=== PATIENT | male | born 1965 | race Caucasian/White ===

== ENCOUNTER 2017-03-26 23:15 | Emergency (ER) | payer BC ==
[~2017-03-26] VITALS: Ht 179.1 cm; Wt 76.5 kg
[~2017-03-26 23:15] MED LIST: ACET-2158 PO; ACET500C5 PO; CIPR500T4 PO; INSU100V27 SC; LEVE-5 PO; MECL25TA2 PO; METF1000 PO; MUPI22OI2 TOP; PRAV20TA63 PO; ZOF8 PO
[2017-03-26 23:31] VITALS: Ht 179.1 cm; Wt 76.5 kg
--- NOTE | 2017-03-27 02:44 | ERD ---
ER Documentation Chief Complaint Date/Time DATE: 03/27/17 TIME: 02:42 Chief Complaint LT FOOT PAIN /WOUND ON HEEL X2 DAYS +SWELLING. HX DM HPI 30-year-old male presents to emergency department for complaint of left foot pain for 2 days, patient had a wound on the left foot, on the heel and on the plantar aspect of the foot, he noticed it today, discussed pain as throbbing pain, especially scale, comminuted with swelling and some redness. Patient is diabetic. Patient denies any numbness or tingling. Patient denies any fever or chills. ROS All systems reviewed and are negative except as per history of present illness. Medications Home Meds Active Scripts Acetaminophen* (Tylophen*) 500 Mg Capsule, 1 CAP PO Q6H Y for PAIN AND OR ELEVATED TEMP, #20 CAP Prov:MASSIEL PATTERSON NP 05/20/16 Mupirocin* (Bactroban*) 2% -22 Gram Oint...g., 1 APPLIC TOP BID for 7 Days, EA Prov:MAVIS LAYNE MD 04/29/15 Ciprofloxacin Hcl* (Ciprofloxacin Hcl*) 500 Mg Tablet, 500 MG PO BID for 7 Days , TAB Prov:MAVIS LAYNE MD 04/29/15 Levetiracetam* (Keppra*) 500 Mg Tablet, 500 MG PO BID for 30 Days, TAB Prov:CIELO ACEVEDO 08/30/14 Ondansetron Hcl* (Zofran* ODT) 8 mg -ODT Tab.disper, 8 MG PO q8h Y for NAUSEA AND OR VOMITING, #30 TAB Prov:CIELO ACEVEDO 08/30/14 Meclizine Hcl* (Antivert*) 25 Mg Tab, 25 MG PO TID Y for DIZZINESS, #90 Prov:CIELO ACEVEDO 08/30/14 Acetaminophen (TYLENOL 325 MG TAB) 325 Mg Tab, 650 MG PO Q4H Y for PAIN AND OR ELEVATED TEMP for 30 Days, TAB Prov:CIELO ACEVEDO 08/30/14 Reported Medications Pravastatin Sodium* (Pravastatin Sodium*) 20 Mg Tablet, 20 MG PO DAILY, TAB 08/27/14 Metformin Hcl* (Metformin Hcl*) 1,000 Mg Tablet, 1000 MG PO BID, TAB 08/27/14 Insulin Lisp Protam/Lisp Human* (Humalog Mix (75/25)*) 100 Units/Ml Susp, 30 SC BID, EA 08/27/14 Allergies Allergies: Coded Allergies: No Known Allergies (Unverified Allergy, Unknown, 03/26/17) PMhx/Soc History of Surgery: Yes (craniotomy) Anesthesia Reaction: No Hx Neurological Disorder: No Hx Respiratory Disorders: No Hx Cardiac Disorders: No Hx Psychiatric Problems: No Hx Miscellaneous Medical Probl: Yes (DM) Hx Alcohol Use: No Hx Substance Use: No Hx Tobacco Use: No Smoking Status: Never smoker FmHx Family History: No coronary disease, No diabetes, No other Physical Exam Vitals Vital Signs Date Time Temp Pulse Resp B/P Pulse Ox O2 Delivery O2 Flow Rate FiO2 03/26/17 23:31 98.1 89 18 115/68 99 Physical Exam GENERAL: The patient is well developed and appropriate for usual state of health, in no apparent distress. CHEST: Clear to auscultation bilaterally. There are no rales, wheezes or rhonchi. HEART: Regular rate and rhythm. No murmurs, clicks, rubs or gallops. No S3 or S4. ABDOMEN: Soft, nontender and nondistended. Good bowel sounds. No rebound or guarding. No gross peritonitis. No gross organomegaly or masses. No Manuel sign or McBurney point tenderness. BACK: No midline or flank tenderness. EXTREMITIES: Equal pulses bilaterally. There is no peripheral clubbing, cyanosis or edema. No focal swelling or erythema. Full range of motion. Grossly neurovascularly intact. NEURO: Alert and oriented. Cranial nerves 2-12 intact. Motor strength in all 4 extremities with 5/5 strength. Sensation grossly intact. Normal speech and gait. SKIN: Noted 0.5 cm ulcer on the plantar aspect of the left foot with some redness around the area, no purulent discharge. Noted some 0.5 cm also noted and heell area, no discharge noted, mild swelling noted and mild redness noted. There is no apparent rash or petechia. The skin is warm and dry. HEMATOLOGIC AND LYMPHATIC: There is no evidence of excessive bruising or lymphedema. No gross cervical, axillary, or inguinal lymphadenopathy. Results 24 hrs Current Medications Medications (Trade) Dose Ordered Sig/Hoang Route PRN Reason Start Time Stop Time Status Last Admin Dose Admin Cefazolin Sodium (Ancef) 1 gm ONCE ONCE IM 03/27/17 04:00 03/27/17 04:01 DC 03/27/17 04:16 Diphtheria/ Tetanus/Acell Pertussis (Adacel) 0.5 ml ONCE ONCE IM* 03/27/17 04:00 03/27/17 04:01 DC 03/27/17 04:18 PROCEDURE: XR Foot. CLINICAL INDICATION: Trauma. TECHNIQUE: AP, lateral and oblique views of the left foot was obtained. COMPARISON: There are no similar studies submitted for comparison. FINDINGS: There is normal bone mineralization. There is no acute fracture or dislocation. No osseous erosions are identified. The joint spaces are within normal limits. There is soft tissue swelling over the lateral aspect of the foot. A 3 mm radiopaque foreign body is seen along the lateral aspect of the foot overlying the head of the fifth metatarsal bone. IMPRESSION: No acute fracture or dislocation. Soft tissue swelling and small radiopaque foreign body. RPTAT: HIKT .Song Bullock MD, MD Date Time Electronically viewed and signed by .Song Bullock MD, on 03/27/2017 02:43 .T/ CC: MASSIEL PATTERSON NP PROCEDURE: XR Foot. CLINICAL INDICATION: Foreign body. TECHNIQUE: AP, lateral and oblique views of the left foot was obtained. COMPARISON: Examination performed earlier the same day. FINDINGS: There is normal bone mineralization. There is no acute fracture or dislocation. No osseous erosions are identified. The joint spaces are within normal limits. Some soft tissue swelling along the lateral aspect of the foot is unchanged. There has been interval removal of the previously seen foreign body. No other radiopaque foreign bodies are seen. IMPRESSION: Interval removal of a radiopaque foreign body. RPTAT: HIKT .Song Bullock MD, MD Date Time Electronically viewed and signed by .Song Bullock MD, on 03/27/2017 04:34 .T/ CC: MASSIEL PATTERSON NP Procedures/MDM Procedure Note: After patient's verbal consent, the wound was cleaned with diluted betadine, able to do small piece of glass on the open wound of the left foot without any difficulty. Medical Decision Making: Patient's pain is most likely consistent with a wound on affected area and the foreign body does was removed without any difficulty. There is no suspicion for neurovascular compromise. Patient has intact sensation and circulation of the affected extremity. There is low suspicion for septic arthritis. Patient does not have any fever. Radiology exams of the affected area does not show any fracture or dislocation. Noted foreign body was seen anymore the repeat x-ray. Disposition: Home. Patient is given prescription for ibuprofen for pain now for severe pain, Keflex and Bactrim. Patient was advised to elevate the affected area and apply ice on affected area. Patient was advised that if symptoms are worse, numbness, tingling, high fever, unable to move joint, worsening symptoms , to return to emergency department immediately. Otherwise, patient is advised to follow up with the primary care doctor in 2 days for reevaluation of the wound. Departure Diagnosis: Primary Impression: Foreign body (FB) in soft tissue Additional Impression: Wound infection Condition: Stable Patient Instructions: Foreign Body, Soft Tissue (Removed), Wound Care Additional Instructions: Patient is given prescription for ibuprofen for pain now for severe pain, Keflex and Bactrim. Patient was advised to elevate the affected area and apply ice on affected area. Patient was advised that if symptoms are worse, numbness , tingling, high fever, unable to move joint, worsening symptoms, to return to emergency department immediately. Otherwise, patient is advised to follow up with the primary care doctor in 2 days for reevaluation of the wound. MASSIEL PATTERSON NP March 27, 2017 02:44
[2017-03-27] MEDS ORDERED: DIPHTH/TET/ACEL PERTUSS (ADULT) 0.5 ML VIAL IM* ONE (04:00)
[2017-03-27] MEDS ORDERED: CEFAZOLIN 1 GM INJ IM ONE (04:00)
--- NOTE | 2017-03-27 04:34 | RADRPT ---
PROCEDURE: XR Foot. CLINICAL INDICATION: Foreign body. TECHNIQUE: AP, lateral and oblique views of the left foot was obtained. COMPARISON: Examination performed earlier the same day. FINDINGS: There is normal bone mineralization. There is no acute fracture or dislocation. No osseous erosions are identified. The joint spaces are within normal limits. Some soft tissue swelling along the lateral aspect of the foot is unchanged. There has been interva l removal of the previously seen foreign body. No other radiopaque foreign bodies are seen. IMPRESSION: Interval removal of a radiopaque foreign body. RPTAT: HIKT .Song Bullock MD, Date Time Electronically viewed and signed by .Song Bullock MD, on 03/27/2017 04:34 .T/
[2017-03-27] MEDS ORDERED: SULF1TAB31 PO (04:42)
[2017-03-27] MEDS ORDERED: IBUP-1542 PO (04:42)
[2017-03-27] MEDS ORDERED: CEPH-443 PO (04:42)
[2017-03-27 05:13] VITALS: BP 141/89; PULSE 74; RESP 16
== END 2017-03-27 05:14 | disposition home or self-care (01) ==
LOC: FTE 23:15
DX: S90.852A Superficial foreign body, left foot, initial encounter (principal); E11.9 Type 2 diabetes mellitus without complications; W25.XXXA Contact with sharp glass, initial encounter; Y92.9 Unspecified place or not applicable; Z79.4 Long term (current) use of insulin; Z79.84 Long term (current) use of oral hypoglycemic drugs
CPT/HCPCS: 73630; 90471; 90715; 96372; 99284; J0690

== ENCOUNTER 2017-04-03 01:54 | Emergency (ER) | payer BC ==
[~2017-04-03] VITALS: Ht 177.8 cm; Wt 77.0 kg
[~2017-04-03 01:54] MED LIST changes: +CEPH-443 PO; +IBUP-1542 PO; +SULF1TAB31 PO
[2017-04-03 02:00] VITALS: Ht 177.8 cm; Wt 77.0 kg
[2017-04-03 02:59] LABS: ADD SCAN DIFF NO
[2017-04-03 03:00] LABS: BASOPHIL # 0.1 10^3/ul (0.0-0.1); BASOPHILS % 0.8 % (0.0-2.0); EOSINOPHILS # 0.3 10^3/ul (0.0-0.5); EOSINOPHILS % 5.2 % (0.0-7.0); HEMATOCRIT 38.4 % (42.0-52.0); HEMOGLOBIN 12.9 g/dl (14.0-18.0); LYMPHOCYTES # 1.5 10^3/ul (0.8-2.9); LYMPHOCYTES % 22.9 % (15.0-51.0); MEAN CORPUSCULAR HEMOGLOBIN 27.7 pg (29.0-33.0); MEAN CORPUSCULAR HGB CONC 33.6 g/dl (32.0-37.0); MEAN CORPUSCULAR VOLUME 82.4 fl (82.0-101.0); MEAN PLATELET VOLUME 10.2 fl (7.4-10.4); MONOCYTE # 0.5 10^3/ul (0.3-0.9); MONOCYTES % 8.2 % (0.0-11.0); NEUTROPHILS % 62.7 % (39.0-77.0); PLATELET COUNT 316 10^3/UL (140-415); RED BLOOD COUNT 4.66 10^6/ul (4.70-6.10); RED CELL DISTRIBUTION WIDTH 11.9 % (11.5-14.5); WHITE BLOOD COUNT 6.3 10^3/ul (4.8-10.8)
[2017-04-03 03:26] LABS: ALBUMIN 4.8 g/dl (3.3-4.9); ALBUMIN/GLOBULIN RATIO 2.4; BILIRUBIN,INDIRECT 0.3 mg/dl (0-1.1); BILIRUBIN,TOTAL 0.3 mg/dl (0.2-1.3); CALCIUM 9.4 mg/dl (8.4-10.2); CREATININE 0.8 mg/dl (0.61-1.24); POTASSIUM 4.8 mmol/L (3.5-5.1); TOTAL PROTEIN 6.8 g/dl (6.1-8.1)
--- NOTE | 2017-04-03 03:29 | ERD ---
ER Documentation Chief Complaint Date/Time DATE: 04/03/17 TIME: 03:28 Chief Complaint Wound on the left foot, Swollen and red after 1 week HPI 52-year-old male presents to emergency department for evaluation of the wound on the left side, patient had a foreign body in the left foot that was removed one week ago, finished doses of antibiotics, patient states that he got better, and now it become more red and swollen again, complains of pain on affected area throbbing pain 4/10 scale, is worse with touching the area. Patient is diabetic. Patient denies any fever or chills. Patient noticed some serous fluid coming from the area. ROS All systems reviewed and are negative except as per history of present illness. Medications Home Meds Active Scripts Clindamycin Hcl* (Clindamycin Hcl*) 300 Mg Capsule, 300 MG PO TID for 10 Days, CAP Prov:MASSIEL PATTERSON NP 04/03/17 Cephalexin* (Keflex*) 500 Mg Capsule, 500 MG PO QID for 10 Days, CAP Prov:MASSIEL PATTERSON NP 03/27/17 Sulfamethoxazole/Trimethoprim* (Bactrim Ds* Tablet) 1 Each Tablet, 1 TAB PO BID , #20 TAB Prov:MASSIEL PATTERSON NP 03/27/17 Ibuprofen* (Motrin*) 600 Mg Tab, 600 MG PO Q6H Y for PAIN AND OR ELEVATED TEMP, #30 TAB Prov:MASSIEL PATTERSON NP 03/27/17 Acetaminophen* (Tylophen*) 500 Mg Capsule, 1 CAP PO Q6H Y for PAIN AND OR ELEVATED TEMP, #20 CAP Prov:MASSIEL PATTERSON NP 05/20/16 Mupirocin* (Bactroban*) 2% -22 Gram Oint...g., 1 APPLIC TOP BID for 7 Days, EA Prov:MAVIS LAYNE MD 04/29/15 Ciprofloxacin Hcl* (Ciprofloxacin Hcl*) 500 Mg Tablet, 500 MG PO BID for 7 Days , TAB Prov:MAVIS LAYNE MD 04/29/15 Levetiracetam* (Keppra*) 500 Mg Tablet, 500 MG PO BID for 30 Days, TAB Prov:CIELO ACEVEDO 08/30/14 Ondansetron Hcl* (Zofran* ODT) 8 mg -ODT Tab.disper, 8 MG PO q8h Y for NAUSEA AND OR VOMITING, #30 TAB Prov:CIELO ACEVEDO 08/30/14 Meclizine Hcl* (Antivert*) 25 Mg Tab, 25 MG PO TID Y for DIZZINESS, #90 Prov:CIELO ACEVEDO 08/30/14 Acetaminophen (TYLENOL 325 MG TAB) 325 Mg Tab, 650 MG PO Q4H Y for PAIN AND OR ELEVATED TEMP for 30 Days, TAB Prov:CIELO ACEVEDO 08/30/14 Reported Medications Pravastatin Sodium* (Pravastatin Sodium*) 20 Mg Tablet, 20 MG PO DAILY, TAB 08/27/14 Metformin Hcl* (Metformin Hcl*) 1,000 Mg Tablet, 1000 MG PO BID, TAB 08/27/14 Insulin Lisp Protam/Lisp Human* (Humalog Mix (75/25)*) 100 Units/Ml Susp, 30 SC BID, EA 08/27/14 Allergies Allergies: Coded Allergies: No Known Allergies (Unverified Allergy, Unknown, 03/26/17) PMhx/Soc Medical and Surgical Hx: pt denies Medical Hx, pt denies Surgical Hx History of Surgery: Yes (craniotomy) Anesthesia Reaction: No Hx Neurological Disorder: No Hx Respiratory Disorders: No Hx Cardiac Disorders: No Hx Psychiatric Problems: No Hx Miscellaneous Medical Probl: Yes (DM) Hx Alcohol Use: No Hx Substance Use: No Hx Tobacco Use: No Smoking Status: Never smoker FmHx Family History: No coronary disease, No diabetes, No other Physical Exam Vitals Vital Signs Date Time Temp Pulse Resp B/P Pulse Ox O2 Delivery O2 Flow Rate FiO2 04/03/17 02:00 97.4 88 18 130/77 99 Physical Exam GENERAL: The patient is well developed and appropriate for usual state of health, in no apparent distress. CHEST: Clear to auscultation bilaterally. There are no rales, wheezes or rhonchi. HEART: Regular rate and rhythm. No murmurs, clicks, rubs or gallops. No S3 or S4. ABDOMEN: Soft, nontender and nondistended. Good bowel sounds. No rebound or guarding. No gross peritonitis. No gross organomegaly or masses. No Manuel sign or McBurney point tenderness. BACK: No midline or flank tenderness. EXTREMITIES: Equal pulses bilaterally. There is no peripheral clubbing, cyanosis or edema. No focal swelling or erythema. Full range of motion. Grossly neurovascularly intact. NEURO: Alert and oriented. Cranial nerves 2-12 intact. Motor strength in all 4 extremities with 5/5 strength. Sensation grossly intact. Normal speech and gait. SKIN: Noted open wound on the plantar aspect of the left foot, mild redness surrounding the area, mild tenderness on palpation. No fluctuance noted. There is no apparent ecchymosis or petechia. The skin is warm and dry. HEMATOLOGIC AND LYMPHATIC: There is no evidence of excessive bruising or lymphedema. No gross cervical, axillary, or inguinal lymphadenopathy. Result Diagram: 04/03/17 0245 04/03/17 0245 Results 24 hrs Laboratory Tests Test 04/03/17 02:45 04/03/17 05:20 White Blood Count 6.310^3/ul Red Blood Count 4.6610^6/ul Hemoglobin 12.9g/dl Hematocrit 38.4% Mean Corpuscular Volume 82.4fl Mean Corpuscular Hemoglobin 27.7pg Mean Corpuscular Hemoglobin Concent 33.6g/dl Red Cell Distribution Width 11.9% Platelet Count 50988^3/UL Mean Platelet Volume 10.2fl Neutrophils % 62.7% Lymphocytes % 22.9% Monocytes % 8.2% Eosinophils % 5.2% Basophils % 0.8% Nucleated Red Blood Cells % 0.0/100WBC Neutrophils # 4.010^3/ul Lymphocytes # 1.510^3/ul Monocytes # 0.510^3/ul Eosinophils # 0.310^3/ul Basophils # 0.110^3/ul Nucleated Red Blood Cells # 0.010^3/ul Sodium Level 135mmol/L Potassium Level 4.8mmol/L Chloride Level 97mmol/L Carbon Dioxide Level 28mmol/L Anion Gap 15 Blood Urea Nitrogen 26mg/dl Creatinine 0.80mg/dl Glucose Level 408mg/dl Lactic Acid Level 1.4mmol/L Calcium Level 9.4mg/dl Total Bilirubin 0.3mg/dl Direct Bilirubin 0.00mg/dl Indirect Bilirubin 0.3mg/dl Aspartate Amino Transf (AST/SGOT) 31IU/L Alanine Aminotransferase (ALT/SGPT) 51IU/L Alkaline Phosphatase 124IU/L Total Protein 6.8g/dl Albumin 4.8g/dl Globulin 2.00g/dl Albumin/Globulin Ratio 2.40 Bedside Glucose 362mg/dL Current Medications Medications (Trade) Dose Ordered Sig/Hoang Route PRN Reason Start Time Stop Time Status Last Admin Dose Admin Clindamycin HCl/ Dextrose (Cleocin 600 Mg/ D5W (Pmx)) 50 ml @ 50 mls/hr ONCE IVPB 04/03/17 04:30 04/03/17 05:29 DC 04/03/17 05:07 Insulin Aspart (Novolog Insulin Pen) 10 unit ONCE ONCE SC 04/03/17 04:30 04/03/17 04:31 DC 04/03/17 05:01 PROCEDURE: XR Foot. CLINICAL INDICATION: Left foot pain and swelling TECHNIQUE: 3 views of the left foot were obtained. COMPARISON: None. FINDINGS: No fracture or dislocation is seen. No foreign body is seen. No marked soft tissue swelling. No significant degenerative change. Minimal calcaneal enthesopathy is seen. IMPRESSION: No definite acute fracture or dislocation. RPTAT: [facility] Physician Andre Date Time Electronically viewed and signed by Caitlyn Hope Physician on 04/03/2017 04 :07 LE/ CC: MASSIEL PATTERSON [employer]IMAL REHABILITATOR Procedures/MDM Medical Decision Making: Patient's pain is most likely consistent with a infection, no symptoms of any abscesses, no changes indicating osteomyelitis, no suspicion for osteomyelitis. No elevation of white count, that indicates it is normal, no bandemia noted.. There is no suspicion for neurovascular compromise. Patient has intact sensation and circulation of the affected extremity. There is low suspicion for septic arthritis. Patient does not have any fever. Radiology exams of the affected area does not show any fracture or dislocation. Patient's diabetic symptoms have stabilized here in the emergency department and appear appropriate for outpatient management. No evidence at this time of diabetic ketoacidosis, hyperosmolar syndrome, or severe systemic infection. Disposition: Home. Patient is given prescription for clindamycin. Patient was advised to elevate the affected area and apply ice on affected area. Patient was advised that if symptoms are worse, numbness, tingling, high fever, unable to move joint, worsening symptoms, to return to emergency department immediately. Otherwise, patient is advised to follow up with the primary care doctor in 2 days for reevaluation of symptoms. Departure Diagnosis: Primary Impression: Wound infection Additional Impression: Hyperglycemia Condition: Stable Patient Instructions: Hyperglycemia (High Blood Sugar), Wound Care Additional Instructions: Patient is given prescription for clindamycin. Patient was advised to elevate the affected area and apply ice on affected area. Patient was advised that if symptoms are worse, numbness, tingling, high fever, unable to move joint, worsening symptoms, to return to emergency department immediately. Otherwise, patient is advised to follow up with the primary care doctor in 2 days for reevaluation of symptoms. MASSIEL PATTERSON NP Apr 03, 2017 03:29
--- NOTE | 2017-04-03 04:07 | RADRPT ---
PROCEDURE: XR Foot. CLINICAL INDICATION: Left foot pain and swelling TECHNIQUE: 3 views of the left foot were obtained. COMPARISON: None. FINDINGS: No fracture or dislocation is seen. No foreign body is seen. No marked soft tissue swelling. No s ignificant degenerative change. Minimal calcaneal enthesopathy is seen. IMPRESSION: No definite acute fracture or dislocation. RPTAT: [facility] Caitlyn Hope Physician Date Time Electronically viewed and signed by Caitlyn Hope, Physician on 04/03/2017 04:07 LE/
[2017-04-03] MEDS ORDERED: CLIN-73 PO (04:24)
[2017-04-03] MEDS ORDERED: INSULIN ASPART [NOVOLOG] 3 ML PEN SC ONE (04:30)
[2017-04-03] MEDS ORDERED: CLINDAMYCIN 600 MG/D5W (PMX) 50 ML IVPB SCH (04:30)
== END 2017-04-03 05:54 | disposition home or self-care (01) ==
LOC: FTE 01:54
DX: T81.4XXA Infection following a procedure, initial encounter (principal); E11.65 Type 2 diabetes mellitus with hyperglycemia; Y69 Unspecified misadventure during surgical and medical care; Z18.89 Other specified retained foreign body fragments; Z79.4 Long term (current) use of insulin; Z79.84 Long term (current) use of oral hypoglycemic drugs
CPT/HCPCS: 73630; 80053; 82962; 83605; 85025; 87070; 96372; 96374; 99284; J1815

== ENCOUNTER 2017-07-23 18:59 | Inpatient (IN) | payer BC ==
[~2017-07-23] VITALS: Ht 167.6 cm; Wt 81.4 kg
[~2017-07-23 18:59] MED LIST changes: +CLIN-73 PO
[2017-07-23] MEDS ORDERED: CITA-104 PO (21:33)
[2017-07-23] MEDS ORDERED: SODIUM CHLORIDE 0.9% 1L BAG IV* STA (21:46)
[2017-07-23] MEDS ORDERED: PIPER-TAZO 3.375 GM IV (PMX) 100 ML IVPB STA (21:46)
[2017-07-23] MEDS ORDERED: VANCOMYCIN 1 GM (PMX) 250 ML IVPB STA (21:46)
--- NOTE | 2017-07-23 22:03 | ERA ---
ER Documentation Chief Complaint Date/Time DATE: 07/23/17 TIME: 22:01 Chief Complaint Having chills today, noted with left diabetic foot wound. On antibiotics HPI Patient is a 52-year-old male with type 1 diabetes sent to the ER from urgent care, where he presented with gradual onset, constant, progressive left lateral distal foot redness and discharge for 5 days. The foot has become more red over the last 2 days, and the patient has had lethargy, tachypnea shortness of breath, and dry mouth. His also has noted that he has a sweet odor to his breath. He was found to have a glucose of 469 at urgent care with 4+ ketones in his urine. He reports having a foreign body of glass in his left foot several months ago that was removed. He was treated for cellulitis at that time. There is no sign of infection until 5 days ago. Patient denies prior history of DKA. He denies abdominal pain or vomiting.He denies chest pain or shortness of breath. He did not measure his temperature, but states that he had sweats last night. ROS All systems reviewed and are negative except as per history of present illness. Medications Home Meds Reported Medications Citalopram Hydrobromide* (Citalopram Hydrobromide*) 40 Mg Tablet, 40 MG PO DAILY , #30 TAB 07/23/17 Pravastatin Sodium* (Pravastatin Sodium*) 20 Mg Tablet, 20 MG PO DAILY, TAB 08/27/14 Metformin Hcl* (Metformin Hcl*) 1,000 Mg Tablet, 1000 MG PO BID, TAB 08/27/14 Insulin Lisp Protam/Lisp Human* (Humalog Mix (75/25)*) 100 Units/Ml Susp, 35 SC BID, EA 08/27/14 Discontinued Scripts Clindamycin Hcl* (Clindamycin Hcl*) 300 Mg Capsule, 300 MG PO TID for 10 Days, CAP Prov:MASSIEL PATTERSON NP 04/03/17 Cephalexin* (Keflex*) 500 Mg Capsule, 500 MG PO QID for 10 Days, CAP Prov:MASSIEL PATTERSON NP 03/27/17 Sulfamethoxazole/Trimethoprim* (Bactrim Ds* Tablet) 1 Each Tablet, 1 TAB PO BID , #20 TAB Prov:MASSIEL PATTERSON NP 03/27/17 Ibuprofen* (Motrin*) 600 Mg Tab, 600 MG PO Q6H Y for PAIN AND OR ELEVATED TEMP, #30 TAB Prov:MASSIEL PATTERSON NP 03/27/17 Acetaminophen* (Tylophen*) 500 Mg Capsule, 1 CAP PO Q6H Y for PAIN AND OR ELEVATED TEMP, #20 CAP Prov:MASSIEL PATTERSON NP 05/20/16 Mupirocin* (Bactroban*) 2% -22 Gram Oint...g., 1 APPLIC TOP BID for 7 Days, EA Prov:MAVIS LAYNE MD 04/29/15 Ciprofloxacin Hcl* (Ciprofloxacin Hcl*) 500 Mg Tablet, 500 MG PO BID for 7 Days , TAB Prov:MAVIS LAYNE MD 04/29/15 Levetiracetam* (Keppra*) 500 Mg Tablet, 500 MG PO BID for 30 Days, TAB Prov:CIELO ACEVEDO 08/30/14 Ondansetron Hcl* (Zofran* ODT) 8 mg -ODT Tab.disper, 8 MG PO q8h Y for NAUSEA AND OR VOMITING, #30 TAB Prov:CIELO ACEVEDO 08/30/14 Meclizine Hcl* (Antivert*) 25 Mg Tab, 25 MG PO TID Y for DIZZINESS, #90 Prov:CIELO ACEVEDO 08/30/14 Acetaminophen (TYLENOL 325 MG TAB) 325 Mg Tab, 650 MG PO Q4H Y for PAIN AND OR ELEVATED TEMP for 30 Days, TAB Prov:CIELO ACEVEDO 08/30/14 Allergies Allergies: Coded Allergies: No Known Allergies (Unverified Allergy, Unknown, 07/23/17) PMhx/Soc Past medical history: Diabetes mellitus, traumatic subdural hematoma Past surgical history: Craniotomy Social history: Denies tobacco, alcohol or illicit drugs. History of Surgery: Yes (craniotomy) Anesthesia Reaction: No Hx Neurological Disorder: No Hx Respiratory Disorders: No Hx Cardiac Disorders: No Hx Psychiatric Problems: No Hx Miscellaneous Medical Probl: Yes (DM) Hx Alcohol Use: No Hx Substance Use: No Hx Tobacco Use: No Smoking Status: Never smoker FmHx Noncontributory Physical Exam Vitals Vital Signs Date Time Temp Pulse Resp B/P Pulse Ox O2 Delivery O2 Flow Rate FiO2 07/23/17 23:11 99.4 108 22 137/84 100 Room Air 07/23/17 19:27 99.4 115 22 125/68 98 Physical Exam Const: Alert, slightly lethargic, no acute distress Head: Atraumatic Eyes: Normal Conjunctiva, No pallor, no icterus ENT: Normal External Ears, Nose and Mouth. Tacky mucous membranes Neck: Full range of motion. No meningismus. Resp: Tachypnea. Clear to auscultation bilaterally. No wheezes, no rales Cardio: Moderate tachycardia, regular rhythm, no murmurs Abd: Soft, non tender, non distended. Skin: No petechiae or rashes Back: No midline or flank tenderness Ext: No cyanosis. Erythema and edema over left lateral fifth MTP. No drainage. No hemorrhagic bulla. 2+ DP pulses, 2 second cap refill. Neur: Awake and alert, Cranial nerves II through XII intact bilaterally, strength and sensation full in 4 extremes. Psych: Normal Mood and Affect Result Diagram: 07/23/17214607/23/172146 Results 24 hrs Laboratory Tests Test 07/23/17 21:37 07/23/17 21:47 Bedside Glucose 452mg/dL White Blood Count 19.110^3/ul Red Blood Count 4.9610^6/ul Hemoglobin 13.9g/dl Hematocrit 41.6% Mean Corpuscular Volume 83.9fl Mean Corpuscular Hemoglobin 28.0pg Mean Corpuscular Hemoglobin Concent 33.4g/dl Red Cell Distribution Width 12.4% Platelet Count 41520^3/UL Mean Platelet Volume 10.6fl Neutrophils % 88.7% Lymphocytes % 2.2% Monocytes % 7.3% Eosinophils % 0.0% Basophils % 0.2% Nucleated Red Blood Cells % 0.0/100WBC Neutrophils # 17.010^3/ul Lymphocytes # 0.410^3/ul Monocytes # 1.410^3/ul Eosinophils # 0.010^3/ul Basophils # 0.010^3/ul Nucleated Red Blood Cells # 0.010^3/ul Prothrombin Time 14.3Sec Prothrombin Time Ratio 1.1 INR International Normalized Ratio 1.11 Activated Partial Thromboplast Time 26.8Sec Sodium Level 132mmol/L Potassium Level 5.0mmol/L Chloride Level 95mmol/L Carbon Dioxide Level 10mmol/L Anion Gap 32 Blood Urea Nitrogen 20mg/dl Creatinine 1.10mg/dl Glucose Level 515mg/dl Lactic Acid Level 2.6mmol/L Calcium Level 9.7mg/dl Total Bilirubin 0.7mg/dl Direct Bilirubin 0.00mg/dl Indirect Bilirubin 0.7mg/dl Aspartate Amino Transf (AST/SGOT) 15IU/L Alanine Aminotransferase (ALT/SGPT) 24IU/L Alkaline Phosphatase 91IU/L Troponin I < 0.012ng/ml Total Protein 8.2g/dl Albumin 4.8g/dl Globulin 3.40g/dl Albumin/Globulin Ratio 1.41 Current Medications Medications (Trade) Dose Ordered Sig/Hoang Route PRN Reason Start Time Stop Time Status Last Admin Dose Admin Sodium Chloride 2290 ml 2,290 ml BOLUS OVER 2 HOURS STAT IV* 07/23/17 21:46 07/23/17 21:49 DC 07/23/17 22:12 Vancomycin HCl 250 ml @ 125 mls/hr ONCE STAT IVPB 07/23/17 21:46 07/23/17 23:45 DC 07/23/17 23:00 Piperacillin Sod/ Tazobactam Sod 100 ml @ 100 mls/hr ONCE STAT IVPB 07/23/17 21:46 07/23/17 22:45 DC 07/23/17 22:13 Insulin Human Regular 100 unit/ Sodium Chloride 100 ml @ 0 mls/hr TITRATE STAT IV 07/23/17 23:11 07/23/17 23:14 DC 07/23/17 23:50 Potassium Chloride 40 meq/ Sodium Chloride 270 ml @ 63 mls/hr Q4H18M STAT IV 07/23/17 23:11 07/24/17 03:28 Magnesium Sulfate (Magnesium Sulfate 2 Gm/50 ml) 50 ml @ 25 mls/hr ONCE ONCE IVPB 07/23/17 23:30 07/24/17 01:29 Procedures/MDM EKG read by me: Time 2241, rate 113 Rhythm: Sinus tachycardia [place]: Normal Intervals: Normal ST-T waves: no ischemic changes Ectopy: No Q-waves: No Q waves. Poor R-wave progression V1 to V2 suggestive of septal infarct Impression: Sinus tachycardia with possible prior septal infarct MDM: Patient is a 52-year-old male with type 1 diabetes insulin-dependent diabetes mellitus who presents to the ER with 5 days of worsening infection to the left foot. There is no sign of necrotizing soft tissue infection, but appearance is concerning for osteomyelitis. The patient is tachypneic and has odor of ketones on his breath. Labs confirm that he is in ketoacidosis. He has a normal potassium. There is no evidence of coronary ischemia. He was started on insulin drip. Blood and urine cultures were sent. ESR is pending. Serum ketones are pending. The patient was given IV fluids with potassium. He is given weight-based fluids for sepsis. Broad-spectrum antibiotics were administered. X-ray of the foot was not clearly consistent with osteomyelitis, but MRI may be necessary to establish the diagnosis. Urinalysis is pending. Chest x-ray showed no infiltrate. The patient will be admitted to the ICU for treatment of DKA and further infectious workup. His ABG shows a pH of 7.23. This was discussed with Dr. Acevedo. Critical Care Time: 31 minutes Treatments/Evaluations: Close monitoring and treatment of unstable vital signs, cardiorespiratory, and neurologic status, while maintaining tight balance of fluid, respiratory, and cardiac interventions. This time includes discussing the case with the patient and the patient's family. This time does not include all procedures stated elsewhere in this record. This time also includes reviewing old records, labs and radiological studies. This time includes examining and re-examining the patient. Additionally, this time also includes arranging care with admitting and consulting physicians. Departure Diagnosis: Primary Impression: Diabetic ketoacidosis Qualified Code: E10.10 - Diabetic ketoacidosis without coma associated with type 1 diabetes mellitus Additional Impressions: Diabetic foot infection Sepsis Qualified Code: A41.9 - Sepsis, due to unspecified organism Condition: PRASHANT Hardy MD Jul 23, 2017 22:03
[2017-07-23 22:38] LABS: ABNORMAL IP MESSAGE 1; BASOPHILS % 0.2 % (0.0-2.0); HEMATOCRIT 41.6 % (42.0-52.0); HEMOGLOBIN 13.9 g/dl (14.0-18.0); LYMPHOCYTES # 0.4 10^3/ul (0.8-2.9); LYMPHOCYTES % 2.2 % (15.0-51.0); MEAN CORPUSCULAR HGB CONC 33.4 g/dl (32.0-37.0); MEAN CORPUSCULAR VOLUME 83.9 fl (82.0-101.0); MEAN PLATELET VOLUME 10.6 fl (7.4-10.4); MONOCYTE # 1.4 10^3/ul (0.3-0.9); MONOCYTES % 7.3 % (0.0-11.0); NEUTROPHILS % 88.7 % (39.0-77.0); PLATELET COUNT 287 10^3/UL (140-415); POSITIVE DIFF @See below; RED BLOOD COUNT 4.96 10^6/ul (4.70-6.10); RED CELL DISTRIBUTION WIDTH 12.4 % (11.5-14.5); WHITE BLOOD COUNT 19.1 10^3/ul (4.8-10.8)
--- NOTE | 2017-07-23 22:47 | RADRPT ---
PROCEDURE: XR left foot. CLINICAL INDICATION: Pain. Clinical concern for osteomyelitis TECHNIQUE: AP and lateral views of the left foot were obtained. COMPARISON: None. FINDINGS: Mineralization is within normal limits. No fracture or osseous lesion is identified. There is no e vidence for dislocation. No focal bone destruction or periosteal reaction is demonstrated. Diffuse soft tissue swelling is present most pronounced overlying the fifth metatarsal phalangeal joint. Th ere is no evidence for a radiopaque foreign body. IMPRESSION: Soft tissue swelling most pronounced over the fifth metatarsal phalangeal joint without plain film e vidence for osteomyelitis of the left foot. RPTAT:HJJR Physician Dalton Date Time Electronically viewed and signed by Physician Dalton on 07/23/2017 22:47 /
--- NOTE | 2017-07-23 22:48 | RADRPT ---
PROCEDURE: XR Chest. CLINICAL INDICATION: Sepsis. TECHNIQUE: Portable AP cross-table views of the chest were obtained, 2 images submitted to the PAC S for review. COMPARISON: None. FINDINGS: The cardiomediastinal silhouette is within normal limits. The lungs are clear. There is no evidenc e for pleural effusion, pneumothorax or pulmonary vascular congestion. The osseous structures are i ntact with no evidence for acute abnormality. RPTAT:HJJR IMPRESSION: No evidence for acute intrathoracic pathology. Physician Dalton Date Time Electronically viewed and signed by Physician Dalton on 07/23/2017 22:48 /
[2017-07-23 22:52] LABS: INR 1.11; PROTIME 14.3 Sec (12.2-14.2); PT RATIO 1.1
[2017-07-23 22:53] LABS: PARTIAL THROMBOPLASTIN TIME 26.8 Sec (25.0-35.0)
[2017-07-23 23:07] LABS: ALANINE AMINOTRANSFERASE 24 IU/L (13-69); ALBUMIN 4.8 g/dl (3.3-4.9); ALBUMIN/GLOBULIN RATIO 1.41; ALKALINE PHOSPHATASE 91 IU/L (42-121); ANION GAP 32 (8-16); ASPARTATE AMINO TRANSFERASE 15 IU/L (15-46); BILIRUBIN,INDIRECT 0.7 mg/dl (0-1.1); BILIRUBIN,TOTAL 0.7 mg/dl (0.2-1.3); BLOOD UREA NITROGEN 20 mg/dl (7-20); CALCIUM 9.7 mg/dl (8.4-10.2); CHLORIDE 95 mmol/L (97-110); SODIUM 132 mmol/L (135-144); TOTAL PROTEIN 8.2 g/dl (6.1-8.1)
[2017-07-23 23:10] LABS: CARBON DIOXIDE 10 mmol/L (21-31); GLUCOSE 515 mg/dl (70-220)
[2017-07-23 23:11] VITALS: TEMP 99.4
[2017-07-23] MEDS ORDERED: INSULIN HUMAN REGULAR 100 UNIT in SOD CHLORIDE 0.9% 99 ML IV STA (23:11)
[2017-07-23] MEDS ORDERED: POTASSIUM CHLORIDE 40 MEQ in SOD CHLORIDE 0.9% 250 ML IV STA (23:11)
[2017-07-23 23:20] LABS: TROPONIN-I < 0.012 ng/ml (0.00-0.12)
[2017-07-23] MEDS ORDERED: MAGNESIUM SULFATE 2 GM/50 ML 50 ML IVPB ONE (23:30)
[2017-07-24] VITALS (20 sets, daily range): BP systolic 98–133; BP diastolic 60–86; PULSE 86–114; RESP 15–26
[2017-07-24] MEDS ORDERED: SODIUM CHLORIDE 0.9% 1L BAG IV* STA (00:19)
[2017-07-24] MEDS ORDERED: POTASSIUM CHLORIDE 50 ML IVPB PRN (00:30)
[2017-07-24] MEDS ORDERED: DEXTROSE 50% 50 ML SYRINGE IV PRN ×4 (00:30→10:00)
[2017-07-24] MEDS ORDERED: SOD CHLORIDE 0.9% 1,000 ML IV SCH (00:30)
[2017-07-24] MEDS ORDERED: INSULIN HUMAN REGULAR 100 UNIT in SOD CHLORIDE 0.9% 99 ML IV SCH (00:40)
[2017-07-24 00:46] LABS: ADD UMIC YES; UR ASCORBIC ACID NEGATIVE (NEGATIVE); UR BILIRUBIN (Dip) NEGATIVE (NEGATIVE); UR BLOOD (Dip) 1+ mg/dL (NEGATIVE); UR CLARITY CLEAR (CLEAR); UR COLOR STRAW (YELLOW); UR GLUCOSE (Dip) 3+ mg/dL (NEGATIVE); UR KETONES (Dip) 2+ mg/dL (NEGATIVE); UR LEUKOCYTE ESTERASE (Dip) NEGATIVE Leu/ul (NEGATIVE); UR NITRITE (Dip) NEGATIVE (NEGATIVE); UR RBC 1 /HPF (0-5); UR TOTAL PROTEIN (Dip) NEGATIVE (NEGATIVE); UR UROBILINOGEN (Dip) NEGATIVE (NEGATIVE)
[2017-07-24] MEDS ORDERED: BISACODYL 10 MG SUPP PR PRN (01:00)
[2017-07-24] MEDS ORDERED: ZOLPIDEM 5 MG TAB PO PRN (01:00)
[2017-07-24] MEDS ORDERED: morphine 2 MG INJ IV PRN (01:00)
[2017-07-24] MEDS ORDERED: HYDROCODONE/APAP (5/325) TAB PO PRN (01:00)
[2017-07-24] MEDS ORDERED: VANCOMYCIN IV PER PHARMACY XX SCH (01:00)
[2017-07-24] MEDS ORDERED: MAGNESIUM HYDROXIDE 30ML CUP PO PRN (01:00)
[2017-07-24] MEDS ORDERED: DOCUSATE SODIUM 100 MG CAP PO PRN (01:00)
[2017-07-24] MEDS: ACCU-CHEK XX SCH ×10 (01:09→09:30)
[2017-07-24] MEDS: HYDROCODONE/APAP (5/325) TAB PO PRN ×2 (01:39→22:47)
[2017-07-24 01:49] LABS: CALCIUM 8.7 mg/dl (8.4-10.2); CREATININE 0.9 mg/dl (0.61-1.24); MAGNESIUM 1.7 mg/dl (1.7-2.5)
[2017-07-24] MEDS ORDERED: DEXTROSE 5%-0.9% NACL 1,000 ML IV SCH (03:13)
[2017-07-24] MEDS ORDERED: PANTOPRAZOLE 40 MG INJ IV SCH (06:00)
[2017-07-24] MEDS: PIPER-TAZO 3.375 GM IV (PMX) 100 ML IVPB SCH ×3 (06:01→22:09)
[2017-07-24 06:57] LABS: AADO2 Arterial 20.2 mmHg (7.0-24.0); Allen Test ACCEPTAB; Arterial Base Excess -17.9 mmol/L (-3.0-3); Arterial COHb 0.1 % (0.0-3.0); Arterial Fraction of Oxyhgb 97.2 % (93.0-99.0); Arterial HCO3 7.1 mmol/L (22.0-26.0); Arterial MetHb 0.2 % (0.0-1.5); Arterial Total Hemglobin 13.5 g/dl (12.0-18.0); MODE ROOM AIR
[2017-07-24] MEDS ORDERED: PENDING SANTYL ORDER FOR WOUND CARE XX PRN (07:00)
[2017-07-24 08:19] LABS: ABNORMAL IP MESSAGE 1; BASOPHILS % 0.2 % (0.0-2.0); HEMATOCRIT 34.5 % (42.0-52.0); HEMOGLOBIN 11.5 g/dl (14.0-18.0); LYMPHOCYTES # 0.5 10^3/ul (0.8-2.9); LYMPHOCYTES % 3.4 % (15.0-51.0); MEAN CORPUSCULAR HEMOGLOBIN 26.9 pg (29.0-33.0); MEAN CORPUSCULAR HGB CONC 33.3 g/dl (32.0-37.0); MEAN CORPUSCULAR VOLUME 80.6 fl (82.0-101.0); MEAN PLATELET VOLUME 10.5 fl (7.4-10.4); MONOCYTES % 7.5 % (0.0-11.0); NEUTROPHIL # 11.9 10^3/ul (1.6-7.5); NEUTROPHILS % 87.3 % (39.0-77.0); PLATELET COUNT 221 10^3/UL (140-415); POSITIVE DIFF @See below; RED BLOOD COUNT 4.28 10^6/ul (4.70-6.10); RED CELL DISTRIBUTION WIDTH 12.7 % (11.5-14.5); WHITE BLOOD COUNT 13.6 10^3/ul (4.8-10.8)
[2017-07-24 08:44] LABS: CREATININE 0.61 mg/dl (0.61-1.24); PHOSPHORUS 1.5 mg/dl (2.5-4.9); POTASSIUM 3.9 mmol/L (3.5-5.1)
[2017-07-24] MEDS: CITALOPRAM 20 MG TAB PO SCH (08:52)
[2017-07-24] MEDS: VANCOMYCIN 1 GM in NS 250 ML IVPB SCH ×2 (08:52→20:06)
[2017-07-24] MEDS ORDERED: POTASSIUM PHOSPHATE 30 MM in SOD CHLORIDE 0.9% 250 ML IVPB ONE (09:30)
[2017-07-24] MEDS: SOD CHLORIDE 0.9% 1,000 ML IV SCH ×2 (09:30→16:31)
--- NOTE | 2017-07-24 09:50 | HP ---
Date/Time of Note Date/Time of Note DATE: 07/24/17 TIME: 09:48 Assessment/Plan VTE Prophylaxis VTE Prophylaxis Intervention: SCD's Lines/Catheters IV Catheter Type (from [facility]): Peripheral IV Urinary Cath still in place: No Assessment/Plan Assessment/Plan 52-year-old male with: 1. Diabetic ketoacidosis, likely triggered by acute infection and also poorly controlled diabetes mellitus, patient out of DKA this morning, his gap is closed , he will be transitioned to subcutaneous Lantus along with pre-meal insulin and sliding scale insulin. DC insulin drip. Start carbohydrate controlled diet and change IV fluids to normal saline. We will recheck his BMP around 12 today and later on this afternoon. If his gap stays closed and his blood sugars are fairly controlled he will be transferred to a medical surgical bed. Hemoglobin A1c is out of range Diabetic education is ordered. 2. Sepsis likely secondary to acute infection of the left foot, no signs of osteomyelitis on x-ray, ESR up to 60, patient may have contraindication to MRI, in that case alternative may be CAT scan will discuss with radiology, continue IV antibiotics for now. There is no draining wound, if needed wound consult will be placed. Follow-up blood cultures, urine cultures are no growth to date. 3. Electrolyte imbalance, insetting of DKA, all resolving currently, patient will receive supplemental phosphorus. 4. Hyperlipidemia: Continue statin therapy, check fasting lipid panel. Prophylaxis: SCDs for DVT prophylaxis, Protonix for GI prophylaxis Disposition: Transition off of insulin drip, monitored throughout the day with possible transfer to [facility] later today, continue current antibiotic therapy. HPI/ROS Admit Date/Time Admit Date/Time Jul 24, 2017 at 00:47 Hx of Present Illness Chief complaint: Lethargy, chills, nausea History of presenting illness: This is a 52-year-old male with diabetes mellitus insulin requiring, left foot previous wound status post removal of foreign body 4 months ago and subsequent antibiotic treatment who presented to the emergency department with complaint of lethargy, chills, nausea, dizziness, severe pain in his left foot especially while walking, polyuria and polydipsia for 24-36 hours. Patient was found to be in DKA and also septic with possible source being his left foot. X-ray of the left foot is not showing osteomyelitis. Likely patient unable to have an MRI because he has a previous head injury status post evacuation of epidural hematoma and that he reports that he has plates in his head. He has been started on an insulin drip, this morning his gap is close he will be transitioned to subcutaneous insulin. Lactic acid are down to normal, he is on IV fluids along with IV antibiotics. He feels better and leukocytosis is much improved. He is currently in the intensive care unit likely to transfer to a medical surgical bed later today once he is off insulin drip and his chemistry remained stable. Denies any chest pains, no dysuria or hematuria, no diarrhea, no neurological deficits. No previous history of renal failure or renal injury. No previous history of peripheral vascular disease or coronary artery disease. ROS Constitutional: chills, fatigue, nausea, poor po Eyes: no complaints ENT: no complaints Respiratory: no complaints Cardiovascular: lightheadedness Gastrointestinal: nausea Genitourinary: other (Polyuria) Skin: no complaints Neurologic: no complaints Endocrine: no complaints Lymphatic: no complaints Psychological: no complaints PMH/Family/Social Past Medical History Diabetes mellitus, insulin requiring, poorly controlled Hyperlipidemia Left foot injury with foreign body 4 months ago status post removal of foreign body and multiple courses of antibiotics a few weeks ago. Past Surgical History Status post epidural hematoma evacuation in 2013 after patient had head injury post fall Family History Significant Family History: no pertinent family hx Social History Alcohol Use: none Smoking Status: Never smoker Drug Use: none Exam/Review of Systems Vital Signs Vitals Vital Signs Date Time Temp Pulse Resp B/P Pulse Ox O2 Delivery O2 Flow Rate FiO2 07/24/17 07:00 107 19 132/73 96 Room Air 07/24/17 03:00 98.8 Intake and Output 07/23/17 07/23/17 07/24/17 15:00 23:00 07:00 Intake Total 609 ml Balance 609 ml Exam Constitutional: alert, oriented, well developed Respiratory: clear to auscultation, normal air movement Cardiovascular: nl pulses, regular rate and rhythm Gastrointestinal: non-tender, soft Musculoskeletal: other (Left foot with dressing, no erythema or edema seen on the rest of the foot. 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, nl mental status, nl speech, nl strength Labs Result Diagram: 07/24/17 0749 07/24/17 0749 Medications Medications Current Medications Citalopram Hydrobromide (Celexa) 40 mg DAILY PO Last administered on 07/24/17 08:52; Admin Dose 40 MG; Start 07/24/17 at 09:00 Atorvastatin Calcium (Lipitor) 10 mg DAILY@21 PO ; Start 07/24/17 at 21:00 Ondansetron HCl (Zofran Inj) 4 mg Q6H PRN IV NAUSEA AND/OR VOMITING; Start at 01:00 Acetaminophen (Tylenol Tab) 650 mg Q6H PRN PO PAIN LEVEL 1-3 OR FEVER; Start at 01:00 Acetaminophen/ Hydrocodone Bitart (Mouthcard (5/325)) 1 tab Q6H PRN PO PAIN LEVEL 4 -6; Start 07/24/17 at 01:00 Acetaminophen/ Hydrocodone Bitart (Mouthcard (5/325)) 2 tab Q6H PRN PO PAIN LEVEL 7 -10 Last administered on 07/24/17 01:39; Admin Dose 2 TAB; Start 07/24/17 at 01 :00 Morphine Sulfate (morphine) 2 mg Q4H PRN IV PAIN LEVEL 7-10; Start 07/24/17 at 01:00 Zolpidem Tartrate (Ambien) 5 mg QHS PRN PO INSOMNIA; Start 07/24/17 at 01:00 Docusate Sodium (Colace) 100 mg Q12H PRN PO CONSTIPATION; Start 07/24/17 at 01: 00 Magnesium Hydroxide (Milk Of Mag) 30 ml DAILY PRN PO CONSTIPATION; Start at 01:00 Bisacodyl (Dulcolax Supp) 10 mg DAILY PRN [place] CONSTIPATION; Start 07/24/17 at 01 :00 Pantoprazole 40 mg 40 mg DAILY@06 IV Last administered on 07/24/17 06:01; Admin Dose 40 MG; Start 07/24/17 at 06:00 Piperacillin Sod/ Tazobactam Sod 100 ml @ 200 mls/hr Q8 IVPB Last administered on 07/24/17 06:01; Admin Dose 200 MLS/HR; Start 07/24/17 at 06:00 Vancomycin HCl (Vancocin) 250 ml @ 125 mls/hr Q12H IVPB Last administered on 08:52; Admin Dose 125 MLS/HR; Start 07/24/17 at 08:00 Miscellaneous Information This patient stevens... PRN PRN XX WOUND CARE; Start 07/24 at 07:00 Potassium Phosphate/Sodium Chloride (K Phos (Mm)/NS) 260 ml @ 65 mls/hr ONCE ONCE IVPB ; Start 07/24/17 at 09:30; Stop 07/24/17 at 13:29 Diagnostic Test (Pha) (Accu-Chek) 1 ea 02 XX ; Start 07/25/17 at 02:00 Insulin Glargine 19 unit 19 unit DAILY@08 SC ; Start 07/24/17 at 09:30 Sodium Chloride (NS) 1,000 ml @ 125 mls/hr Q8H IV ; Start 07/24/17 at 09:30 Miscellaneous Information 1 ea NOTE XX ; Start 07/24/17 at 10:00 Glucose (Glutose) 15 gm Q15M PRN PO DECREASED GLUCOSE; Start 07/24/17 at 10:00 Glucose (Glutose) 22.5 gm Q15M PRN PO DECREASED GLUCOSE; Start 07/24/17 at 10: 00 Dextrose (D50w Syringe) 25 ml Q15M PRN IV DECREASED GLUCOSE; Start 07/24/17 at 10:00 Dextrose (D50w Syringe) 50 ml Q15M PRN IV DECREASED GLUCOSE; Start 07/24/17 at 10:00 Glucagon (Glucagen) 1 mg Q15M PRN IM DECREASED GLUCOSE; Start 07/24/17 at 10:00 Glucose (Glutose) 15 gm Q15M PRN BUCCAL DECREASED GLUCOSE; Start 07/24/17 at 10 :00 Procedures Procedures PROCEDURE: XR left foot. CLINICAL INDICATION: Pain. Clinical concern for osteomyelitis TECHNIQUE: AP and lateral views of the left foot were obtained. COMPARISON: None. FINDINGS: Mineralization is within normal limits. No fracture or osseous lesion is identified. There is no evidence for dislocation. No focal bone destruction or periosteal reaction is demonstrated. Diffuse soft tissue swelling is present most pronounced overlying the fifth metatarsal phalangeal joint. There is no evidence for a radiopaque foreign body. IMPRESSION: Soft tissue swelling most pronounced over the fifth metatarsal phalangeal joint without plain film evidence for osteomyelitis of the left foot. RPTAT:HJJR Physician Dalton Date Time Electronically viewed and signed by Physician Dalton on 07/23/2017 22:47 PROCEDURE: XR Chest. CLINICAL INDICATION: Sepsis. TECHNIQUE: Portable AP cross-table views of the chest were obtained, 2 images submitted to the PACS for review. COMPARISON: None. FINDINGS: The cardiomediastinal silhouette is within normal limits. The lungs are clear. There is no evidence for pleural effusion, pneumothorax or pulmonary vascular congestion. The osseous structures are intact with no evidence for acute abnormality. RPTAT:HJJR IMPRESSION: No evidence for acute intrathoracic pathology. Physician Dalton Date Time Electronically viewed and signed by Physician Dalton on 07/23/2017 22:48 CIELO ACEVEDO Jul 24, 2017 09:50
[2017-07-24] MEDS ORDERED: GLUCAGON 1 MG INJ IM PRN (10:00)
[2017-07-24] MEDS ORDERED: GLUCOSE GEL 15 GRAM TUBE BUCCAL PRN (10:00)
[2017-07-24] MEDS ORDERED: GLUCOSE GEL 15 GRAM TUBE PO PRN ×2 (10:00)
[2017-07-24] MEDS: INSULIN GLARGINE [LANtus] 3 ML PEN SC SCH (10:22)
[2017-07-24] MEDS: INSULIN ASPART [NOVOLOG] 3 ML PEN SC SCH ×5 (11:30→20:07)
[2017-07-24 13:36] LABS: CALCIUM 7.9 mg/dl (8.4-10.2); CREATININE 0.64 mg/dl (0.61-1.24); MAGNESIUM 1.9 mg/dl (1.7-2.5); PHOSPHORUS 2.5 mg/dl (2.5-4.9)
[2017-07-24 17:46] LABS: CALCIUM 7.9 mg/dl (8.4-10.2); CREATININE 0.63 mg/dl (0.61-1.24); POTASSIUM 4.4 mmol/L (3.5-5.1)
[2017-07-24] MEDS: ATORVASTATIN 10 MG TAB PO SCH (20:06)
[2017-07-25] MEDS: SOD CHLORIDE 0.9% 1,000 ML IV SCH ×3 (01:30→19:57)
[2017-07-25 02:00] VITALS: BP 109/70; RESP 20
[2017-07-25] MEDS: ACCU-CHEK XX SCH (02:00)
[2017-07-25 05:20] LABS: ABNORMAL IP MESSAGE 1; BASOPHILS % 0.2 % (0.0-2.0); EOSINOPHILS # 0.1 10^3/ul (0.0-0.5); EOSINOPHILS % 0.4 % (0.0-7.0); HEMATOCRIT 34.4 % (42.0-52.0); HEMOGLOBIN 11.4 g/dl (14.0-18.0); LYMPHOCYTES # 0.5 10^3/ul (0.8-2.9); LYMPHOCYTES % 3.7 % (15.0-51.0); MEAN CORPUSCULAR HEMOGLOBIN 27.1 pg (29.0-33.0); MEAN CORPUSCULAR HGB CONC 33.1 g/dl (32.0-37.0); MEAN CORPUSCULAR VOLUME 81.9 fl (82.0-101.0); MEAN PLATELET VOLUME 10.7 fl (7.4-10.4); MONOCYTE # 1.1 10^3/ul (0.3-0.9); MONOCYTES % 8.5 % (0.0-11.0); NEUTROPHIL # 10.4 10^3/ul (1.6-7.5); NEUTROPHILS % 83.9 % (39.0-77.0); PLATELET COUNT 213 10^3/UL (140-415); POSITIVE DIFF @See below; RED CELL DISTRIBUTION WIDTH 12.6 % (11.5-14.5); WHITE BLOOD COUNT 12.4 10^3/ul (4.8-10.8)
[2017-07-25 05:41] LABS: PHOSPHORUS 2.3 mg/dl (2.5-4.9)
[2017-07-25 05:50] LABS: ALBUMIN/GLOBULIN RATIO 1.11; BILIRUBIN,INDIRECT 0.3 mg/dl (0-1.1); BILIRUBIN,TOTAL 0.3 mg/dl (0.2-1.3); CALCIUM 7.7 mg/dl (8.4-10.2); CREATININE 0.62 mg/dl (0.61-1.24); POTASSIUM 4.1 mmol/L (3.5-5.1); TOTAL PROTEIN 5.7 g/dl (6.1-8.1)
[2017-07-25] MEDS: PANTOPRAZOLE (EC) 40 MG TAB PO SCH (06:32)
[2017-07-25] MEDS: PIPER-TAZO 3.375 GM IV (PMX) 100 ML IVPB SCH (06:32)
[2017-07-25 07:30] VITALS: BP 119/71; RESP 18
[2017-07-25] MEDS: VANCOMYCIN 1 GM in NS 250 ML IVPB SCH (08:33)
[2017-07-25] MEDS: CITALOPRAM 20 MG TAB PO SCH (08:33)
[2017-07-25] MEDS: INSULIN ASPART [NOVOLOG] 3 ML PEN SC SCH ×7 (08:44→21:00)
[2017-07-25] MEDS: ONDANSETRON 4 MG INJ IV PRN ×2 (08:58→18:22)
[2017-07-25] MEDS: INSULIN GLARGINE [LANtus] 3 ML PEN SC SCH ×2 (09:57→20:16)
[2017-07-25] MEDS ORDERED: LEVOFLOXACIN 750MG/D5W (PMX) 150 ML IVPB SCH (13:30)
--- NOTE | 2017-07-25 13:36 | PN ---
Date/Time of Note Date/Time of Note DATE: 07/25/17 TIME: 13:19 Assessment/Plan VTE Prophylaxis VTE Prophylaxis Intervention: LMWH Lines/Catheters IV Catheter Type (from [facility]): Saline Lock Urinary Cath still in place: No Assessment/Plan Assessment/Plan 52-year-old male with: 1. Diabetic ketoacidosis, likely triggered by acute infection and also poorly controlled diabetes mellitus, Appreciate recommendations from cryogenics engineer, patient willing to stay on Lantus or equivalent long-acting insulin, I will increase his dose of Lantus and split it therefore he will be on 15 units twice daily to start with. Continue pre-meal insulin and sliding scale insulin for now. Hemoglobin A1c still pending since out of range. 2. Sepsis likely secondary to acute infection of the left foot, no signs of osteomyelitis on x-ray, ESR up to 60, I have ordered his MRI today but if contraindicated then alternative may be CAT scan will discuss with radiology. Continue IV antibiotics for now. There is no draining wound, if needed wound consult will be placed. ID consult will be placed. Blood cultures and urine cultures are no growth to date. 3. Hyperlipidemia: Continue statin therapy, check fasting lipid panel. Prophylaxis: SCDs for DVT prophylaxis, Protonix for GI prophylaxis Disposition: Titrate Lantus, MRI foot versus CAT scan, infectious disease consult, discharge planning hopefully in the next 48 hours, patient may need PICC line if signs of osteomyelitis on MRI. Subjective 24 Hr Interval Summary Free Text/Dictation Patient doing much better, labs remaining stable, white blood cell count trending down slowly, will titrate his Lantus dosing today, MRI left foot versus CAT scan left foot pending, infectious disease will be consulted. Exam/Review of Systems Vital Signs Vitals Vital Signs Date Time Temp Pulse Resp B/P Pulse Ox O2 Delivery O2 Flow Rate FiO2 07/25/17 07:30 98.7 87 18 119/71 97 07/24/17 22:00 Room Air Intake and Output 07/24/17 07/24/17 07/25/17 15:00 23:00 07:00 Intake Total 1083 ml 725 ml 800 ml Output Total 600 ml 400 ml Balance 1083 ml 125 ml 400 ml Exam Constitutional: alert, oriented, well developed Respiratory: clear to auscultation, normal air movement Cardiovascular: nl pulses, regular rate and rhythm Gastrointestinal: non-tender, soft Musculoskeletal: other (left foot with dried small wound around base of 5th metatarsal ) Extremities: normal pulses Neurological: INDEX CLERK II-XII intact, nl mental status, nl speech, nl strength Results Result Diagram: 07/25/1744907/25/170 Results 24 hrs Laboratory Tests Test 07/24/17 17:08 07/24/17 17:12 07/24/17 19:57 07/25/17 04:50 Bedside Glucose 175 185 Sodium Level 134 L 135 Potassium Level 4.4 4.1 Chloride Level 107 107 Carbon Dioxide Level 20 L 21 Anion Gap 11 11 Blood Urea Nitrogen 14 16 Creatinine 0.63 0.62 Glucose Level 186 256 H Calcium Level 7.9 L 7.7 L Magnesium Level 2.0 2.0 White Blood Count 12.4 H Red Blood Count 4.20 L Hemoglobin 11.4 L Hematocrit 34.4 L Mean Corpuscular Volume 81.9 L Mean Corpuscular Hemoglobin 27.1 L Mean Corpuscular Hemoglobin Concent 33.1 Red Cell Distribution Width 12.6 Platelet Count 213 Mean Platelet Volume 10.7 H Neutrophils % 83.9 H Lymphocytes % 3.7 L Monocytes % 8.5 Eosinophils % 0.4 Basophils % 0.2 Nucleated Red Blood Cells % 0.0 Neutrophils # 10.4 H Lymphocytes # 0.5 L Monocytes # 1.1 H Eosinophils # 0.1 Basophils # 0.0 Nucleated Red Blood Cells # 0.0 Hemoglobin A1c Phosphorus Level 2.3 L Total Bilirubin 0.3 Direct Bilirubin 0.00 Indirect Bilirubin 0.3 Aspartate Amino Transf (AST/SGOT) 34 # Alanine Aminotransferase (ALT/SGPT) 38 Alkaline Phosphatase 63 Total Protein 5.7 #L Albumin 3.0 #L Globulin 2.70 Albumin/Globulin Ratio 1.11 Triglycerides Level 63 Cholesterol Level 130 LDL Cholesterol, Calculated 75 HDL Cholesterol 42 Cholesterol/HDL Ratio 3.0 Test 07/25/17 07:05 07/25/17 08:19 07/25/17 09:07 07/25/17 12:06 Vancomycin Level Trough 6.6 L Bedside Glucose 238 H 227 H 285 H Medications Medications Current Medications Citalopram Hydrobromide (Celexa) 40 mg DAILY PO Last administered on 07/25/17t 08:33; Admin Dose 40 MG; Start 07/24/17 at 09:00 Atorvastatin Calcium (Lipitor) 10 mg DAILY@21 PO Last administered on 20:06; Admin Dose 10 MG; Start 07/24/17 at 21:00 Ondansetron HCl (Zofran Inj) 4 mg Q6H PRN IV NAUSEA AND/OR VOMITING Last administered on 07/25/17 08:58; Admin Dose 4 MG; Start 07/24/17 at 01:00 Acetaminophen (Tylenol Tab) 650 mg Q6H PRN PO PAIN LEVEL 1-3 OR FEVER; Start at 01:00 Acetaminophen/ Hydrocodone Bitart ([place] (5/325)) 1 tab Q6H PRN PO PAIN LEVEL 4 -6; Start 07/24/17 at 01:00 Acetaminophen/ Hydrocodone Bitart ([place] (5/325)) 2 tab Q6H PRN PO PAIN LEVEL 7 -10 Last administered on 07/24/17 22:47; Admin Dose 2 TAB; Start 07/24/17 at 01 :00 Morphine Sulfate (morphine) 2 mg Q4H PRN IV PAIN LEVEL 7-10; Start 07/24/17 at 01:00 Zolpidem Tartrate (Ambien) 5 mg QHS PRN PO INSOMNIA; Start 07/24/17 at 01:00 Docusate Sodium (Colace) 100 mg Q12H PRN PO CONSTIPATION; Start 07/24/17 at 01: 00 Magnesium Hydroxide (Milk Of Mag) 30 ml DAILY PRN PO CONSTIPATION; Start at 01:00 Bisacodyl 10 mg 10 mg DAILY PRN PA CONSTIPATION; Start 07/24/17 at 01:00 Piperacillin Sod/ Tazobactam Sod (Zosyn 3.375gm/ 100 ml (Pmx)) 100 ml @ 200 mls /hr Q8 IVPB Last administered on 07/25/17 06:32; Admin Dose 200 MLS/HR; Start 07/24/17 at 06:00 Miscellaneous Information (Pending [facility] Order For Wound Care) This patient stevens... PRN PRN XX WOUND CARE; Start 07/24/17 at 07:00 Diagnostic Test (Pha) (Accu-Chek) 1 ea 02 XX ; Start 07/25/17 at 02:00 Insulin Glargine 19 unit 19 unit DAILY@08 SC Last administered on 07/25/17 09: 57; Admin Dose 19 UNIT; Start 07/24/17 at 09:30 Sodium Chloride (NS) 1,000 ml @ 125 mls/hr Q8H IV Last administered on 06:36; Admin Dose 125 MLS/HR; Start 07/24/17 at 09:30 Miscellaneous Information 1 ea NOTE XX ; Start 07/24/17 at 10:00 Glucose (Glutose) 15 gm Q15M PRN PO DECREASED GLUCOSE; Start 07/24/17 at 10:00 Glucose (Glutose) 22.5 gm Q15M PRN PO DECREASED GLUCOSE; Start 07/24/17 at 10: 00 Dextrose (D50w Syringe) 25 ml Q15M PRN IV DECREASED GLUCOSE; Start 07/24/17 at 10:00 Dextrose (D50w Syringe) 50 ml Q15M PRN IV DECREASED GLUCOSE; Start 07/24/17 at 10:00 Glucagon (Glucagen) 1 mg Q15M PRN IM DECREASED GLUCOSE; Start 07/24/17 at 10:00 Glucose (Glutose) 15 gm Q15M PRN BUCCAL DECREASED GLUCOSE; Start 07/24/17 at 10 :00 Pantoprazole (Protonix Tab) 40 mg DAILY@06 PO Last administered on 07/25/17 06 :32; Admin Dose 40 MG; Start 07/25/17 at 06:00 CIELO ACEVEDO Jul 25, 2017 13:29
[2017-07-25 14:12] VITALS: BP 110/60; RESP 18
[2017-07-25] MEDS: ERTAPENEM SODIUM 1 GM in SOD CHLORIDE 0.9% 100 ML IVPB SCH (14:46)
--- NOTE | 2017-07-25 17:52 | RADRPT ---
PROCEDURE: MRI OF THE LEFT FOOT. CLINICAL INDICATION: Forefoot pain and swelling. Stepped on a glass 1 week ago with removal of glass now with infection and swelling. History of diabetes. TECHNIQUE: Multiple MRI images of the left foot were obtained in multiple planes utilizing multipl e pulse sequences. Images were interpreted on the high-resolution PACS system. COMPARISON: Several prior radiographs, most recent on 07/23/2017. FINDINGS: As seen on the prior radiographs, there is soft tissue swelling surrounding the fifth metatarsophala ngeal joint and a small skin defect lateral and plantar to the fifth metatarsal head which may corre spond with the wound area. This measures about 4 mm deep. A small amount of ill-defined fluid is pre sent in the soft tissues without a discrete fluid collection to suggest an abscess although evaluati on is limited without intravenous contrast. There is no sinus tract from the skin to the bone. There is no discrete foreign body. There is no acute fracture or bone marrow edema within the fifth metat arsophalangeal joint. There is no abnormal marrow signal to suggest osteomyelitis. No bony destructi ve changes are present. There is loculated fluid between the fourth and fifth metatarsal heads within the fourth intermetata rsal space on axial image 14 and coronal images 22 - 24 in keeping with bursitis. There is also a sm aller fluid collection between the third and fourth metatarsal heads within the third intermetatarsa l space. There is no acute fracture or bone marrow edema within the remainder of the digits. There is a small ovoid 6 mm structure within the dorsal aspect of the distal fourth metatarsal on coronal image 22 a nd axial image 13 suggestive of a cyst. There is mild partial-thickness chondral loss and osseous spurring within the first metatarsophalang eal joint. The collateral ligaments are intact. There is no significant joint effusion. The lesser m etatarsophalangeal joints are unremarkable. The tarsometatarsal joints are intact. The Lisfranc's ligament is intact. The flexor and extensor tendons around the foot are unremarkable. There is edema throughout the musc les and soft tissues around the foot with more prominent edema within the dorsal foot. RPTAT: ZZ IMPRESSION: 1. Small defect within the skin and superficial subcutaneous soft tissues corresponding with the pat ient's wound lateral and plantar to the fifth metatarsal head with soft tissue swelling in keeping w ith cellulitis surrounding the fifth metatarsophalangeal joint. No discrete drainable abscess, a sin us tract extending from the skin to the bone, or evidence of osteomyelitis. 2. Intermetatarsal bursitis within the third and fourth intermetatarsal spaces, more prominent withi n the fourth intermetatarsal space. 3. Diffuse edema throughout the subcutaneous soft tissues of the foot. .Tami Bryan MD, MD Date Time Electronically viewed and signed by .Tami Bryan MD, on 07/25/2017 17:51 .T/
[2017-07-25] MEDS: LACTOBACILLUS RHAMNOSUS CAP PO SCH ×2 (18:23→20:19)
--- NOTE | 2017-07-25 19:31 | CONS ---
DATE OF ADMISSION: 07/24/2017 DATE OF CONSULTATION: 07/25/2017 REASON FOR CONSULTATION: Antibiotic management. CHIEF COMPLAINT: Quentin Cast is a 52-year-old male who comes in with a left diabetic foot wound and is being seen for antibiotic management. Quentin Cast is a 52-year-old male with a numbers of problems includin. Type 1 diabetes mellitus. 2. History of traumatic subdural hematoma. 3. Status post craniotomy. Acutely, the patient comes in with progressive left lateral distal foot redness and discharge for five days. Foot has become more red over the past two days. The patient has been lethargic, tachypneic, short of breath. noted that he had a sweet odor to his breath. His glucose was 469 at urgent care, 4+ ketones in the urine. He reports having foreign body in the form of glass in his left foot several months ago that was removed, and he was treated for cellulitis at that time. There was no sign of infection until five days ago. On admission, his white count was 19.1, H and H of 13.9, 41.6, platelet count 287,000. BUN and creatinine 20/1.10. His glucose on admission was 515. His urine and blood cultures have been negative. A x-ray of the foot shows soft tissue swelling most pronounced over the 5th metatarsophalangeal joint without plain film evidence for osteomyelitis of the left foot. His chest x-ray shows no evidence for acute intrathoracic pathology. He was started on vancomycin and ertapenem, which to me is a good choice. Currently, he is being treated for his diabetic ketoacidosis. An MRI was ordered but he may end up getting a CT scan. PAST MEDICAL HISTORY: Operations as outlined. FAMILY HISTORY: Noncontributory. SOCIAL HISTORY: He does not smoke, drink, or abuse drugs. ALLERGIES: NONE TO PENICILLIN, SULFA, OR FOODS. MEDICATIONS: Per chart. REVIEW OF SYSTEMS: Noncontributory. PHYSICAL EXAMINATION: GENERAL: Patient is a well-developed, well-nourished male, alert, responsive, no acute distress. VITAL SIGNS: Stable. He is afebrile. SKIN: Without generalized rash. HEENT: Within normal limits. NECK: Supple. Lymph nodes nonpalpable. CHEST: Decreased breath sounds at the bases. HEART: Without murmur or gallop. ABDOMEN: Soft, nontender without organosplenomegaly or masses. EXTREMITIES: He has left foot with a wound around the base of the 5th metatarsal which is drying up at this point. RECTAL: Deferred. GENITAL: Deferred. NEUROLOGICAL: No focal neurological abnormalities. IMPRESSION AND PLAN: Patient is a 52-year-old male who currently is responding to vancomycin and ertapenem. Will continue him on this regimen for the time being until his cellulitis is gone. I will dictate my findings to Dr. Chaidez. Dictated By: Stevo Lopez MD JD/joni/mira /Document#: [id number]
[2017-07-25] MEDS: VANCOMYCIN 1.5 GM in SOD CHLORIDE 0.9% 250 ML IVPB SCH (20:07)
[2017-07-25] MEDS: ATORVASTATIN 10 MG TAB PO SCH (20:19)
[2017-07-25 20:25] VITALS: BP 124/65; RESP 18
[2017-07-26] MEDS: ACCU-CHEK XX SCH (02:00)
[2017-07-26] MEDS: ACETAMINOPHEN 325 MG TAB PO PRN (02:20)
[2017-07-26 02:32] VITALS: BP 137/74; RESP 18
[2017-07-26] MEDS: PANTOPRAZOLE (EC) 40 MG TAB PO SCH (05:33)
[2017-07-26 07:44] VITALS: BP 139/80; RESP 18
[2017-07-26 08:00] VITALS: Ht 167.6 cm; Wt 81.4 kg
[2017-07-26] MEDS: LACTOBACILLUS RHAMNOSUS CAP PO SCH ×2 (08:09→20:37)
[2017-07-26] MEDS: CITALOPRAM 20 MG TAB PO SCH (08:09)
[2017-07-26] MEDS: ENOXAPARIN 40 MG/0.4 ML SYG SC SCH (08:23)
[2017-07-26 08:24] LABS: ABNORMAL IP MESSAGE 1; BASOPHILS % 0.2 % (0.0-2.0); EOSINOPHILS # 0.1 10^3/ul (0.0-0.5); EOSINOPHILS % 0.9 % (0.0-7.0); HEMATOCRIT 35.6 % (42.0-52.0); HEMOGLOBIN 11.8 g/dl (14.0-18.0); LYMPHOCYTES # 0.6 10^3/ul (0.8-2.9); LYMPHOCYTES % 4.5 % (15.0-51.0); MEAN CORPUSCULAR HEMOGLOBIN 26.9 pg (29.0-33.0); MEAN CORPUSCULAR HGB CONC 33.1 g/dl (32.0-37.0); MEAN CORPUSCULAR VOLUME 81.1 fl (82.0-101.0); MEAN PLATELET VOLUME 10.4 fl (7.4-10.4); NEUTROPHIL # 11.1 10^3/ul (1.6-7.5); NEUTROPHILS % 85.9 % (39.0-77.0); PLATELET COUNT 260 10^3/UL (140-415); POSITIVE DIFF @See below; RED BLOOD COUNT 4.39 10^6/ul (4.70-6.10); RED CELL DISTRIBUTION WIDTH 12.8 % (11.5-14.5); WHITE BLOOD COUNT 12.9 10^3/ul (4.8-10.8)
[2017-07-26] MEDS: INSULIN GLARGINE [LANtus] 3 ML PEN SC SCH ×2 (08:24→20:43)
[2017-07-26] MEDS: INSULIN ASPART [NOVOLOG] 3 ML PEN SC SCH ×7 (08:27→20:49)
[2017-07-26] MEDS: ONDANSETRON 4 MG INJ IV PRN ×2 (08:29→20:46)
[2017-07-26 08:37] LABS: PHOSPHORUS 1.9 mg/dl (2.5-4.9)
[2017-07-26 08:38] LABS: CALCIUM 7.9 mg/dl (8.4-10.2); CREATININE 0.65 mg/dl (0.61-1.24); POTASSIUM 3.5 mmol/L (3.5-5.1)
[2017-07-26] MEDS: SOD CHLORIDE 0.9% 1,000 ML IV SCH ×2 (09:25→14:30)
[2017-07-26] MEDS: VANCOMYCIN 1.5 GM in SOD CHLORIDE 0.9% 250 ML IVPB SCH ×2 (10:43→22:30)
--- NOTE | 2017-07-26 11:08 | PN ---
Date/Time of Note Date/Time of Note DATE: 07/26/17 TIME: 10:53 Assessment/Plan VTE Prophylaxis VTE Prophylaxis Intervention: SCD's Lines/Catheters [facility] Saline Lock Urinary Cath still in place: No Assessment/Plan Assessment/Plan 52-year-old male with: 1. Diabetic ketoacidosis, likely triggered by acute infection and also poorly controlled diabetes mellitus, Appreciate recommendations from healthcare educator, patient willing to stay on Lantus or equivalent long-acting insulin, continue Lantus 15 units bid. Continue pre-meal insulin and sliding scale insulin for now. Hemoglobin A1c still pending since out of range. 2. Sepsis likely secondary to acute infection of the left foot, no signs of osteomyelitis on x-ray, ESR up to 60, MRI left foot with no signs of osteomyelitis. MRI showing some areas of small fluid consistent with bursitis around the toes. Continue IV antibiotics for now. Dry wound so far, if needed podiatry consult will be placed. Appreciate ID commendations. Blood cultures and urine cultures are no growth to date. 3. Hyperlipidemia: Continue statin therapy. Prophylaxis: SCDs for DVT prophylaxis, Protonix for GI prophylaxis Disposition: Follow-up infectious disease recommendations today, discharge planning hopefully in the next 48 hours, patient may need PICC line, podiatry referral will definitely be needed, will consult inpatient if needed. Subjective 24 Hr Interval Summary Free Text/Dictation Patient is doing better today, blood sugars are better controlled, MRI of the left foot not showing osteomyelitis but significant cellulitis. Also areas of bursitis. Will discuss with infectious disease length of treatment, likely patient will need a PICC line and outpatient IV antibiotics arranged. Exam/Review of Systems Vital Signs Vitals Vital Signs Date Time Temp Pulse Resp B/P Pulse Ox O2 Delivery O2 Flow Rate FiO2 07/26/17 07:44 99.1 88 18 139/80 97 07/24/17 22:00 Room Air Intake and Output 07/25/17 07/25/17 07/26/17 15:00 23:00 07:00 Intake Total 1670 ml 1020 ml Balance 1670 ml 1020 ml Exam Constitutional: alert, oriented, well developed Respiratory: clear to auscultation, normal air movement Cardiovascular: nl pulses, regular rate and rhythm Gastrointestinal: non-tender, soft Musculoskeletal: nl extremities to inspection, other (Left foot, there is a dry wound with scab,) Extremities: normal pulses Neurological: SENIOR GAME DEVELOPER II-XII intact, nl mental status, nl speech, nl strength Results Result Diagram: 07/26/17 0720 07/26/17 0720 Results 24 hrs Laboratory Tests Test 07/25/17 12:06 07/25/17 18:02 07/25/17 20:12 07/25/17 21:28 Bedside Glucose 285 H 208 110 87 Test 07/26/17 02:04 07/26/17 07:20 07/26/17 08:12 07/26/17 10:01 Bedside Glucose 180 164 White Blood Count 12.9 H Red Blood Count 4.39 L Hemoglobin 11.8 L Hematocrit 35.6 L Mean Corpuscular Volume 81.1 L Mean Corpuscular Hemoglobin 26.9 L Mean Corpuscular Hemoglobin Concent 33.1 Red Cell Distribution Width 12.8 Platelet Count 260 # Mean Platelet Volume 10.4 Neutrophils % 85.9 H Lymphocytes % 4.5 L Monocytes % 8.0 Eosinophils % 0.9 Basophils % 0.2 Nucleated Red Blood Cells % 0.0 Neutrophils # 11.1 H Lymphocytes # 0.6 L Monocytes # 1.0 H Eosinophils # 0.1 Basophils # 0.0 Nucleated Red Blood Cells # 0.0 Sodium Level 135 Potassium Level 3.5 Chloride Level 103 Carbon Dioxide Level 28 Anion Gap 8 Blood Urea Nitrogen 10 Creatinine 0.65 Glucose Level 157 Calcium Level 7.9 L Phosphorus Level 1.9 L Magnesium Level 2.0 Vancomycin Level Trough 7.4 L Lab Scanned Report REFERENCE LAB Medications Medications Current Medications Citalopram Hydrobromide (Celexa) 40 mg DAILY PO Last administered on 07/26/17 08:09; Admin Dose 40 MG; Start 07/24/17 at 09:00 Atorvastatin Calcium (Lipitor) 10 mg DAILY@21 PO Last administered on 20:19; Admin Dose 10 MG; Start 07/24/17 at 21:00 Ondansetron HCl (Zofran Inj) 4 mg Q6H PRN IV NAUSEA AND/OR VOMITING Last administered on 07/26/17 08:29; Admin Dose 4 MG; Start 07/24/17 at 01:00 Acetaminophen (Tylenol Tab) 650 mg Q6H PRN PO PAIN LEVEL 1-3 OR FEVER Last administered on 07/26/17 02:20; Admin Dose 650 MG; Start 07/24/17 at 01:00 Acetaminophen/ Hydrocodone Bitart ([place] (5/325)) 1 tab Q6H PRN PO PAIN LEVEL 4 -6; Start 07/24/17 at 01:00 Acetaminophen/ Hydrocodone Bitart ([place] (5/325)) 2 tab Q6H PRN PO PAIN LEVEL 7 -10 Last administered on 07/24/17 22:47; Admin Dose 2 TAB; Start 07/24/17 at 01 :00 Morphine Sulfate (morphine) 2 mg Q4H PRN IV PAIN LEVEL 7-10; Start 07/24/17 at 01:00 Zolpidem Tartrate (Ambien) 5 mg QHS PRN PO INSOMNIA; Start 07/24/17 at 01:00 Docusate Sodium (Colace) 100 mg Q12H PRN PO CONSTIPATION; Start 07/24/17 at 01: 00 Magnesium Hydroxide (Milk Of Mag) 30 ml DAILY PRN PO CONSTIPATION; Start at 01:00 Bisacodyl (Dulcolax Supp) 10 mg DAILY PRN ME CONSTIPATION; Start 07/24/17 at 01 :00 Miscellaneous Information (Pending [facility] Order For Wound Care) This patient stevens... PRN PRN XX WOUND CARE; Start 07/24/17 at 07:00 Diagnostic Test (Pha) 1 ea 1 ea 02 XX ; Start 07/25/17 at 02:00 Sodium Chloride (NS) 1,000 ml @ 75 mls/hr [id number] IV Last administered on 07/25 19:57; Admin Dose 75 MLS/HR; Start 07/24/17 at 09:30 Miscellaneous Information 1 ea NOTE XX ; Start 07/24/17 at 10:00 Glucose (Glutose) 15 gm Q15M PRN PO DECREASED GLUCOSE; Start 07/24/17 at 10:00 Glucose (Glutose) 22.5 gm Q15M PRN PO DECREASED GLUCOSE; Start 07/24/17 at 10: 00 Dextrose (D50w Syringe) 25 ml Q15M PRN IV DECREASED GLUCOSE; Start 07/24/17 at 10:00 Dextrose (D50w Syringe) 50 ml Q15M PRN IV DECREASED GLUCOSE; Start 07/24/17 at 10:00 Glucagon (Glucagen) 1 mg Q15M PRN IM DECREASED GLUCOSE; Start 07/24/17 at 10:00 Glucose (Glutose) 15 gm Q15M PRN BUCCAL DECREASED GLUCOSE; Start 07/24/17 at 10 :00 Pantoprazole 40 mg 40 mg DAILY@06 PO Last administered on 07/26/17 05:33; Admin Dose 40 MG; Start 07/25/17 at 06:00 Vancomycin HCl/ Sodium Chloride (Vancocin/NS) 250 ml @ 83.333 mls/ hr Q12H IVPB Last administered on 07/26/17 10:43; Admin Dose 83.333 MLS/HR; Start at 20:00 Lactobacillus Acidophilus/ Rhamnosus (Culturelle) 1 cap BID PO Last administered on 07/26/17 08:09; Admin Dose 1 CAP; Start 07/25/17 at 13:30 Insulin Glargine 15 unit 15 unit BID@08,20 SC Last administered on 07/26/17 08 :24; Admin Dose 15 UNIT; Start 07/25/17 at 20:00 Ertapenem/Sodium Chloride (Invanz/NS) 100 ml @ 200 mls/hr Q24H IVPB Last administered on 07/25/17 14:46; Admin Dose 200 MLS/HR; Start 07/25/17 at 14:15 Enoxaparin Sodium 40 mg 40 mg DAILY SC Last administered on 07/26/17 08:23; Admin Dose 40 MG; Start 07/26/17 at 09:00 Potassium Phosphate/Sodium Chloride (K Phos (Mm)/NS) 260 ml @ 43.333 mls/ hr ONCE ONCE IVPB ; Start 07/26/17 at 12:00; Stop 07/26/17 at 17:59 Procedures Procedures PROCEDURE: MRI OF THE LEFT FOOT. CLINICAL INDICATION: Forefoot pain and swelling. Stepped on a glass 1 week ago with removal of glass now with infection and swelling. History of diabetes. TECHNIQUE: Multiple MRI images of the left foot were obtained in multiple planes utilizing multiple pulse sequences. Images were interpreted on the high- resolution PACS system. COMPARISON: Several prior radiographs, most recent on 07/23/2017. FINDINGS: As seen on the prior radiographs, there is soft tissue swelling surrounding the fifth metatarsophalangeal joint and a small skin defect lateral and plantar to the fifth metatarsal head which may correspond with the wound area. This measures about 4 mm deep. A small amount of ill-defined fluid is present in the soft tissues without a discrete fluid collection to suggest an abscess although evaluation is limited without intravenous contrast. There is no sinus tract from the skin to the bone. There is no discrete foreign body. There is no acute fracture or bone marrow edema within the fifth metatarsophalangeal joint. There is no abnormal marrow signal to suggest osteomyelitis. No bony destructive changes are present. There is loculated fluid between the fourth and fifth metatarsal heads within the fourth intermetatarsal space on axial image 14 and coronal images 22 - 24 in keeping with bursitis. There is also a smaller fluid collection between the third and fourth metatarsal heads within the third intermetatarsal space. There is no acute fracture or bone marrow edema within the remainder of the digits. There is a small ovoid 6 mm structure within the dorsal aspect of the distal fourth metatarsal on coronal image 22 and axial image 13 suggestive of a cyst. There is mild partial-thickness chondral loss and osseous spurring within the first metatarsophalangeal joint. The collateral ligaments are intact. There is no significant joint effusion. The lesser metatarsophalangeal joints are unremarkable. The tarsometatarsal joints are intact. The Lisfranc's ligament is intact. The flexor and extensor tendons around the foot are unremarkable. There is edema throughout the muscles and soft tissues around the foot with more prominent edema within the dorsal foot. RPTAT: ZZ IMPRESSION: 1. Small defect within the skin and superficial subcutaneous soft tissues corresponding with the patient's wound lateral and plantar to the fifth metatarsal head with soft tissue swelling in keeping with cellulitis surrounding the fifth metatarsophalangeal joint. No discrete drainable abscess, a sinus tract extending from the skin to the bone, or evidence of osteomyelitis. 2. Intermetatarsal bursitis within the third and fourth intermetatarsal spaces, more prominent within the fourth intermetatarsal space. 3. Diffuse edema throughout the subcutaneous soft tissues of the foot. .Tami Bryan MD, MD Date Time Electronically viewed and signed by .Tami Bryan MD, MD on 07/25/2017 17:51 CIELO ACEVEDO Jul 26, 2017 11:04
[2017-07-26] MEDS ORDERED: POTASSIUM PHOSPHATE 30 MM in SOD CHLORIDE 0.9% 250 ML IVPB ONE (12:00)
[2017-07-26] MEDS: ERTAPENEM SODIUM 1 GM in SOD CHLORIDE 0.9% 100 ML IVPB SCH ×2 (14:15→20:35)
--- NOTE | 2017-07-26 14:24 | CONS ---
Date/Time of Note Date/Time of Note DATE: 07/26/17 TIME: 14:24 Assessment/Plan Assessment/Plan Chief Complaint/Hosp Course Patient is alert feels good looks comfortable, denies pain T-max 100 T-current 98.2 pulse 97 respirations 18 blood pressure 139/80 saturation 98 on room air WBC 12.9 H&H 11.8 and 35.6 platelets 260 neutrophils 85.9 Antimicrobials: Vancomycin and Invanz Vanco trough this morning 7.4 Physical examination: Well-developed well-nourished middle-aged white man who is alert in no distress. Head atraumatic normocephalic sclerae nonicteric. Neck is supple. Chest rise symmetrical breath sounds clear. Heart: S1-S2. Abdomen soft bowel sounds present. Extremities with left foot swelling, dressing intact Assessment: 1. status post DKA 2. Left foot cellulitis, no evidence of osteomyelitis per MRI 3. Diabetes, poorly controlled 4. Systemic inflammatory response syndrome secondary to above Plan: Patient remains stable, left foot swelling is better, continue present care, antibiotics, pharmacy to adjust Vanco dose Problems: Consultation Date/Type/Reason Admit Date/Time Jul 24, 2017 at 00:47 Initial Consult Date Type of Consultation: ID Exam/Review of Systems Vital Signs Vitals Vital Signs Date Time Temp Pulse Resp B/P Pulse Ox O2 Delivery O2 Flow Rate FiO2 07/26/17 07:44 99.1 88 18 139/80 97 07/24/17 22:00 Room Air Intake and Output 07/25/17 07/25/17 07/26/17 14:59 22:59 06:59 Intake Total 1420 ml 1270 ml Balance 1420 ml 1270 ml Results Result Diagram: 07/26/17 0720 07/26/17 0720 Results 24 hrs Laboratory Tests Test 07/25/17 18:02 07/25/17 20:12 07/25/17 21:28 07/26/17 02:04 Bedside Glucose 208 110 87 180 Test 07/26/17 07:20 07/26/17 08:12 07/26/17 10:01 07/26/17 12:17 White Blood Count 12.9 H Red Blood Count 4.39 L Hemoglobin 11.8 L Hematocrit 35.6 L Mean Corpuscular Volume 81.1 L Mean Corpuscular Hemoglobin 26.9 L Mean Corpuscular Hemoglobin Concent 33.1 Red Cell Distribution Width 12.8 Platelet Count 260 # Mean Platelet Volume 10.4 Neutrophils % 85.9 H Lymphocytes % 4.5 L Monocytes % 8.0 Eosinophils % 0.9 Basophils % 0.2 Nucleated Red Blood Cells % 0.0 Neutrophils # 11.1 H Lymphocytes # 0.6 L Monocytes # 1.0 H Eosinophils # 0.1 Basophils # 0.0 Nucleated Red Blood Cells # 0.0 Sodium Level 135 Potassium Level 3.5 Chloride Level 103 Carbon Dioxide Level 28 Anion Gap 8 Blood Urea Nitrogen 10 Creatinine 0.65 Glucose Level 157 Calcium Level 7.9 L Phosphorus Level 1.9 L Magnesium Level 2.0 Vancomycin Level Trough 7.4 L Bedside Glucose 164 86 Lab Scanned Report REFERENCE LAB Test 07/26/17 14:04 Bedside Glucose 124 Medications Medications Current Medications Citalopram Hydrobromide (Celexa) 40 mg DAILY PO Last administered on 07/26/17 08:09; Admin Dose 40 MG; Start 07/24/17 at 09:00 Atorvastatin Calcium (Lipitor) 10 mg DAILY@21 PO Last administered on 20:19; Admin Dose 10 MG; Start 07/24/17 at 21:00 Ondansetron HCl (Zofran Inj) 4 mg Q6H PRN IV NAUSEA AND/OR VOMITING Last administered on 07/26/17 08:29; Admin Dose 4 MG; Start 07/24/17 at 01:00 Acetaminophen (Tylenol Tab) 650 mg Q6H PRN PO PAIN LEVEL 1-3 OR FEVER Last administered on 07/26/17 02:20; Admin Dose 650 MG; Start 07/24/17 at 01:00 Acetaminophen/ Hydrocodone Bitart ([place] (5/325)) 1 tab Q6H PRN PO PAIN LEVEL 4 -6; Start 07/24/17 at 01:00 Acetaminophen/ Hydrocodone Bitart ([place] (5/325)) 2 tab Q6H PRN PO PAIN LEVEL 7 -10 Last administered on 07/24/17 22:47; Admin Dose 2 TAB; Start 07/24/17 at 01 :00 Morphine Sulfate (morphine) 2 mg Q4H PRN IV PAIN LEVEL 7-10; Start 07/24/17 at 01:00 Zolpidem Tartrate (Ambien) 5 mg QHS PRN PO INSOMNIA; Start 07/24/17 at 01:00 Docusate Sodium (Colace) 100 mg Q12H PRN PO CONSTIPATION; Start 07/24/17 at 01: 00 Magnesium Hydroxide (Milk Of Mag) 30 ml DAILY PRN PO CONSTIPATION; Start at 01:00 Bisacodyl (Dulcolax Supp) [address] CONSTIPATION; Start 07/24/17 at 01 :00 Miscellaneous Information [facility] This patient stevens... PRN PRN XX WOUND CARE; Start 07/24/17 at 07:00 Diagnostic Test (Pha) 1 ea 1 ea 02 XX ; Start 07/25/17 at 02:00 Sodium Chloride (NS) 1,000 ml @ 75 mls/hr [id number] IV Last administered on 07/25 19:57; Admin Dose 75 MLS/HR; Start 07/24/17 at 09:30 Miscellaneous Information 1 ea NOTE XX ; Start 07/24/17 at 10:00 Glucose (Glutose) 15 gm Q15M PRN PO DECREASED GLUCOSE; Start 07/24/17 at 10:00 Glucose (Glutose) 22.5 gm Q15M PRN PO DECREASED GLUCOSE; Start 07/24/17 at 10: 00 Dextrose (D50w Syringe) 25 ml Q15M PRN IV DECREASED GLUCOSE; Start 07/24/17 at 10:00 Dextrose (D50w Syringe) 50 ml Q15M PRN IV DECREASED GLUCOSE; Start 07/24/17 at 10:00 Glucagon (Glucagen) 1 mg Q15M PRN IM DECREASED GLUCOSE; Start 07/24/17 at 10:00 Glucose (Glutose) 15 gm Q15M PRN BUCCAL DECREASED GLUCOSE; Start 07/24/17 at 10 :00 Pantoprazole 40 mg 40 mg DAILY@06 PO Last administered on 07/26/17 05:33; Admin Dose 40 MG; Start 07/25/17 at 06:00 Vancomycin HCl/ Sodium Chloride (Vancocin/NS) 250 ml @ 83.333 mls/ hr Q12H IVPB Last administered on 07/26/17 10:43; Admin Dose 83.333 MLS/HR; Start at 20:00 Lactobacillus Acidophilus/ Rhamnosus (Culturelle) 1 cap BID PO Last administered on 07/26/17 08:09; Admin Dose 1 CAP; Start 07/25/17 at 13:30 Insulin Glargine 15 unit 15 unit BID@08,20 SC Last administered on 07/26/17 08 :24; Admin Dose 15 UNIT; Start 07/25/17 at 20:00 Ertapenem/Sodium Chloride (Invanz/NS) 100 ml @ 200 mls/hr Q24H IVPB Last administered on 07/25/17 14:46; Admin Dose 200 MLS/HR; Start 07/25/17 at 14:15 Enoxaparin Sodium 40 mg 40 mg DAILY SC Last administered on 07/26/17 08:23; Admin Dose 40 MG; Start 07/26/17 at 09:00 Potassium Phosphate/Sodium Chloride (K Phos (Mm)/NS) 260 ml @ 43.333 mls/ hr ONCE ONCE IVPB Last administered on 07/26/17 14:09; Admin Dose 43.333 MLS/HR ; Start 07/26/17 at 12:00; Stop 07/26/17 at 17:59 LUCITA RAHMAN NP Jul 26, 2017 14:24
[2017-07-26 14:50] VITALS: BP 132/75; RESP 18
[2017-07-26] MEDS ORDERED: LIDOCAINE 1% (MPF) 5 ML VIAL SC ONE (17:30)
[2017-07-26 20:00] VITALS: BP 134/78; RESP 19
[2017-07-26] MEDS: ATORVASTATIN 10 MG TAB PO SCH (20:37)
[2017-07-27] MEDS: ACETAMINOPHEN 325 MG TAB PO PRN (00:09)
[2017-07-27 02:00] VITALS: BP 133/78; RESP 19
[2017-07-27] MEDS: ACCU-CHEK XX SCH (02:00)
[2017-07-27] MEDS: PANTOPRAZOLE (EC) 40 MG TAB PO SCH (05:48)
[2017-07-27 06:00] LABS: BASOPHILS % 0.2 % (0.0-2.0); EOSINOPHILS # 0.1 10^3/ul (0.0-0.5); EOSINOPHILS % 0.6 % (0.0-7.0); HEMATOCRIT 34.2 % (42.0-52.0); HEMOGLOBIN 11.6 g/dl (14.0-18.0); LYMPHOCYTES # 0.9 10^3/ul (0.8-2.9); LYMPHOCYTES % 5.6 % (15.0-51.0); MEAN CORPUSCULAR HEMOGLOBIN 27.7 pg (29.0-33.0); MEAN CORPUSCULAR HGB CONC 33.9 g/dl (32.0-37.0); MEAN CORPUSCULAR VOLUME 81.6 fl (82.0-101.0); MONOCYTE # 1.5 10^3/ul (0.3-0.9); MONOCYTES % 9.5 % (0.0-11.0); NEUTROPHIL # 12.8 10^3/ul (1.6-7.5); NEUTROPHILS % 83.5 % (39.0-77.0); PLATELET COUNT 284 10^3/UL (140-415); RED BLOOD COUNT 4.19 10^6/ul (4.70-6.10); RED CELL DISTRIBUTION WIDTH 12.7 % (11.5-14.5); WHITE BLOOD COUNT 15.4 10^3/ul (4.8-10.8)
[2017-07-27 06:35] LABS: MAGNESIUM 1.9 mg/dl (1.7-2.5); PHOSPHORUS 2.4 mg/dl (2.5-4.9)
[2017-07-27 06:39] LABS: CALCIUM 7.5 mg/dl (8.4-10.2); CREATININE 0.66 mg/dl (0.61-1.24); POTASSIUM 3.3 mmol/L (3.5-5.1)
[2017-07-27 07:30] VITALS: BP 119/74; RESP 18
[2017-07-27] MEDS: INSULIN ASPART [NOVOLOG] 3 ML PEN SC SCH ×7 (07:56→21:00)
[2017-07-27] MEDS: INSULIN GLARGINE [LANtus] 3 ML PEN SC SCH ×2 (07:57→19:59)
[2017-07-27] MEDS: ONDANSETRON 4 MG INJ IV PRN ×2 (08:09→20:25)
[2017-07-27] MEDS: LACTOBACILLUS RHAMNOSUS CAP PO SCH ×2 (08:09→20:06)
[2017-07-27] MEDS: CITALOPRAM 20 MG TAB PO SCH (08:09)
[2017-07-27] MEDS: ENOXAPARIN 40 MG/0.4 ML SYG SC SCH (08:19)
[2017-07-27] MEDS ORDERED: POTASSIUM CHLORIDE (SR) 20 MEQ TAB PO STA (09:39)
--- NOTE | 2017-07-27 10:13 | RADRPT ---
PROCEDURE: XR Chest. CLINICAL INDICATION: Check Line Placement TECHNIQUE: Single frontal view of the chest was obtained COMPARISON: Chest x-ray 07/23/2017 FINDINGS: There is a new left PICC line with tip projecting over the lower superior vena cava at the cavoatria l junction region. The cardiomediastinal silhouette is within normal limits. No pneumothorax or consolidation is identified. There is mild blunting of the left costophrenic angle, suggesting a possible trace left pleural effu ferdinand. No right pleural effusion is seen. There is no evidence of pulmonary vascular congestion. There are degenerative changes of the visualized spine. IMPRESSION: 1. New left PICC line with tip projecting over the cavoatrial junction region. 2. Possible trace new left pleural effusion. RPTAT: QQ Physician Nolan Date Time Electronically viewed and signed by Joel Triplett Physician on 07/27/2017 10:13 LETICIA/
[2017-07-27] MEDS ORDERED: POTASSIUM PHOSPHATE 30 MM in SOD CHLORIDE 0.9% 250 ML IVPB ONE (11:00)
[2017-07-27] MEDS: VANCOMYCIN 1.5 GM in SOD CHLORIDE 0.9% 250 ML IVPB SCH (11:07)
--- NOTE | 2017-07-27 11:26 | PN ---
Date/Time of Note Date/Time of Note DATE: 07/27/17 TIME: 11:13 Assessment/Plan VTE Prophylaxis VTE Prophylaxis Intervention: LMWH Lines/Catheters IV Catheter Type (from Nrs): PICC Line Central line still needed: Yes (for IV abx ) Urinary Cath still in place: No Assessment/Plan Assessment/Plan 52-year-old male with: 1. Diabetic ketoacidosis, likely triggered by acute infection and also poorly controlled diabetes mellitus, BG better controlled on current regimen. Appreciate recommendations from diabetes educator, patient willing to stay on Lantus or equivalent long-acting insulin, continue Lantus 15 units bid. Continue pre-meal insulin and sliding scale insulin for now. Hemoglobin A1c out of range. 2. Acute infection of the left foot, s/p sepsis, no signs of osteomyelitis on x -ray, ESR up to 60, MRI left foot with no signs of osteomyelitis. MRI showing some areas of small fluid consistent with bursitis around the toes. More edema of the foot today and WBC up again. Continue IV antibiotics for now. Dry wound so far, Dr Braden Quintero consulted and agreeable to see patient later today. Appreciate ID commendations. PICC line placed this AM. Blood cultures and urine cultures are no growth to date. 3. Hyperlipidemia: Continue statin therapy. Prophylaxis: SCDs for DVT prophylaxis, Protonix for GI prophylaxis Disposition: Follow-up infectious disease and Podiatry recommendations today, s/ p PICC line placement Subjective 24 Hr Interval Summary Free Text/Dictation Patient doing OK but more edema of Left foot and WBC slightly up again Afebrile and BG better controlled Podiatry, Dr Quintero consulted Exam/Review of Systems Vital Signs Vitals Vital Signs Date Time Temp Pulse Resp B/P Pulse Ox O2 Delivery O2 Flow Rate FiO2 07/27/17 07:30 99.9 84 18 119/74 96 07/24/17 22:00 Room Air Intake and Output 07/26/17 07/26/17 07/27/17 15:00 23:00 07:00 Intake Total 700 ml 1645 ml 1310 ml Balance 700 ml 1645 ml 1310 ml Exam Constitutional: alert, oriented, well developed Respiratory: clear to auscultation, normal air movement Cardiovascular: nl pulses, regular rate and rhythm Gastrointestinal: non-tender, soft Musculoskeletal: other (left foot edema slightly increased today ) Extremities: normal pulses, other (no clubbing or cyanosis ) Neurological: APPLICATIONS INTERN II-XII intact, nl mental status, nl speech, nl strength Results Result Diagram: 07/27/17 0458 07/27/17 0458 Results 24 hrs Laboratory Tests Test 07/26/17 12:17 07/26/17 14:04 07/26/17 17:27 07/26/17 20:39 Bedside Glucose 86 124 126 115 Test 07/27/17 04:58 07/27/17 07:51 White Blood Count 15.4 H Red Blood Count 4.19 L Hemoglobin 11.6 L Hematocrit 34.2 L Mean Corpuscular Volume 81.6 L Mean Corpuscular Hemoglobin 27.7 L Mean Corpuscular Hemoglobin Concent 33.9 Red Cell Distribution Width 12.7 Platelet Count 284 Mean Platelet Volume 10.0 Neutrophils % 83.5 H Lymphocytes % 5.6 L Monocytes % 9.5 Eosinophils % 0.6 Basophils % 0.2 Nucleated Red Blood Cells % 0.0 Neutrophils # 12.8 H Lymphocytes # 0.9 Monocytes # 1.5 H Eosinophils # 0.1 Basophils # 0.0 Nucleated Red Blood Cells # 0.0 Sodium Level 137 Potassium Level 3.3 L Chloride Level 102 Carbon Dioxide Level 29 Anion Gap 9 Blood Urea Nitrogen 9 Creatinine 0.66 Glucose Level 166 Calcium Level 7.5 L Phosphorus Level 2.4 L Magnesium Level 1.9 Bedside Glucose 165 Medications Medications Current Medications Citalopram Hydrobromide (Celexa) 40 mg DAILY PO Last administered on 07/27/17 08:09; Admin Dose 40 MG; Start 07/24/17 at 09:00 Atorvastatin Calcium (Lipitor) 10 mg DAILY@21 PO Last administered on 20:37; Admin Dose 10 MG; Start 07/24/17 at 21:00 Ondansetron HCl (Zofran Inj) 4 mg Q6H PRN IV NAUSEA AND/OR VOMITING Last administered on 07/27/17 08:09; Admin Dose 4 MG; Start 07/24/17 at 01:00 Acetaminophen (Tylenol Tab) 650 mg Q6H PRN PO PAIN LEVEL 1-3 OR FEVER Last administered on 07/27/17 00:09; Admin Dose 650 MG; Start 07/24/17 at 01:00 Acetaminophen/ Hydrocodone Bitart ([place] (5/325)) 1 tab Q6H PRN PO PAIN LEVEL 4 -6; Start 07/24/17 at 01:00 Acetaminophen/ Hydrocodone Bitart ([place] (5/325)) 2 tab Q6H PRN PO PAIN LEVEL 7 -10 Last administered on 07/24/17t 22:47; Admin Dose 2 TAB; Start 07/24/17 at 01 :00 Morphine Sulfate (morphine) 2 mg Q4H PRN IV PAIN LEVEL 7-10; Start 07/24/17 at 01:00 Zolpidem Tartrate (Ambien) 5 mg QHS PRN PO INSOMNIA; Start 07/24/17 at 01:00 Docusate Sodium (Colace) 100 mg Q12H PRN PO CONSTIPATION; Start 07/24/17 at 01: 00 Magnesium Hydroxide (Milk Of Mag) 30 ml DAILY PRN PO CONSTIPATION; Start at 01:00 Bisacodyl (Dulcolax Supp) 10 mg DAILY PRN [place] CONSTIPATION; Start 07/24/17 at 01 :00 Miscellaneous Information (Pending [facility] Order For Wound Care) This patient stevens... PRN PRN XX WOUND CARE; Start 07/24/17 at 07:00 Diagnostic Test (Pha) 1 ea 1 ea 02 XX ; Start 07/25/17 at 02:00 Sodium Chloride (NS) 1,000 ml @ 75 mls/hr [id number] Last administered on 07/26 14:30; Admin Dose 75 MLS/HR; Start 07/24/17 at 09:30 Miscellaneous Information 1 ea NOTE XX ; Start 07/24/17 at 10:00 Glucose (Glutose) 15 gm Q15M PRN PO DECREASED GLUCOSE; Start 07/24/17 at 10:00 Glucose (Glutose) 22.5 gm Q15M PRN PO DECREASED GLUCOSE; Start 07/24/17 at 10: 00 Dextrose (D50w Syringe) 25 ml Q15M PRN IV DECREASED GLUCOSE; Start 07/24/17 at 10:00 Dextrose (D50w Syringe) 50 ml Q15M PRN IV DECREASED GLUCOSE; Start 07/24/17 at 10:00 Glucagon (Glucagen) 1 mg Q15M PRN IM DECREASED GLUCOSE; Start 07/24/17 at 10:00 Glucose (Glutose) 15 gm Q15M PRN BUCCAL DECREASED GLUCOSE; Start 07/24/17 at 10 :00 Pantoprazole (Protonix Tab) 40 mg DAILY@06 PO Last administered on 07/27/17 05 :48; Admin Dose 40 MG; Start 07/25/17 at 06:00 Lactobacillus Acidophilus/ Rhamnosus (Culturelle) 1 cap BID PO Last administered on 07/27/17 08:09; Admin Dose 1 CAP; Start 07/25/17 at 13:30 Insulin Glargine 15 unit 15 unit BID@08,20 SC Last administered on 07/27/17 07 :57; Admin Dose 15 UNIT; Start 07/25/17 at 20:00 Ertapenem/Sodium Chloride (Invanz/NS) 100 ml @ 200 mls/hr Q24H IVPB Last administered on 07/26/17 20:35; Admin Dose 200 MLS/HR; Start 07/25/17 at 14:15 Enoxaparin Sodium 40 mg 40 mg DAILY SC Last administered on 07/27/17 08:19; Admin Dose 40 MG; Start 07/26/17 at 09:00 Vancomycin HCl 1.5 gm/Sodium Chloride 250 ml @ 83.333 mls/ hr Q12H IVPB Last administered on 07/27/17 11:07; Admin Dose 83.333 MLS/HR; Start 07/26/17 at 22: 00 Potassium Phosphate/Sodium Chloride (K Phos (Mm)/NS) 260 ml @ 65 mls/hr ONCE ONCE IVPB ; Start 07/27/17 at 11:00; Stop 07/27/17 at 14:59 CIELO ACEVEDO Jul 27, 2017 11:23
--- NOTE | 2017-07-27 11:58 | CONS ---
Date/Time of Note Date/Time of Note DATE: 07/27/17 TIME: 11:58 Assessment/Plan Assessment/Plan Chief Complaint/Hosp Course ID PROGRESS NOTE TOTAL ABX DAY # CURRENT ABX=> Vanco IV + Ertapenem 24H INTERVAL SUMMARY * TMax 99.9, WBC 15. doing OK * New PICC today GENERAL: VSS, NAD HEENT: Unremarkable NECK: Trach midline, full ROM CHEST: Rise symmetrical without dyspnea on observation ABDOMEN: Soft, EXTREMITIES: Warm,(+) moves extremities SKIN: No diaphoresis, no rash ID ASSESSMENT: 52 yo M admit with: 1. SIRS -> Tc 99.9, WBC 15.4, ESR 60 * s/p sepsis 2. Acute Left foot cellulitis w/subcutaneous soft tissue edema/infection, no evidence of osteomyelitis per MRI 3. Diabetes, poorly controlled 4. DKA on admission => Resolved (-)MRSA Nares screen INVASIVES: PICC (07/27/17) ABX ALLERGY: KNDA TOTAL ABX DAY # CURRENT ABX=> Vanco IV + Ertapenem ID PLAN 1. Continue current ABX, anticipate DC home with current IV ABX x14-21 days until infection clears. . Problems: Consultation Date/Type/Reason Admit Date/Time Jul 24, 2017 at 00:47 Initial Consult Date Type of Consultation: ID Exam/Review of Systems Vital Signs Vitals Vital Signs Date Time Temp Pulse Resp B/P Pulse Ox O2 Delivery O2 Flow Rate FiO2 07/27/17 07:30 99.9 84 18 119/74 96 07/24/17 22:00 Room Air Intake and Output 07/26/17 07/26/17 07/27/17 15:00 23:00 07:00 Intake Total 700 ml 1645 ml 1310 ml Balance 700 ml 1645 ml 1310 ml Results Result Diagram: 07/27/17 0458 07/27/17 0458 Results 24 hrs Laboratory Tests Test 07/26/17 12:17 07/26/17 14:04 07/26/17 17:27 07/26/17 20:39 Bedside Glucose 86 124 126 115 Test 07/27/17 04:58 07/27/17 07:51 White Blood Count 15.4 H Red Blood Count 4.19 L Hemoglobin 11.6 L Hematocrit 34.2 L Mean Corpuscular Volume 81.6 L Mean Corpuscular Hemoglobin 27.7 L Mean Corpuscular Hemoglobin Concent 33.9 Red Cell Distribution Width 12.7 Platelet Count 284 Mean Platelet Volume 10.0 Neutrophils % 83.5 H Lymphocytes % 5.6 L Monocytes % 9.5 Eosinophils % 0.6 Basophils % 0.2 Nucleated Red Blood Cells % 0.0 Neutrophils # 12.8 H Lymphocytes # 0.9 Monocytes # 1.5 H Eosinophils # 0.1 Basophils # 0.0 Nucleated Red Blood Cells # 0.0 Sodium Level 137 Potassium Level 3.3 L Chloride Level 102 Carbon Dioxide Level 29 Anion Gap 9 Blood Urea Nitrogen 9 Creatinine 0.66 Glucose Level 166 Calcium Level 7.5 L Phosphorus Level 2.4 L Magnesium Level 1.9 Bedside Glucose 165 Medications Medications Current Medications Citalopram Hydrobromide (Celexa) 40 mg DAILY PO Last administered on 07/27/17 08:09; Admin Dose 40 MG; Start 07/24/17 at 09:00 Atorvastatin Calcium (Lipitor) 10 mg DAILY@21 PO Last administered on 20:37; Admin Dose 10 MG; Start 07/24/17 at 21:00 Ondansetron HCl (Zofran Inj) 4 mg Q6H PRN IV NAUSEA AND/OR VOMITING Last administered on 07/27/17 08:09; Admin Dose 4 MG; Start 07/24/17 at 01:00 Acetaminophen (Tylenol Tab) 650 mg Q6H PRN PO PAIN LEVEL 1-3 OR FEVER Last administered on 07/27/17 00:09; Admin Dose 650 MG; Start 07/24/17 at 01:00 Acetaminophen/ Hydrocodone Bitart ([place] (5/325)) 1 tab Q6H PRN PO PAIN LEVEL 4 -6; Start 07/24/17 at 01:00 Acetaminophen/ Hydrocodone Bitart ([place] (5/325)) 2 tab Q6H PRN PO PAIN LEVEL 7 -10 Last administered on 07/24/17 22:47; Admin Dose 2 TAB; Start 07/24/17 at 01 :00 Morphine Sulfate (morphine) 2 mg Q4H PRN IV PAIN LEVEL 7-10; Start 07/24/17 at 01:00 Zolpidem Tartrate (Ambien) 5 mg QHS PRN PO INSOMNIA; Start 07/24/17 at 01:00 Docusate Sodium (Colace) 100 mg Q12H PRN PO CONSTIPATION; Start 07/24/17 at 01: 00 Magnesium Hydroxide (Milk Of Mag) 30 ml DAILY PRN PO CONSTIPATION; Start at 01:00 Bisacodyl (Dulcolax Supp) 10 mg DAILY PRN [place] CONSTIPATION; Start 07/24/17 at 01 :00 Miscellaneous Information (Pending [facility] Order For Wound Care) This patient stevens... PRN PRN XX WOUND CARE; Start 07/24/17 at 07:00 Diagnostic Test (Pha) 1 ea 1 ea 02 XX ; Start 07/25/17 at 02:00 Sodium Chloride (NS) 1,000 ml @ 75 mls/hr [id number] IV Last administered on 07/26 14:30; Admin Dose 75 MLS/HR; Start 07/24/17 at 09:30 Miscellaneous Information 1 ea NOTE XX ; Start 07/24/17 at 10:00 Glucose (Glutose) 15 gm Q15M PRN PO DECREASED GLUCOSE; Start 07/24/17 at 10:00 Glucose (Glutose) 22.5 gm Q15M PRN PO DECREASED GLUCOSE; Start 07/24/17 at 10: 00 Dextrose (D50w Syringe) 25 ml Q15M PRN IV DECREASED GLUCOSE; Start 07/24/17 at 10:00 Dextrose (D50w Syringe) 50 ml Q15M PRN IV DECREASED GLUCOSE; Start 07/24/17 at 10:00 Glucagon (Glucagen) 1 mg Q15M PRN IM DECREASED GLUCOSE; Start 07/24/17 at 10:00 Glucose (Glutose) 15 gm Q15M PRN BUCCAL DECREASED GLUCOSE; Start 07/24/17 at 10 :00 Pantoprazole (Protonix Tab) 40 mg DAILY@06 PO Last administered on 07/27/17 05 :48; Admin Dose 40 MG; Start 07/25/17 at 06:00 Lactobacillus Acidophilus/ Rhamnosus (Culturelle) 1 cap BID PO Last administered on 07/27/17 08:09; Admin Dose 1 CAP; Start 07/25/17 at 13:30 Insulin Glargine 15 unit 15 unit BID@08,20 SC Last administered on 07/27/17 07 :57; Admin Dose 15 UNIT; Start 07/25/17 at 20:00 Ertapenem/Sodium Chloride (Invanz/NS) 100 ml @ 200 mls/hr Q24H IVPB Last administered on 07/26/17 20:35; Admin Dose 200 MLS/HR; Start 07/25/17 at 14:15 Enoxaparin Sodium 40 mg 40 mg DAILY SC Last administered on 07/27/17 08:19; Admin Dose 40 MG; Start 07/26/17 at 09:00 Vancomycin HCl 1.5 gm/Sodium Chloride 250 ml @ 83.333 mls/ hr Q12H IVPB Last administered on 07/27/17 11:07; Admin Dose 83.333 MLS/HR; Start 07/26/17 at 22: 00 Potassium Phosphate/Sodium Chloride (K Phos (Mm)/NS) 260 ml @ 65 mls/hr ONCE ONCE IVPB ; Start 07/27/17 at 11:00; Stop 07/27/17 at 14:59 IV Flush (NS 10 ml) 10 ml PRN PRN IV FLUSH LINE; Start 07/27/17 at 11:30 KWAN ANDERSON CONVEYOR OPERATOR Jul 27, 2017 11:58
[2017-07-27] MEDS: SOD CHLORIDE 0.9% 1,000 ML IV SCH (12:05)
[2017-07-27 14:38] VITALS: BP 131/74; RESP 18
--- NOTE | 2017-07-27 15:36 | RADRPT ---
PROCEDURE: Ultrasound guidance for placement of needle in left upper extremity vein. CLINICAL INDICATION: Venous access. TECHNIQUE: Limited sonography of the left upper extremity was performed. Ultrasound images were recorded and s tored in the patient's medical record. COMPARISON: None. FINDINGS: The ultrasound images demonstrate a patent left upper extremity vein. The PICC line was inserted by the PICC line nurse. IMPRESSION: 1. Ultrasound guidance for a needle placement in a left upper extremity vein. 2. The left upper extremity vein is patent. RPTAT: QQ .Isreal Peterson MD, MD Date Time Electronically viewed and signed by .Isreal Peterson MD, MD on 07/27/2017 15:35 .R/
[2017-07-27] MEDS: ERTAPENEM SODIUM 1 GM in SOD CHLORIDE 0.9% 100 ML IVPB SCH (18:06)
[2017-07-27] MEDS: ATORVASTATIN 10 MG TAB PO SCH (20:06)
[2017-07-27] MEDS: HYDROCODONE/APAP (5/325) TAB PO PRN (20:26)
[2017-07-27 20:28] VITALS: BP 134/70; RESP 16
[2017-07-27] MEDS: VANCOMYCIN 1.25 GM in SOD CHLORIDE 0.9% 250 ML IVPB SCH (22:27)
[2017-07-28] VITALS (14 sets, daily range): BP systolic 119–138; BP diastolic 66–78; PULSE 90–99; RESP 11–18
[2017-07-28] MEDS: SOD CHLORIDE 0.9% 1,000 ML IV SCH ×2 (01:54→14:45)
[2017-07-28] MEDS: ACCU-CHEK XX SCH (02:00)
[2017-07-28] MEDS: VANCOMYCIN 1.25 GM in SOD CHLORIDE 0.9% 250 ML IVPB SCH ×3 (06:07→22:00)
[2017-07-28] MEDS: PANTOPRAZOLE (EC) 40 MG TAB PO SCH (06:07)
[2017-07-28] MEDS ORDERED: EPHEDrine SULFATE 50 MG/5 ML SYG ONE (07:00)
[2017-07-28 07:05] LABS: BASOPHILS % 0.3 % (0.0-2.0); EOSINOPHILS # 0.2 10^3/ul (0.0-0.5); EOSINOPHILS % 1.4 % (0.0-7.0); HEMATOCRIT 33.1 % (42.0-52.0); HEMOGLOBIN 11.1 g/dl (14.0-18.0); LYMPHOCYTES % 7.3 % (15.0-51.0); MEAN CORPUSCULAR HEMOGLOBIN 27.7 pg (29.0-33.0); MEAN CORPUSCULAR HGB CONC 33.5 g/dl (32.0-37.0); MEAN CORPUSCULAR VOLUME 82.5 fl (82.0-101.0); MONOCYTE # 1.4 10^3/ul (0.3-0.9); MONOCYTES % 10.4 % (0.0-11.0); NEUTROPHIL # 10.4 10^3/ul (1.6-7.5); PLATELET COUNT 293 10^3/UL (140-415); RED BLOOD COUNT 4.01 10^6/ul (4.70-6.10); RED CELL DISTRIBUTION WIDTH 12.9 % (11.5-14.5); WHITE BLOOD COUNT 13.5 10^3/ul (4.8-10.8)
[2017-07-28 07:21] LABS: CALCIUM 7.5 mg/dl (8.4-10.2); CREATININE 0.64 mg/dl (0.61-1.24); POTASSIUM 3.8 mmol/L (3.5-5.1)
[2017-07-28 07:44] LABS: MAGNESIUM 1.8 mg/dl (1.7-2.5); PHOSPHORUS 2.7 mg/dl (2.5-4.9)
[2017-07-28] MEDS: LACTOBACILLUS RHAMNOSUS CAP PO SCH (08:02)
[2017-07-28] MEDS: CITALOPRAM 20 MG TAB PO SCH (08:02)
[2017-07-28] MEDS: INSULIN GLARGINE [LANtus] 3 ML PEN SC SCH (08:07)
[2017-07-28] MEDS: ENOXAPARIN 40 MG/0.4 ML SYG SC SCH (08:07)
[2017-07-28] MEDS: INSULIN ASPART [NOVOLOG] 3 ML PEN SC SCH ×7 (08:08→20:50)
[2017-07-28] MEDS ORDERED: POTASSIUM CHLORIDE (SR) 20 MEQ TAB PO STA (10:21)
[2017-07-28] MEDS ORDERED: MAGNESIUM SULFATE 2 GM/50 ML 50 ML IVPB ONE (11:00)
--- NOTE | 2017-07-28 12:56 | CONS ---
Date/Time of Note Date/Time of Note DATE: 07/28/17 TIME: 12:50 Assessment/Plan Assessment/Plan Problems: (1) Diabetes, polyneuropathy (2) Foreign body in foot, left, infected (3) Cellulitis of left foot Additional Assessment/Plan Patient will be scheduled for incision and drainage of left foot abscess with excision of foreign body left foot. Patient is at risk for limb loss. Thank you again for involving me in the care of this patient. If you have any questions regarding this case, please feel free to contact me at pager: or reach me at mobile: [phone]. Consultation Date/Type/Reason Admit Date/Time Jul 24, 2017 at 00:47 Date of Consultation: Jul 28, 2017 Type of Consultation: Foot and ankle surgery Reason for Consultation Evaluation of right foot infection Hx of Present Illness Thank you very much for involving the care of this patient. As you know this is a 52-year-old male patient past medical history significant diabetes mellitus for insulin-dependent diabetes mellitus who presented to the emergency room with an infection of the left foot. I was consulted for evaluation and treatment. Patient says that about 4 months ago he had stepped on a piece of glass where he came to the ER and was treated and was told that the glass was removed from the left foot. He was never admitted to the hospital and he was sent home. Patient says that overnight his left foot became more red and discolored and he has a new lesion on the plantar aspect of the left foot. Patient's is present in the room during examination and evaluation. Constitutional: improved, no complaints Eyes: no complaints ENT: no complaints Respiratory: no complaints Cardiovascular: lightheadedness Gastrointestinal: nausea Genitourinary: other (Polyuria) Skin: no complaints Neurologic: no complaints Lymphatic: no complaints Psychological: no complaints Past Medical History As per HPI Past Surgical History As per history of present illness. Social History As per history of present illness. Alcohol Use: none Smoking Status: Never smoker Drug Use: none Exam/Review of Systems Vital Signs Vitals Vital Signs Date Time Temp Pulse Resp B/P Pulse Ox O2 Delivery O2 Flow Rate FiO2 07/28/17 07:24 98.6 81 18 133/77 93 07/24/17 22:00 Room Air Intake and Output 07/27/17 07/27/17 07/28/17 15:00 23:00 07:00 Intake Total 250 ml 1520 ml 1970 ml Balance 250 ml 1520 ml 1970 ml Exam General appearance: Patient is well developed; appears to be in no acute distress laying supine in bed. No dressing noted on the left foot Vascular exam: Pedal pulses: weakly palpable bilateral feet; CFT: instantaneous on all toes; TG: normal bilateral lower extremity; Edema: Present left foot and left ankle Neurological exam: Protective sensation is diminished to sharp, dull, vibratory and temperature stimuli bilaterally. Deep tendon reflexes are normal bilaterally. Negative Tinel sign Dermatological exam: Open wound present plantar left fifth metatarsophalangeal joint with dry hyperkeratotic skin surrounding the area. Macerated central arch of the left foot with surrounding erythema. Nontender to examination. There is no fluctuance present in this area. There is erythema of the left foot noted. No edema of the right foot noted and no open wound present on the right foot Musculoskeletal exam: No tenderness on palpation of bilateral feet and ankles. Contracted toes noted on both feet. Rectus foot type noted. Muscle power is 5/ 5 bilateral lower extremity Imaging reviewed. Labs reviewed. MRI shows small defect within the skin and superficial subcutaneous soft tissue corresponding with patient's wound on the lateral aspect of the fifth metatarsophalangeal joint. There is diffuse edema throughout the subcutaneous soft tissue foot with possible abscess of the fifth metatarsophalangeal joint. Results Result Diagram: 07/28/17 0529 07/28/17 0529 Results 24 hrs Laboratory Tests Test 07/27/17 17:15 07/27/17 19:55 07/27/17 20:35 07/27/17 21:54 Bedside Glucose 130 119 155 Vancomycin Level Trough 9.9 L Test 07/28/17 05:29 07/28/17 07:57 07/28/17 12:13 White Blood Count 13.5 H Red Blood Count 4.01 L Hemoglobin 11.1 L Hematocrit 33.1 L Mean Corpuscular Volume 82.5 Mean Corpuscular Hemoglobin 27.7 L Mean Corpuscular Hemoglobin Concent 33.5 Red Cell Distribution Width 12.9 Platelet Count 293 Mean Platelet Volume 10.0 Neutrophils % 77.0 Lymphocytes % 7.3 L Monocytes % 10.4 Eosinophils % 1.4 Basophils % 0.3 Nucleated Red Blood Cells % 0.0 Neutrophils # 10.4 H Lymphocytes # 1.0 Monocytes # 1.4 H Eosinophils # 0.2 Basophils # 0.0 Nucleated Red Blood Cells # 0.0 Sodium Level 134 L Potassium Level 3.8 Chloride Level 100 Carbon Dioxide Level 30 Anion Gap 8 Blood Urea Nitrogen 11 Creatinine 0.64 Glucose Level 224 H Calcium Level 7.5 L Phosphorus Level 2.7 Magnesium Level 1.8 Bedside Glucose 207 223 H Medications Medications Current Medications Citalopram Hydrobromide (Celexa) 40 mg DAILY PO Last administered on 07/28/17 08:02; Admin Dose 40 MG; Start 07/24/17 at 09:00 Atorvastatin Calcium (Lipitor) 10 mg DAILY@21 PO Last administered on 20:06; Admin Dose 10 MG; Start 07/24/17 at 21:00 Ondansetron HCl (Zofran Inj) 4 mg Q6H PRN IV NAUSEA AND/OR VOMITING Last administered on 07/27/17 20:25; Admin Dose 4 MG; Start 07/24/17 at 01:00 Acetaminophen (Tylenol Tab) 650 mg Q6H PRN PO PAIN LEVEL 1-3 OR FEVER Last administered on 07/27/17 00:09; Admin Dose 650 MG; Start 07/24/17 at 01:00 Acetaminophen/ Hydrocodone Bitart ([place] (5/325)) 1 tab Q6H PRN PO PAIN LEVEL 4 -6; Start 07/24/17 at 01:00 Acetaminophen/ Hydrocodone Bitart ([place] (5/325)) 2 tab Q6H PRN PO PAIN LEVEL 7 -10 Last administered on 07/27/17 20:26; Admin Dose 2 TAB; Start 07/24/17 at 01 :00 Morphine Sulfate (morphine) 2 mg Q4H PRN IV PAIN LEVEL 7-10; Start 07/24/17 at 01:00 Zolpidem Tartrate (Ambien) 5 mg QHS PRN PO INSOMNIA; Start 07/24/17 at 01:00 Docusate Sodium (Colace) 100 mg Q12H PRN PO CONSTIPATION; Start 07/24/17 at 01: 00 Magnesium Hydroxide (Milk Of Mag) 30 ml DAILY PRN PO CONSTIPATION; Start at 01:00 Bisacodyl (Dulcolax Supp) 10 mg DAILY PRN [place] CONSTIPATION; Start 07/24/17 at 01 :00 Miscellaneous Information (Pending [facility] Order For Wound Care) This patient stevens... PRN PRN XX WOUND CARE; Start 07/24/17 at 07:00 Diagnostic Test (Pha) 1 ea 1 ea 02 XX ; Start 07/25/17 at 02:00 Sodium Chloride (NS) 1,000 ml @ 75 mls/hr [id number] IV Last administered on 07/28 01:54; Admin Dose 75 MLS/HR; Start 07/24/17 at 09:30 Miscellaneous Information 1 ea NOTE XX ; Start 07/24/17 at 10:00 Glucose (Glutose) 15 gm Q15M PRN PO DECREASED GLUCOSE; Start 07/24/17 at 10:00 Glucose (Glutose) 22.5 gm Q15M PRN PO DECREASED GLUCOSE; Start 07/24/17 at 10: 00 Dextrose (D50w Syringe) 25 ml Q15M PRN IV DECREASED GLUCOSE; Start 07/24/17 at 10:00 Dextrose (D50w Syringe) 50 ml Q15M PRN IV DECREASED GLUCOSE; Start 07/24/17 at 10:00 Glucagon (Glucagen) 1 mg Q15M PRN IM DECREASED GLUCOSE; Start 07/24/17 at 10:00 Glucose (Glutose) 15 gm Q15M PRN BUCCAL DECREASED GLUCOSE; Start 07/24/17 at 10 :00 Pantoprazole (Protonix Tab) 40 mg DAILY@06 PO Last administered on 07/28/17 06 :07; Admin Dose 40 MG; Start 07/25/17 at 06:00 Lactobacillus Acidophilus/ Rhamnosus (Culturelle) 1 cap BID PO Last administered on 07/28/17 08:02; Admin Dose 1 CAP; Start 07/25/17 at 13:30 Insulin Glargine 15 unit 15 unit BID@08,20 SC Last administered on 07/28/17 08 :07; Admin Dose 15 UNIT; Start 07/25/17 at 20:00 Ertapenem/Sodium Chloride (Invanz/NS) 100 ml @ 200 mls/hr Q24H IVPB Last administered on 07/27/17 18:06; Admin Dose 200 MLS/HR; Start 07/25/17 at 14:15 Enoxaparin Sodium (Lovenox) 40 mg DAILY SC Last administered on 07/28/17 08:07 ; Admin Dose 40 MG; Start 07/26/17 at 09:00 IV Flush 10 ml 10 ml PRN PRN IV FLUSH LINE; Start 07/27/17 at 11:30 Vancomycin HCl 1.25 gm/Sodium Chloride 250 ml @ 83.333 mls/ hr Q8H IVPB Last administered on 07/28/17 06:07; Admin Dose 83.333 MLS/HR; Start 07/27/17 at 22: 00 Magnesium Sulfate (Magnesium Sulfate 2 Gm/50 ml) 50 ml @ 25 mls/hr ONCE ONCE IVPB Last administered on 07/28/17 11:29; Admin Dose 25 MLS/HR; Start at 11:00; Stop 07/28/17 at 12:59 Miscellaneous Information (*Rx Drug Level Order Reminder*) VANCOMYCIN TROUGH AT 2100 ONCE ONCE XX ; Start 07/28/17 at 21:00; Stop 07/28/17 at 21:01 TUTU SHAFFER DPM Jul 28, 2017 12:56
--- NOTE | 2017-07-28 14:11 | PN ---
Date/Time of Note Date/Time of Note DATE: 07/28/17 TIME: 13:39 Assessment/Plan VTE Prophylaxis VTE Prophylaxis Intervention: SCD's Lines/Catheters IV Catheter Type (from Nrs): PICC Line Central line still needed: Yes (for IV abx ) Urinary Cath still in place: No Assessment/Plan Assessment/Plan 52-year-old male with: 1. Acute infection of the left foot, s/p sepsis, no signs of osteomyelitis on x -ray, ESR up to 60, MRI left foot with no signs of osteomyelitis. MRI 07/25 showing some areas of small fluid consistent with bursitis around the toes. Today WBC slightly down but left foot significantly with worse appearance with erythematous areas and necrotic areas, this is while on abx, discussed with Podiatry, Dr Quintero and may need to go to OR later today or tomorrow depending on progression. Continue IV antibiotics for now. NPO as of now Appreciate ID commendations. PICC line placed in place. Blood cultures and urine cultures are no growth to date. 2. S/p Diabetic ketoacidosis, likely triggered by acute infection and also poorly controlled diabetes mellitus, BG better controlled on current regimen. Appreciate recommendations from mobility engineer, patient willing to stay on Lantus or equivalent long-acting insulin, continue Lantus 15 units bid. Continue pre-meal insulin and sliding scale insulin for now. Hemoglobin A1c out of range. 3. Hyperlipidemia: Continue statin therapy. Prophylaxis: SCDs for DVT prophylaxis, Protonix for GI prophylaxis Disposition: Follow-up infectious disease and Podiatry recommendations later today, may need to go to OR today, if not within 24 hrs. Subjective 24 Hr Interval Summary Free Text/Dictation Left foot looks worse today with erythema and necrotic areas, rapid progression overnight while on abx for the past 4 days with some improvement at first Appreciate podiatry eval and patient currently NPO as may need debridement urgently Afebrile, no TTP, WBC actually coming down Exam/Review of Systems Vital Signs Vitals Vital Signs Date Time Temp Pulse Resp B/P Pulse Ox O2 Delivery O2 Flow Rate FiO2 07/28/17 07:24 98.6 81 18 133/77 93 07/24/17 22:00 Room Air Intake and Output 07/27/17 07/27/17 07/28/17 15:00 23:00 07:00 Intake Total 250 ml 1520 ml 1970 ml Balance 250 ml 1520 ml 1970 ml Exam Constitutional: alert, oriented, well developed Respiratory: clear to auscultation, normal air movement Cardiovascular: nl pulses, regular rate and rhythm Gastrointestinal: non-tender, soft Musculoskeletal: other (left foot with new erythematous areas and necrotic areas, rapid change overnight, no TTP ) Extremities: normal pulses Neurological: PRACTICE SUPPORT SPECIALIST II-XII intact, nl mental status, nl speech, nl strength Results Result Diagram: 07/28/1729 07/28/17528 Results 24 hrs Laboratory Tests Test 07/27/17 17:15 07/27/17 19:55 07/27/17 20:35 07/27/17 21:54 Bedside Glucose 130 119 155 Vancomycin Level Trough 9.9 L Test 07/28/17 05:29 07/28/17 07:57 07/28/17 12:13 White Blood Count 13.5 H Red Blood Count 4.01 L Hemoglobin 11.1 L Hematocrit 33.1 L Mean Corpuscular Volume 82.5 Mean Corpuscular Hemoglobin 27.7 L Mean Corpuscular Hemoglobin Concent 33.5 Red Cell Distribution Width 12.9 Platelet Count 293 Mean Platelet Volume 10.0 Neutrophils % 77.0 Lymphocytes % 7.3 L Monocytes % 10.4 Eosinophils % 1.4 Basophils % 0.3 Nucleated Red Blood Cells % 0.0 Neutrophils # 10.4 H Lymphocytes # 1.0 Monocytes # 1.4 H Eosinophils # 0.2 Basophils # 0.0 Nucleated Red Blood Cells # 0.0 Sodium Level 134 L Potassium Level 3.8 Chloride Level 100 Carbon Dioxide Level 30 Anion Gap 8 Blood Urea Nitrogen 11 Creatinine 0.64 Glucose Level 224 H Calcium Level 7.5 L Phosphorus Level 2.7 Magnesium Level 1.8 Bedside Glucose 207 223 H Medications Medications Current Medications Citalopram Hydrobromide (Celexa) 40 mg DAILY PO Last administered on 07/28/17 08:02; Admin Dose 40 MG; Start 07/24/17 at 09:00 Atorvastatin Calcium (Lipitor) 10 mg DAILY@21 PO Last administered on 20:06; Admin Dose 10 MG; Start 07/24/17 at 21:00 Ondansetron HCl (Zofran Inj) 4 mg Q6H PRN IV NAUSEA AND/OR VOMITING Last administered on 07/27/17 20:25; Admin Dose 4 MG; Start 07/24/17 at 01:00 Acetaminophen (Tylenol Tab) 650 mg Q6H PRN PO PAIN LEVEL 1-3 OR FEVER Last administered on 07/27/17 00:09; Admin Dose 650 MG; Start 07/24/17 at 01:00 Acetaminophen/ Hydrocodone Bitart ([place] (5/325)) 1 tab Q6H PRN PO PAIN LEVEL 4 -6; Start 07/24/17 at 01:00 Acetaminophen/ Hydrocodone Bitart ([place] (5/325)) 2 tab Q6H PRN PO PAIN LEVEL 7 -10 Last administered on 07/27/17 20:26; Admin Dose 2 TAB; Start 07/24/17 at 01 :00 Morphine Sulfate (morphine) 2 mg Q4H PRN IV PAIN LEVEL 7-10; Start 07/24/17 at 01:00 Zolpidem Tartrate (Ambien) 5 mg QHS PRN PO INSOMNIA; Start 07/24/17 at 01:00 Docusate Sodium (Colace) 100 mg Q12H PRN PO CONSTIPATION; Start 07/24/17 at 01: 00 Magnesium Hydroxide (Milk Of Mag) 30 ml DAILY PRN PO CONSTIPATION; Start at 01:00 Bisacodyl (Dulcolax Supp) 10 mg DAILY PRN [place] CONSTIPATION; Start 07/24/17 at 01 :00 Miscellaneous Information (Pending [facility] Order For Wound Care) This patient stevens... PRN PRN XX WOUND CARE; Start 07/24/17 at 07:00 Diagnostic Test (Pha) 1 ea 1 ea 02 XX ; Start 07/25/17 at 02:00 Sodium Chloride (NS) 1,000 ml @ 75 mls/hr [id number] IV Last administered on 07/28 01:54; Admin Dose 75 MLS/HR; Start 07/24/17 at 09:30 Miscellaneous Information 1 ea NOTE XX ; Start 07/24/17 at 10:00 Glucose (Glutose) 15 gm Q15M PRN PO DECREASED GLUCOSE; Start 07/24/17 at 10:00 Glucose (Glutose) 22.5 gm Q15M PRN PO DECREASED GLUCOSE; Start 07/24/17 at 10: 00 Dextrose (D50w Syringe) 25 ml Q15M PRN IV DECREASED GLUCOSE; Start 07/24/17 at 10:00 Dextrose (D50w Syringe) 50 ml Q15M PRN IV DECREASED GLUCOSE; Start 07/24/17 at 10:00 Glucagon (Glucagen) 1 mg Q15M PRN IM DECREASED GLUCOSE; Start 07/24/17 at 10:00 Glucose (Glutose) 15 gm Q15M PRN BUCCAL DECREASED GLUCOSE; Start 07/24/17 at 10 :00 Pantoprazole (Protonix Tab) 40 mg DAILY@06 PO Last administered on 07/28/17 06 :07; Admin Dose 40 MG; Start 07/25/17 at 06:00 Lactobacillus Acidophilus/ Rhamnosus (Culturelle) 1 cap BID PO Last administered on 07/28/17 08:02; Admin Dose 1 CAP; Start 07/25/17 at 13:30 Insulin Glargine 15 unit 15 unit BID@08,20 SC Last administered on 07/28/17 08 :07; Admin Dose 15 UNIT; Start 07/25/17 at 20:00 Ertapenem/Sodium Chloride (Invanz/NS) 100 ml @ 200 mls/hr Q24H IVPB Last administered on 07/27/17 18:06; Admin Dose 200 MLS/HR; Start 07/25/17 at 14:15 Enoxaparin Sodium (Lovenox) 40 mg DAILY SC Last administered on 07/28/17 08:07 ; Admin Dose 40 MG; Start 07/26/17 at 09:00 IV Flush 10 ml 10 ml PRN PRN IV FLUSH LINE; Start 07/27/17 at 11:30 Vancomycin HCl/ Sodium Chloride (Vancocin/NS) 250 ml @ 83.333 mls/ hr Q8H IVPB Last administered on 07/28/17 06:07; Admin Dose 83.333 MLS/HR; Start at 22:00 Miscellaneous Information (*Rx Drug Level Order Reminder*) VANCOMYCIN TROUGH AT 2100 ONCE ONCE XX ; Start 07/28/17 at 21:00; Stop 07/28/17 at 21:01 CIELO ACEVEDO Jul 28, 2017 14:10
[2017-07-28 15:20] LABS: INR 1.19; PROTIME 15.2 Sec (12.2-14.2); PT RATIO 1.2
[2017-07-28 15:21] LABS: PARTIAL THROMBOPLASTIN TIME 38.3 Sec (25.0-35.0)
[2017-07-28] MEDS ORDERED: CLINDAMYCIN 900 MG INJ IV ONE (15:30)
--- NOTE | 2017-07-28 15:30 | CONS ---
Date/Time of Note Date/Time of Note DATE: 07/28/17 TIME: 15:23 Assessment/Plan Assessment/Plan Chief Complaint/Hosp Course ID PROGRESS NOTE TOTAL ABX DAY # 5 CURRENT ABX=> Vanco IV#5 + Clindamycin #1 + Cefepime #1 + Amikacin IV x1 tonight Ertapenem -> Change 24H INTERVAL SUMMARY * Left foot w/advancing bright red erythema toes; lateral; dorsal up to ankle = = concern for progressive foot infection. No evidence of necrosis; however infection is spreading. * Dr. Dm baker -- Dr. Quintero to book time in OR -- will broaden ABX this afternoon as unknown when OR will be available. * New PICC today GENERAL: VSS, NAD HEENT: Unremarkable NECK: Trach midline, full ROM CHEST: Rise symmetrical without dyspnea on observation ABDOMEN: Soft, EXTREMITIES: Warm,(+) moves extremities SKIN: No diaphoresis, no rash ID ASSESSMENT: 52 yo M admit with: 1. SIRS -> Tc 99.9, WBC 15.4, ESR 60 * s/p sepsis 2. Acute Left foot cellulitis w/subcutaneous soft tissue edema/infection, no evidence of osteomyelitis per MRI 3. Diabetes, poorly controlled 4. DKA on admission => Resolved (-)MRSA Nares screen INVASIVES: PICC (07/27/17) ABX ALLERGY: KNDA TOTAL ABX DAY # 5 CURRENT ABX=>Vanco IV#5 + Clindamycin #1 + Cefepime #1 + Amikacin IV x1 tonight Ertapenem -> Change ID PLAN 1. Concern for progressive foot infection despite ABX x5 days -> pending debridement. 2. ABX spectrum broadened to include PSAR coverage + empiric strep pyogenes coverage until foot can be debrided. * Advised patient multiple ABX risk includes opportunistic yeast, ABX associated diarrhea/colitis; at this time he is in agreement while foot debridement pending. * Plan to de-escalate ABX once infection demonstrates control w/retreat. . Problems: Consultation Date/Type/Reason Admit Date/Time Jul 24, 2017 at 00:47 Type of Consultation: ID Exam/Review of Systems Vital Signs Vitals Vital Signs Date Time Temp Pulse Resp B/P Pulse Ox O2 Delivery O2 Flow Rate FiO2 07/28/17 14:06 99.1 85 18 119/66 93 9/27/17 22:00 Room Air Intake and Output 07/27/17 07/27/17 07/28/17 15:00 23:00 07:00 Intake Total 250 ml 1520 ml 1970 ml Balance 250 ml 1520 ml 1970 ml Results Result Diagram: 07/28/17 0529 07/28/17 0529 Results 24 hrs Laboratory Tests Test 07/27/17 17:15 07/27/17 19:55 07/27/17 20:35 07/27/17 21:54 Bedside Glucose 130 119 155 Vancomycin Level Trough 9.9 L Test 07/28/17 05:29 07/28/17 07:57 07/28/17 12:13 07/28/17 14:29 White Blood Count 13.5 H Red Blood Count 4.01 L Hemoglobin 11.1 L Hematocrit 33.1 L Mean Corpuscular Volume 82.5 Mean Corpuscular Hemoglobin 27.7 L Mean Corpuscular Hemoglobin Concent 33.5 Red Cell Distribution Width 12.9 Platelet Count 293 Mean Platelet Volume 10.0 Neutrophils % 77.0 Lymphocytes % 7.3 L Monocytes % 10.4 Eosinophils % 1.4 Basophils % 0.3 Nucleated Red Blood Cells % 0.0 Neutrophils # 10.4 H Lymphocytes # 1.0 Monocytes # 1.4 H Eosinophils # 0.2 Basophils # 0.0 Nucleated Red Blood Cells # 0.0 Sodium Level 134 L Potassium Level 3.8 Chloride Level 100 Carbon Dioxide Level 30 Anion Gap 8 Blood Urea Nitrogen 11 Creatinine 0.64 Glucose Level 224 H Calcium Level 7.5 L Phosphorus Level 2.7 Magnesium Level 1.8 Bedside Glucose 207 223 H Prothrombin Time 15.2 H Prothrombin Time Ratio 1.2 INR International Normalized Ratio 1.19 Activated Partial Thromboplast Time 38.3 H Medications Medications Current Medications Citalopram Hydrobromide (Celexa) 40 mg DAILY PO Last administered on 07/28/17 08:02; Admin Dose 40 MG; Start 07/24/17 at 09:00 Atorvastatin Calcium (Lipitor) 10 mg DAILY@21 PO Last administered on 20:06; Admin Dose 10 MG; Start 07/24/17 at 21:00 Ondansetron HCl (Zofran Inj) 4 mg Q6H PRN IV NAUSEA AND/OR VOMITING Last administered on 07/27/17 20:25; Admin Dose 4 MG; Start 07/24/17 at 01:00 Acetaminophen (Tylenol Tab) 650 mg Q6H PRN PO PAIN LEVEL 1-3 OR FEVER Last administered on 07/27/17 00:09; Admin Dose 650 MG; Start 07/24/17 at 01:00 Acetaminophen/ Hydrocodone Bitart ([place] (5/325)) 1 tab Q6H PRN PO PAIN LEVEL 4 -6; Start 07/24/17 at 01:00 Acetaminophen/ Hydrocodone Bitart ([place] (5/325)) 2 tab Q6H PRN PO PAIN LEVEL 7 -10 Last administered on 07/27/17 20:26; Admin Dose 2 TAB; Start 07/24/17 at 01 :00 Morphine Sulfate (morphine) 2 mg Q4H PRN IV PAIN LEVEL 7-10; Start 07/24/17 at 01:00 Zolpidem Tartrate (Ambien) 5 mg QHS PRN PO INSOMNIA; Start 07/24/17 at 01:00 Docusate Sodium (Colace) 100 mg Q12H PRN PO CONSTIPATION; Start 07/24/17 at 01: 00 Magnesium Hydroxide (Milk Of Mag) 30 ml DAILY PRN PO CONSTIPATION; Start at 01:00 Bisacodyl (Dulcolax Supp) 10 mg DAILY PRN [place] CONSTIPATION; Start 07/24/17 at 01 :00 Miscellaneous Information (Pending [facility] Order For Wound Care) This patient stevens... PRN PRN XX WOUND CARE; Start 07/24/17 at 07:00 Diagnostic Test (Pha) 1 ea 1 ea 02 XX ; Start 07/25/17 at 02:00 Sodium Chloride (NS) 1,000 ml @ 75 mls/hr [id number] IV Last administered on 07/28 01:54; Admin Dose 75 MLS/HR; Start 07/24/17 at 09:30 Miscellaneous Information 1 ea NOTE XX ; Start 07/24/17 at 10:00 Glucose (Glutose) 15 gm Q15M PRN PO DECREASED GLUCOSE; Start 07/24/17 at 10:00 Glucose (Glutose) 22.5 gm Q15M PRN PO DECREASED GLUCOSE; Start 07/24/17 at 10: 00 Dextrose (D50w Syringe) 25 ml Q15M PRN IV DECREASED GLUCOSE; Start 07/24/17 at 10:00 Dextrose (D50w Syringe) 50 ml Q15M PRN IV DECREASED GLUCOSE; Start 07/24/17 at 10:00 Glucagon (Glucagen) 1 mg Q15M PRN IM DECREASED GLUCOSE; Start 07/24/17 at 10:00 Glucose (Glutose) 15 gm Q15M PRN BUCCAL DECREASED GLUCOSE; Start 07/24/17 at 10 :00 Pantoprazole (Protonix Tab) 40 mg DAILY@06 PO Last administered on 07/28/17 06 :07; Admin Dose 40 MG; Start 07/25/17 at 06:00 Lactobacillus Acidophilus/ Rhamnosus (Culturelle) 1 cap BID PO Last administered on 07/28/17 08:02; Admin Dose 1 CAP; Start 07/25/17 at 13:30 Insulin Glargine 15 unit 15 unit BID@08,20 SC Last administered on 07/28/17 08 :07; Admin Dose 15 UNIT; Start 07/25/17 at 20:00 Ertapenem/Sodium Chloride (Invanz/NS) 100 ml @ 200 mls/hr Q24H IVPB Last administered on 07/27/17 18:06; Admin Dose 200 MLS/HR; Start 07/25/17 at 14:15 Enoxaparin Sodium (Lovenox) 40 mg DAILY SC Last administered on 07/28/17 08:07 ; Admin Dose 40 MG; Start 07/26/17 at 09:00 IV Flush 10 ml 10 ml PRN PRN IV FLUSH LINE; Start 07/27/17 at 11:30 Vancomycin HCl/ Sodium Chloride (Vancocin/NS) 250 ml @ 83.333 mls/ hr Q8H IVPB Last administered on 07/28/17 14:33; Admin Dose 83.333 MLS/HR; Start at 22:00 Miscellaneous Information (*Rx Drug Level Order Reminder*) VANCOMYCIN TROUGH AT 2100 ONCE ONCE XX ; Start 07/28/17 at 21:00; Stop 07/28/17 at 21:01 KWAN ANDERSON NP Jul 28, 2017 15:30
[2017-07-28] MEDS ORDERED: AMIKACIN 500 MG in DEXTROSE 5% 100 ML IVPB ONE (16:45)
[2017-07-28] MEDS: CEFEPIME 2GM/50 ML (PMX) 50 ML IVPB SCH (17:39)
[2017-07-28] MEDS ORDERED: CLINDAMYCIN 900 MG/D5W (PMX) 50 ML IVPB SCH (18:00)
[2017-07-28] MEDS ORDERED: POLYMYXIN/BACITRACIN 1L IRRIG ONE (20:37)
[2017-07-28] MEDS ORDERED: FENTAnyl 50 MCG/ML VIAL IV PRN (21:30)
[2017-07-28] MEDS ORDERED: HYDROmorphONE (0.2 MG/ML) 10ML SYG IV PRN (21:30)
[2017-07-28] MEDS ORDERED: MEPERIDINE 25 MG INJ IV PRN (21:30)
[2017-07-28] MEDS ORDERED: ONDANSETRON 4 MG INJ IV PRN (21:30)
[2017-07-28] MEDS ORDERED: DIPHENHYDRAMINE 50 MG INJ IV PRN (21:30)
[2017-07-28] MEDS ORDERED: MIDAZOLAM 1 MG/ML 2 ML INJ ONE (21:43)
[2017-07-28] MEDS ORDERED: LIDOCAINE 2% (SDV) 5 ML INJ ONE (21:43)
[2017-07-28] MEDS ORDERED: PROPOFOL 20 ML ONE (21:43)
--- NOTE | 2017-07-28 22:00 | HPN ---
Date/Time of Note Date/Time of Note DATE: 07/28/17 TIME: 22:00 Interval H&P Admission Note Pt. seen H&P reviewed: No system changes TUTU SHAFFER DPM Jul 28, 2017 22:00
[2017-07-28] MEDS ORDERED: FENTAnyl 50 MCG/ML VIAL ONE (22:23)
[2017-07-28] MEDS ORDERED: POLYMYXIN B 500000 UNIT INJ ONE (22:27)
[2017-07-28] MEDS ORDERED: ONDANSETRON 4 MG INJ ONE (22:35)
[2017-07-28] MEDS ORDERED: METOCLOPRAMIDE 10 MG INJ ONE (22:35)
[2017-07-28] MEDS ORDERED: BACITRACIN 50000 UNITS INJ IRR ONE (22:43)
--- NOTE | 2017-07-28 23:00 | SIPON ---
Date/Time of Note Date/Time of Note DATE: 07/28/17 TIME: 22:58 Operative Report Preoperative Diagnosis Left foot abscess with cellulitis Impending necrotizing fasciitis of the left foot Possible foreign body left foot DM with polyneuropathy Postoperative Diagnosis Left foot abscess with cellulitis Impending necrotizing fasciitis of the left foot Possible foreign body left foot DM with polyneuropathy Operation/Procedure Performed Incision and drainage of left foot Attempted removal of FB left foot Intra operative use and interpretation of fluoroscopy Surgeon see signature line periodicals library assistant NONE Anesthesia: general Estimated blood loss: minimal Transfusion Required none Specimen Wound culture left foot Debrided necrotic tissue of the left foot Grafts/Implants none Complications none TUTU SHAFFER DPM Jul 28, 2017 23:00
--- NOTE | 2017-07-28 23:00 | OPR ---
Date/Time of Note Date/Time of Note DATE: 07/28/17 TIME: 23:00 Operative Report Procedure Date: Jul 28, 2017 Preoperative Diagnosis Left abscess with cellulitis Open wound left foot Peripheral vascular disease Peripheral neuropathy Diabetes mellitus Postoperative Diagnosis Left abscess with cellulitis Open wound left foot Peripheral vascular disease Peripheral neuropathy Diabetes mellitus Operation/Procedure Performed Incision and drainage of the left foot Sharp debridement of necrotic tissues of the left foot Surgeon see signature line Crap Game Box Person None Anesthesia Type: general Anesthesiologist: YA GRUBER MD Estimated Blood Loss: minimal Transfusion none Specimen Wound culture left foot Grafts/Implants none Tubes/Drains Iodoform packing Complications none Pt Condition Post Procedure: stable Disposition: PACU Indications Deep abscess of the left foot with cellulitis requiring surgical incision and drainage with debridement. Procedure Description Patient was seen in the preoperative area. Proposed surgery was discussed with patient in great detail. Risks and complications discussed. Opportunity was given to patient to ask questions and all questions were answered. No guarantee or warranty was given or implied as to the outcome of the procedure either in verbal or written form. Patient was then taken to the operating room and was placed on the operating table in the supine position. General anesthesia was given by the anesthesiologist. Attention was directed to the left foot. Incision was made using a #15 blade on the plantar central aspect of the left foot right over the necrotic tissue. Purulent drainage was noted and drained. This was cultured. Necrotic soft tissue was debrided sharply. The area was irrigated with copious amounts of sterile normal saline with bacitracin. Second incision was made on the first MPJ medially. Necrotic tissue was found along with purulent drainage which was cultured. Soft tissue necrosis was sharply debrided to bleeding subcutaneous tissue. There was a communication between the medial wound on the plantar wound. Extensive debridement using a sharp curette was done. Extensive amounts of sterile normal saline with bacitracin was used with pulse irrigation to irrigate the areas. Iodoform packing was used to pack both sites. Sterile dressing was applied. Postop injection was given prior to dressing using 20 cc of 0.5% Marcaine plain. The patient tolerated procedure and anesthesia well. He was transferred to recovery room with vital signs stable vascular status intact to the left foot. Patient will be sent back to the floor of the postoperative monitoring. Patient will be followed in-house. Nonweightbearing on the left foot ordered. Postop orders were written. TUTU SHAFFER DPM Jul 28, 2017 23:00
[2017-07-28] MEDS ORDERED: INSULIN ASPART [NOVOLOG] 3 ML PEN SC ONE (23:30)
[2017-07-29] VITALS (9 sets, daily range): BP systolic 122–135; BP diastolic 68–78; PULSE 88–92; RESP 16–19
[2017-07-29] MEDS: INSULIN GLARGINE [LANtus] 3 ML PEN SC SCH ×3 (00:10→20:21)
[2017-07-29] MEDS: LACTOBACILLUS RHAMNOSUS CAP PO SCH ×3 (00:11→20:12)
[2017-07-29] MEDS: ATORVASTATIN 10 MG TAB PO SCH ×2 (00:11→20:13)
[2017-07-29] MEDS: CEFEPIME 2GM/50 ML (PMX) 50 ML IVPB SCH ×3 (01:06→20:12)
[2017-07-29] MEDS: ACCU-CHEK XX SCH ×2 (02:00→22:04)
[2017-07-29] MEDS: SOD CHLORIDE 0.9% 1,000 ML IV SCH ×2 (04:05→13:12)
[2017-07-29] MEDS: VANCOMYCIN 1.25 GM in SOD CHLORIDE 0.9% 250 ML IVPB SCH ×3 (05:31→22:06)
[2017-07-29] MEDS: PANTOPRAZOLE (EC) 40 MG TAB PO SCH (05:33)
[2017-07-29 06:29] LABS: ABNORMAL IP MESSAGE 1; BASOPHIL # 0.1 10^3/ul (0.0-0.1); BASOPHILS % 0.4 % (0.0-2.0); EOSINOPHILS # 0.1 10^3/ul (0.0-0.5); EOSINOPHILS % 0.7 % (0.0-7.0); HEMATOCRIT 33.8 % (42.0-52.0); HEMOGLOBIN 11.1 g/dl (14.0-18.0); LYMPHOCYTES # 0.8 10^3/ul (0.8-2.9); LYMPHOCYTES % 5.9 % (15.0-51.0); MEAN CORPUSCULAR HEMOGLOBIN 27.6 pg (29.0-33.0); MEAN CORPUSCULAR HGB CONC 32.8 g/dl (32.0-37.0); MEAN CORPUSCULAR VOLUME 84.1 fl (82.0-101.0); MEAN PLATELET VOLUME 9.5 fl (7.4-10.4); MONOCYTE # 1.5 10^3/ul (0.3-0.9); MONOCYTES % 11.3 % (0.0-11.0); NEUTROPHIL # 10.7 10^3/ul (1.6-7.5); NEUTROPHILS % 80.1 % (39.0-77.0); PLATELET COUNT 345 10^3/UL (140-415); POSITIVE DIFF @See below; RED BLOOD COUNT 4.02 10^6/ul (4.70-6.10); WHITE BLOOD COUNT 13.3 10^3/ul (4.8-10.8)
[2017-07-29 07:13] LABS: CALCIUM 7.5 mg/dl (8.4-10.2); CREATININE 0.75 mg/dl (0.61-1.24); POTASSIUM 4.1 mmol/L (3.5-5.1)
--- NOTE | 2017-07-29 07:32 | RADRPT ---
PROCEDURE: XR Left Foot. CLINICAL INDICATION: Left foot ounces. Postop. TECHNIQUE: Three views. Frontal, lateral, and oblique. COMPARISON: 07/23/2017. FINDINGS: Previously noted soft tissue swelling overlying the fifth metatarsal phalangeal joint is improved. T here is gas in the soft tissues in this region. There is no fracture or dislocation. Articular surfaces are intact. There is no lytic or blastic lesion. There is no radiopaque foreign body. IMPRESSION: 1. Postoperative changes of the soft tissues of the fifth metatarsal phalangeal joint region. 2. Otherwise unremarkable images of the left foot. RPTAT: QQ .Isreal Peterson MD, MD Date Time Electronically viewed and signed by .Isreal Peterson MD, MD on 07/29/2017 07:32 .R/
[2017-07-29 07:34] LABS: MAGNESIUM 1.9 mg/dl (1.7-2.5); PHOSPHORUS 3.3 mg/dl (2.5-4.9)
[2017-07-29] MEDS: INSULIN ASPART [NOVOLOG] 3 ML PEN SC SCH ×7 (08:25→20:11)
[2017-07-29] MEDS: CITALOPRAM 20 MG TAB PO SCH (09:05)
--- NOTE | 2017-07-29 10:31 | RADRPT ---
PROCEDURE: Intraoperative imaging of the left foot with fluoroscopy. CLINICAL INDICATION: Left foot pain. Intraoperative. TECHNIQUE: 6 images of the left foot were obtained in the operating room with an image intensifier . No radiologist was in attendance. Fluoroscopy time is 16 seconds. COMPARISON: No prior study is available for comparison. FINDINGS: Images demonstrate surgical instruments overlying the left foot and the lateral aspect of the fifth metatarsal phalangeal joint. IMPRESSION: 1. Intraoperative imaging of the left foot. RPTAT: QQ .Isreal Peterson MD, MD Date Time Electronically viewed and signed by .Isreal Peterson MD, on 07/29/2017 10:31 .R/
--- NOTE | 2017-07-29 15:12 | PN ---
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 Acute infection of the left foot, s/p sepsis, no signs of osteomyelitis on x -ray, ESR up to 60, MRI left foot with no signs of osteomyelitis. MRI 07/25 showing some areas of small fluid consistent with bursitis around the toes but progressed significantly yesterday. Appreciate Dr Quintero's prompt response and took patient to OR urgen POD#1 s/p I&D and findings of impending nec fasc Patient feels better and on abx including Clindamycin, Podiatry, Dr Quintero following Appreciate ID commendations. PICC line in place for anticipated usp abx . Intraop cx pending Blood cultures and urine cultures are no growth to date. 2. S/p Diabetic ketoacidosis, likely triggered by acute infection and also poorly controlled diabetes mellitus, BG better controlled on current regimen. Appreciate recommendations from clinical nurse educator, patient willing to stay on Lantus or equivalent long-acting insulin, continue Lantus 15 units bid. Continue pre-meal insulin and sliding scale insulin for now. Hemoglobin A1c out of range. 3. Hyperlipidemia: Continue statin therapy. Prophylaxis: SCDs for DVT prophylaxis, Protonix for GI prophylaxis Disposition: Follow-up further infectious disease and Podiatry recommendations later today. Subjective 24 Hr Interval Summary Free Text/Dictation Patient doing better today, he is status post I&D of his left foot last night. He reports that he has this pain, vital signs are stable, white blood cell count still trending down slowly. On multiple antibiotics including vancomycin , Invanz and clindamycin. Podiatry following Exam/Review of Systems Vital Signs Vitals Vital Signs Date Time Temp Pulse Resp B/P Pulse Ox O2 Delivery O2 Flow Rate FiO2 07/29/17 13:58 98.5 85 19 127/68 94 07/29/17 03:00 Nasal Cannula 07/28/17 23:36 2.0 Intake and Output 07/28/17 07/28/17 07/29/17 15:00 23:00 07:00 Intake Total 300 ml 1370 ml 1420 ml Output Total 605 ml Balance 300 ml 1370 ml 815 ml Exam Constitutional: alert, oriented, well developed Respiratory: clear to auscultation, normal air movement Cardiovascular: nl pulses, regular rate and rhythm Gastrointestinal: non-tender, soft Musculoskeletal: other (Left foot with dressing, status post I&D) Extremities: normal pulses Neurological: ELECTRICAL TESTER BATTERY II-XII intact, nl mental status, nl speech, other ( Nonweightbearing left lower extremity) Results Result Diagram: 07/29/17 0501 07/29/17 0501 Results 24 hrs Laboratory Tests Test 07/28/17 17:35 07/28/17 20:53 07/28/17 21:51 07/28/17 23:04 Bedside Glucose 210 159 193 Vancomycin Level Trough 14.4 Test 07/29/17 00:06 07/29/17 05:01 07/29/17 08:07 07/29/17 09:01 Bedside Glucose 192 243 H 294 H White Blood Count 13.3 H Red Blood Count 4.02 L Hemoglobin 11.1 L Hematocrit 33.8 L Mean Corpuscular Volume 84.1 Mean Corpuscular Hemoglobin 27.6 L Mean Corpuscular Hemoglobin Concent 32.8 Red Cell Distribution Width 13.0 Platelet Count 345 Mean Platelet Volume 9.5 Neutrophils % 80.1 H Lymphocytes % 5.9 L Monocytes % 11.3 H Eosinophils % 0.7 Basophils % 0.4 Nucleated Red Blood Cells % 0.0 Neutrophils # 10.7 H Lymphocytes # 0.8 Monocytes # 1.5 H Eosinophils # 0.1 Basophils # 0.1 Nucleated Red Blood Cells # 0.0 Sodium Level 136 Potassium Level 4.1 Chloride Level 99 Carbon Dioxide Level 29 Anion Gap 12 Blood Urea Nitrogen 12 Creatinine 0.75 Glucose Level 261 H Calcium Level 7.5 L Phosphorus Level 3.3 Magnesium Level 1.9 Test 07/29/17 10:52 07/29/17 11:37 Lab Scanned Report REFERENCE LAB Bedside Glucose 249 H Medications Medications Current Medications Citalopram Hydrobromide (Celexa) 40 mg DAILY PO Last administered on 07/29/17 09:05; Admin Dose 40 MG; Start 07/24/17 at 09:00 Atorvastatin Calcium (Lipitor) 10 mg DAILY@21 PO Last administered on 00:11; Admin Dose 10 MG; Start 07/24/17 at 21:00 Ondansetron HCl (Zofran Inj) 4 mg Q6H PRN IV NAUSEA AND/OR VOMITING Last administered on 07/27/17 20:25; Admin Dose 4 MG; Start 07/24/17 at 01:00 Acetaminophen (Tylenol Tab) 650 mg Q6H PRN PO PAIN LEVEL 1-3 OR FEVER Last administered on 07/27/17 00:09; Admin Dose 650 MG; Start 07/24/17 at 01:00 Acetaminophen/ Hydrocodone Bitart ([place] (5/325)) 1 tab Q6H PRN PO PAIN LEVEL 4 -6; Start 07/24/17 at 01:00 Acetaminophen/ Hydrocodone Bitart ([place] (5/325)) 2 tab Q6H PRN PO PAIN LEVEL 7 -10 Last administered on 07/27/17 20:26; Admin Dose 2 TAB; Start 07/24/17 at 01 :00 Morphine Sulfate (morphine) 2 mg Q4H PRN IV PAIN LEVEL 7-10; Start 07/24/17 at 01:00 Zolpidem Tartrate (Ambien) 5 mg QHS PRN PO INSOMNIA; Start 07/24/17 at 01:00 Docusate Sodium (Colace) 100 mg Q12H PRN PO CONSTIPATION; Start 07/24/17 at 01: 00 Magnesium Hydroxide (Milk Of Mag) 30 ml DAILY PRN PO CONSTIPATION; Start at 01:00 Bisacodyl (Dulcolax Supp) 10 mg DAILY PRN [place] CONSTIPATION; Start 07/24/17 at 01 :00 [facility] This patient stevens... PRN PRN XX WOUND CARE; Start 07/24/17 at 07:00 Diagnostic Test (Pha) 1 ea 1 ea 02 XX ; Start 07/25/17 at 02:00 Sodium Chloride (NS) 1,000 ml @ 75 mls/hr [id number] IV Last administered on 07/29 13:12; Admin Dose 75 MLS/HR; Start 07/24/17 at 09:30 Miscellaneous Information 1 ea NOTE XX ; Start 07/24/17 at 10:00 Glucose (Glutose) 15 gm Q15M PRN PO DECREASED GLUCOSE; Start 07/24/17 at 10:00 Glucose (Glutose) 22.5 gm Q15M PRN PO DECREASED GLUCOSE; Start 07/24/17 at 10: 00 Dextrose (D50w Syringe) 25 ml Q15M PRN IV DECREASED GLUCOSE; Start 07/24/17 at 10:00 Dextrose (D50w Syringe) 50 ml Q15M PRN IV DECREASED GLUCOSE; Start 07/24/17 at 10:00 Glucagon (Glucagen) 1 mg Q15M PRN IM DECREASED GLUCOSE; Start 07/24/17 at 10:00 Glucose (Glutose) 15 gm Q15M PRN BUCCAL DECREASED GLUCOSE; Start 07/24/17 at 10 :00 Pantoprazole (Protonix Tab) 40 mg DAILY@06 PO Last administered on 07/29/17 05 :33; Admin Dose 40 MG; Start 07/25/17 at 06:00 Lactobacillus Acidophilus/ Rhamnosus (Culturelle) 1 cap BID PO Last administered on 07/29/17 09:05; Admin Dose 1 CAP; Start 07/25/17 at 13:30 Insulin Glargine (Lantus) 15 unit BID@08,20 SC Last administered on 07/29/17 09:40; Admin Dose 15 UNIT; Start 07/25/17 at 20:00 Enoxaparin Sodium (Lovenox) 40 mg DAILY SC Last administered on 07/28/17 08:07 ; Admin Dose 40 MG; Start 07/26/17 at 09:00; Status Future Hold IV Flush 10 ml 10 ml PRN PRN IV FLUSH LINE; Start 07/27/17 at 11:30 Vancomycin HCl 1.25 gm/Sodium Chloride 250 ml @ 83.333 mls/ hr Q8H IVPB Last administered on 07/29/17 14:17; Admin Dose 83.333 MLS/HR; Start 07/27/17 at 22: 00 Cefepime HCl (Maxipime 2gm/50 ml (Pmx)) 50 ml @ 100 mls/hr Q12 IVPB Last administered on 07/29/17 09:05; Admin Dose 100 MLS/HR; Start 07/28/17 at 16:15 CIELO ACEVEDO Jul 29, 2017 15:04
[2017-07-30 02:26] VITALS: BP 148/83; RESP 18
[2017-07-30] MEDS: ACETAMINOPHEN 325 MG TAB PO PRN (02:36)
--- NOTE | 2017-07-30 04:24 | PN ---
DATE: 07/29/2017 SUBJECTIVE DATA: No acute changes. The patient is alert, feels good, looks comfortable. Denies pain. No fevers. LABORATORY AND DIAGNOSTIC DATA: WBC 13.3, platelets 345, neutrophils 80.1, BUN 12 and creatinine 0.75. MICROBIOLOGY: Left foot surgical cultures pending. INDWELLING: Patient has PICC line in his left upper extremity in his [place] on July 27. ANTIMICROBIALS: 1. Cefepime. 2. Vancomycin. PHYSICAL EXAMINATION: GENERAL: Well-developed, well-nourished, middle-aged white man, who is awake, in no distress. HEENT: Head atraumatic, normocephalic. Sclerae anicteric. Buccal mucosa pink. NECK: Supple. CHEST: Chest rise symmetrical. Breath sounds clear. HEART: S1, S2. ABDOMEN: Soft, bowel sounds present. EXTREMITIES: Left foot dressing intact. ASSESSMENT: 1. Systemic inflammatory response syndrome. 2. Left foot abscess cellulitis with impending necrotizing fasciitis as per surgical note. Status post incision and drainage with attempted removal of foreign body on July 28, 2017. 3. Diabetes, poorly controlled. 4. Status post DKA PLAN: The patient remains stable on appropriate antimicrobials. Continue present care. Await for intraoperative culture. Monitor blood sugar closely. Dictated By: Abi Cowart NP /joni/ky /Document#: [id number] [place]
[2017-07-30 05:40] LABS: BASOPHILS % 0.3 % (0.0-2.0); EOSINOPHILS # 0.4 10^3/ul (0.0-0.5); EOSINOPHILS % 2.5 % (0.0-7.0); HEMATOCRIT 29.1 % (42.0-52.0); HEMOGLOBIN 9.5 g/dl (14.0-18.0); LYMPHOCYTES # 1.2 10^3/ul (0.8-2.9); LYMPHOCYTES % 8.4 % (15.0-51.0); MEAN CORPUSCULAR HEMOGLOBIN 27.3 pg (29.0-33.0); MEAN CORPUSCULAR HGB CONC 32.6 g/dl (32.0-37.0); MEAN CORPUSCULAR VOLUME 83.6 fl (82.0-101.0); MONOCYTE # 1.2 10^3/ul (0.3-0.9); MONOCYTES % 8.6 % (0.0-11.0); NEUTROPHIL # 11.1 10^3/ul (1.6-7.5); NEUTROPHILS % 78.6 % (39.0-77.0); PLATELET COUNT 379 10^3/UL (140-415); RED BLOOD COUNT 3.48 10^6/ul (4.70-6.10); WHITE BLOOD COUNT 14.2 10^3/ul (4.8-10.8)
[2017-07-30 05:54] LABS: CALCIUM 7.7 mg/dl (8.4-10.2); CREATININE 0.75 mg/dl (0.61-1.24); POTASSIUM 3.7 mmol/L (3.5-5.1)
[2017-07-30 05:59] LABS: MAGNESIUM 1.9 mg/dl (1.7-2.5)
[2017-07-30] MEDS: VANCOMYCIN 1.25 GM in SOD CHLORIDE 0.9% 250 ML IVPB SCH ×3 (06:01→22:34)
[2017-07-30] MEDS: PANTOPRAZOLE (EC) 40 MG TAB PO SCH (06:01)
[2017-07-30] MEDS: SOD CHLORIDE 0.9% 1,000 ML IV SCH ×2 (06:45→14:59)
[2017-07-30 07:25] VITALS: BP 132/80; RESP 16
[2017-07-30] MEDS: LACTOBACILLUS RHAMNOSUS CAP PO SCH ×2 (08:07→20:20)
[2017-07-30] MEDS: CITALOPRAM 20 MG TAB PO SCH (08:07)
[2017-07-30] MEDS: CEFEPIME 2GM/50 ML (PMX) 50 ML IVPB SCH ×2 (08:08→20:30)
[2017-07-30] MEDS: INSULIN ASPART [NOVOLOG] 3 ML PEN SC SCH ×7 (08:20→20:22)
[2017-07-30] MEDS: INSULIN GLARGINE [LANtus] 3 ML PEN SC SCH ×2 (08:21→20:25)
--- NOTE | 2017-07-30 14:43 | PN ---
Date/Time of Note Date/Time of Note DATE: 07/30/17 TIME: 14:39 Assessment/Plan VTE Prophylaxis VTE Prophylaxis Intervention: SCD's Lines/Catheters IV Catheter Type (from [facility]): PICC Line Central line still needed: Yes (IV antibiotics) Urinary Cath still in place: No Assessment/Plan Assessment/Plan 52-year-old male with: 1. Acute infection of the left foot, s/p sepsis, no signs of osteomyelitis on x -ray, ESR up to 60, MRI left foot with no signs of osteomyelitis. MRI 07/25 showing some areas of small fluid consistent with bursitis around the toes but progressed significantly yesterday. Appreciate Dr Quintero's prompt response and took patient to OR urgently. POD#2 s/p I&D and findings of impending necrotizing fasciitis. Intraoperative cultures coming back with Staphylococcus aureus, sensitivity pending. Continue vancomycin, ertapenem and clindamycin, Podiatry, Dr Quintero following Appreciate ID commendations. PICC line in place for anticipated manager outpatient abx . Blood cultures no growth to date. 2. S/p Diabetic ketoacidosis, likely triggered by acute infection and also poorly controlled diabetes mellitus, BG better controlled on current regimen. Appreciate recommendations from clinical educator, patient willing to stay on Lantus or equivalent long-acting insulin, continue Lantus 15 units bid. Continue pre-meal insulin and sliding scale insulin for now. Hemoglobin A1c out of range. 3. Hyperlipidemia: Continue statin therapy. Prophylaxis: SCDs for DVT prophylaxis, Protonix for GI prophylaxis Disposition: Follow-up further infectious disease and Podiatry recommendations. Subjective 24 Hr Interval Summary Free Text/Dictation Patient feels better, no new complaints today. He remains afebrile. Intraoperative culture positive for Staphylococcus aureus, sensitivities pending. Exam/Review of Systems Vital Signs Vitals Vital Signs Date Time Temp Pulse Resp B/P Pulse Ox O2 Delivery O2 Flow Rate FiO2 07/30/17 07:25 98.5 80 16 132/80 96 07/29/17 03:00 Nasal Cannula 07/28/17 23:36 2.0 Intake and Output 07/29/17 07/29/17 07/30/17 15:00 23:00 07:00 Intake Total 50 ml 1940 ml 1250 ml Output Total 1600 ml 700 ml Balance 50 ml 340 ml 550 ml Exam Constitutional: alert, oriented, well developed Respiratory: clear to auscultation, normal air movement Cardiovascular: nl pulses, regular rate and rhythm Gastrointestinal: non-tender, soft Musculoskeletal: other (Left foot with dressing in place, no edema noted.) Extremities: normal pulses Neurological: HEAD PIECE ASSEMBLER II-XII intact, nl mental status, nl speech, nl strength Results Result Diagram: 07/30/17 0519 07/30/17 0519 Results 24 hrs Laboratory Tests Test 07/29/17 14:58 07/29/17 17:38 07/29/17 20:10 07/30/17 02:33 Bedside Glucose 218 202 152 164 Test 07/30/17 05:19 07/30/17 08:03 07/30/17 12:16 White Blood Count 14.2 H Red Blood Count 3.48 L Hemoglobin 9.5 L Hematocrit 29.1 L Mean Corpuscular Volume 83.6 Mean Corpuscular Hemoglobin 27.3 L Mean Corpuscular Hemoglobin Concent 32.6 Red Cell Distribution Width 13.0 Platelet Count 379 Mean Platelet Volume 9.0 Neutrophils % 78.6 H Lymphocytes % 8.4 L Monocytes % 8.6 Eosinophils % 2.5 Basophils % 0.3 Nucleated Red Blood Cells % 0.0 Neutrophils # 11.1 H Lymphocytes # 1.2 Monocytes # 1.2 H Eosinophils # 0.4 Basophils # 0.0 Nucleated Red Blood Cells # 0.0 Sodium Level 135 Potassium Level 3.7 Chloride Level 99 Carbon Dioxide Level 32 H Anion Gap 8 Blood Urea Nitrogen 13 Creatinine 0.75 Glucose Level 187 Calcium Level 7.7 L Phosphorus Level 3.0 Magnesium Level 1.9 Bedside Glucose 163 131 Medications Medications Current Medications Citalopram Hydrobromide (Celexa) 40 mg DAILY PO Last administered on 07/30/17 08:07; Admin Dose 40 MG; Start 07/24/17 at 09:00 Atorvastatin Calcium (Lipitor) 10 mg DAILY@21 PO Last administered on 20:13; Admin Dose 10 MG; Start 07/24/17 at 21:00 Ondansetron HCl (Zofran Inj) 4 mg Q6H PRN IV NAUSEA AND/OR VOMITING Last administered on 07/27/17 20:25; Admin Dose 4 MG; Start 07/24/17 at 01:00 Acetaminophen (Tylenol Tab) 650 mg Q6H PRN PO PAIN LEVEL 1-3 OR FEVER Last administered on 07/30/17 02:36; Admin Dose 650 MG; Start 07/24/17 at 01:00 Acetaminophen/ Hydrocodone Bitart ([place] (5/325)) 1 tab Q6H PRN PO PAIN LEVEL 4 -6; Start 07/24/17 at 01:00 Acetaminophen/ Hydrocodone Bitart ([place] (5/325)) 2 tab Q6H PRN PO PAIN LEVEL 7 -10 Last administered on 07/27/17 20:26; Admin Dose 2 TAB; Start 07/24/17 at 01 :00 Morphine Sulfate (morphine) 2 mg Q4H PRN IV PAIN LEVEL 7-10; Start 07/24/17 at 01:00 Zolpidem Tartrate (Ambien) 5 mg QHS PRN PO INSOMNIA; Start 07/24/17 at 01:00 Docusate Sodium (Colace) 100 mg Q12H PRN PO CONSTIPATION; Start 07/24/17 at 01: 00 Magnesium Hydroxide (Milk Of Mag) 30 ml DAILY PRN PO CONSTIPATION; Start at 01:00 Bisacodyl (Dulcolax Supp) 10 mg DAILY PRN [place] CONSTIPATION; Start 07/24/17 at 01 :00 Miscellaneous Information (Pending [facility] Order For Wound Care) This patient stevens... PRN PRN XX WOUND CARE; Start 07/24/17 at 07:00 Diagnostic Test (Pha) 1 ea 1 ea 02 XX ; Start 07/25/17 at 02:00 Sodium Chloride (NS) 1,000 ml @ 75 mls/hr [id number] IV Last administered on 07/29 13:12; Admin Dose 75 MLS/HR; Start 07/24/17 at 09:30 Miscellaneous Information 1 ea NOTE XX ; Start 07/24/17 at 10:00 Glucose (Glutose) 15 gm Q15M PRN PO DECREASED GLUCOSE; Start 07/24/17 at 10:00 Glucose (Glutose) 22.5 gm Q15M PRN PO DECREASED GLUCOSE; Start 07/24/17 at 10: 00 Dextrose (D50w Syringe) 25 ml Q15M PRN IV DECREASED GLUCOSE; Start 07/24/17 at 10:00 Dextrose (D50w Syringe) 50 ml Q15M PRN IV DECREASED GLUCOSE; Start 07/24/17 at 10:00 Glucagon (Glucagen) 1 mg Q15M PRN IM DECREASED GLUCOSE; Start 07/24/17 at 10:00 Glucose (Glutose) 15 gm Q15M PRN BUCCAL DECREASED GLUCOSE; Start 07/24/17 at 10 :00 Pantoprazole (Protonix Tab) 40 mg DAILY@06 PO Last administered on 07/30/17 06 :01; Admin Dose 40 MG; Start 07/25/17 at 06:00 Lactobacillus Acidophilus/ Rhamnosus (Culturelle) 1 cap BID PO Last administered on 07/30/17 08:07; Admin Dose 1 CAP; Start 07/25/17 at 13:30 Insulin Glargine (Lantus) 15 unit BID@08,20 SC Last administered on 07/30/17 08:21; Admin Dose 15 UNIT; Start 07/25/17 at 20:00 Enoxaparin Sodium (Lovenox) 40 mg DAILY SC Last administered on 07/28/17 08:07 ; Admin Dose 40 MG; Start 07/26/17 at 09:00; Status Future Hold IV Flush 10 ml 10 ml PRN PRN IV FLUSH LINE; Start 07/27/17 at 11:30 Vancomycin HCl 1.25 gm/Sodium Chloride 250 ml @ 83.333 mls/ hr Q8H IVPB Last administered on 07/30/17 06:01; Admin Dose 83.333 MLS/HR; Start 07/27/17 at 22: 00 Cefepime HCl (Maxipime 2gm/50 ml (Pmx)) 50 ml @ 100 mls/hr Q12 IVPB Last administered on 07/30/17 08:08; Admin Dose 100 MLS/HR; Start 07/28/17 at 16:15 Miscellaneous Information (*Rx Drug Level Order Reminder*) VANCOMYCIN TROUGH LEVEL... ONCE ONCE XX ; Start 07/31/17 at 05:00; Stop 07/31/17 at 05:01 CIELO ACEVEDO Jul 30, 2017 14:43
--- NOTE | 2017-07-30 17:04 | PN ---
DATE: 07/30/2017 SUBJECTIVE DATA: No acute changes overnight. The patient is awake, eating lunch. Denies pain. No fevers. Left foot wound culture growing Staph aureus preliminary. ANTIMICROBIALS: Vancomycin, cefepime. INDWELLING: Left upper extremity PICC line. PHYSICAL EXAMINATION: GENERAL: Well-developed, well-nourished, middle-aged white man who is in no distress. HEENT: Head atraumatic, normocephalic. Sclerae anicteric. Buccal mucosa pink. NECK: Supple. CHEST: Rise symmetrical. Breath sounds clear. HEART: S1, S2. ABDOMEN: Soft, bowel sounds present. EXTREMITIES: Left foot dressing intact. ASSESSMENT: 1. Resolving sepsis. 2. Left foot cellulitis with abscess and impending necrotizing. Status post-incision and drainage on 07/28/2017. 3. Diabetes, status post-diabetic ketoacidosis. PLAN: The patient remains stable. He is on appropriate antimicrobials. Final cultures pending. Continue present care. Follow Podiatry recommendations. Dictated By: Abi Cowart NP /joni/sreedhar /Document#: [id number]
[2017-07-30 19:33] VITALS: BP 150/84; RESP 18
[2017-07-30] MEDS: ATORVASTATIN 10 MG TAB PO SCH (20:20)
--- NOTE | 2017-07-30 23:41 | PN ---
Date/Time of Note Date/Time of Note DATE: 07/29/17 TIME: 19:40 Assessment/Plan Lines/Catheters IV Catheter Type (from Nrsg): PICC Line Lr in Place (from Nrsg): No Assessment/Plan Problems: (1) Foreign body in foot, left, infected (2) Edema Status: Acute (3) Cellulitis of left foot (4) Sepsis Status: Acute (5) Diabetes, polyneuropathy Assessment/Plan POD 1; doing well; changed bandages; removed packing; remain NWB; will follow. Subjective 24 Hr Interval Summary POD 1 s/p I&D of infected left foot with abscess and cellulitis. Reports doing better. Constitutional: no complaints Pain Control: well controlled Exam/Review of Systems Vital Signs Vitals Vital Signs Date Time Temp Pulse Resp B/P Pulse Ox O2 Delivery O2 Flow Rate FiO2 08/02/17 15:15 99.0 78 18 125/64 96 Intake and Output 08/02/17 08/02/17 08/03/17 15:00 23:00 07:00 Intake Total 420 ml 2290 ml Balance 420 ml 2290 ml Exam Free Text/Dictation Patient laying supine in bed in no acute distress. Edema of left foot is reduced and there is sig reduction in erythema. Packing was removed; mild tender to exam and palpation. Palpable pedal pulses with delayed CFT. Normal TG. Labs reviewed. Results Result Diagram: 08/02/1741908/02/17419 TUTU SHAFFER DPM Jul 30, 2017 23:41
[2017-07-31] VITALS (7 sets, daily range): BP systolic 152–175; BP diastolic 70–89; PULSE 75; RESP 18–20
[2017-07-31] MEDS: ACETAMINOPHEN 325 MG TAB PO PRN (01:56)
[2017-07-31] MEDS: ACCU-CHEK XX SCH (02:00)
[2017-07-31] MEDS: PANTOPRAZOLE (EC) 40 MG TAB PO SCH (05:15)
[2017-07-31 05:49] LABS: BASOPHILS % 0.4 % (0.0-2.0); EOSINOPHILS # 0.3 10^3/ul (0.0-0.5); EOSINOPHILS % 2.6 % (0.0-7.0); HEMATOCRIT 31.9 % (42.0-52.0); HEMOGLOBIN 10.4 g/dl (14.0-18.0); LYMPHOCYTES # 1.1 10^3/ul (0.8-2.9); LYMPHOCYTES % 9.8 % (15.0-51.0); MEAN CORPUSCULAR HEMOGLOBIN 27.6 pg (29.0-33.0); MEAN CORPUSCULAR HGB CONC 32.6 g/dl (32.0-37.0); MEAN CORPUSCULAR VOLUME 84.6 fl (82.0-101.0); MONOCYTE # 0.9 10^3/ul (0.3-0.9); NEUTROPHIL # 8.8 10^3/ul (1.6-7.5); NEUTROPHILS % 77.7 % (39.0-77.0); PLATELET COUNT 368 10^3/UL (140-415); RED BLOOD COUNT 3.77 10^6/ul (4.70-6.10); WHITE BLOOD COUNT 11.3 10^3/ul (4.8-10.8)
[2017-07-31] MEDS: VANCOMYCIN 1.25 GM in SOD CHLORIDE 0.9% 250 ML IVPB SCH (06:00)
[2017-07-31 06:12] LABS: CALCIUM 7.8 mg/dl (8.4-10.2); CREATININE 0.76 mg/dl (0.61-1.24); POTASSIUM 3.6 mmol/L (3.5-5.1)
[2017-07-31 06:14] LABS: MAGNESIUM 1.8 mg/dl (1.7-2.5); PHOSPHORUS 3.2 mg/dl (2.5-4.9)
[2017-07-31] MEDS: LACTOBACILLUS RHAMNOSUS CAP PO SCH ×2 (08:16→20:42)
[2017-07-31] MEDS: CITALOPRAM 20 MG TAB PO SCH (08:16)
[2017-07-31] MEDS: CEFEPIME 2GM/50 ML (PMX) 50 ML IVPB SCH (08:17)
[2017-07-31] MEDS: INSULIN ASPART [NOVOLOG] 3 ML PEN SC SCH ×7 (08:25→20:50)
[2017-07-31] MEDS: INSULIN GLARGINE [LANtus] 3 ML PEN SC SCH ×2 (08:26→20:50)
[2017-07-31] MEDS: SOD CHLORIDE 0.9% 1,000 ML IV SCH ×2 (09:48→22:45)
--- NOTE | 2017-07-31 13:05 | CONS ---
Date/Time of Note Date/Time of Note DATE: 07/31/17 TIME: 13:04 Assessment/Plan Assessment/Plan Chief Complaint/Hosp Course SUBJECTIVE DATA: For 8 more days alert feels good denies pain T-max 99.7 T-current 98.5 pulse 75 respirations 18 blood pressure 159/70 saturation 96 on room air Microbiology wound culture growing oxacillin sensitive staph aureus ANTIMICROBIALS: Vancomycin, cefepime. INDWELLING: Left upper extremity PICC line. PHYSICAL EXAMINATION: GENERAL: Well-developed, well-nourished, middle-aged white man who is in no distress. HEENT: Head atraumatic, normocephalic. Sclerae anicteric. Buccal mucosa pink. NECK: Supple. CHEST: Rise symmetrical. Breath sounds clear. HEART: S1, S2. ABDOMEN: Soft, bowel sounds present. EXTREMITIES: Left foot dressing intact. ASSESSMENT: 1. Resolving sepsis. 2. Left foot cellulitis with abscess and impending necrotizing. Status post-incision and drainage on 07/28/2017. 3. Diabetes, status post-diabetic ketoacidosis. PLAN: The patient remains stable. We are going to change antibiotics to Rocephin. Continue local wound care as per podiatry recommendations Problems: Consultation Date/Type/Reason Admit Date/Time Jul 24, 2017 at 00:47 Type of Consultation: ID Exam/Review of Systems Vital Signs Vitals Vital Signs Date Time Temp Pulse Resp B/P Pulse Ox O2 Delivery O2 Flow Rate FiO2 07/31/17 08:07 98.5 75 18 159/70 96 07/29/17 03:00 Nasal Cannula 07/28/17 23:36 2.0 Intake and Output 07/30/17 07/30/17 07/31/17 15:00 23:00 07:00 Intake Total 550 ml 425 ml 1280 ml Output Total 300 ml Balance 550 ml 425 ml 980 ml Results Result Diagram: 07/31/1751607/31/17516 Results 24 hrs Laboratory Tests Test 07/30/17 17:37 07/30/17 20:22 07/31/17 05:17 07/31/17 08:12 Bedside Glucose 163 150 142 White Blood Count 11.3 #H Red Blood Count 3.77 L Hemoglobin 10.4 L Hematocrit 31.9 L Mean Corpuscular Volume 84.6 Mean Corpuscular Hemoglobin 27.6 L Mean Corpuscular Hemoglobin Concent 32.6 Red Cell Distribution Width 13.0 Platelet Count 368 Mean Platelet Volume 9.0 Neutrophils % 77.7 H Lymphocytes % 9.8 L Monocytes % 8.0 Eosinophils % 2.6 Basophils % 0.4 Nucleated Red Blood Cells % 0.0 Neutrophils # 8.8 H Lymphocytes # 1.1 Monocytes # 0.9 Eosinophils # 0.3 Basophils # 0.0 Nucleated Red Blood Cells # 0.0 Sodium Level 136 Potassium Level 3.6 Chloride Level 100 Carbon Dioxide Level 32 H Anion Gap 8 Blood Urea Nitrogen 12 Creatinine 0.76 Glucose Level 124 # Calcium Level 7.8 L Phosphorus Level 3.2 Magnesium Level 1.8 Vancomycin Level Trough 22.7 *H Test 07/31/17 12:04 Bedside Glucose 159 Medications Medications Current Medications Citalopram Hydrobromide (Celexa) 40 mg DAILY PO Last administered on 07/31/17 08:16; Admin Dose 40 MG; Start 07/24/17 at 09:00 Atorvastatin Calcium (Lipitor) 10 mg DAILY@21 PO Last administered on 20:20; Admin Dose 10 MG; Start 07/24/17 at 21:00 Ondansetron HCl (Zofran Inj) 4 mg Q6H PRN IV NAUSEA AND/OR VOMITING Last administered on 07/27/17 20:25; Admin Dose 4 MG; Start 07/24/17 at 01:00 Acetaminophen (Tylenol Tab) 650 mg Q6H PRN PO PAIN LEVEL 1-3 OR FEVER Last administered on 07/31/17 01:56; Admin Dose 650 MG; Start 07/24/17 at 01:00 Acetaminophen/ Hydrocodone Bitart ([place] (5/325)) 1 tab Q6H PRN PO PAIN LEVEL 4 -6; Start 07/24/17 at 01:00 Acetaminophen/ Hydrocodone Bitart ([place] (5/325)) 2 tab Q6H PRN PO PAIN LEVEL 7 -10 Last administered on 07/27/17 20:26; Admin Dose 2 TAB; Start 07/24/17 at 01 :00 Morphine Sulfate (morphine) 2 mg Q4H PRN IV PAIN LEVEL 7-10; Start 07/24/17 at 01:00 Zolpidem Tartrate (Ambien) 5 mg QHS PRN PO INSOMNIA; Start 07/24/17 at 01:00 Docusate Sodium (Colace) 100 mg Q12H PRN PO CONSTIPATION; Start 07/24/17 at 01: 00 Magnesium Hydroxide (Milk Of Mag) 30 ml DAILY PRN PO CONSTIPATION; Start at 01:00 Bisacodyl (Dulcolax Supp) 10 mg DAILY PRN [place] CONSTIPATION; Start 07/24/17 at 01 :00 Miscellaneous Information (Pending Santyl Order For Wound Care) This patient stevens... PRN PRN XX WOUND CARE; Start 07/24/17 at 07:00 Diagnostic Test (Pha) 1 ea 1 ea 02 XX ; Start 07/25/17 at 02:00 Sodium Chloride (NS) 1,000 ml @ 75 mls/hr [id number] IV Last administered on 07/31 09:48; Admin Dose 75 MLS/HR; Start 07/24/17 at 09:30 Miscellaneous Information 1 ea NOTE XX ; Start 07/24/17 at 10:00 Glucose (Glutose) 15 gm Q15M PRN PO DECREASED GLUCOSE; Start 07/24/17 at 10:00 Glucose (Glutose) 22.5 gm Q15M PRN PO DECREASED GLUCOSE; Start 07/24/17 at 10: 00 Dextrose (D50w Syringe) 25 ml Q15M PRN IV DECREASED GLUCOSE; Start 07/24/17 at 10:00 Dextrose (D50w Syringe) 50 ml Q15M PRN IV DECREASED GLUCOSE; Start 07/24/17 at 10:00 Glucagon (Glucagen) 1 mg Q15M PRN IM DECREASED GLUCOSE; Start 07/24/17 at 10:00 Glucose (Glutose) 15 gm Q15M PRN BUCCAL DECREASED GLUCOSE; Start 07/24/17 at 10 :00 Pantoprazole (Protonix Tab) 40 mg DAILY@06 PO Last administered on 07/31/17 05 :15; Admin Dose 40 MG; Start 07/25/17 at 06:00 Lactobacillus Acidophilus/ Rhamnosus (Culturelle) 1 cap BID PO Last administered on 07/31/17 08:16; Admin Dose 1 CAP; Start 07/25/17 at 13:30 Insulin Glargine (Lantus) 15 unit BID@08,20 SC Last administered on 07/31/17 08:26; Admin Dose 15 UNIT; Start 07/25/17 at 20:00 Enoxaparin Sodium (Lovenox) 40 mg DAILY SC Last administered on 07/28/17 08:07 ; Admin Dose 40 MG; Start 07/26/17 at 09:00; Status Future Hold IV Flush 10 ml 10 ml PRN PRN IV FLUSH LINE; Start 07/27/17 at 11:30 Cefepime HCl 50 ml @ 100 mls/hr Q12 IVPB Last administered on 07/31/17 08:17 ; Admin Dose 100 MLS/HR; Start 07/28/17 at 16:15 Vancomycin HCl/ Sodium Chloride (Vancocin/NS) 250 ml @ 83.333 mls/ hr Q12H IVPB ; Start 07/31/17 at 14:00 LUCITA RAHMAN NP Jul 31, 2017 13:05
[2017-07-31] MEDS ORDERED: VANCOMYCIN 1.5 GM in SOD CHLORIDE 0.9% 250 ML IVPB SCH (14:00)
[2017-07-31] MEDS: CEFTRIAXONE 2 GM/50 ML (PMX) 50 ML IVPB SCH (14:59)
--- NOTE | 2017-07-31 15:01 | PN ---
Date/Time of Note Date/Time of Note DATE: 07/31/17 TIME: 14:54 Assessment/Plan VTE Prophylaxis VTE Prophylaxis Intervention: SCD's Lines/Catheters IV Catheter Type (from Nrs): PICC Line Central line still needed: Yes (for IV abx ) Assessment/Plan Assessment/Plan 52-year-old male with: 1. Cellulitis with abscess of the left foot, acute, s/p sepsis. MRI left foot with no signs of osteomyelitis. MRI 07/25 showing some areas of small fluid consistent with bursitis around the toes but progressed significantly this past weekend. Appreciate Dr Quintero's prompt response and took patient to OR urgently. POD#3 s/p I&D and findings of impending necrotizing fasciitis. Intraoperative cultures coming back with Staphylococcus aureus, MSSA. WBC trending down, appreciate infectious disease recommendation, antibiotics changed to Rocephin. Podiatry, Dr Quintero following, follow-up regarding wound care and discharge planning. 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 Blood cultures no growth to date. 2. S/p Diabetic ketoacidosis, likely triggered by acute infection and also poorly controlled diabetes mellitus, BG better controlled on current regimen. Appreciate recommendations from informatics educator, patient willing to stay on Lantus or equivalent long-acting insulin, continue Lantus 15 units bid. Continue pre-meal insulin and sliding scale insulin for now. Hemoglobin A1c out of range. 3. Hyperlipidemia: Continue statin therapy. Prophylaxis: SCDs for DVT prophylaxis, Protonix for GI prophylaxis Disposition: Follow-up further infectious disease and Podiatry recommendations tomorrow. Subjective 24 Hr Interval Summary Free Text/Dictation Patient remained stable, white blood cell count trending down, cultures with MSSA therefore per infectious disease patient switch to Rocephin. He remains afebrile, blood sugars are controlled, will clarify wound care with podiatry and discharge planning in the next 48 hours hopefully. She already has a PICC line. Exam/Review of Systems Vital Signs Vitals Vital Signs Date Time Temp Pulse Resp B/P Pulse Ox O2 Delivery O2 Flow Rate FiO2 07/31/17 08:07 98.5 75 18 159/70 96 07/29/17 03:00 Nasal Cannula 07/28/17 23:36 2.0 Intake and Output 07/30/17 07/30/17 07/31/17 15:00 23:00 07:00 Intake Total 550 ml 425 ml 1280 ml Output Total 300 ml Balance 550 ml 425 ml 980 ml Exam Constitutional: alert, oriented, well developed Respiratory: clear to auscultation, normal air movement Cardiovascular: nl pulses, regular rate and rhythm Gastrointestinal: non-tender, soft Musculoskeletal: nl gait and stance, other (Lower extremities, no edema, left foot dressing in place.) Extremities: normal pulses, other (No edema, clubbing or cyanosis) Neurological: CASE LINER II-XII intact, nl mental status, nl speech, nl strength Results Result Diagram: 07/31/1751607/31/17516 Results 24 hrs Laboratory Tests Test 07/30/17 17:37 07/30/17 20:22 07/31/17 05:17 07/31/17 08:12 Bedside Glucose 163 150 142 White Blood Count 11.3 #H Red Blood Count 3.77 L Hemoglobin 10.4 L Hematocrit 31.9 L Mean Corpuscular Volume 84.6 Mean Corpuscular Hemoglobin 27.6 L Mean Corpuscular Hemoglobin Concent 32.6 Red Cell Distribution Width 13.0 Platelet Count 368 Mean Platelet Volume 9.0 Neutrophils % 77.7 H Lymphocytes % 9.8 L Monocytes % 8.0 Eosinophils % 2.6 Basophils % 0.4 Nucleated Red Blood Cells % 0.0 Neutrophils # 8.8 H Lymphocytes # 1.1 Monocytes # 0.9 Eosinophils # 0.3 Basophils # 0.0 Nucleated Red Blood Cells # 0.0 Sodium Level 136 Potassium Level 3.6 Chloride Level 100 Carbon Dioxide Level 32 H Anion Gap 8 Blood Urea Nitrogen 12 Creatinine 0.76 Glucose Level 124 # Calcium Level 7.8 L Phosphorus Level 3.2 Magnesium Level 1.8 Vancomycin Level Trough 22.7 *H Test 07/31/17 12:04 Bedside Glucose 159 Medications Medications Current Medications Citalopram Hydrobromide (Celexa) 40 mg DAILY PO Last administered on 07/31/17 08:16; Admin Dose 40 MG; Start 07/24/17 at 09:00 Atorvastatin Calcium (Lipitor) 10 mg DAILY@21 PO Last administered on 20:20; Admin Dose 10 MG; Start 07/24/17 at 21:00 Ondansetron HCl (Zofran Inj) 4 mg Q6H PRN IV NAUSEA AND/OR VOMITING Last administered on 07/27/17 20:25; Admin Dose 4 MG; Start 07/24/17 at 01:00 Acetaminophen (Tylenol Tab) 650 mg Q6H PRN PO PAIN LEVEL 1-3 OR FEVER Last administered on 07/31/17 01:56; Admin Dose 650 MG; Start 07/24/17 at 01:00 Acetaminophen/ Hydrocodone Bitart ([place] (5/325)) 1 tab Q6H PRN PO PAIN LEVEL 4 -6; Start 07/24/17 at 01:00 Acetaminophen/ Hydrocodone Bitart ([place] (5/325)) 2 tab Q6H PRN PO PAIN LEVEL 7 -10 Last administered on 07/27/17 20:26; Admin Dose 2 TAB; Start 07/24/17 at 01 :00 Morphine Sulfate (morphine) 2 mg Q4H PRN IV PAIN LEVEL 7-10; Start 07/24/17 at 01:00 Zolpidem Tartrate (Ambien) 5 mg QHS PRN PO INSOMNIA; Start 07/24/17 at 01:00 Docusate Sodium (Colace) 100 mg Q12H PRN PO CONSTIPATION; Start 07/24/17 at 01: 00 Magnesium Hydroxide (Milk Of Mag) 30 ml DAILY PRN PO CONSTIPATION; Start at 01:00 Bisacodyl (Dulcolax Supp) 10 mg DAILY PRN [place] CONSTIPATION; Start 07/24/17 at 01 :00 Miscellaneous Information (Pending Santyl Order For Wound Care) This patient stevens... PRN PRN XX WOUND CARE; Start 07/24/17 at 07:00 Diagnostic Test (Pha) 1 ea 1 ea 02 XX ; Start 07/25/17 at 02:00 Sodium Chloride (NS) 1,000 ml @ 75 mls/hr [id number] IV Last administered on 07/31 09:48; Admin Dose 75 MLS/HR; Start 07/24/17 at 09:30 Miscellaneous Information 1 ea NOTE XX ; Start 07/24/17 at 10:00 Glucose (Glutose) 15 gm Q15M PRN PO DECREASED GLUCOSE; Start 07/24/17 at 10:00 Glucose (Glutose) 22.5 gm Q15M PRN PO DECREASED GLUCOSE; Start 07/24/17 at 10: 00 Dextrose (D50w Syringe) 25 ml Q15M PRN IV DECREASED GLUCOSE; Start 07/24/17 at 10:00 Dextrose (D50w Syringe) 50 ml Q15M PRN IV DECREASED GLUCOSE; Start 07/24/17 at 10:00 Glucagon (Glucagen) 1 mg Q15M PRN IM DECREASED GLUCOSE; Start 07/24/17 at 10:00 Glucose (Glutose) 15 gm Q15M PRN BUCCAL DECREASED GLUCOSE; Start 07/24/17 at 10 :00 Pantoprazole (Protonix Tab) 40 mg DAILY@06 PO Last administered on 07/31/17 05 :15; Admin Dose 40 MG; Start 07/25/17 at 06:00 Lactobacillus Acidophilus/ Rhamnosus (Culturelle) 1 cap BID PO Last administered on 07/31/17 08:16; Admin Dose 1 CAP; Start 07/25/17 at 13:30 Insulin Glargine (Lantus) 15 unit BID@08,20 SC Last administered on 07/31/17 08:26; Admin Dose 15 UNIT; Start 07/25/17 at 20:00 Enoxaparin Sodium (Lovenox) 40 mg DAILY SC Last administered on 07/28/17 08:07 ; Admin Dose 40 MG; Start 07/26/17 at 09:00; Status Future Hold IV Flush 10 ml 10 ml PRN PRN IV FLUSH LINE; Start 07/27/17 at 11:30 Ceftriaxone Sodium (Rocephin) 50 ml @ 100 mls/hr Q24H IVPB ; Start 07/31/17 at 14:30 CIELO ACEVEDO Jul 31, 2017 15:01
[2017-07-31] MEDS: ATORVASTATIN 10 MG TAB PO SCH (20:42)
[2017-08-01] MEDS: ACCU-CHEK XX SCH ×2 (01:18→20:38)
[2017-08-01] MEDS: SOD CHLORIDE 0.9% 1,000 ML IV SCH ×3 (01:43→20:25)
[2017-08-01 02:00] VITALS: BP 163/89; RESP 20
[2017-08-01 05:38] LABS: BASOPHILS % 0.3 % (0.0-2.0); EOSINOPHILS # 0.2 10^3/ul (0.0-0.5); EOSINOPHILS % 1.8 % (0.0-7.0); HEMATOCRIT 31.2 % (42.0-52.0); HEMOGLOBIN 9.8 g/dl (14.0-18.0); LYMPHOCYTES # 1.1 10^3/ul (0.8-2.9); LYMPHOCYTES % 9.9 % (15.0-51.0); MEAN CORPUSCULAR HEMOGLOBIN 26.5 pg (29.0-33.0); MEAN CORPUSCULAR HGB CONC 31.4 g/dl (32.0-37.0); MEAN CORPUSCULAR VOLUME 84.3 fl (82.0-101.0); MONOCYTE # 0.9 10^3/ul (0.3-0.9); MONOCYTES % 8.2 % (0.0-11.0); NEUTROPHIL # 8.5 10^3/ul (1.6-7.5); NEUTROPHILS % 78.6 % (39.0-77.0); PLATELET COUNT 361 10^3/UL (140-415); RED CELL DISTRIBUTION WIDTH 13.2 % (11.5-14.5); WHITE BLOOD COUNT 10.7 10^3/ul (4.8-10.8)
[2017-08-01 06:11] LABS: CALCIUM 7.9 mg/dl (8.4-10.2); CREATININE 0.83 mg/dl (0.61-1.24); MAGNESIUM 1.7 mg/dl (1.7-2.5); PHOSPHORUS 3.6 mg/dl (2.5-4.9); POTASSIUM 3.7 mmol/L (3.5-5.1)
[2017-08-01] MEDS: PANTOPRAZOLE (EC) 40 MG TAB PO SCH (06:39)
[2017-08-01 06:42] VITALS: BP 179/86; PULSE 78
[2017-08-01] MEDS ORDERED: hydrALAzine 20 MG INJ IV PRN (07:00)
[2017-08-01 07:35] VITALS: BP 146/81; RESP 20
[2017-08-01] MEDS: INSULIN ASPART [NOVOLOG] 3 ML PEN SC SCH ×7 (08:30→20:37)
[2017-08-01] MEDS: INSULIN GLARGINE [LANtus] 3 ML PEN SC SCH ×2 (08:32→20:37)
[2017-08-01] MEDS: CITALOPRAM 20 MG TAB PO SCH (09:36)
[2017-08-01] MEDS: LACTOBACILLUS RHAMNOSUS CAP PO SCH ×2 (09:36→20:25)
[2017-08-01] MEDS: ENOXAPARIN 40 MG/0.4 ML SYG SC SCH (09:54)
--- NOTE | 2017-08-01 10:12 | PN ---
Date/Time of Note Date/Time of Note DATE: 08/01/17 TIME: 09:58 Assessment/Plan VTE Prophylaxis VTE Prophylaxis Intervention: LMWH Lines/Catheters IV Catheter Type (from Nrs): PICC Line Central line still needed: Yes (IV antibiotics) Assessment/Plan Assessment/Plan 52-year-old male with: 1. Cellulitis with abscess of the left foot, acute, s/p sepsis. MRI left foot with no signs of osteomyelitis. POD#4 s/p I&D and findings of impending necrotizing fasciitis. Intraoperative cultures coming back with Staphylococcus aureus, MSSA. WBC trending down, appreciate infectious disease recommendation, antibiotics changed to Rocephin. 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 Blood cultures no growth to date. 2. S/p Diabetic ketoacidosis, likely triggered by acute infection and also poorly controlled diabetes mellitus, BG better controlled on current regimen. Appreciate recommendations from religious educator, patient willing to stay on Lantus or equivalent long-acting insulin, continue Lantus 15 units bid. Continue pre-meal insulin and sliding scale insulin for now. Hemoglobin A1c out of range. 3. Hyperlipidemia: Continue statin therapy. 4. Hypertension: Episodes of elevated blood pressure over the past 12 hours, patient started on Cozaar for blood pressure control and also renal protection given diabetes mellitus Prophylaxis: SCDs for DVT prophylaxis, Protonix for GI prophylaxis Disposition: Follow-up further infectious disease and Podiatry recommendations and hopefully discharge planning within 24 hours. Subjective 24 Hr Interval Summary Free Text/Dictation Patient had episode of hypertension overnight, unclear etiology, he is usually normotensive systolic blood pressures in the 130s. He is a diabetic, he will be started on Cozaar low doses for blood pressure control and renal protection. He remains afebrile, white blood cell count trending down. Awaiting final wound recommendation from podiatry and discharge planning in the next 24-48 hours. Appreciate infectious disease recommendation regarding antibiotic choice and length of treatment. Exam/Review of Systems Vital Signs Vitals Vital Signs Date Time Temp Pulse Resp B/P Pulse Ox O2 Delivery O2 Flow Rate FiO2 08/01/17 07:35 99.1 79 20 146/81 95 07/29/17 03:00 Nasal Cannula 07/28/17 23:36 2.0 Intake and Output 07/31/17 07/31/17 08/01/17 15:00 23:00 07:00 Intake Total 395 ml 50 ml 1300 ml Balance 395 ml 50 ml 1300 ml Exam Constitutional: alert, oriented, well developed Respiratory: clear to auscultation, normal air movement Cardiovascular: nl pulses, regular rate and rhythm Gastrointestinal: non-tender, soft Musculoskeletal: nl extremities to inspection, nl gait and stance Extremities: normal pulses Neurological: CLINICAL PSYCHOLOGY TEACHER II-XII intact, nl mental status, nl speech, nl strength Results Result Diagram: 08/01/1750908/01/17509 Results 24 hrs Laboratory Tests Test 07/31/17 12:04 07/31/17 17:19 07/31/17 20:46 08/01/17 05:10 Bedside Glucose 159 152 107 White Blood Count 10.7 Red Blood Count 3.70 L Hemoglobin 9.8 L Hematocrit 31.2 L Mean Corpuscular Volume 84.3 Mean Corpuscular Hemoglobin 26.5 L Mean Corpuscular Hemoglobin Concent 31.4 L Red Cell Distribution Width 13.2 Platelet Count 361 Mean Platelet Volume 9.0 Neutrophils % 78.6 H Lymphocytes % 9.9 L Monocytes % 8.2 Eosinophils % 1.8 Basophils % 0.3 Nucleated Red Blood Cells % 0.0 Neutrophils # 8.5 H Lymphocytes # 1.1 Monocytes # 0.9 Eosinophils # 0.2 Basophils # 0.0 Nucleated Red Blood Cells # 0.0 Sodium Level 136 Potassium Level 3.7 Chloride Level 99 Carbon Dioxide Level 33 H Anion Gap 8 Blood Urea Nitrogen 14 Creatinine 0.83 Glucose Level 254 #H Calcium Level 7.9 L Phosphorus Level 3.6 Magnesium Level 1.7 Test 08/01/17 08:01 Bedside Glucose 252 H Medications Medications Current Medications Citalopram Hydrobromide (Celexa) 40 mg DAILY PO Last administered on 08/01/17 09:36; Admin Dose 40 MG; Start 07/24/17 at 09:00 Atorvastatin Calcium (Lipitor) 10 mg DAILY@21 PO Last administered on 20:42; Admin Dose 10 MG; Start 07/24/17 at 21:00 Ondansetron HCl (Zofran Inj) 4 mg Q6H PRN IV NAUSEA AND/OR VOMITING Last administered on 07/27/17 20:25; Admin Dose 4 MG; Start 07/24/17 at 01:00 Acetaminophen (Tylenol Tab) 650 mg Q6H PRN PO PAIN LEVEL 1-3 OR FEVER Last administered on 07/31/17 01:56; Admin Dose 650 MG; Start 07/24/17 at 01:00 Acetaminophen/ Hydrocodone Bitart ([place] (5/325)) 1 tab Q6H PRN PO PAIN LEVEL 4 -6; Start 07/24/17 at 01:00 Acetaminophen/ Hydrocodone Bitart ([place] (5/325)) 2 tab Q6H PRN PO PAIN LEVEL 7 -10 Last administered on 07/27/17 20:26; Admin Dose 2 TAB; Start 07/24/17 at 01 :00 Morphine Sulfate (morphine) 2 mg Q4H PRN IV PAIN LEVEL 7-10; Start 07/24/17 at 01:00 Zolpidem Tartrate (Ambien) 5 mg QHS PRN PO INSOMNIA; Start 07/24/17 at 01:00 Docusate Sodium (Colace) 100 mg Q12H PRN PO CONSTIPATION; Start 07/24/17 at 01: 00 Magnesium Hydroxide (Milk Of Mag) 30 ml DAILY PRN PO CONSTIPATION; Start at 01:00 Bisacodyl (Dulcolax Supp) 10 mg DAILY PRN [place] CONSTIPATION; Start 07/24/17 at 01 :00 Miscellaneous Information (Pending [facility] Order For Wound Care) This patient stevens... PRN PRN XX WOUND CARE; Start 07/24/17 at 07:00 Diagnostic Test (Pha) 1 ea 1 ea 02 XX ; Start 07/25/17 at 02:00 Sodium Chloride (NS) 1,000 ml @ 75 mls/hr [id number] IV Last administered on 08/01 01:43; Admin Dose 75 MLS/HR; Start 07/24/17 at 09:30 Miscellaneous Information 1 ea NOTE XX ; Start 07/24/17 at 10:00 Glucose (Glutose) 15 gm Q15M PRN PO DECREASED GLUCOSE; Start 07/24/17 at 10:00 Glucose (Glutose) 22.5 gm Q15M PRN PO DECREASED GLUCOSE; Start 07/24/17 at 10: 00 Dextrose (D50w Syringe) 25 ml Q15M PRN IV DECREASED GLUCOSE; Start 07/24/17 at 10:00 Dextrose (D50w Syringe) 50 ml Q15M PRN IV DECREASED GLUCOSE; Start 07/24/17 at 10:00 Glucagon (Glucagen) 1 mg Q15M PRN IM DECREASED GLUCOSE; Start 07/24/17 at 10:00 Glucose (Glutose) 15 gm Q15M PRN BUCCAL DECREASED GLUCOSE; Start 07/24/17 at 10 :00 Pantoprazole (Protonix Tab) 40 mg DAILY@06 PO Last administered on 08/01/17 06 :39; Admin Dose 40 MG; Start 07/25/17 at 06:00 Lactobacillus Acidophilus/ Rhamnosus (Culturelle) 1 cap BID PO Last administered on 08/01/17 09:36; Admin Dose 1 CAP; Start 07/25/17 at 13:30 Insulin Glargine (Lantus) 15 unit BID@08,20 SC Last administered on 08/01/17 08:32; Admin Dose 15 UNIT; Start 07/25/17 at 20:00 IV Flush 10 ml 10 ml PRN PRN IV FLUSH LINE; Start 07/27/17 at 11:30 Ceftriaxone Sodium (Rocephin) 50 ml @ 100 mls/hr Q24H IVPB Last administered on 07/31/17 14:59; Admin Dose 100 MLS/HR; Start 07/31/17 at 14:30 Enoxaparin Sodium (Lovenox) 40 mg DAILY SC Last administered on 08/01/17 09:54 ; Admin Dose 40 MG; Start 08/01/17 at 09:00 Hydralazine HCl (Apresoline) 10 mg Q6H PRN IV ELEVATED SYSTOLIC BP Last administered on 08/01/17 07:00; Admin Dose 10 MG; Start 08/01/17 at 07:00 Losartan Potassium (Cozaar) 25 mg BID PO ; Start 08/01/17 at 10:00; Status CIELO MEEKS Aug 01, 2017 10:10
[2017-08-01 10:53] VITALS: BP 137/76; PULSE 80
[2017-08-01] MEDS: LOSARTAN 25 MG TAB PO SCH ×2 (10:53→20:25)
--- NOTE | 2017-08-01 12:07 | PN ---
Date/Time of Note Date/Time of Note DATE: 08/01/17 TIME: 12:04 Assessment/Plan Lines/Catheters IV [facility] P[facility] Line Assessment/Plan Problems: (1) Cellulitis of left foot (2) Foreign body in foot, left, infected (3) Diabetes, polyneuropathy Assessment/Plan Debrided the blister. Betadine paint between the toes done. Sterile dressing was reapplied. Continue left foot nonweightbearing. Patient may be discharged as per foot and ankle surgery. Patient must follow-up at the am[facility] for follow-up care. Continue antibiotic treatment for 3-4 weeks. Subjective 24 Hr Interval Summary Patient is status post incision and drainage of left foot abscess with cellulitis. Reports no pain and denies fever, chills, nausea or vomiting. Reports no chest pain or shortness of breath. Constitutional: no complaints Pain Control: well controlled Exam/Review of Systems Vital Signs Vitals Vital Signs Date Time Temp Pulse Resp B/P Pulse Ox O2 Delivery O2 Flow Rate FiO2 08/01/17 10:53 80 137/76 08/01/17 07:35 99.1 20 95 07/29/17 03:00 Nasal Cannula 07/28/17 23:36 2.0 Intake and Output 07/31/17 07/31/17 08/01/17 15:00 23:00 07:00 Intake Total 395 ml 50 ml 1300 ml Balance 395 ml 50 ml 1300 ml Exam Free Text/Dictation Laying supine in bed in no acute distress. Dressing was removed from the left foot. Patient is healing well with significant decrease in erythema. There is a blister present at the base of the fourth toe which is clear fluid filled. This was debrided and there is no active pus. Small excoriation present. The plantar wound appears to be improved as well. The lateral fifth MPJ wound is significantly improved. There is no tenderness to palpation of the left foot and the edema is decreased significantly. Results Result Diagram: 08/01/17 0510 08/01/17 0510 TUTU SHAFFER DPM Aug 01, 2017 12:07
[2017-08-01 13:17] VITALS: BP 133/71; RESP 20
--- NOTE | 2017-08-01 13:27 | CONS ---
Date/Time of Note Date/Time of Note DATE: 08/01/17 TIME: 13:26 Assessment/Plan Assessment/Plan Chief Complaint/Hosp Course SUBJECTIVE DATA: For 8 more days alert feels good denies pain, no fevers Microbiology wound culture growing oxacillin sensitive staph aureus ANTIMICROBIALS: Rocephin INDWELLING: Left upper extremity PICC line. PHYSICAL EXAMINATION: GENERAL: Well-developed, well-nourished, middle-aged white man who is in no distress. HEENT: Head atraumatic, normocephalic. Sclerae anicteric. Buccal mucosa pink. NECK: Supple. CHEST: Rise symmetrical. Breath sounds clear. HEART: S1, S2. ABDOMEN: Soft, bowel sounds present. EXTREMITIES: Left foot dressing intact. ASSESSMENT: 1. Resolving sepsis. 2. Left foot MSSA cellulitis with abscess and impending necrotizing. Status post-incision and drainage on 07/28/2017. 3. Diabetes, status post-diabetic ketoacidosis. PLAN: The patient remains stable. Continue abx, local wound care per podiatry recommendations, pending dc Luis pt/staff Problems: Consultation Date/Type/Reason Admit Date/Time Jul 24, 2017 at 00:47 Type of Consultation: ID Exam/Review of Systems Vital Signs Vitals Vital Signs Date Time Temp Pulse Resp B/P Pulse Ox O2 Delivery O2 Flow Rate FiO2 08/01/17 13:17 79 20 133/71 96 08/01/17 07:35 99.1 07/29/17 03:00 Nasal Cannula 07/28/17 23:36 2.0 Intake and Output 07/31/17 07/31/17 08/01/17 15:00 23:00 07:00 Intake Total 395 ml 50 ml 1300 ml Balance 395 ml 50 ml 1300 ml Results Result Diagram: 08/01/17 0510 08/01/17 0510 Results 24 hrs Laboratory Tests Test 07/31/17 17:19 07/31/17 20:46 08/01/17 05:10 08/01/17 08:01 Bedside Glucose 152 107 252 H White Blood Count 10.7 Red Blood Count 3.70 L Hemoglobin 9.8 L Hematocrit 31.2 L Mean Corpuscular Volume 84.3 Mean Corpuscular Hemoglobin 26.5 L Mean Corpuscular Hemoglobin Concent 31.4 L Red Cell Distribution Width 13.2 Platelet Count 361 Mean Platelet Volume 9.0 Neutrophils % 78.6 H Lymphocytes % 9.9 L Monocytes % 8.2 Eosinophils % 1.8 Basophils % 0.3 Nucleated Red Blood Cells % 0.0 Neutrophils # 8.5 H Lymphocytes # 1.1 Monocytes # 0.9 Eosinophils # 0.2 Basophils # 0.0 Nucleated Red Blood Cells # 0.0 Sodium Level 136 Potassium Level 3.7 Chloride Level 99 Carbon Dioxide Level 33 H Anion Gap 8 Blood Urea Nitrogen 14 Creatinine 0.83 Glucose Level 254 #H Calcium Level 7.9 L Phosphorus Level 3.6 Magnesium Level 1.7 Test 08/01/17 12:03 Bedside Glucose 172 Medications Medications Current Medications Citalopram Hydrobromide (Celexa) 40 mg DAILY PO Last administered on 08/01/17 09:36; Admin Dose 40 MG; Start 07/24/17 at 09:00 Atorvastatin Calcium (Lipitor) 10 mg DAILY@21 PO Last administered on 20:42; Admin Dose 10 MG; Start 07/24/17 at 21:00 Ondansetron HCl (Zofran Inj) 4 mg Q6H PRN IV NAUSEA AND/OR VOMITING Last administered on 07/27/17 20:25; Admin Dose 4 MG; Start 07/24/17 at 01:00 Acetaminophen (Tylenol Tab) 650 mg Q6H PRN PO PAIN LEVEL 1-3 OR FEVER Last administered on 07/31/17 01:56; Admin Dose 650 MG; Start 07/24/17 at 01:00 Acetaminophen/ Hydrocodone Bitart ([place] (5/325)) 1 tab Q6H PRN PO PAIN LEVEL 4 -6; Start 07/24/17 at 01:00 Acetaminophen/ Hydrocodone Bitart ([place] (5/325)) 2 tab Q6H PRN PO PAIN LEVEL 7 -10 Last administered on 07/27/17 20:26; Admin Dose 2 TAB; Start 07/24/17 at 01 :00 Morphine Sulfate (morphine) 2 mg Q4H PRN IV PAIN LEVEL 7-10; Start 07/24/17 at 01:00 Zolpidem Tartrate (Ambien) 5 mg QHS PRN PO INSOMNIA; Start 07/24/17 at 01:00 Docusate Sodium (Colace) 100 mg Q12H PRN PO CONSTIPATION; Start 07/24/17 at 01: 00 Magnesium Hydroxide (Milk Of Mag) 30 ml DAILY PRN PO CONSTIPATION; Start at 01:00 Bisacodyl (Dulcolax Supp) 10 mg DAILY PRN [place] CONSTIPATION; Start 07/24/17 at 01 :00 Miscellaneous Information (Pending Santyl Order For Wound Care) This patient stevens... PRN PRN XX WOUND CARE; Start 07/24/17 at 07:00 Diagnostic Test (Pha) 1 ea 1 ea 02 XX ; Start 07/25/17 at 02:00 Sodium Chloride (NS) 1,000 ml @ 75 mls/hr [id number] IV Last administered on 08/01 01:43; Admin Dose 75 MLS/HR; Start 07/24/17 at 09:30 Miscellaneous Information 1 ea NOTE XX ; Start 07/24/17 at 10:00 Glucose (Glutose) 15 gm Q15M PRN PO DECREASED GLUCOSE; Start 07/24/17 at 10:00 Glucose (Glutose) 22.5 gm Q15M PRN PO DECREASED GLUCOSE; Start 07/24/17 at 10: 00 Dextrose (D50w Syringe) 25 ml Q15M PRN IV DECREASED GLUCOSE; Start 07/24/17 at 10:00 Dextrose (D50w Syringe) 50 ml Q15M PRN IV DECREASED GLUCOSE; Start 07/24/17 at 10:00 Glucagon (Glucagen) 1 mg Q15M PRN IM DECREASED GLUCOSE; Start 07/24/17 at 10:00 Glucose (Glutose) 15 gm Q15M PRN BUCCAL DECREASED GLUCOSE; Start 07/24/17 at 10 :00 Pantoprazole (Protonix Tab) 40 mg DAILY@06 PO Last administered on 08/01/17 06 :39; Admin Dose 40 MG; Start 07/25/17 at 06:00 Lactobacillus Acidophilus/ Rhamnosus (Culturelle) 1 cap BID PO Last administered on 08/01/17 09:36; Admin Dose 1 CAP; Start 07/25/17 at 13:30 Insulin Glargine (Lantus) 15 unit BID@08,20 SC Last administered on 08/01/17 08:32; Admin Dose 15 UNIT; Start 07/25/17 at 20:00 IV Flush 10 ml 10 ml PRN PRN IV FLUSH LINE; Start 07/27/17 at 11:30 Ceftriaxone Sodium (Rocephin) 50 ml @ 100 mls/hr Q24H IVPB Last administered on 07/31/17 14:59; Admin Dose 100 MLS/HR; Start 07/31/17 at 14:30 Enoxaparin Sodium (Lovenox) 40 mg DAILY SC Last administered on 08/01/17 09:54 ; Admin Dose 40 MG; Start 08/01/17 at 09:00 Hydralazine HCl (Apresoline) 10 mg Q6H PRN IV ELEVATED SYSTOLIC BP Last administered on 08/01/17 07:00; Admin Dose 10 MG; Start 08/01/17 at 07:00 Losartan Potassium (Cozaar) 25 mg BID PO Last administered on 08/01/17 10:53; Admin Dose 25 MG; Start 08/01/17 at 10:00 LUCITA RHAMAN NP Aug 01, 2017 13:27
[2017-08-01] MEDS: CEFTRIAXONE 2 GM/50 ML (PMX) 50 ML IVPB SCH (14:29)
[2017-08-01 20:02] VITALS: BP 149/78; RESP 20
[2017-08-01] MEDS: ACETAMINOPHEN 325 MG TAB PO PRN (20:25)
[2017-08-01] MEDS: ATORVASTATIN 10 MG TAB PO SCH (20:25)
[2017-08-02] MEDS: SOD CHLORIDE 0.9% 1,000 ML IV SCH ×2 (01:23→14:45)
[2017-08-02 02:00] VITALS: BP 156/77; RESP 20
[2017-08-02 06:05] LABS: BASOPHILS % 0.4 % (0.0-2.0); EOSINOPHILS # 0.2 10^3/ul (0.0-0.5); EOSINOPHILS % 1.9 % (0.0-7.0); HEMATOCRIT 31.5 % (42.0-52.0); HEMOGLOBIN 9.9 g/dl (14.0-18.0); LYMPHOCYTES # 1.2 10^3/ul (0.8-2.9); LYMPHOCYTES % 12.9 % (15.0-51.0); MEAN CORPUSCULAR HEMOGLOBIN 26.7 pg (29.0-33.0); MEAN CORPUSCULAR HGB CONC 31.4 g/dl (32.0-37.0); MEAN CORPUSCULAR VOLUME 84.9 fl (82.0-101.0); MEAN PLATELET VOLUME 9.3 fl (7.4-10.4); MONOCYTE # 0.7 10^3/ul (0.3-0.9); MONOCYTES % 7.8 % (0.0-11.0); NEUTROPHIL # 7.2 10^3/ul (1.6-7.5); NEUTROPHILS % 76.2 % (39.0-77.0); PLATELET COUNT 341 10^3/UL (140-415); RED BLOOD COUNT 3.71 10^6/ul (4.70-6.10); RED CELL DISTRIBUTION WIDTH 13.1 % (11.5-14.5); WHITE BLOOD COUNT 9.4 10^3/ul (4.8-10.8)
[2017-08-02] MEDS: PANTOPRAZOLE (EC) 40 MG TAB PO SCH (06:11)
[2017-08-02 06:29] LABS: CALCIUM 7.8 mg/dl (8.4-10.2); CREATININE 0.74 mg/dl (0.61-1.24); POTASSIUM 4.7 mmol/L (3.5-5.1)
[2017-08-02 08:17] VITALS: BP 152/82; RESP 20
[2017-08-02] MEDS: INSULIN ASPART [NOVOLOG] 3 ML PEN SC SCH ×6 (08:29→17:37)
[2017-08-02] MEDS: INSULIN GLARGINE [LANtus] 3 ML PEN SC SCH (08:30)
[2017-08-02] MEDS: LOSARTAN 25 MG TAB PO SCH (09:24)
[2017-08-02] MEDS: CITALOPRAM 20 MG TAB PO SCH (09:25)
[2017-08-02] MEDS: LACTOBACILLUS RHAMNOSUS CAP PO SCH (09:25)
[2017-08-02] MEDS: ENOXAPARIN 40 MG/0.4 ML SYG SC SCH (11:19)
--- NOTE | 2017-08-02 11:21 | PN ---
Date/Time of Note Date/Time of Note DATE: 08/02/17 TIME: 11:20 Assessment/Plan VTE Prophylaxis VTE Prophylaxis Intervention: LMWH Lines/Catheters IV Catheter Type (from Nrsg): PICC Line Central line still needed: Yes (for IV abx ) Assessment/Plan Assessment/Plan 52-year-old male with: 1. Cellulitis with abscess of the left foot, acute, s/p sepsis. MRI left foot with no signs of osteomyelitis. POD#5 s/p I&D and findings of impending necrotizing fasciitis. Intraoperative cultures coming back with Staphylococcus aureus, MSSA. WBC down to normal x 2 days Appreciate infectious disease recommendation, d/c home on Rocephin x 21 days F/u with Podiatry, Dr Quintero within 1 to 2 weeks at [facility]. Blood cultures no growth to date. 2. S/p Diabetic ketoacidosis, likely triggered by acute infection and also poorly controlled diabetes mellitus, BG better controlled on current regimen. Appreciate recommendations from nurse educator, patient willing to stay on Lantus or equivalent long-acting insulin, continue Lantus 15 units bid. Continue pre-meal insulin and sliding scale insulin for now. F/u with Diabetic clinic through [facility] Hemoglobin A1c out of range. 3. Hyperlipidemia: Continue statin therapy. 4. Hypertension: Episodes of elevated blood pressure over the past couple of days Continue Cozaar for blood pressure control and also renal protection given diabetes mellitus Prophylaxis: SCDs for DVT prophylaxis, Protonix for GI prophylaxis Disposition: d/c home with outpatient IV abx and follow up with Podiatry, PCP and Home health services. Subjective 24 Hr Interval Summary Free Text/Dictation Patient doing well No complaints today D/c plan home with home health today updated and arrangements in progress Exam/Review of Systems Vital Signs Vitals Vital Signs Date Time Temp Pulse Resp B/P Pulse Ox O2 Delivery O2 Flow Rate FiO2 08/02/17 08:17 98.8 72 20 152/82 96 Intake and Output 08/01/17 08/01/17 08/02/17 15:00 23:00 07:00 Intake Total 50 ml 1500 ml 1220 ml Balance 50 ml 1500 ml 1220 ml Exam Constitutional: alert, oriented, well developed Cardiovascular: nl pulses, regular rate and rhythm Gastrointestinal: non-tender, soft Musculoskeletal: other (LLE with dressing in place ) Extremities: normal pulses, other (no edema, clubbing or cyanosis ) Neurological: ENVIRONMENTAL ENGINEER II-XII intact, nl mental status, nl speech, nl strength Results Result Diagram: 08/02/1741908/02/17 042 Results 24 hrs Laboratory Tests Test 08/01/17 12:03 08/01/17 17:16 08/01/17 20:28 08/02/17 04:00 Bedside Glucose 172 120 159 Magnesium Level 1.8 Test 08/02/17 04:20 08/02/17 07:59 White Blood Count 9.4 Red Blood Count 3.71 L Hemoglobin 9.9 L Hematocrit 31.5 L Mean Corpuscular Volume 84.9 Mean Corpuscular Hemoglobin 26.7 L Mean Corpuscular Hemoglobin Concent 31.4 L Red Cell Distribution Width 13.1 Platelet Count 341 Mean Platelet Volume 9.3 Neutrophils % 76.2 Lymphocytes % 12.9 L Monocytes % 7.8 Eosinophils % 1.9 Basophils % 0.4 Nucleated Red Blood Cells % 0.0 Neutrophils # 7.2 Lymphocytes # 1.2 Monocytes # 0.7 Eosinophils # 0.2 Basophils # 0.0 Nucleated Red Blood Cells # 0.0 Sodium Level 136 Potassium Level 4.7 Chloride Level 100 Carbon Dioxide Level 30 Anion Gap 11 Blood Urea Nitrogen 16 Creatinine 0.74 Glucose Level 136 # Calcium Level 7.8 L Bedside Glucose 178 Medications Medications Current Medications Citalopram Hydrobromide (Celexa) 40 mg DAILY PO Last administered on 08/02/17 09:25; Admin Dose 40 MG; Start 07/24/17 at 09:00 Atorvastatin Calcium (Lipitor) 10 mg DAILY@21 PO Last administered on 20:25; Admin Dose 10 MG; Start 07/24/17 at 21:00 Ondansetron HCl (Zofran Inj) 4 mg Q6H PRN IV NAUSEA AND/OR VOMITING Last administered on 07/27/17 20:25; Admin Dose 4 MG; Start 07/24/17 at 01:00 Acetaminophen (Tylenol Tab) 650 mg Q6H PRN PO PAIN LEVEL 1-3 OR FEVER Last administered on 08/01/17 20:25; Admin Dose 650 MG; Start 07/24/17 at 01:00 Acetaminophen/ Hydrocodone Bitart ([place] (5/325)) 1 tab Q6H PRN PO PAIN LEVEL 4 -6; Start 07/24/17 at 01:00 Acetaminophen/ Hydrocodone Bitart ([place] (5/325)) 2 tab Q6H PRN PO PAIN LEVEL 7 -10 Last administered on 07/27/17 20:26; Admin Dose 2 TAB; Start 07/24/17 at 01 :00 Morphine Sulfate (morphine) 2 mg Q4H PRN IV PAIN LEVEL 7-10; Start 07/24/17 at 01:00 Zolpidem Tartrate (Ambien) 5 mg QHS PRN PO INSOMNIA; Start 07/24/17 at 01:00 Docusate Sodium (Colace) 100 mg Q12H PRN PO CONSTIPATION Last administered on 08/01/17 20:25; Admin Dose 100 MG; Start 07/24/17 at 01:00 Magnesium Hydroxide (Milk Of Mag) 30 ml DAILY PRN PO CONSTIPATION; Start at 01:00 Bisacodyl (Dulcolax Supp) 10 mg DAILY PRN [place] CONSTIPATION; Start 07/24/17 at 01 :00 Miscellaneous Information (Pending [facility] Order For Wound Care) This patient stevens... PRN PRN XX WOUND CARE; Start 07/24/17 at 07:00 Diagnostic Test (Pha) 1 ea 1 ea 02 XX ; Start 07/25/17 at 02:00 Sodium Chloride (NS) 1,000 ml @ 75 mls/hr [id number] IV Last administered on 08/01 20:25; Admin Dose 75 MLS/HR; Start 07/24/17 at 09:30 Miscellaneous Information 1 ea NOTE XX ; Start 07/24/17 at 10:00 Glucose (Glutose) 15 gm Q15M PRN PO DECREASED GLUCOSE; Start 07/24/17 at 10:00 Glucose (Glutose) 22.5 gm Q15M PRN PO DECREASED GLUCOSE; Start 07/24/17 at 10: 00 Dextrose (D50w Syringe) 25 ml Q15M PRN IV DECREASED GLUCOSE; Start 07/24/17 at 10:00 Dextrose (D50w Syringe) 50 ml Q15M PRN IV DECREASED GLUCOSE; Start 07/24/17 at 10:00 Glucagon (Glucagen) 1 mg Q15M PRN IM DECREASED GLUCOSE; Start 07/24/17 at 10:00 Glucose (Glutose) 15 gm Q15M PRN BUCCAL DECREASED GLUCOSE; Start 07/24/17 at 10 :00 Pantoprazole (Protonix Tab) 40 mg DAILY@06 PO Last administered on 08/02/17 06 :11; Admin Dose 40 MG; Start 07/25/17 at 06:00 Lactobacillus Acidophilus/ Rhamnosus (Culturelle) 1 cap BID PO Last administered on 08/02/17 09:25; Admin Dose 1 CAP; Start 07/25/17 at 13:30 Insulin Glargine (Lantus) 15 unit BID@08,20 SC Last administered on 08/02/17 08:30; Admin Dose 15 UNIT; Start 07/25/17 at 20:00 IV Flush 10 ml 10 ml PRN PRN IV FLUSH LINE; Start 07/27/17 at 11:30 Ceftriaxone Sodium (Rocephin) 50 ml @ 100 mls/hr Q24H IVPB Last administered on 08/01/17 14:29; Admin Dose 100 MLS/HR; Start 07/31/17 at 14:30 Enoxaparin Sodium (Lovenox) 40 mg DAILY SC Last administered on 08/02/17 11:19 ; Admin Dose 40 MG; Start 08/01/17 at 09:00 Hydralazine HCl (Apresoline) 10 mg Q6H PRN IV ELEVATED SYSTOLIC BP Last administered on 08/01/17 07:00; Admin Dose 10 MG; Start 08/01/17 at 07:00 Losartan Potassium (Cozaar) 25 mg BID PO Last administered on 08/02/17 09:24; Admin Dose 25 MG; Start 08/01/17 at 10:00 CIELO ACEVEDO Aug 02, 2017 11:21
--- NOTE | 2017-08-02 11:22 | PDOCDIS ---
Discharge Instructions CONDITION Patient Condition: Stable HOME CARE INSTRUCTIONS: Special Diet: carb control ACTIVITY: Activity Restrictions: Slowly Increase Activity FOLLOW UP/APPOINTMENTS Follow-up Plan Follow up with PCP within 1 week Follow up with Dr Quintero at [facility] clinic within 1 to 2 weeks Follow up with Home Health re Home IV abx, PICC line care and wound Care SCHOOL/WORK RELEASE May return to School/Work on: Aug 07, 2017 CIELO ACEVEDO Aug 02, 2017 11:22
[2017-08-02] MEDS ORDERED: LANT3I SC (11:29)
[2017-08-02] MEDS ORDERED: CEFT2PIG2 IVPB (11:29)
[2017-08-02] MEDS ORDERED: INSU200I SQ (11:29)
[2017-08-02] MEDS ORDERED: LOSA25TA2 PO (11:29)
[2017-08-02] MEDS ORDERED: LACT1CAP28 PO (11:29)
--- NOTE | 2017-08-02 11:56 | CONS ---
Date/Time of Note Date/Time of Note DATE: 08/02/17 TIME: 11:54 Assessment/Plan Assessment/Plan Chief Complaint/Hosp Course SUBJECTIVE DATA: Alert, feels good, denies pain, no fevers Microbiology wound culture growing oxacillin sensitive staph aureus ANTIMICROBIALS: Rocephin INDWELLING: Left upper extremity PICC line. PHYSICAL EXAMINATION: GENERAL: Well-developed, well-nourished, middle-aged white man who is in no distress. HEENT: Head atraumatic, normocephalic. Sclerae anicteric. Buccal mucosa pink. NECK: Supple. CHEST: Rise symmetrical. Breath sounds clear. HEART: S1, S2. ABDOMEN: Soft, bowel sounds present. EXTREMITIES: Left foot dressing intact. ASSESSMENT: 1. S/p sepsis. 2. Left foot MSSA cellulitis with abscess and impending necrotizing. Status post-incision and drainage on 07/28/2017. 3. Diabetes, status post-diabetic ketoacidosis. PLAN: The patient remains stable. Ok dc on current abx to complete 2 weeks, f/ u with podiatry outpatient for further rec-s and wound management [facility] pt/staff Problems: Consultation Date/Type/Reason Admit Date/Time Jul 24, 2017 at 00:47 Type of Consultation: ID Exam/Review of Systems Vital Signs Vitals Vital Signs Date Time Temp Pulse Resp B/P Pulse Ox O2 Delivery O2 Flow Rate FiO2 08/02/17 08:17 98.8 72 20 152/82 96 Intake and Output 08/01/17 08/01/17 08/02/17 15:00 23:00 07:00 Intake Total 50 ml 1500 ml 1220 ml Balance 50 ml 1500 ml 1220 ml Results Result Diagram: 08/02/17 0420 08/02/17 0420 Results 24 hrs Laboratory Tests Test 08/01/17 12:03 08/01/17 17:16 08/01/17 20:28 08/02/17 04:00 Bedside Glucose 172 120 159 Magnesium Level 1.8 Test 08/02/17 04:20 08/02/17 07:59 White Blood Count 9.4 Red Blood Count 3.71 L Hemoglobin 9.9 L Hematocrit 31.5 L Mean Corpuscular Volume 84.9 Mean Corpuscular Hemoglobin 26.7 L Mean Corpuscular Hemoglobin Concent 31.4 L Red Cell Distribution Width 13.1 Platelet Count 341 Mean Platelet Volume 9.3 Neutrophils % 76.2 Lymphocytes % 12.9 L Monocytes % 7.8 Eosinophils % 1.9 Basophils % 0.4 Nucleated Red Blood Cells % 0.0 Neutrophils # 7.2 Lymphocytes # 1.2 Monocytes # 0.7 Eosinophils # 0.2 Basophils # 0.0 Nucleated Red Blood Cells # 0.0 Sodium Level 136 Potassium Level 4.7 Chloride Level 100 Carbon Dioxide Level 30 Anion Gap 11 Blood Urea Nitrogen 16 Creatinine 0.74 Glucose Level 136 # Calcium Level 7.8 L Bedside Glucose 178 Medications Medications Current Medications Citalopram Hydrobromide (Celexa) 40 mg DAILY PO Last administered on 08/02/17 09:25; Admin Dose 40 MG; Start 07/24/17 at 09:00 Atorvastatin Calcium (Lipitor) 10 mg DAILY@21 PO Last administered on 20:25; Admin Dose 10 MG; Start 07/24/17 at 21:00 Ondansetron HCl (Zofran Inj) 4 mg Q6H PRN IV NAUSEA AND/OR VOMITING Last administered on 07/27/17 20:25; Admin Dose 4 MG; Start 07/24/17 at 01:00 Acetaminophen (Tylenol Tab) 650 mg Q6H PRN PO PAIN LEVEL 1-3 OR FEVER Last administered on 08/01/17 20:25; Admin Dose 650 MG; Start 07/24/17 at 01:00 Acetaminophen/ Hydrocodone Bitart ([place] (5/325)) 1 tab Q6H PRN PO PAIN LEVEL 4 -6; Start 07/24/17 at 01:00 Acetaminophen/ Hydrocodone Bitart ([place] (5/325)) 2 tab Q6H PRN PO PAIN LEVEL 7 -10 Last administered on 07/27/17 20:26; Admin Dose 2 TAB; Start 07/24/17 at 01 :00 Morphine Sulfate (morphine) 2 mg Q4H PRN IV PAIN LEVEL 7-10; Start 07/24/17 at 01:00 Zolpidem Tartrate (Ambien) 5 mg QHS PRN PO INSOMNIA; Start 07/24/17 at 01:00 Docusate Sodium (Colace) 100 mg Q12H PRN PO CONSTIPATION Last administered on 08/01/17 20:25; Admin Dose 100 MG; Start 07/24/17 at 01:00 Magnesium Hydroxide (Milk Of Mag) 30 ml DAILY PRN PO CONSTIPATION; Start at 01:00 Bisacodyl (Dulcolax Supp) 10 mg DAILY PRN [place] CONSTIPATION; Start 07/24/17 at 01 :00 Miscellaneous Information (Pending Santyl Order For Wound Care) This patient stevens... PRN PRN XX WOUND CARE; Start 07/24/17 at 07:00 Diagnostic Test (Pha) 1 ea 1 ea 02 XX ; Start 07/25/17 at 02:00 Sodium Chloride (NS) 1,000 ml @ 75 mls/hr [id number] IV Last administered on 08/01 20:25; Admin Dose 75 MLS/HR; Start 07/24/17 at 09:30 Miscellaneous Information 1 ea NOTE XX ; Start 07/24/17 at 10:00 Glucose (Glutose) 15 gm Q15M PRN PO DECREASED GLUCOSE; Start 07/24/17 at 10:00 Glucose (Glutose) 22.5 gm Q15M PRN PO DECREASED GLUCOSE; Start 07/24/17 at 10: 00 Dextrose (D50w Syringe) 25 ml Q15M PRN IV DECREASED GLUCOSE; Start 07/24/17 at 10:00 Dextrose (D50w Syringe) 50 ml Q15M PRN IV DECREASED GLUCOSE; Start 07/24/17 at 10:00 Glucagon (Glucagen) 1 mg Q15M PRN IM DECREASED GLUCOSE; Start 07/24/17 at 10:00 Glucose (Glutose) 15 gm Q15M PRN BUCCAL DECREASED GLUCOSE; Start 07/24/17 at 10 :00 Pantoprazole (Protonix Tab) 40 mg DAILY@06 PO Last administered on 08/02/17 06 :11; Admin Dose 40 MG; Start 07/25/17 at 06:00 Lactobacillus Acidophilus/ Rhamnosus (Culturelle) 1 cap BID PO Last administered on 08/02/17 09:25; Admin Dose 1 CAP; Start 07/25/17 at 13:30 Insulin Glargine (Lantus) 15 unit BID@08,20 SC Last administered on 08/02/17 08:30; Admin Dose 15 UNIT; Start 07/25/17 at 20:00 IV Flush 10 ml 10 ml PRN PRN IV FLUSH LINE; Start 07/27/17 at 11:30 Ceftriaxone Sodium (Rocephin) 50 ml @ 100 mls/hr Q24H IVPB Last administered on 08/01/17 14:29; Admin Dose 100 MLS/HR; Start 07/31/17 at 14:30 Enoxaparin Sodium (Lovenox) 40 mg DAILY SC Last administered on 08/02/17 11:19 ; Admin Dose 40 MG; Start 08/01/17 at 09:00 Hydralazine HCl (Apresoline) 10 mg Q6H PRN IV ELEVATED SYSTOLIC BP Last administered on 08/01/17 07:00; Admin Dose 10 MG; Start 08/01/17 at 07:00 Losartan Potassium (Cozaar) 25 mg BID PO Last administered on 08/02/17 09:24; Admin Dose 25 MG; Start 08/01/17 at 10:00 LUCITA RAHMAN NP Aug 02, 2017 11:56
[2017-08-02] MEDS ORDERED: ACET325T40 PO (13:01)
[2017-08-02] MEDS: CEFTRIAXONE 2 GM/50 ML (PMX) 50 ML IVPB SCH (14:05)
[2017-08-02 15:15] VITALS: BP 125/64; RESP 18
== END 2017-08-02 18:20 | disposition home health service (06) | DRG 853 ==
LOC: E/R 18:59 → ICU 07-24 00:47 → MS2 07-24 22:30
PROVIDERS: ADMIT Internal Medicine; ATTEND Internal Medicine
PROC: 02HV33Z Insertion of Infusion Device into Superior Vena Cava, Percutaneous Approach (ICD-10-PCS; principal; 2017-07-27)
PROC: 0J9R0ZZ Drainage of Left Foot Subcutaneous Tissue and Fascia, Open Approach (ICD-10-PCS; 2017-07-28)
PROC: 0JBR0ZZ Excision of Left Foot Subcutaneous Tissue and Fascia, Open Approach (ICD-10-PCS; 2017-07-28)
PROC: 0HDNXZZ Extraction of Left Foot Skin, External Approach (ICD-10-PCS; 2017-08-01)
DX: A41.9 Sepsis, unspecified organism (principal); E10.10 Type 1 diabetes mellitus with ketoacidosis without coma; E10.42 Type 1 diabetes mellitus with diabetic polyneuropathy; L03.116 Cellulitis of left lower limb; L02.612 Cutaneous abscess of left foot; E78.5 Hyperlipidemia, unspecified; Z79.4 Long term (current) use of insulin; B95.61 Methicillin susceptible Staphylococcus aureus infection as the cause of diseases classified elsewhere; S90.425A Blister (nonthermal), left lesser toe(s), initial encounter; X58.XXXA Exposure to other specified factors, initial encounter; Y92.238 Other place in hospital as the place of occurrence of the external cause
CPT/HCPCS: 36415; 36569; 36600; 71010; 73620; 73718; 76937; 80048; 80053; 80061; 80202; 81001; 82803; 82962; 83036; 83605; 83735; 84100; 84484; 85025; 85610; 85651; 85730; 87040; 87070; 87075; 87081; 87086; 87102; 88304; 93005; 96374; 96375; C9113; J0278; J0360; J0692; J1335; J1650; J1815; J2250; J2405; J2543; J2765; J3010; J3370; J3475; J3480; J7030; J7042; J7050

== ENCOUNTER 2017-08-07 23:39 | Emergency (ER) | payer BC ==
[~2017-08-07] VITALS: Ht 179.1 cm; Wt 81.5 kg
[~2017-08-07 23:39] MED LIST changes: -ACET-2158 PO; +ACET325T40 PO; -ACET500C5 PO; +CEFT2PIG2 IVPB; -CEPH-443 PO; -CIPR500T4 PO; +CITA-104 PO; -CLIN-73 PO; -IBUP-1542 PO; -INSU100V27 SC; +INSU200I SQ; +LACT1CAP28 PO; +LANT3I SC; -LEVE-5 PO; +LOSA25TA2 PO; -MECL25TA2 PO; -METF1000 PO; -MUPI22OI2 TOP; -SULF1TAB31 PO; -ZOF8 PO
[2017-08-07 23:45] VITALS: Ht 179.1 cm; Wt 81.5 kg
--- NOTE | 2017-08-08 03:16 | ERD ---
ER Documentation Chief Complaint Date/Time DATE: 08/08/17 TIME: 03:12 Chief Complaint NOTICE INCREASED DRAINAGE FROM LEFT FOOT WOUND. HX DM HPI 52-year-old male presents to emergency department for a wound check on the left lung, patient had a blister on the plantar aspect of the wound Versed, wants to check make sure it is not infected. Patient had some serous drainage coming from the area. Patient denies any pain at this time. Patient denies any fever or chills. Patient has gotten continuous IV antibiotics at home and home treatment, scheduled appointment with his podiatry specialist, Dr. Quintero tomorrow. ROS All systems reviewed and are negative except as per history of present illness. Medications Home Meds Active Scripts Acetaminophen (MAPAP) 325 Mg Tablet, 650 MG PO Q6H Y for PAIN, #60 TAB OTC Prov:CIELO ACEVEDO 08/02/17 Ceftriaxone Sod* (Rocephin* 2GM/D5W (PMX)) 2 Gm/50 Ml Iv.soln., 2 GM IVPB Q24H for 21 Days, EA Prov:CIELO ACEVEDO 08/02/17 Insulin Lispro (Humalog Kwikpen) 200 Unit/1 Ml Insuln.pen, 7 UNIT SQ BEFORE MEALS for 30 Days, EA 3 Refills Prov:CIELO ACEVEDO 08/02/17 Insulin Glargine* (Lantus*) 100 Unit/Ml Soln, 15 UNIT SC BID@08,20 for 30 Days, 3 Refills please provide formulary equivalent at same dose if needed and provide as pen form if possible Prov:CIELO ACEVEDO 08/02/17 Lactobacillus Rhamnosus GG (Culturelle) 1 Each Capsule, 1 CAP PO BID for 30 Days , CAP Prov:CIELO ACEVEDO 08/02/17 Losartan Potassium* (Cozaar*) 25 Mg Tablet, 25 MG PO BID for 30 Days, TAB 3 Refills Prov:CIELO ACEVEDO 08/02/17 Reported Medications Citalopram Hydrobromide* (Citalopram Hydrobromide*) 40 Mg Tablet, 40 MG PO DAILY , #30 TAB 07/23/17 Pravastatin Sodium* (Pravastatin Sodium*) 20 Mg Tablet, 20 MG PO DAILY, TAB 08/27/14 Discontinued Reported Medications Metformin Hcl* (Metformin Hcl*) 1,000 Mg Tablet, 1000 MG PO BID, TAB 08/27/14 Insulin Lisp Protam/Lisp Human* (Humalog Mix (75/25)*) 100 Units/Ml Susp, 35 SC BID, EA 08/27/14 Allergies Allergies: Coded Allergies: No Known Allergies (Unverified Allergy, Unknown, 08/07/17) PMhx/Soc History of Surgery: Yes (2014, craniotomy ) Anesthesia Reaction: No Hx Neurological Disorder: No Hx Respiratory Disorders: No Hx Cardiac Disorders: No Hx Psychiatric Problems: No Hx Miscellaneous Medical Probl: Yes (dm ulcer , dm) Hx Alcohol Use: No Hx Substance Use: No Hx Tobacco Use: No Smoking Status: Never smoker FmHx Family History: diabetes Physical Exam Vitals Vital Signs Date Time Temp Pulse Resp B/P Pulse Ox O2 Delivery O2 Flow Rate FiO2 08/07/17 23:45 98.3 91 18 116/70 98 Physical Exam GENERAL: The patient is well developed and appropriate for usual state of health, in no apparent distress. CHEST: Clear to auscultation bilaterally. There are no rales, wheezes or rhonchi. HEART: Regular rate and rhythm. No murmurs, clicks, rubs or gallops. No S3 or S4. ABDOMEN: Soft, nontender and nondistended. Good bowel sounds. No rebound or guarding. No gross peritonitis. No gross organomegaly or masses. No Manuel sign or McBurney point tenderness. BACK: No midline or flank tenderness. EXTREMITIES: Equal pulses bilaterally. There is no peripheral clubbing, cyanosis or edema. No focal swelling or erythema. Full range of motion. Grossly neurovascularly intact. NEURO: Alert and oriented. Cranial nerves 2-12 intact. Motor strength in all 4 extremities with 5/5 strength. Sensation grossly intact. Normal speech and gait. SKIN: Noted macerated skin in the plantar aspect of the left foot, where the previous blister was intact, no erythema, no discharge noted, noted the rest of the wound on the left foot healing well. No erythema no induration. No fluctuance. There is no apparent rash or petechia. The skin is warm and dry. HEMATOLOGIC AND LYMPHATIC: There is no evidence of excessive bruising or lymphedema. No gross cervical, axillary, or inguinal lymphadenopathy. Procedures/MDM Medical decision making: Patient's left wound was healing well, does not appear to be having infection at this time. Patient is not febrile, no symptoms of any necrotic tissue, no symptoms of any neurovascular compromise. Patient has a scheduled appointment with his foot surgeon tomorrow, was advised to see his foot doctor for further evaluation, was advised to continue treatment at home. Patient was advised to return to emergency department for any worsening symptoms. Disposition: Home. Stable. Departure Diagnosis: Primary Impression: Healing wound Additional Impression: Encounter for wound re-check Condition: Stable Patient Instructions: Wound Care, Diabetic Foot Ulcers Additional Instructions: see Dr Quintero as per appt tomorrow, continue IV antibiotic treatment at home MASSIEL PATTERSON NP Aug 08, 2017 03:16
== END 2017-08-08 03:19 | disposition home or self-care (01) ==
LOC: FTE 23:39
DX: Z48.01 Encounter for change or removal of surgical wound dressing (principal); E11.9 Type 2 diabetes mellitus without complications; Z79.4 Long term (current) use of insulin; Z79.84 Long term (current) use of oral hypoglycemic drugs
CPT/HCPCS: 99281

== ENCOUNTER 2017-10-02 01:41 | Inpatient (IN) | payer BC ==
[~2017-10-02] VITALS: Ht 177.8 cm; Wt 74.5 kg
[2017-10-02 02:35] VITALS: TEMP 99.3
[2017-10-02 03:33] LABS: BASOPHIL # 0.1 10^3/ul (0.0-0.1); BASOPHILS % 0.5 % (0.0-2.0); EOSINOPHILS # 0.1 10^3/ul (0.0-0.5); EOSINOPHILS % 0.6 % (0.0-7.0); HEMATOCRIT 33.2 % (42.0-52.0); HEMOGLOBIN 11.3 g/dl (14.0-18.0); LYMPHOCYTES # 1.2 10^3/ul (0.8-2.9); LYMPHOCYTES % 10.7 % (15.0-51.0); MEAN CORPUSCULAR HEMOGLOBIN 27.4 pg (29.0-33.0); MEAN CORPUSCULAR VOLUME 80.4 fl (82.0-101.0); MEAN PLATELET VOLUME 10.4 fl (7.4-10.4); MONOCYTE # 0.7 10^3/ul (0.3-0.9); MONOCYTES % 6.6 % (0.0-11.0); NEUTROPHIL # 9.1 10^3/ul (1.6-7.5); NEUTROPHILS % 81.4 % (39.0-77.0); PLATELET COUNT 260 10^3/UL (140-415); RED BLOOD COUNT 4.13 10^6/ul (4.70-6.10); WHITE BLOOD COUNT 11.2 10^3/ul (4.8-10.8)
[2017-10-02 03:52] LABS: ALBUMIN 3.9 g/dl (3.3-4.9); ALBUMIN/GLOBULIN RATIO 1.08; BILIRUBIN,INDIRECT 0.9 mg/dl (0-1.1); BILIRUBIN,TOTAL 0.9 mg/dl (0.2-1.3); CALCIUM 9.7 mg/dl (8.4-10.2); CREATININE 1.06 mg/dl (0.61-1.24); POTASSIUM 4.6 mmol/L (3.5-5.1); TOTAL PROTEIN 7.5 g/dl (6.1-8.1)
[2017-10-02 04:42] LABS: ADD UMIC NO; UR ASCORBIC ACID NEGATIVE (NEGATIVE); UR BILIRUBIN (Dip) NEGATIVE (NEGATIVE); UR BLOOD (Dip) NEGATIVE (NEGATIVE); UR CLARITY CLEAR (CLEAR); UR COLOR STRAW (YELLOW); UR GLUCOSE (Dip) NEGATIVE (NEGATIVE); UR KETONES (Dip) NEGATIVE (NEGATIVE); UR LEUKOCYTE ESTERASE (Dip) NEGATIVE Leu/ul (NEGATIVE); UR NITRITE (Dip) NEGATIVE (NEGATIVE); UR TOTAL PROTEIN (Dip) NEGATIVE (NEGATIVE); UR UROBILINOGEN (Dip) NEGATIVE (NEGATIVE)
--- NOTE | 2017-10-02 05:45 | ERD ---
ER Documentation Chief Complaint Chief Complaint dizzy,weakness,fever/chills.On rocephin for foot infection x2 month Lt PICC HPI This is a 52-year-old male who has a foot infection for 2 months. He declined placement. Intravenous antibiotics. Since yesterday, patient states that the infections are getting worse. Pocket was opened that up and started draining. Patient has follow-up with podiatry later this week. No nausea no vomiting no chills. No other current complaints. ROS All systems reviewed and are negative except as per history of present illness. Medications Home Meds Active Scripts Acetaminophen (MAPAP) 325 Mg Tablet, 650 MG PO Q6H Y for PAIN, #60 TAB OTC Prov:KRISTINADeepaGlenroyCARISANAWAF Fede 08/02/17 Ceftriaxone Sod* (Rocephin* 2GM/D5W (PMX)) 2 Gm/50 Ml Iv.soln., 2 GM IVPB Q24H for 21 Days, EA Prov:KRISTINADeepaMARIA TERESA Mistry 08/02/17 Insulin Lispro (Humalog Kwikpen) 200 Unit/1 Ml Insuln.pen, 7 UNIT SQ BEFORE MEALS for 30 Days, EA 3 Refills Prov:KRISTINADeepaMARIA TERESA Mistry 08/02/17 Insulin Glargine* (Lantus*) 100 Unit/Ml Soln, 15 UNIT SC BID@08,20 for 30 Days, 3 Refills please provide formulary equivalent at same dose if needed and provide as pen form if possible Prov:KRISTINADeepaMARIA TERESA Mistry 08/02/17 Lactobacillus Rhamnosus GG (Culturelle) 1 Each Capsule, 1 CAP PO BID for 30 Days , CAP Prov:KRISTINADeepaGlenroyCARISANAWAF Mistry 08/02/17 Losartan Potassium* (Cozaar*) 25 Mg Tablet, 25 MG PO BID for 30 Days, TAB 3 Refills Prov:KRISTINADeepaMARIA TERESA Mistry 08/02/17 Reported Medications Citalopram Hydrobromide* (Citalopram Hydrobromide*) 40 Mg Tablet, 40 MG PO DAILY , #30 TAB 07/23/17 Pravastatin Sodium* (Pravastatin Sodium*) 20 Mg Tablet, 20 MG PO DAILY, TAB 08/27/14 Allergies Allergies: Coded Allergies: No Known Allergies (Unverified Allergy, Unknown, 10/02/17) PMhx/Soc History of Surgery: Yes (2014, craniotomy, I&D RT FOOT) Anesthesia Reaction: No Hx Neurological Disorder: No Hx Respiratory Disorders: No Hx Cardiac Disorders: No Hx Psychiatric Problems: No Hx Miscellaneous Medical Probl: Yes (dm ulcer , dm) Hx Alcohol Use: No Hx Substance Use: No Hx Tobacco Use: No Smoking Status: Never smoker Physical Exam Vitals Vital Signs Date Time Temp Pulse Resp B/P Pulse Ox O2 Delivery O2 Flow Rate FiO2 10/02/17 02:35 99.3 98 14 131/87 100 Room Air 10/02/17 01:49 96.9 106 18 119/73 100 Physical Exam Const: [] Head: Atraumatic Eyes: Normal Conjunctiva ENT: Normal External Ears, Nose and Mouth. Neck: Full range of motion..~ No meningismus. Resp: Clear to auscultation bilaterally Cardio: Regular rate and rhythm, no murmurs Abd: Soft, non tender, non distended. Normal bowel sounds Skin: Foot shows evidence of increasing infection with purulent drainage at wound site Back: No midline or flank tenderness Ext: No cyanosis, or edema Neur: Awake and alert Psych: Normal Mood and Affect Result Diagram: 10/02/17 0256 10/02/17 0256 Results 24 hrs Laboratory Tests Test 10/02/17 02:56 10/02/17 03:20 10/02/17 03:44 White Blood Count 11.210^3/ul Red Blood Count 4.1310^6/ul Hemoglobin 11.3g/dl Hematocrit 33.2% Mean Corpuscular Volume 80.4fl Mean Corpuscular Hemoglobin 27.4pg Mean Corpuscular Hemoglobin Concent 34.0g/dl Red Cell Distribution Width 12.0% Platelet Count 49613^3/UL Mean Platelet Volume 10.4fl Neutrophils % 81.4% Lymphocytes % 10.7% Monocytes % 6.6% Eosinophils % 0.6% Basophils % 0.5% Nucleated Red Blood Cells % 0.0/100WBC Neutrophils # 9.110^3/ul Lymphocytes # 1.210^3/ul Monocytes # 0.710^3/ul Eosinophils # 0.110^3/ul Basophils # 0.110^3/ul Nucleated Red Blood Cells # 0.010^3/ul Sodium Level 137mmol/L Potassium Level 4.6mmol/L Chloride Level 97mmol/L Carbon Dioxide Level 29mmol/L Anion Gap 16 Blood Urea Nitrogen 28mg/dl Creatinine 1.06mg/dl Glucose Level 399mg/dl Calcium Level 9.7mg/dl Total Bilirubin 0.9mg/dl Direct Bilirubin 0.00mg/dl Indirect Bilirubin 0.9mg/dl Aspartate Amino Transf (AST/SGOT) 14IU/L Alanine Aminotransferase (ALT/SGPT) 32IU/L Alkaline Phosphatase 79IU/L Total Protein 7.5g/dl Albumin 3.9g/dl Globulin 3.60g/dl Albumin/Globulin Ratio 1.08 Lipase 15U/L Urine Color STRAW Urine Clarity CLEAR Urine pH 6.0 Urine Specific [place] 1.010 Urine Ketones NEGATIVEmg/dL Urine Nitrite NEGATIVEmg/dL Urine Bilirubin NEGATIVEmg/dL Urine Urobilinogen NEGATIVEmg/dL Urine Leukocyte Esterase NEGATIVELeu/ul Urine Hemoglobin NEGATIVEmg/dL Urine Glucose NEGATIVEmg/dL Urine Total Protein NEGATIVEmg/dl Bedside Glucose 380mg/dL Procedures/MDM Medical decision-makin-year-old male with a chronic infection is getting worse. Patient on outpatient intravenous antibiotics and still having failure of outpatient management. Patient will be admitted for further evaluation and management. Departure Diagnosis: Primary Impression: Cellulitis of left foot Condition: Serious NATHEN BERRY Oct 02, 2017 05:45
[2017-10-02 06:00] VITALS: PULSE 78
[2017-10-02] MEDS ORDERED: PIPER-TAZO 3.375 GM IV (PMX) 50 ML IVPB STA (06:04)
[2017-10-02] MEDS ORDERED: VANCOMYCIN 1 GM (PMX) 250 ML IVPB ONE (06:30)
[2017-10-02 06:40] VITALS: BP 120/72; RESP 18
[2017-10-02 06:45] VITALS: Ht 177.8 cm; Wt 74.5 kg
[2017-10-02 07:51] VITALS: BP 123/78; RESP 18
[2017-10-02] MEDS ORDERED: VANCOMYCIN IV PER PHARMACY XX SCH (09:30)
[2017-10-02] MEDS ORDERED: BISACODYL 10 MG SUPP PR PRN (09:30)
[2017-10-02] MEDS ORDERED: DOCUSATE SODIUM 100 MG CAP PO PRN (09:30)
[2017-10-02] MEDS ORDERED: HYDROCODONE/APAP (5/325) TAB PO PRN ×2 (09:30)
[2017-10-02] MEDS ORDERED: ONDANSETRON 4 MG INJ IV PRN (09:30)
[2017-10-02] MEDS ORDERED: morphine 2 MG INJ IV PRN (09:30)
[2017-10-02] MEDS ORDERED: NACL 0.9% 3 ML SYG IV SCH (09:30)
[2017-10-02] MEDS ORDERED: ACETAMINOPHEN 325 MG TAB PO PRN ×2 (09:30)
[2017-10-02] MEDS ORDERED: MAGNESIUM HYDROXIDE 30ML CUP PO PRN (09:30)
[2017-10-02] MEDS ORDERED: GLUCOSE GEL 15 GRAM TUBE PO PRN ×2 (10:30)
[2017-10-02] MEDS ORDERED: DEXTROSE 50% 50 ML SYRINGE IV PRN ×2 (10:30)
[2017-10-02] MEDS ORDERED: GLUCAGON 1 MG INJ IM PRN (10:30)
[2017-10-02] MEDS ORDERED: GLUCOSE GEL 15 GRAM TUBE BUCCAL PRN (10:30)
[2017-10-02 10:34] LABS: INR 1.09; PROTIME 14.3 Sec (11.9-14.9); PT RATIO 1.1
[2017-10-02 10:35] LABS: PARTIAL THROMBOPLASTIN TIME 32.3 Sec (25.0-35.0)
[2017-10-02] MEDS: SOD CHLORIDE 0.9% 1,000 ML IV SCH ×2 (11:00→22:43)
[2017-10-02] MEDS: CITALOPRAM 20 MG TAB PO SCH (11:01)
[2017-10-02] MEDS: LOSARTAN 25 MG TAB PO SCH ×2 (11:01→20:45)
[2017-10-02] MEDS: LACTOBACILLUS RHAMNOSUS CAP PO SCH ×2 (11:01→20:45)
[2017-10-02] MEDS: INSULIN GLARGINE [LANtus] 3 ML PEN SC SCH ×2 (11:03→20:47)
[2017-10-02] MEDS: INSULIN ASPART [NOVOLOG] 3 ML PEN SC SCH ×5 (12:10→20:44)
--- NOTE | 2017-10-02 12:47 | CONS ---
DATE OF ADMISSION: 10/02/2017 DATE OF CONSULTATION: 10/02/2017 TYPE OF CONSULTATION: Infectious Disease. REASON FOR CONSULTATION: Antibiotic management. HISTORY OF PRESENT ILLNESS: Quentin Cast is a 52-year-old male with a number of problems who com es in now with infected foot. His past problems include: 1. Adult-onset diabetes mellitus. 2. Status post craniotomy in 2013. 3. I and D of the right foot. 4. Diabetic ulcer. The patient has been on Rocephin for foot infections for 2 months with left arm PICC. He is complai renetta of dizziness, weakness, fever and chills. Since yesterday, he is complaining that the infectio n has been getting worse and he is starting to drain. He is to follow up with podiatry later this w [place]. On admission, his white count is 11.2, H and H 11.3 and 33.2, platelet count 260,000. BUN and creatinine is 28/1.06, glucose is 399. PAST MEDICAL HISTORY: Operations as outlined. FAMILY HISTORY: Noncontributory. SOCIAL HISTORY: He does not smoke, drink or abuse drugs. ALLERGIES: NONE TO PENICILLIN, SULFA OR FOODS. MEDICATIONS: Per chart. REVIEW OF SYSTEMS: As per HPI. PHYSICAL EXAMINATION: GENERAL: The patient is a well-developed, well-nourished male, awake, responsive, in no acute distr ess. VITAL SIGNS: Stable. He is afebrile. SKIN: Without generalized rash. HEENT: Within normal limits. NECK: Supple. LYMPH NODES: None palpable. CHEST: Decreased breath sounds at the bases. HEART: Without murmur or gallop. ABDOMEN: Soft, nontender, without organosplenomegaly or masses. EXTREMITIES: Foot shows evidence of increasing infection with purulence at the wound site. RECTAL AND GENITAL: Deferred. NEUROLOGIC: No focal neurological abnormalities. IMPRESSION AND PLAN: Patient was started on vancomycin and Zosyn. We should culture the wound and get some blood cultures, which has been done. I will dictate my findings to Dr. Chaidez. Dictated By: SHELLI KANG MD, JD/JEREMIAS Conf#: [id number] DID#: [id number]
[2017-10-02] MEDS: PIPER-TAZO 3.375 GM IV (PMX) 50 ML IVPB SCH ×2 (13:53→23:02)
--- NOTE | 2017-10-02 15:08 | HP ---
Date/Time of Note Date/Time of Note DATE: 10/02/17 TIME: 14:51 Assessment/Plan VTE Prophylaxis VTE Prophylaxis Intervention: LMWH Lines/Catheters IV Catheter Type (from Nrs): PICC Line Central line still needed: Yes (IV access, outpatient antibiotics) Assessment/Plan Assessment/Plan 52-year-old male with: 1. Reported fluid collection/possible abscess left plantar surface of foot at the site of previous wound and abscess that was debrided 2 months ago. Patient just finished a course of Rocephin Cultures from the wound and blood cultures are pending. Antibiotics have been broadened to Vancomycin and Zosyn on this admission. Podiatry consult with Dr. Quintero pending. Repeat labs in a.m. Appreciate recommendations from infectious disease, MRI of the left foot is pending. 2. Diabetes mellitus, patient reports that his blood sugars have been much better control at home and out of control over the past 2-3 days. His A1c is 10.6 today which is improved from 2 months ago when his A1c was out of range and likely greater than 14. Continue current insulin regimen, sliding scale insulin has been added. Will titrate his Lantus as needed. 3. Hyperlipidemia: Continue statin therapy. Prophylaxis: Lovenox for DVT prophylaxis, Pepcid for GI prophylaxis Disposition: Wound culture, blood cultures, appreciate infectious disease recommendations. Podiatry consult pending. HPI/ROS Admit Date/Time Admit Date/Time Oct 02, 2017 at 09:31 Hx of Present Illness Chief complaint: Left foot wound discharge, chills. 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 On dressing change yesterday, it was noted that there was discharge coming out from the fluid collection and it looked purulent. Patient was also having chills, no fevers, no nausea, no vomiting. Therefore the patient came to the emergency department last night, WBC slightly elevated at 11.5, PICC line in place, blood cultures have been drawn, wound cultures are being sent today, given the fact that he has been on treatment for MSSA and now with the recurrent or new infection, his antibiotic coverage has been broadened to Zosyn and vancomycin while awaiting cultures. Patient saw Dr. Quintero, his stunt driver, 2 weeks ago and was told he had good wound healing. He is due to follow-up with his stunt driver tomorrow, Dr. Quintero will be consulted. I have ordered an MRI of his left foot to follow-up, ESR is at 30. Lactic acid is within normal. ROS Constitutional: chills ENT: no complaints Respiratory: no complaints Cardiovascular: no complaints Gastrointestinal: no complaints Genitourinary: no complaints Musculoskeletal: other (Left foot, plantar surface, there is scar with a old right wound, area looks clean, no discharge could be expressed from the plantar wound) Skin: no complaints Neurologic: no complaints Endocrine: no complaints Lymphatic: no complaints Psychological: no complaints PMH/Family/Social Past Medical History Diabetes mellitus, insulin requiring, A1c at 10.6, patient reportedly was fairly well controlled until 2 days ago. Hyperlipidemia Left foot cellulitis and abscess with impending necrotizing fasciitis status post I&D approximately 2 months ago and the patient just finished his course of antibiotics 2 days ago. Past Surgical History Status post epidural hematoma evacuation in 2013 after patient had head injury post fall Status post left foot I&D for abscess and impending necrotizing fasciitis on 11/13 Family History Significant Family History: no pertinent family hx Social History Alcohol Use: none Smoking Status: Never smoker Drug Use: none Exam/Review of Systems Vital Signs Vitals Vital Signs Date Time Temp Pulse Resp B/P Pulse Ox O2 Delivery O2 Flow Rate FiO2 10/02/17 07:51 98.1 80 18 123/78 99 10/02/17 06:00 Room Air Exam Constitutional: alert, oriented, well developed Respiratory: clear to auscultation, normal air movement Cardiovascular: nl pulses, regular rate and rhythm Gastrointestinal: non-tender, soft Musculoskeletal: nl gait and stance Extremities: normal pulses, other (Left foot, no edema, clubbing or cyanosis, no erythema noted. Left plantar surface was 2 areas of dried wound. 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, nl mental status, nl speech, nl strength Labs Result Diagram: 10/02/17 0256 10/02/17 0256 Medications Medications Current Medications Citalopram Hydrobromide (Celexa) 40 mg DAILY PO Last administered on 10/02/17 11:01; Admin Dose 40 MG; Start 10/02/17 at 10:00 Insulin Glargine (Lantus) 15 unit BID@08,20 SC Last administered on 10/02/17 11:03; Admin Dose 15 UNIT; Start 10/02/17 at 09:30 Lactobacillus Acidophilus/ Rhamnosus (Culturelle) 1 cap BID PO Last administered on 10/02/17 11:01; Admin Dose 1 CAP; Start 10/02/17 at 09:30 Losartan Potassium (Cozaar) 25 mg BID PO Last administered on 10/02/17 11:01; Admin Dose 25 MG; Start 10/02/17 at 09:30 Atorvastatin Calcium (Lipitor) 10 mg DAILY@21 PO ; Start 10/02/17 at 21:00 Diagnostic Test (Pha) 1 ea 1 ea 02 XX ; Start 10/03/17 at 02:00 Sodium Chloride (NS) 1,000 ml @ 75 mls/hr [id number] IV Last administered on 10/02 11:00; Admin Dose 75 MLS/HR; Start 10/02/17 at 09:23 Ondansetron HCl (Zofran Inj) 4 mg Q6H PRN IV NAUSEA AND/OR VOMITING; Start 10/02/17 at 09:30 Acetaminophen (Tylenol Tab) 650 mg Q6H PRN PO PAIN LEVEL 1-3 OR FEVER; Start 10/02/17 at 09:30 Acetaminophen/ Hydrocodone Bitart ([place] (5/325)) 1 tab Q6H PRN PO MODERATE PAIN LEVEL 4-6; Start 10/02/17 at 09:30 Acetaminophen/ Hydrocodone Bitart ([place] (5/325)) 2 tab Q6H PRN PO SEVERE PAIN LEVEL 7-10; Start 10/02/17 at 09:30 Morphine Sulfate (morphine) 2 mg Q4H PRN IV SEVERE PAIN LEVEL 7-10; Start 10/02 at 09:30 Docusate Sodium (Colace) 100 mg Q12H PRN PO CONSTIPATION; Start 10/02/17 at 09: 30 Magnesium Hydroxide (Milk Of Mag) 30 ml DAILY PRN PO CONSTIPATION; Start at 09:30 Bisacodyl (Dulcolax Supp) 10 mg DAILY PRN [place] CONSTIPATION; Start 10/02/17 at 09 :30 Famotidine (Pepcid) 20 mg Q12 PO ; Start 10/02/17 at 21:00 Enoxaparin Sodium 40 mg 40 mg DAILY SC ; Start 10/03/17 at 09:00 Piperacillin Sod/ Tazobactam Sod (Zosyn 3.375gm/ 50 ml (Pmx)) 50 ml @ 100 mls/ hr Q8 IVPB Last administered on 10/02/17t 13:53; Admin Dose 100 MLS/HR; Start 10/02/17 at 14:00 Miscellaneous Information 1 ea NOTE XX ; Start 10/02/17 at 10:30 Glucose (Glutose) 15 gm Q15M PRN PO DECREASED GLUCOSE; Start 10/02/17 at 10:30 Glucose (Glutose) 22.5 gm Q15M PRN PO DECREASED GLUCOSE; Start 10/02/17 at 10: 30 Dextrose (D50w Syringe) 25 ml Q15M PRN IV DECREASED GLUCOSE; Start 10/02/17 at 10:30 Dextrose (D50w Syringe) 50 ml Q15M PRN IV DECREASED GLUCOSE; Start 10/02/17 at 10:30 Glucagon (Glucagen) 1 mg Q15M PRN IM DECREASED GLUCOSE; Start 10/02/17 at 10:30 Glucose 15 gm 15 gm Q15M PRN BUCCAL DECREASED GLUCOSE; Start 10/02/17 at 10:30 Vancomycin HCl/ Sodium Chloride (Vancocin/NS) 250 ml @ 83.333 mls/ hr Q12H IVPB ; Start 10/02/17 at 20:00 Procedures Procedures MRI left foot pending CIELO ACEVEDO Oct 02, 2017 15:02
[2017-10-02 15:25] VITALS: BP 93/52; RESP 20
[2017-10-02] MEDS ORDERED: VANCOMYCIN 1 GM in NS 250 ML IVPB SCH (18:00)
--- NOTE | 2017-10-02 19:21 | RADRPT ---
PROCEDURE: MRI OF THE LEFT FOOT CLINICAL INDICATION: Left foot pain, concern for osteomyelitis, ulcer midfoot, marker placed at site of ulcers TECHNIQUE: Multiple MRI images were obtained utilizing multiple sequences in multiple planes. Image s were interpreted on a high-resolution PACS system. COMPARISON: MRI of the left foot dated July 25, 2070 and radiographs of the left foot dated O ctober 2016 FINDINGS: There is a plantar soft tissue ulceration nearly extending to bone near the head of the fifth metata rsal (sagittal 5 and coronal 22) with surrounding cellulitic changes and abscess in the lateral soft tissues measuring approximately 1.5 x 1.0 by 1.9 cm in size. There is osteomyelitis of the fifth me tatarsal head (coronal 23) with suggestion of involvement of the distal shaft as well. There are a f ew foci of soft tissue gas in this location. There is no definite involvement of the fifth proximal phalanx at this time. There is an additional smaller plantar skin ulceration (coronal 31) at the midfoot with mild soft ti ssue swelling but no fluid collection or underlying osteomyelitis. There is diffuse forefoot soft ti ssue swelling. There is no evidence of tendon tear. No additional regions of osteomyelitis are ident ified. IMPRESSION: 1. Plantar skin ulceration nearly extending to bone near the fifth metatarsal head with underlying o steomyelitis of the fifth metatarsal head and distal shaft. 2. Surrounding phlegmonous change with a lateral abscess bordering the fifth metatarsal neck measuri ng 1.9 x 1.5 x 1.0 cm in size. 3. Additional small plantar skin ulceration at the midfoot with adjacent soft tissue swelling but no drainable fluid collection. RPTAT: UU .Ethan Marrero MD, Date Time Electronically viewed and signed by .Ethan Marrero MD, on 10/02/2017 19:20 .K/
[2017-10-02] MEDS: VANCOMYCIN 1.25 GM in SOD CHLORIDE 0.9% 250 ML IVPB SCH (19:47)
[2017-10-02 20:00] VITALS: BP 112/57; RESP 20
[2017-10-02] MEDS: ATORVASTATIN 10 MG TAB PO SCH (20:45)
[2017-10-02] MEDS: FAMOTIDINE 20 MG TAB PO SCH (20:45)
[2017-10-03 02:00] VITALS: BP 109/70; RESP 20
[2017-10-03] MEDS: ACCU-CHEK XX SCH (02:00)
[2017-10-03] MEDS: PIPER-TAZO 3.375 GM IV (PMX) 50 ML IVPB SCH ×2 (05:44→14:51)
[2017-10-03 06:24] LABS: BASOPHIL # 0.1 10^3/ul (0.0-0.1); BASOPHILS % 1.1 % (0.0-2.0); EOSINOPHILS # 0.3 10^3/ul (0.0-0.5); HEMATOCRIT 31.5 % (42.0-52.0); HEMOGLOBIN 10.7 g/dl (14.0-18.0); LYMPHOCYTES # 1.5 10^3/ul (0.8-2.9); LYMPHOCYTES % 29.1 % (15.0-51.0); MEAN CORPUSCULAR HEMOGLOBIN 27.6 pg (29.0-33.0); MEAN CORPUSCULAR VOLUME 81.4 fl (82.0-101.0); MEAN PLATELET VOLUME 10.3 fl (7.4-10.4); MONOCYTE # 0.5 10^3/ul (0.3-0.9); MONOCYTES % 9.1 % (0.0-11.0); NEUTROPHIL # 2.9 10^3/ul (1.6-7.5); NEUTROPHILS % 54.3 % (39.0-77.0); PLATELET COUNT 238 10^3/UL (140-415); RED BLOOD COUNT 3.87 10^6/ul (4.70-6.10); RED CELL DISTRIBUTION WIDTH 12.2 % (11.5-14.5); WHITE BLOOD COUNT 5.3 10^3/ul (4.8-10.8)
[2017-10-03 06:49] LABS: ALBUMIN 3.4 g/dl (3.3-4.9); BILIRUBIN,INDIRECT 0.5 mg/dl (0-1.1); BILIRUBIN,TOTAL 0.5 mg/dl (0.2-1.3); CREATININE 0.85 mg/dl (0.61-1.24); MAGNESIUM 1.8 mg/dl (1.7-2.5); PHOSPHORUS 4.5 mg/dl (2.5-4.9); TOTAL PROTEIN 6.8 g/dl (6.1-8.1)
[2017-10-03 07:25] VITALS: BP 118/72; RESP 16
[2017-10-03] MEDS: INSULIN ASPART [NOVOLOG] 3 ML PEN SC SCH ×7 (08:00→21:00)
[2017-10-03] MEDS: VANCOMYCIN 1.25 GM in SOD CHLORIDE 0.9% 250 ML IVPB SCH ×2 (08:26→21:50)
[2017-10-03] MEDS: LACTOBACILLUS RHAMNOSUS CAP PO SCH ×2 (08:26→21:53)
[2017-10-03] MEDS: FAMOTIDINE 20 MG TAB PO SCH ×2 (08:26→21:53)
[2017-10-03] MEDS: CITALOPRAM 20 MG TAB PO SCH (08:27)
[2017-10-03] MEDS: LOSARTAN 25 MG TAB PO SCH ×2 (08:27→21:58)
[2017-10-03] MEDS: INSULIN GLARGINE [LANtus] 3 ML PEN SC SCH ×2 (08:28→21:56)
--- NOTE | 2017-10-03 10:51 | PN ---
Date/Time of Note Date/Time of Note DATE: 10/03/17 TIME: 10:45 Assessment/Plan VTE Prophylaxis VTE Prophylaxis Intervention: LMWH Lines/Catheters IV Catheter Type (from Nrs): PICC Line Central line still needed: Yes (For IV access) Assessment/Plan Assessment/Plan 52-year-old male with: 1. MRI showing fluid collection lateral to the fifth metatarsal neck and possible osteomyelitis of the fifth metatarsal, left foot. Dr.Babak Quintero from podiatry has been notified on admission, I also forwarded MRI results today. He will be seeing the patient. Continue current antibiotics and appreciate infectious disease recommendations. Follow-up wound cultures and blood culture results, so far no growth to date. Continue current antibiotics. WBC has normalized, patient remains afebrile and hemodynamically stable. 2. Diabetes mellitus, patient reports that his blood sugars have been much better control at home and out of control over the past 2-3 days. His A1c is 10.6 today which is improved from 2 months ago when his A1c was out of range and likely greater than 14. Continue current insulin regimen, sliding scale insulin has been added. Will titrate his Lantus as needed. Appreciate follow-up from diabetic education. 3. Hyperlipidemia: Continue statin therapy. Prophylaxis: Lovenox for DVT prophylaxis, Pepcid for GI prophylaxis Disposition: Wound culture, blood cultures, appreciate infectious disease recommendations. Podiatry consult pending. Subjective 24 Hr Interval Summary Free Text/Dictation Patient remains hemodynamically stable, no additional complaints. MRI results noted and forwarded to podiatry, patient likely to need I&D this admission. Continuing current antibiotics patient clinically better in terms of WBC count and hemodynamics. Exam/Review of Systems Vital Signs Vitals Vital Signs Date Time Temp Pulse Resp B/P Pulse Ox O2 Delivery O2 Flow Rate FiO2 10/03/17 07:25 97.8 68 16 118/72 99 10/02/17 06:00 Room Air Intake and Output 10/02/17 10/02/17 10/03/17 15:00 23:00 07:00 Intake Total 50 ml 1950 ml 1060 ml Balance 50 ml 1950 ml 1060 ml Exam Constitutional: alert, oriented, well developed Respiratory: clear to auscultation, normal air movement Cardiovascular: nl pulses, regular rate and rhythm Gastrointestinal: non-tender, soft Musculoskeletal: other (Left foot with dressing in place.) Extremities: normal pulses, other (No edema, clubbing or cyanosis) Neurological: DIE [employer]ING [employer]OR II-XII intact, nl mental status, nl speech, nl strength Results Result Diagram: 10/03/17 0540 10/03/17 0540 Results 24 hrs Laboratory Tests Test 10/02/17 12:07 10/02/17 17:10 10/02/17 20:44 10/03/17 05:40 Bedside Glucose 349 H 123 118 White Blood Count 5.3 # Red Blood Count 3.87 L Hemoglobin 10.7 L Hematocrit 31.5 L Mean Corpuscular Volume 81.4 L Mean Corpuscular Hemoglobin 27.6 L Mean Corpuscular Hemoglobin Concent 34.0 Red Cell Distribution Width 12.2 Platelet Count 238 Mean Platelet Volume 10.3 Neutrophils % 54.3 Lymphocytes % 29.1 Monocytes % 9.1 Eosinophils % 6.0 Basophils % 1.1 Nucleated Red Blood Cells % 0.0 Neutrophils # 2.9 Lymphocytes # 1.5 Monocytes # 0.5 Eosinophils # 0.3 Basophils # 0.1 Nucleated Red Blood Cells # 0.0 Sodium Level 140 Potassium Level 4.0 Chloride Level 102 Carbon Dioxide Level 31 Anion Gap 11 Blood Urea Nitrogen 24 H Creatinine 0.85 Glucose Level 105 # Calcium Level 9.0 Phosphorus Level 4.5 Magnesium Level 1.8 Total Bilirubin 0.5 Direct Bilirubin 0.00 Indirect Bilirubin 0.5 Aspartate Amino Transf (AST/SGOT) 17 Alanine Aminotransferase (ALT/SGPT) 26 Alkaline Phosphatase 56 Total Protein 6.8 Albumin 3.4 Globulin 3.40 H Albumin/Globulin Ratio 1.00 Test 10/03/17 08:25 Bedside Glucose 104 Imaging Free Text/Dictation PROCEDURE: MRI OF THE LEFT FOOT CLINICAL INDICATION: Left foot pain, concern for osteomyelitis, ulcer midfoot, marker placed at site of ulcers TECHNIQUE: Multiple MRI images were obtained utilizing multiple sequences in multiple planes. Images were interpreted on a high-resolution PACS system. COMPARISON: MRI of the left foot dated July 25, 2070 and radiographs of the left foot dated July 28, 2017 FINDINGS: There is a plantar soft tissue ulceration nearly extending to bone near the head of the fifth metatarsal (sagittal 5 and coronal 22) with surrounding cellulitic changes and abscess in the lateral soft tissues measuring approximately 1.5 x 1.0 by 1.9 cm in size. There is osteomyelitis of the fifth metatarsal head (coronal 23) with suggestion of involvement of the distal shaft as well. There are a few foci of soft tissue gas in this location. There is no definite involvement of the fifth proximal phalanx at this time. There is an additional smaller plantar skin ulceration (coronal 31) at the midfoot with mild soft tissue swelling but no fluid collection or underlying osteomyelitis. There is diffuse forefoot soft tissue swelling. There is no evidence of tendon tear. No additional regions of osteomyelitis are identified. IMPRESSION: 1. Plantar skin ulceration nearly extending to bone near the fifth metatarsal head with underlying osteomyelitis of the fifth metatarsal head and distal shaft. 2. Surrounding phlegmonous change with a lateral abscess bordering the fifth metatarsal neck measuring 1.9 x 1.5 x 1.0 cm in size. 3. Additional small plantar skin ulceration at the midfoot with adjacent soft tissue swelling but no drainable fluid collection. RPTAT: UU .Ethan Marrero MD, MD Date Time Electronically viewed and signed by .Ethan Marrero MD, MD on 10/02/2017 19:20 Medications Medications Current Medications Citalopram Hydrobromide (Celexa) 40 mg DAILY PO Last administered on 10/03/17 08:27; Admin Dose 40 MG; Start 10/02/17 at 10:00 Insulin Glargine (Lantus) 15 unit BID@08,20 SC Last administered on 10/03/17 08:28; Admin Dose 15 UNIT; Start 10/02/17 at 09:30 Lactobacillus Acidophilus/ Rhamnosus (Culturelle) 1 cap BID PO Last administered on 10/03/17 08:26; Admin Dose 1 CAP; Start 10/02/17 at 09:30 Losartan Potassium (Cozaar) 25 mg BID PO Last administered on 10/03/17 08:27; Admin Dose 25 MG; Start 10/02/17 at 09:30 Atorvastatin Calcium (Lipitor) 10 mg DAILY@21 PO Last administered on 20:45; Admin Dose 10 MG; Start 10/02/17 at 21:00 Diagnostic Test (Pha) 1 ea 1 ea 02 XX ; Start 10/03/17 at 02:00 Sodium Chloride (NS) 1,000 ml @ 75 mls/hr [id number] IV Last administered on 10/02 11:00; Admin Dose 75 MLS/HR; Start 10/02/17 at 09:23 Ondansetron HCl (Zofran Inj) 4 mg Q6H PRN IV NAUSEA AND/OR VOMITING; Start 10/02/17 at 09:30 Acetaminophen (Tylenol Tab) 650 mg Q6H PRN PO PAIN LEVEL 1-3 OR FEVER; Start 10/02/17 at 09:30 Acetaminophen/ Hydrocodone Bitart ([place] (5/325)) 1 tab Q6H PRN PO MODERATE PAIN LEVEL 4-6; Start 10/02/17 at 09:30 Acetaminophen/ Hydrocodone Bitart ([place] (5/325)) 2 tab Q6H PRN PO SEVERE PAIN LEVEL 7-10; Start 10/02/17 at 09:30 Morphine Sulfate (morphine) 2 mg Q4H PRN IV SEVERE PAIN LEVEL 7-10; Start 10/02 at 09:30 Docusate Sodium (Colace) 100 mg Q12H PRN PO CONSTIPATION; Start 10/02/17 at 09: 30 Magnesium Hydroxide (Milk Of Mag) 30 ml DAILY PRN PO CONSTIPATION; Start at 09:30 Bisacodyl (Dulcolax Supp) 10 mg DAILY PRN [place] CONSTIPATION; Start 10/02/17 at 09 :30 Famotidine (Pepcid) 20 mg Q12 PO Last administered on 10/03/17 08:26; Admin Dose 20 MG; Start 10/02/17 at 21:00 Enoxaparin Sodium 40 mg 40 mg DAILY SC ; Start 10/03/17 at 09:00 Piperacillin Sod/ Tazobactam Sod (Zosyn 3.375gm/ 50 ml (Pmx)) 50 ml @ 100 mls/ hr Q8 IVPB Last administered on 10/03/17 05:44; Admin Dose 100 MLS/HR; Start 10/02/17 at 14:00 Miscellaneous Information 1 ea NOTE XX ; Start 10/02/17 at 10:30 Glucose (Glutose) 15 gm Q15M PRN PO DECREASED GLUCOSE; Start 10/02/17 at 10:30 Glucose (Glutose) 22.5 gm Q15M PRN PO DECREASED GLUCOSE; Start 10/02/17 at 10: 30 Dextrose (D50w Syringe) 25 ml Q15M PRN IV DECREASED GLUCOSE; Start 10/02/17 at 10:30 Dextrose (D50w Syringe) 50 ml Q15M PRN IV DECREASED GLUCOSE; Start 10/02/17 at 10:30 Glucagon (Glucagen) 1 mg Q15M PRN IM DECREASED GLUCOSE; Start 10/02/17 at 10:30 Glucose 15 gm 15 gm Q15M PRN BUCCAL DECREASED GLUCOSE; Start 10/02/17 at 10:30 Vancomycin HCl/ Sodium Chloride (Vancocin/NS) 250 ml @ 83.333 mls/ hr Q12H IVPB Last administered on 10/03/17 08:26; Admin Dose 83.333 MLS/HR; Start 10/02/17 at 20:00 CIELO ACEVEDO Oct 03, 2017 10:51
[2017-10-03] MEDS: ENOXAPARIN 40 MG/0.4 ML SYG SC SCH (11:46)
[2017-10-03] MEDS: SOD CHLORIDE 0.9% 1,000 ML IV SCH (12:47)
[2017-10-03] MEDS ORDERED: PENDING SANTYL ORDER FOR WOUND CARE XX PRN (14:00)
[2017-10-03 14:12] VITALS: BP 132/72; RESP 16
--- NOTE | 2017-10-03 18:09 | CONS ---
Date/Time of Note Date/Time of Note DATE: 10/03/17 TIME: 18:05 Assessment/Plan Assessment/Plan Problems: (1) Non-pressure chronic ulcer of other part of left foot with necrosis of bone (2) Abscess of left foot Status: Acute (3) Diabetes, polyneuropathy Status: Chronic Qualifiers: Qualified Code: E11.42 - Diabetic polyneuropathy associated with type 2 diabetes mellitus (4) Acute osteomyelitis of metatarsal bone of left foot Status: Acute Additional Assessment/Plan At this time, I will monitor patient's left foot. If the condition gets worse, patient may require formal surgical management which will include excisional debridement of necrotic tissues. If this continues, patient will have significant tissue loss around the fifth metatarsophalangeal joint which would expose the subcutaneous tissue layer and the joint capsule. I will keep the patient nonweightbearing on the left foot at this time. Daily dressing changes and wound care instructions are as follows: Wound Care: 1. Cleanse with 1/4 strength Dakins solution 2. Apply Santyl ointment to left foot open wound 3. Apply dry sterile dressing of the left foot 4. Non weightbearing left foot Patient will be followed. Thank you again for involving me in the care of this patient. If you have any questions regarding this case, please feel free to contact me at pager: or reach me at mobile: [phone]. Consultation Date/Type/Reason Admit Date/Time Oct 02, 2017 at 09:31 Date of Consultation: Oct 03, 2017 Type of Consultation: Foot and ankle surgery Reason for Consultation Open infected wound of the left foot Hx of Present Illness Thank you for your kind consultation. As you know this is a 52-year-old male patient with multiple medical problems including diabetes mellitus, insulin- dependent with a chronic wound of the left foot with recent worsening of wound and abscess formation and impending necrotizing fasciitis. Patient had recent incision and drainage and debridement of the wound and has finished a course of Rocephin on 09/30/2017. On October 01, 2017 he noted increased swelling of his left foot and started to notice more drainage. He also reports fever and chills. I was consulted to evaluate. As per history of present illness. Constitutional: improved, no complaints Eyes: no complaints ENT: no complaints Respiratory: no complaints Past Medical History As per history of present illness. Past Surgical History As per history of present illness. Social History As per history of present illness. Alcohol Use: none Smoking Status: Never smoker Drug Use: none Exam/Review of Systems Vital Signs Vitals Vital Signs Date Time Temp Pulse Resp B/P Pulse Ox O2 Delivery O2 Flow Rate FiO2 10/03/17 14:12 98.0 72 16 132/72 99 10/02/17 06:00 Room Air Intake and Output 10/02/17 10/02/17 10/03/17 15:00 23:00 07:00 Intake Total 50 ml 1950 ml 1060 ml Balance 50 ml 1950 ml 1060 ml Exam Patient is laying supine in bed in no acute distress. Bandages were removed from the left foot. Open wound present on the plantar aspect of the left foot with purulent drainage and fluctuance. Malodor present with erythema and proximal streaking. The open wounds on the plantar aspect of the fifth metatarsophalangeal joint and probes to the joint capsule. There is no tenderness to palpation. Hyperkeratotic skin present on the plantar aspect of the central foot in the arch area with no surrounding erythema. In this area, there is no fluctuance and no tenderness to palpation. Labs reviewed. Imaging reviewed. Results Result Diagram: 10/03/17 0540 10/03/17 0540 Results 24 hrs Laboratory Tests Test 10/02/17 20:44 10/03/17 05:40 10/03/17 08:25 10/03/17 10:36 Bedside Glucose 118 104 76 White Blood Count 5.3 # Red Blood Count 3.87 L Hemoglobin 10.7 L Hematocrit 31.5 L Mean Corpuscular Volume 81.4 L Mean Corpuscular Hemoglobin 27.6 L Mean Corpuscular Hemoglobin Concent 34.0 Red Cell Distribution Width 12.2 Platelet Count 238 Mean Platelet Volume 10.3 Neutrophils % 54.3 Lymphocytes % 29.1 Monocytes % 9.1 Eosinophils % 6.0 Basophils % 1.1 Nucleated Red Blood Cells % 0.0 Neutrophils # 2.9 Lymphocytes # 1.5 Monocytes # 0.5 Eosinophils # 0.3 Basophils # 0.1 Nucleated Red Blood Cells # 0.0 Sodium Level 140 Potassium Level 4.0 Chloride Level 102 Carbon Dioxide Level 31 Anion Gap 11 Blood Urea Nitrogen 24 H Creatinine 0.85 Glucose Level 105 # Calcium Level 9.0 Phosphorus Level 4.5 Magnesium Level 1.8 Total Bilirubin 0.5 Direct Bilirubin 0.00 Indirect Bilirubin 0.5 Aspartate Amino Transf (AST/SGOT) 17 Alanine Aminotransferase (ALT/SGPT) 26 Alkaline Phosphatase 56 Total Protein 6.8 Albumin 3.4 Globulin 3.40 H Albumin/Globulin Ratio 1.00 Test 10/03/17 11:45 10/03/17 17:16 Bedside Glucose 160 169 Medications Medications Current Medications Citalopram Hydrobromide (Celexa) 40 mg DAILY PO Last administered on 10/03/17 08:27; Admin Dose 40 MG; Start 10/02/17 at 10:00 Insulin Glargine (Lantus) 15 unit BID@08,20 SC Last administered on 10/03/17 08:28; Admin Dose 15 UNIT; Start 10/02/17 at 09:30 Lactobacillus Acidophilus/ Rhamnosus (Culturelle) 1 cap BID PO Last administered on 10/03/17 08:26; Admin Dose 1 CAP; Start 10/02/17 at 09:30 Losartan Potassium (Cozaar) 25 mg BID PO Last administered on 10/03/17 08:27; Admin Dose 25 MG; Start 10/02/17 at 09:30 Atorvastatin Calcium (Lipitor) 10 mg DAILY@21 PO Last administered on 20:45; Admin Dose 10 MG; Start 10/02/17 at 21:00 Diagnostic Test (Pha) 1 ea 1 ea 02 XX ; Start 10/03/17 at 02:00 Sodium Chloride (NS) 1,000 ml @ 75 mls/hr [id number] IV Last administered on 10/03 12:47; Admin Dose 75 MLS/HR; Start 10/02/17 at 09:23 Ondansetron HCl (Zofran Inj) 4 mg Q6H PRN IV NAUSEA AND/OR VOMITING; Start 10/02/17 at 09:30 Acetaminophen (Tylenol Tab) 650 mg Q6H PRN PO PAIN LEVEL 1-3 OR FEVER; Start 10/02/17 at 09:30 Acetaminophen/ Hydrocodone Bitart ([place] (5/325)) 1 tab Q6H PRN PO MODERATE PAIN LEVEL 4-6; Start 10/02/17 at 09:30 Acetaminophen/ Hydrocodone Bitart ([place] (5/325)) 2 tab Q6H PRN PO SEVERE PAIN LEVEL 7-10; Start 10/02/17 at 09:30 Morphine Sulfate (morphine) 2 mg Q4H PRN IV SEVERE PAIN LEVEL 7-10; Start 10/02 at 09:30 Docusate Sodium (Colace) 100 mg Q12H PRN PO CONSTIPATION; Start 10/02/17 at 09: 30 Magnesium Hydroxide (Milk Of Mag) 30 ml DAILY PRN PO CONSTIPATION; Start at 09:30 Bisacodyl (Dulcolax Supp) 10 mg DAILY PRN [place] CONSTIPATION; Start 10/02/17 at 09 :30 Famotidine (Pepcid) 20 mg Q12 PO Last administered on 10/03/17 08:26; Admin Dose 20 MG; Start 10/02/17 at 21:00 Enoxaparin Sodium 40 mg 40 mg DAILY SC Last administered on 10/03/17 11:46; Admin Dose 40 MG; Start 10/03/17 at 09:00 Piperacillin Sod/ Tazobactam Sod (Zosyn 3.375gm/ 50 ml (Pmx)) 50 ml @ 100 mls/ hr Q8 IVPB Last administered on 10/03/17 14:51; Admin Dose 100 MLS/HR; Start 10/02/17 at 14:00 Miscellaneous Information 1 ea NOTE XX ; Start 10/02/17 at 10:30 Glucose (Glutose) 15 gm Q15M PRN PO DECREASED GLUCOSE; Start 10/02/17 at 10:30 Glucose (Glutose) 22.5 gm Q15M PRN PO DECREASED GLUCOSE; Start 10/02/17 at 10: 30 Dextrose (D50w Syringe) 25 ml Q15M PRN IV DECREASED GLUCOSE; Start 10/02/17 at 10:30 Dextrose (D50w Syringe) 50 ml Q15M PRN IV DECREASED GLUCOSE; Start 10/02/17 at 10:30 Glucagon (Glucagen) 1 mg Q15M PRN IM DECREASED GLUCOSE; Start 10/02/17 at 10:30 Glucose 15 gm 15 gm Q15M PRN BUCCAL DECREASED GLUCOSE; Start 10/02/17 at 10:30 Vancomycin HCl/ Sodium Chloride (Vancocin/NS) 250 ml @ 83.333 mls/ hr Q12H IVPB Last administered on 10/03/17 08:26; Admin Dose 83.333 MLS/HR; Start 10/02/17 at 20:00 Miscellaneous Information (*Rx Drug Level Order Reminder*) 1 ONCE ONCE XX ; Start 10/04/17 at 07:00; Stop 10/04/17 at 07:01 Miscellaneous Information (Pending Santyl Order For Wound Care) This patient stevens... PRN PRN XX WOUND CARE; Start 10/03/17 at 14:00 TUTU SHAFFER DPM Oct 03, 2017 18:09
[2017-10-03 20:00] VITALS: BP 131/75; RESP 20
[2017-10-03] MEDS: ATORVASTATIN 10 MG TAB PO SCH (21:53)
[2017-10-04] MEDS: PIPER-TAZO 3.375 GM IV (PMX) 50 ML IVPB SCH ×4 (00:54→22:00)
[2017-10-04 02:00] VITALS: BP 154/78; RESP 19
[2017-10-04] MEDS: ACCU-CHEK XX SCH (02:00)
[2017-10-04] MEDS: SOD CHLORIDE 0.9% 1,000 ML IV SCH ×3 (02:01→20:45)
[2017-10-04] MEDS ORDERED: COLLAGENASE 30 GM TUBE TOP PRN (07:00)
--- NOTE | 2017-10-04 07:00 | PN ---
DATE: 10/03/2017 SUBJECTIVE: No events overnight. The patient is alert, feels good, looks comfortable, no fevers. WBC today 5.3, no shift, no bands. BUN 24, creatinine 0.85. MICROBIOLOGY: Left foot wound culture growing mixed bacteria consistent with contaminant. DIAGNOSTICS: MRI of left foot revealed plantar skin ulceration nearly extending to the bone near th e fifth metatarsal head with underlying osteomyelitis of the fifth metatarsal head and distal shaft surroundings phlegmonous change with lateral abscess bordering at the fifth metatarsal neck measurin g 1.9 x 1.5 x 1 cm, an additional small plantar ____ ulceration at the mid foot with adjacent soft t issue swelling but no drainable fluid collection. INDWELLINGS: The patient has a left upper extremity PICC line. ANTIMICROBIALS: He is on vancomycin and Zosyn. PHYSICAL EXAMINATION: GENERAL: Well-developed, well-nourished, middle-aged white man who is alert, in no distress. HEENT: Head atraumatic, normocephalic. Sclerae anicteric. NECK: Supple. CHEST: Rise symmetrical. Breath sounds clear. HEART: S1, S2. ABDOMEN: Soft. Bowel sounds present. EXTREMITIES: Left foot dressing intact. ASSESSMENT: 1. Left diabetic ulceration with a history of methicillin-susceptible Staphylococcus aureus abscess , status post incision and drainage on 07/28/2017, now with evidence of osteomyelitis. 2. Diabetes. 3. Diabetic neuropathy. PLAN: Patient remains stable, awaiting for podiatry evaluation. Continue present care. Continue o n current antibiotics for now. We will ask for wound cultures to be sent again. Dictated By: LUCITA RAHMAN [facility]OLOG[facility] RN for SHELLI SIMPSON/JEREMIAS Conf#: [id number] DID#: [id number]
[2017-10-04 07:13] LABS: MAGNESIUM 1.8 mg/dl (1.7-2.5)
[2017-10-04 07:14] LABS: CALCIUM 8.7 mg/dl (8.4-10.2); CREATININE 0.96 mg/dl (0.61-1.24)
[2017-10-04 07:25] VITALS: BP 120/66; RESP 16
[2017-10-04 07:55] LABS: BASOPHIL # 0.1 10^3/ul (0.0-0.1); BASOPHILS % 1.6 % (0.0-2.0); EOSINOPHILS # 0.3 10^3/ul (0.0-0.5); EOSINOPHILS % 6.5 % (0.0-7.0); HEMATOCRIT 32.4 % (42.0-52.0); HEMOGLOBIN 10.9 g/dl (14.0-18.0); LYMPHOCYTES # 1.5 10^3/ul (0.8-2.9); LYMPHOCYTES % 28.7 % (15.0-51.0); MEAN CORPUSCULAR HEMOGLOBIN 27.6 pg (29.0-33.0); MEAN CORPUSCULAR HGB CONC 33.6 g/dl (32.0-37.0); MEAN PLATELET VOLUME 10.5 fl (7.4-10.4); MONOCYTE # 0.4 10^3/ul (0.3-0.9); MONOCYTES % 8.3 % (0.0-11.0); NEUTROPHIL # 2.8 10^3/ul (1.6-7.5); NEUTROPHILS % 54.7 % (39.0-77.0); PLATELET COUNT 252 10^3/UL (140-415); RED BLOOD COUNT 3.95 10^6/ul (4.70-6.10); WHITE BLOOD COUNT 5.1 10^3/ul (4.8-10.8)
[2017-10-04] MEDS: INSULIN ASPART [NOVOLOG] 3 ML PEN SC SCH ×7 (08:05→20:43)
[2017-10-04] MEDS: INSULIN GLARGINE [LANtus] 3 ML PEN SC SCH ×2 (08:07→20:42)
[2017-10-04] MEDS: LOSARTAN 25 MG TAB PO SCH ×2 (09:01→20:44)
[2017-10-04] MEDS: FAMOTIDINE 20 MG TAB PO SCH ×2 (09:01→20:39)
[2017-10-04] MEDS: VANCOMYCIN 1.25 GM in SOD CHLORIDE 0.9% 250 ML IVPB SCH (09:01)
[2017-10-04] MEDS: CITALOPRAM 20 MG TAB PO SCH (09:01)
[2017-10-04] MEDS: ENOXAPARIN 40 MG/0.4 ML SYG SC SCH (09:03)
[2017-10-04] MEDS: LACTOBACILLUS RHAMNOSUS CAP PO SCH ×2 (09:03→20:39)
--- NOTE | 2017-10-04 10:15 | PN ---
Date/Time of Note Date/Time of Note DATE: 10/04/17 TIME: 09:58 Assessment/Plan VTE Prophylaxis VTE Prophylaxis Intervention: LMWH Lines/Catheters IV Catheter Type (from Nrsg): PICC Line (For IV access, left upper extremity) Central line still needed: Yes (for IV abx ) Assessment/Plan Assessment/Plan 52-year-old male with: 1. MRI showing fluid collection lateral to the fifth metatarsal neck and possible osteomyelitis of the fifth metatarsal, left foot. Will await final recommendations from podiatry today, for now wound care has been ordered by podiatry, Dr.Babak Quintero. Continue current antibiotics and appreciate infectious disease recommendations. Awaiting cultures from wound, for now it seems to be mixed gram-positive organism 3+. Blood culture are no growth to date. WBC has normalized, patient remains afebrile and hemodynamically stable. 2. Diabetes mellitus, patient reports that his blood sugars have been much better control at home and out of control over the past 2-3 days. His A1c is 10.6 today which is improved from 2 months ago when his A1c was out of range and likely greater than 14. Continue current insulin regimen, sliding scale insulin has been added. Will titrate his Lantus as needed. Appreciate follow-up from diabetic education. 3. Hyperlipidemia: Continue statin therapy. 4. Right hand mild numbness and also mild swelling, likely patient to the sleep on that hand overnight, no motor deficit, fine movements are intact also. Sensation is improving, we will continue to monitor. 5. Diabetic neuropathy: Resume Lyrica Prophylaxis: Lovenox for DVT prophylaxis, Pepcid for GI prophylaxis Disposition: Follow-up wound culture, blood cultures, appreciate infectious disease recommendations. Follow-up podiatry recommendations today. Subjective 24 Hr Interval Summary Free Text/Dictation Patient remained stable, this morning he was complaining of some mild numbness and swelling of his right hand, likely positional, he has full range of motion. He also has sensation. He also reported that he was having a metallic taste a week ago while he was on Rocephin but seems to be resolving. Blood sugars are stable today. Appreciate Dr. Scherer's recommendation and he will reevaluate imaging regarding possible left foot I&D. For now continue current antibiotics and awaiting cultures. Exam/Review of Systems Vital Signs Vitals Vital Signs Date Time Temp Pulse Resp B/P Pulse Ox O2 Delivery O2 Flow Rate FiO2 10/04/17 07:25 98.4 69 16 120/66 98 10/02/17 06:00 Room Air Intake and Output 10/03/17 10/03/17 10/04/17 15:00 23:00 07:00 Intake Total 700 ml 1220 ml 1475 ml Balance 700 ml 1220 ml 1475 ml Exam Constitutional: alert, oriented, well developed Respiratory: clear to auscultation, normal air movement Cardiovascular: nl pulses, regular rate and rhythm Gastrointestinal: soft Musculoskeletal: nl extremities to inspection, nl gait and stance, swelling ( Mild swelling of the right hand otherwise within normal.) Extremities: normal pulses Neurological: CIGARETTE EXAMINER II-XII intact, nl mental status, nl speech, nl strength, other (On exam patient has full range of motion of the right hand with adequate fine motor movements, he also has sensation, slight swelling is noted.) Results Result Diagram: 10/04/17 0452 10/04/17 0452 Results 24 hrs Laboratory Tests Test 10/03/17 10:36 10/03/17 11:45 10/03/17 17:16 10/03/17 21:47 Bedside Glucose 76 160 169 110 Test 10/04/17 04:52 10/04/17 06:57 10/04/17 07:43 White Blood Count 5.1 Red Blood Count 3.95 L Hemoglobin 10.9 L Hematocrit 32.4 L Mean Corpuscular Volume 82.0 Mean Corpuscular Hemoglobin 27.6 L Mean Corpuscular Hemoglobin Concent 33.6 Red Cell Distribution Width 12.0 Platelet Count 252 Mean Platelet Volume 10.5 H Neutrophils % 54.7 Lymphocytes % 28.7 Monocytes % 8.3 Eosinophils % 6.5 Basophils % 1.6 Nucleated Red Blood Cells % 0.0 Neutrophils # 2.8 Lymphocytes # 1.5 Monocytes # 0.4 Eosinophils # 0.3 Basophils # 0.1 Nucleated Red Blood Cells # 0.0 Sodium Level 138 Potassium Level 4.0 Chloride Level 101 Carbon Dioxide Level 30 Anion Gap 11 Blood Urea Nitrogen 21 H Creatinine 0.96 Glucose Level 177 Calcium Level 8.7 Phosphorus Level 4.0 Magnesium Level 1.8 Vancomycin Level Trough 13.5 Bedside Glucose 177 Medications Medications Current Medications Citalopram Hydrobromide (Celexa) 40 mg DAILY PO Last administered on 10/04/17 09:01; Admin Dose 40 MG; Start 10/02/17 at 10:00 Insulin Glargine (Lantus) 15 unit BID@08,20 SC Last administered on 10/04/17 08:07; Admin Dose 15 UNIT; Start 10/02/17 at 09:30 Lactobacillus Acidophilus/ Rhamnosus (Culturelle) 1 cap BID PO Last administered on 10/04/17 09:03; Admin Dose 1 CAP; Start 10/02/17 at 09:30 Losartan Potassium (Cozaar) 25 mg BID PO Last administered on 10/04/17 09:01; Admin Dose 25 MG; Start 10/02/17 at 09:30 Atorvastatin Calcium (Lipitor) 10 mg DAILY@21 PO Last administered on 21:53; Admin Dose 10 MG; Start 10/02/17 at 21:00 Diagnostic Test (Pha) 1 ea 1 ea 02 XX ; Start 10/03/17 at 02:00 Sodium Chloride (NS) 1,000 ml @ 75 mls/hr [id number] IV Last administered on 10/04 02:01; Admin Dose 75 MLS/HR; Start 10/02/17 at 09:23 Ondansetron HCl (Zofran Inj) 4 mg Q6H PRN IV NAUSEA AND/OR VOMITING; Start 10/02/17 at 09:30 Acetaminophen (Tylenol Tab) 650 mg Q6H PRN PO PAIN LEVEL 1-3 OR FEVER Last administered on 10/04/17 00:21; Admin Dose 650 MG; Start 10/02/17 at 09:30 Acetaminophen/ Hydrocodone Bitart ([place] (5/325)) 1 tab Q6H PRN PO MODERATE PAIN LEVEL 4-6; Start 10/02/17 at 09:30 Acetaminophen/ Hydrocodone Bitart ([place] (5/325)) 2 tab Q6H PRN PO SEVERE PAIN LEVEL 7-10; Start 10/02/17 at 09:30 Morphine Sulfate (morphine) 2 mg Q4H PRN IV SEVERE PAIN LEVEL 7-10; Start 10/02 at 09:30 Docusate Sodium (Colace) 100 mg Q12H PRN PO CONSTIPATION; Start 10/02/17 at 09: 30 Magnesium Hydroxide (Milk Of Mag) 30 ml DAILY PRN PO CONSTIPATION; Start at 09:30 Bisacodyl (Dulcolax Supp) 10 mg DAILY PRN [place] CONSTIPATION; Start 10/02/17 at 09 :30 Famotidine (Pepcid) 20 mg Q12 PO Last administered on 10/04/17 09:01; Admin Dose 20 MG; Start 10/02/17 at 21:00 Enoxaparin Sodium 40 mg 40 mg DAILY SC Last administered on 10/04/17 09:03; Admin Dose 40 MG; Start 10/03/17 at 09:00 Piperacillin Sod/ Tazobactam Sod (Zosyn 3.375gm/ 50 ml (Pmx)) 50 ml @ 100 mls/ hr Q8 IVPB Last administered on 10/04/17 06:32; Admin Dose 100 MLS/HR; Start 10/02/17 at 14:00 Miscellaneous Information 1 ea NOTE XX ; Start 10/02/17 at 10:30 Glucose (Glutose) 15 gm Q15M PRN PO DECREASED GLUCOSE; Start 10/02/17 at 10:30 Glucose (Glutose) 22.5 gm Q15M PRN PO DECREASED GLUCOSE; Start 10/02/17 at 10: 30 Dextrose (D50w Syringe) 25 ml Q15M PRN IV DECREASED GLUCOSE; Start 10/02/17 at 10:30 Dextrose (D50w Syringe) 50 ml Q15M PRN IV DECREASED GLUCOSE; Start 10/02/17 at 10:30 Glucagon (Glucagen) 1 mg Q15M PRN IM DECREASED GLUCOSE; Start 10/02/17 at 10:30 Glucose 15 gm 15 gm Q15M PRN BUCCAL DECREASED GLUCOSE; Start 10/02/17 at 10:30 Vancomycin HCl/ Sodium Chloride (Vancocin/NS) 250 ml @ 83.333 mls/ hr Q12H IVPB Last administered on 10/04/17 09:01; Admin Dose 83.333 MLS/HR; Start 10/02/17 at 20:00 Sodium Hypochlorite (Dakin'S (Dilute 1/40%)) 1 applic DAILY IRR ; Start at 09:00 Collagenase (Santyl) 1 applic DAILY TOP ; Start 10/04/17 at 09:00 CIELO ACEVEDO Oct 04, 2017 10:08
[2017-10-04] MEDS: PREGABALIN 75 MG CAP PO SCH ×2 (11:53→20:39)
[2017-10-04 14:11] VITALS: BP 147/75; RESP 18
--- NOTE | 2017-10-04 14:52 | CONS ---
Date/Time of Note Date/Time of Note DATE: 10/04/17 TIME: 14:50 Assessment/Plan Assessment/Plan Chief Complaint/Hosp Course SUBJECTIVE: No events overnight. The patient is alert, feels good, looks comfortable, no fevers. DIAGNOSTICS: MRI of left foot revealed plantar skin ulceration nearly extending to the bone near the fifth metatarsal head with underlying osteomyelitis of the fifth metatarsal head and distal shaft surroundings phlegmonous change with lateral abscess bordering at the fifth metatarsal neck measuring 1.9 x 1.5 x 1 cm, an additional small plantar ____ ulceration at the mid foot with adjacent soft tissue swelling but no drainable fluid collection. INDWELLINGS: The patient has a left upper extremity PICC line. ANTIMICROBIALS: Vancomycin and Zosyn. PHYSICAL EXAMINATION: GENERAL: Well-developed, well-nourished, middle-aged white man who is alert, in no distress. HEENT: Head atraumatic, normocephalic. Sclerae anicteric. NECK: Supple. CHEST: Rise symmetrical. Breath sounds clear. HEART: S1, S2. ABDOMEN: Soft. Bowel sounds present. EXTREMITIES: Left foot dressing intact. ASSESSMENT: 1. Left diabetic ulceration with a history of methicillin-susceptible Staphylococcus aureus abscess, status post incision and drainage on 07/28/2017, now with evidence of osteomyelitis. 2. Diabetes. 3. Diabetic neuropathy. PLAN: Patient remains stable. Continue present care. Continue on current antibiotics for now. F/u podiatry rec-s. [facility] staff Problems: Consultation Date/Type/Reason Admit Date/Time Oct 02, 2017 at 09:31 Initial Consult Date Type of Consultation: ID Exam/Review of Systems Vital Signs Vitals Vital Signs Date Time Temp Pulse Resp B/P Pulse Ox O2 Delivery O2 Flow Rate FiO2 10/04/17 14:11 98.4 76 18 147/75 98 10/02/17 06:00 Room Air Intake and Output 10/03/17 10/03/17 10/04/17 15:00 23:00 07:00 Intake Total 700 ml 1220 ml 1475 ml Balance 700 ml 1220 ml 1475 ml Results Result Diagram: 10/04/17 0452 10/04/17 0452 Results 24 hrs Laboratory Tests Test 10/03/17 17:16 10/03/17 21:47 10/04/17 04:52 10/04/17 06:57 Bedside Glucose 169 110 White Blood Count 5.1 Red Blood Count 3.95 L Hemoglobin 10.9 L Hematocrit 32.4 L Mean Corpuscular Volume 82.0 Mean Corpuscular Hemoglobin 27.6 L Mean Corpuscular Hemoglobin Concent 33.6 Red Cell Distribution Width 12.0 Platelet Count 252 Mean Platelet Volume 10.5 H Neutrophils % 54.7 Lymphocytes % 28.7 Monocytes % 8.3 Eosinophils % 6.5 Basophils % 1.6 Nucleated Red Blood Cells % 0.0 Neutrophils # 2.8 Lymphocytes # 1.5 Monocytes # 0.4 Eosinophils # 0.3 Basophils # 0.1 Nucleated Red Blood Cells # 0.0 Sodium Level 138 Potassium Level 4.0 Chloride Level 101 Carbon Dioxide Level 30 Anion Gap 11 Blood Urea Nitrogen 21 H Creatinine 0.96 Glucose Level 177 Calcium Level 8.7 Phosphorus Level 4.0 Magnesium Level 1.8 Vancomycin Level Trough 13.5 Test 10/04/17 07:43 10/04/17 11:56 Bedside Glucose 177 258 H Medications Medications Current Medications Citalopram Hydrobromide (Celexa) 40 mg DAILY PO Last administered on 10/04/17 09:01; Admin Dose 40 MG; Start 10/02/17 at 10:00 Insulin Glargine (Lantus) 15 unit BID@08,20 SC Last administered on 10/04/17 08:07; Admin Dose 15 UNIT; Start 10/02/17 at 09:30 Lactobacillus Acidophilus/ Rhamnosus (Culturelle) 1 cap BID PO Last administered on 10/04/17 09:03; Admin Dose 1 CAP; Start 10/02/17 at 09:30 Losartan Potassium (Cozaar) 25 mg BID PO Last administered on 10/04/17 09:01; Admin Dose 25 MG; Start 10/02/17 at 09:30 Atorvastatin Calcium (Lipitor) 10 mg DAILY@21 PO Last administered on 21:53; Admin Dose 10 MG; Start 10/02/17 at 21:00 Diagnostic Test (Pha) 1 ea 1 ea 02 XX ; Start 10/03/17 at 02:00 Sodium Chloride (NS) 1,000 ml @ 75 mls/hr [id number] IV Last administered on 10/04 02:01; Admin Dose 75 MLS/HR; Start 10/02/17 at 09:23 Ondansetron HCl (Zofran Inj) 4 mg Q6H PRN IV NAUSEA AND/OR VOMITING; Start 10/02/17 at 09:30 Acetaminophen (Tylenol Tab) 650 mg Q6H PRN PO PAIN LEVEL 1-3 OR FEVER Last administered on 10/04/17 00:21; Admin Dose 650 MG; Start 10/02/17 at 09:30 Acetaminophen/ Hydrocodone Bitart ([place] (5/325)) 1 tab Q6H PRN PO MODERATE PAIN LEVEL 4-6; Start 10/02/17 at 09:30 Acetaminophen/ Hydrocodone Bitart ([place] (5/325)) 2 tab Q6H PRN PO SEVERE PAIN LEVEL 7-10; Start 10/02/17 at 09:30 Morphine Sulfate (morphine) 2 mg Q4H PRN IV SEVERE PAIN LEVEL 7-10; Start 10/02 at 09:30 Docusate Sodium (Colace) 100 mg Q12H PRN PO CONSTIPATION; Start 10/02/17 at 09: 30 Magnesium Hydroxide (Milk Of Mag) 30 ml DAILY PRN PO CONSTIPATION; Start at 09:30 Bisacodyl (Dulcolax Supp) 10 mg DAILY PRN [place] CONSTIPATION; Start 10/02/17 at 09 :30 Famotidine (Pepcid) 20 mg Q12 PO Last administered on 10/04/17 09:01; Admin Dose 20 MG; Start 10/02/17 at 21:00 Enoxaparin Sodium 40 mg 40 mg DAILY SC Last administered on 10/04/17 09:03; Admin Dose 40 MG; Start 10/03/17 at 09:00 Piperacillin Sod/ Tazobactam Sod (Zosyn 3.375gm/ 50 ml (Pmx)) 50 ml @ 100 mls/ hr Q8 IVPB Last administered on 10/04/17 06:32; Admin Dose 100 MLS/HR; Start 10/02/17 at 14:00 Miscellaneous Information 1 ea NOTE XX ; Start 10/02/17 at 10:30 Glucose (Glutose) 15 gm Q15M PRN PO DECREASED GLUCOSE; Start 10/02/17 at 10:30 Glucose (Glutose) 22.5 gm Q15M PRN PO DECREASED GLUCOSE; Start 10/02/17 at 10: 30 Dextrose (D50w Syringe) 25 ml Q15M PRN IV DECREASED GLUCOSE; Start 10/02/17 at 10:30 Dextrose (D50w Syringe) 50 ml Q15M PRN IV DECREASED GLUCOSE; Start 10/02/17 at 10:30 Glucagon (Glucagen) 1 mg Q15M PRN IM DECREASED GLUCOSE; Start 10/02/17 at 10:30 Glucose (Glutose) 15 gm Q15M PRN BUCCAL DECREASED GLUCOSE; Start 10/02/17 at 10 :30 Sodium Hypochlorite (Dakin'S (Dilute 1/40%)) 1 applic DAILY IRR ; Start at 09:00 Collagenase (Santyl) 1 applic DAILY TOP ; Start 10/04/17 at 09:00 Pregabalin 75 mg 75 mg BID PO Last administered on 10/04/17t 11:53; Admin Dose 75 MG; Start 10/04/17 at 10:00 Vancomycin HCl/ Sodium Chloride (Vancocin/NS) 250 ml @ 83.333 mls/ hr Q12H IVPB ; Start 10/04/17 at 21:00 LUCITA RAHMAN NP Oct 04, 2017 14:52
[2017-10-04] MEDS: SODIUM HYPOCHLORITE 1/40% 1L IRRIG IRR SCH (15:16)
[2017-10-04] MEDS: COLLAGENASE 30 GM TUBE TOP SCH (15:16)
[2017-10-04] MEDS: VANCOMYCIN 1.5 GM in SOD CHLORIDE 0.9% 250 ML IVPB SCH (20:36)
[2017-10-04] MEDS: ATORVASTATIN 10 MG TAB PO SCH (20:39)
[2017-10-04 21:05] VITALS: BP 154/82; RESP 18
[2017-10-05] MEDS: PIPER-TAZO 3.375 GM IV (PMX) 50 ML IVPB SCH ×4 (00:07→23:27)
[2017-10-05] MEDS: ACCU-CHEK XX SCH (01:18)
[2017-10-05 02:31] VITALS: BP 125/72; RESP 18
[2017-10-05 06:33] LABS: BASOPHIL # 0.1 10^3/ul (0.0-0.1); BASOPHILS % 1.3 % (0.0-2.0); EOSINOPHILS # 0.3 10^3/ul (0.0-0.5); HEMATOCRIT 32.8 % (42.0-52.0); HEMOGLOBIN 11.2 g/dl (14.0-18.0); LYMPHOCYTES # 1.3 10^3/ul (0.8-2.9); LYMPHOCYTES % 28.5 % (15.0-51.0); MEAN CORPUSCULAR HEMOGLOBIN 27.3 pg (29.0-33.0); MEAN CORPUSCULAR HGB CONC 34.1 g/dl (32.0-37.0); MEAN PLATELET VOLUME 10.3 fl (7.4-10.4); MONOCYTE # 0.4 10^3/ul (0.3-0.9); MONOCYTES % 9.4 % (0.0-11.0); NEUTROPHIL # 2.5 10^3/ul (1.6-7.5); NEUTROPHILS % 53.6 % (39.0-77.0); PLATELET COUNT 275 10^3/UL (140-415); RED CELL DISTRIBUTION WIDTH 11.9 % (11.5-14.5); WHITE BLOOD COUNT 4.7 10^3/ul (4.8-10.8)
[2017-10-05 07:07] LABS: CALCIUM 8.9 mg/dl (8.4-10.2); CREATININE 0.86 mg/dl (0.61-1.24)
[2017-10-05 07:57] LABS: MAGNESIUM 1.8 mg/dl (1.7-2.5); PHOSPHORUS 3.6 mg/dl (2.5-4.9)
[2017-10-05 08:00] VITALS: BP 121/74; RESP 16
[2017-10-05] MEDS: INSULIN ASPART [NOVOLOG] 3 ML PEN SC SCH ×7 (08:00→20:15)
[2017-10-05] MEDS: INSULIN GLARGINE [LANtus] 3 ML PEN SC SCH ×2 (08:10→20:16)
[2017-10-05] MEDS: PREGABALIN 75 MG CAP PO SCH ×2 (09:30→20:15)
[2017-10-05] MEDS: FAMOTIDINE 20 MG TAB PO SCH ×2 (09:30→20:15)
[2017-10-05] MEDS: CITALOPRAM 20 MG TAB PO SCH (09:30)
[2017-10-05] MEDS: VANCOMYCIN 1.5 GM in SOD CHLORIDE 0.9% 250 ML IVPB SCH ×2 (09:30→20:14)
[2017-10-05] MEDS: LACTOBACILLUS RHAMNOSUS CAP PO SCH ×2 (09:30→20:15)
[2017-10-05] MEDS: LOSARTAN 25 MG TAB PO SCH ×2 (09:31→20:15)
[2017-10-05] MEDS: ENOXAPARIN 40 MG/0.4 ML SYG SC SCH (09:32)
--- NOTE | 2017-10-05 13:05 | RADRPT ---
PROCEDURE: US Lower Extremity Arteries. CLINICAL INDICATION: Pain, ulcer TECHNIQUE: Multiple longitudinal and transverse images of the bilateral lower extremity arteries w ere obtained with zamudio scale and color Doppler imaging. COMPARISON: No prior studies are available for comparison. FINDINGS: RIGHT: CFA63.6 cm/sec PSFA84.6 cm/sec MSFA95.9 cm/sec DSFA53.1 cm/sec POP77.7 cm/sec PTA47.8 cm/sec DPA66.8 cm/sec LEFT: CFA52.6 cm/sec PSFA69.2 cm/sec MSFA84.6 cm/sec DSFA67.4 cm/sec POP84.6 cm/sec PTA95.0 cm/sec DPA73.4 cm/sec Normal triphasic wave forms are seen throughout the bilateral lower extremity arterial system. The A BI is greater than 1 bilaterally. IMPRESSION: Unremarkable bilateral lower extremity arterial ultrasound. RPTAT:HH .Dyan Crespo MD, MD Date Time Electronically viewed and signed by .Dyan Crespo MD, on 10/05/2017 13:05 .Olivier/
[2017-10-05 14:51] VITALS: BP 125/62; RESP 17
--- NOTE | 2017-10-05 15:36 | PN ---
Date/Time of Note Date/Time of Note DATE: 10/05/17 TIME: 15:31 Assessment/Plan VTE Prophylaxis VTE Prophylaxis Intervention: ambulation, anti-embolic stocking, SCD's Lines/Catheters IV Catheter Type (from Nrs): PICC Line Central line still needed: Yes Urinary Cath still in place: No Assessment/Plan Problems: (1) Diabetic foot ulcer with osteomyelitis Status: Acute Comment: MRI showing fluid collection lateral to the fifth metatarsal neck and possible osteomyelitis of the fifth metatarsal, left foot. I &D needed either at bedside or in OR . Dr. Braden Burgos,podiatry is on case. wound care Continue Zosyn and Vancomycin per infectious disease recommendation. wound culture grew MSSA and ampicillin sensitive enterococcus. However, bone biopsy and culture maybe needed since he has acute osteomyelitis. Negative blood culture so far. He is afebrile and not septic. (2) Acute osteomyelitis of metatarsal bone of left foot Status: Acute Comment: See management as mentioned as above. (3) Diabetes, polyneuropathy Status: Chronic Comment: supportive care Lyrica to be continued Qualifiers: Diabetes mellitus type: type 2 Qualified Code: E11.42 - Diabetic polyneuropathy associated with type 2 diabetes mellitus (4) Abscess of left foot Status: Acute Comment: S/P debridement back in 07/2017. MSSA from wound culture. At this time ,there is ampicillin sensitive enterococcus. (5) Edema Status: Chronic Comment: It is dependent edema lower leg elevated above 2 pillows while in bed. Qualifiers: Edema type: localized Qualified Code: R60.0 - Localized edema Cont'd Hospitalization Reason: IV antibiotic ,debridement and wound care. Subjective 24 Hr Interval Summary Free Text/Dictation He is doing better. Ingrid Kessler stated that he would decide if the patient can have bedside debridement or the patient needs debridement in OR. Wound culture grew MSSA and ampicillin sensitive Enterococcus. ID on case. Zosyn and Vancomycin to be continued. He is afebrile. No chest pain nor short of breath. No diarrhea nor constipation. No headache or blurred vision. Left foot pain is improved. Constitutional: no complaints, No chills, No diaphoresis, No disoriented, No febrile, No improved, No other , No poor po, No requiring IVF, No requiring O2 Eyes: No discharge, No no complaints, No other, No pain, No redness, No visual change ENT: No bleeding, No congestion, No discharge, No dysphagia, No no complaints, No other, No pain, No sore throat Respiratory: No cough, No no complaints, No other, No pain, No pleuritic pain, No shortness of breath, No sputum, No wheezing Gastrointestinal: No blood, No constipation, No decreased appetite, No diarrhea , No flatus, No nausea, No no complaints, No other, No pain, No passing stool, No vomiting Genitourinary: No bleeding, No discharge, No dysuria, No flank pain, No hematuria, No no complaints, No other Musculoskeletal: No back pain, No bone/joint pain, No neck pain, No no complaints, No other, No restricted range of motion, No swelling Skin: No bruising, No erythema, No laceration, No no complaints, No other, No pruritis, No rash, No skin lesions Neurologic: No confusion, No dizziness, No focal-weakness, No headache, No no complaints, No other, No seizure, No syncope Endocrine: No dry skin, No no complaints, No other, No polydypsia, No polyuria , No temp intolerance Lymphatic: No adenopathy, No lymphadema, No no complaints, No other, No tender nodes Psychological: No anxiety, No confusion, No depression, No nl mood/affect, No no complaints, No other, No suicidal Exam/Review of Systems Vital Signs Vitals Vital Signs Date Time Temp Pulse Resp B/P Pulse Ox O2 Delivery O2 Flow Rate FiO2 10/05/17 14:51 98.0 74 17 125/62 96 10/02/17 06:00 Room Air Intake and Output 10/04/17 10/04/17 10/05/17 14:59 22:59 06:59 Intake Total 300 ml 1960 ml 1600 ml Output Total 1400 ml Balance 300 ml 1960 ml 200 ml Exam Constitutional: alert, oriented, well developed, No distress, No frail, No non-verbal, No obese, No other Psych: nl mood/affect, no complaints, No anxiety, No confusion, No depression, No other, No suicidal Head: atraumatic, normocephalic Eyes: EOMI, PERRL, nl conjunctiva, nl lids, nl sclera, No fundi, disc, No icteric, No other ENMT: mucosa pink and moist, nl external ears & nose, nl lips & teeth, nl nasal mucosa & septum Neck: non-tender, supple, No bruits, No jvd, No masses, No nuchal rigidity, No other, No thyromegaly Respiratory: clear to auscultation, normal air movement, No congested cough, No crackles/rales, No diminished breath sounds, No intercostal retraction, No labored breathing, No other, No respirations, No tactile fremitus, No wheezing Cardiovascular: nl pulses, regular rate and rhythm, No S3, No S4, No bruits, No diastolic murmur, No edema, No gallop, No irregular rhythm, No jugular venous distention (JVD), No murmurs/extra sounds, No other, No rub, No systolic murmur Gastrointestinal: nl liver, spleen, non-tender, soft, No ascites, No bowel sounds, No distended, No firm, No hepatomegaly, No mass , No other, No rebound or guarding, No splenomegaly, No surgical scars, No tender Musculoskeletal: nl extremities to inspection, nl gait and stance Extremities: other, No calf tenderness, No clubbing, No cyanosis, No edema, No normal pulses, No palpable cord, No pitting pedal edema, No tenderness Neurological: FLIGHT RADIO OPERATOR II-XII intact, nl mental status, nl speech, nl strength Skin: nl turgor, rash or lesions Results Result Diagram: 10/05/17 0525 10/05/17 0525 Results 24 hrs Laboratory Tests Test 10/04/17 16:56 10/04/17 20:38 10/05/17 01:30 10/05/17 05:25 Bedside Glucose 318 H 313 H 188 White Blood Count 4.7 L Red Blood Count 4.10 L Hemoglobin 11.2 L Hematocrit 32.8 L Mean Corpuscular Volume 80.0 L Mean Corpuscular Hemoglobin 27.3 L Mean Corpuscular Hemoglobin Concent 34.1 Red Cell Distribution Width 11.9 Platelet Count 275 Mean Platelet Volume 10.3 Neutrophils % 53.6 Lymphocytes % 28.5 Monocytes % 9.4 Eosinophils % 7.0 Basophils % 1.3 Nucleated Red Blood Cells % 0.0 Neutrophils # 2.5 Lymphocytes # 1.3 Monocytes # 0.4 Eosinophils # 0.3 Basophils # 0.1 Nucleated Red Blood Cells # 0.0 Sodium Level 139 Potassium Level 4.0 Chloride Level 103 Carbon Dioxide Level 31 Anion Gap 9 Blood Urea Nitrogen 18 Creatinine 0.86 Glucose Level 145 Calcium Level 8.9 Phosphorus Level 3.6 Magnesium Level 1.8 Test 10/05/17 08:06 10/05/17 12:11 10/05/17 14:29 Bedside Glucose 132 138 87 Medications Medications Current Medications Citalopram Hydrobromide (Celexa) 40 mg DAILY PO Last administered on 10/05/17 09:30; Admin Dose 40 MG; Start 10/02/17 at 10:00 Lactobacillus Acidophilus/ Rhamnosus (Culturelle) 1 cap BID PO Last administered on 10/05/17 09:30; Admin Dose 1 CAP; Start 10/02/17 at 09:30 Losartan Potassium (Cozaar) 25 mg BID PO Last administered on 10/05/17 09:31; Admin Dose 25 MG; Start 10/02/17 at 09:30 Atorvastatin Calcium (Lipitor) 10 mg DAILY@21 PO Last administered on 20:39; Admin Dose 10 MG; Start 10/02/17 at 21:00 Diagnostic Test (Pha) 1 ea 1 ea 02 XX ; Start 10/03/17 at 02:00 Sodium Chloride (NS) 1,000 ml @ 75 mls/hr [id number] IV Last administered on 10/04 20:45; Admin Dose 75 MLS/HR; Start 10/02/17 at 09:23 Ondansetron HCl (Zofran Inj) 4 mg Q6H PRN IV NAUSEA AND/OR VOMITING; Start 10/02/17 at 09:30 Acetaminophen (Tylenol Tab) 650 mg Q6H PRN PO PAIN LEVEL 1-3 OR FEVER Last administered on 10/04/17 00:21; Admin Dose 650 MG; Start 10/02/17 at 09:30 Acetaminophen/ Hydrocodone Bitart ([place] (5/325)) 1 tab Q6H PRN PO MODERATE PAIN LEVEL 4-6; Start 10/02/17 at 09:30 Acetaminophen/ Hydrocodone Bitart ([place] (5/325)) 2 tab Q6H PRN PO SEVERE PAIN LEVEL 7-10; Start 10/02/17 at 09:30 Morphine Sulfate (morphine) 2 mg Q4H PRN IV SEVERE PAIN LEVEL 7-10; Start 10/02 at 09:30 Docusate Sodium (Colace) 100 mg Q12H PRN PO CONSTIPATION; Start 10/02/17 at 09: 30 Magnesium Hydroxide (Milk Of Mag) 30 ml DAILY PRN PO CONSTIPATION; Start at 09:30 Bisacodyl (Dulcolax Supp) 10 mg DAILY PRN [place] CONSTIPATION; Start 10/02/17 at 09 :30 Famotidine (Pepcid) 20 mg Q12 PO Last administered on 10/05/17 09:30; Admin Dose 20 MG; Start 10/02/17 at 21:00 Enoxaparin Sodium 40 mg 40 mg DAILY SC Last administered on 10/05/17 09:32; Admin Dose 40 MG; Start 10/03/17 at 09:00 Piperacillin Sod/ Tazobactam Sod (Zosyn 3.375gm/ 50 ml (Pmx)) 50 ml @ 100 mls/ hr Q8 IVPB Last administered on 10/05/17 05:34; Admin Dose 100 MLS/HR; Start 10/02/17 at 14:00 Miscellaneous Information 1 ea NOTE XX ; Start 10/02/17 at 10:30 Glucose (Glutose) 15 gm Q15M PRN PO DECREASED GLUCOSE; Start 10/02/17 at 10:30 Glucose (Glutose) 22.5 gm Q15M PRN PO DECREASED GLUCOSE; Start 10/02/17 at 10: 30 Dextrose (D50w Syringe) 25 ml Q15M PRN IV DECREASED GLUCOSE; Start 10/02/17 at 10:30 Dextrose (D50w Syringe) 50 ml Q15M PRN IV DECREASED GLUCOSE; Start 10/02/17 at 10:30 Glucagon (Glucagen) 1 mg Q15M PRN IM DECREASED GLUCOSE; Start 10/02/17 at 10:30 Glucose (Glutose) 15 gm Q15M PRN BUCCAL DECREASED GLUCOSE; Start 10/02/17 at 10 :30 Sodium Hypochlorite (Dakin'S (Dilute 1/40%)) 1 applic DAILY IRR Last administered on 10/04/17 15:16; Admin Dose 1 APPLIC; Start 10/04/17 at 09:00 Collagenase (Santyl) 1 applic DAILY TOP Last administered on 10/04/17 15:16; Admin Dose 1 APPLIC; Start 10/04/17 at 09:00 Pregabalin 75 mg 75 mg BID PO Last administered on 10/05/17 09:30; Admin Dose 75 MG; Start 10/04/17 at 10:00 Vancomycin HCl/ Sodium Chloride (Vancocin/NS) 250 ml @ 83.333 mls/ hr Q12H IVPB Last administered on 10/05/17 09:30; Admin Dose 83.333 MLS/HR; Start 10/04/17 at 21:00 Insulin Glargine (Lantus) 18 unit BID@08,20 SC Last administered on 10/05/17 08:10; Admin Dose 18 UNIT; Start 10/04/17 at 20:33 Miscellaneous Information (*Rx Drug Level Order Reminder*) VANCOMYCIN TROUGH ON @ .. ONCE ONCE XX ; Start 10/06/17 at 08:00; Stop 10/06/17 at 08:01 KATHYA OCHOA MD Oct 05, 2017 15:36
[2017-10-05] MEDS: SODIUM HYPOCHLORITE 1/40% 1L IRRIG IRR SCH (15:45)
[2017-10-05] MEDS: COLLAGENASE 30 GM TUBE TOP SCH (15:46)
--- NOTE | 2017-10-05 16:20 | CONS ---
Date/Time of Note Date/Time of Note DATE: 10/05/17 TIME: 16:19 Assessment/Plan Assessment/Plan Chief Complaint/Hosp Course ID PROGRESS NOTE TOTAL ABX DAY CURRENT ABX=> Vanco IV + Zosyn 24H INTERVAL SUMMARY * A/A/O, stable, no fevers, doing OK, no new complaints * DIAGNOSTICS: MRI of left foot revealed plantar skin ulceration nearly extending to the bone near the fifth metatarsal head with underlying osteomyelitis of the fifth metatarsal head and distal shaft surroundings phlegmonous change with lateral abscess bordering at the fifth metatarsal neck measuring 1.9 x 1.5 x 1 cm, an additional small plantar ____ ulceration at the mid foot with adjacent soft tissue swelling but no drainable fluid collection. * INDWELLINGS: The patient has a left upper extremity PICC line. * MICRO: 10/01/17 BCx (-); 10/01/17 WOUND CX: WOUND CULTURE Final Organism 1 COAGULASE NEGATIVE STAPH QUANTITY 3+ Organism 2 ENTEROCOCCUS SPECIES QUANTITY 4+ COAG NEG ENT SPS M.I.C. RX M.I.C. RX --------- --- --------- --- AMPICILLIN <=2 S CEFAZOLIN R CIPROFLOXACIN 1 S CLINDAMYCIN >=8 R DOXYCYCLINE R ERYTHROMYCIN >=8 R LEVOFLOXACIN 1 S OXACILLIN >=4 R PENICILLIN-G >=0.5 R 4 S RIFAMPIN 8 R VANCOMYCIN 1 S 2 S TRIMETHOPRIM/SULFAMETHOXAZOLE <=10 S EXAM GENERAL: VSS, NAD HEENT: Unremarkable NECK: Supple, full ROM CHEST: Rise symmetrical, without dyspnea on observation ABDOMEN: Soft, NT EXTREMITIES: Warm, Leftg foot DSG C/D/I SKIN: No diaphoresis, no rash ID ASSESSMENT: 52 yo M admit with: 1. SIRS w/WBC 11..2, ESR 30 => resolving * 10/01/17 BCx(-) 2. Left diabetic ulceration status post incision and drainage on 07/28/2017, now with evidence of acute osteomyelitis metatarsal * Hx of (+)MRSA prior wound Cx * 10/01/17 WOUND CX: WOUND CULTURE Final Organism 1 COAGULASE NEGATIVE STAPH QUANTITY 3+ Organism 2 ENTEROCOCCUS SPECIES QUANTITY 4+ 3. Diabetes. 4. Diabetic neuropathy. 5. Lower extremity edema INVASIVES: PIV ABX ALLERGY: KNDA CURRENT ABX=> Vanco IV + Zosyn ID PLAN 1. Continue current ABX over the weekend, ID team to f/u . Problems: Consultation Date/Type/Reason Admit Date/Time Oct 02, 2017 at 09:31 Initial Consult Date Type of Consultation: ID Exam/Review of Systems Vital Signs Vitals Vital Signs Date Time Temp Pulse Resp B/P Pulse Ox O2 Delivery O2 Flow Rate FiO2 10/05/17 14:51 98.0 74 17 125/62 96 10/02/17 06:00 Room Air Intake and Output 10/04/17 10/04/17 10/05/17 14:59 22:59 06:59 Intake Total 300 ml 1960 ml 1600 ml Output Total 1400 ml Balance 300 ml 1960 ml 200 ml Results Result Diagram: 10/05/17 0525 10/05/17 0525 Results 24 hrs Laboratory Tests Test 10/04/17 16:56 10/04/17 20:38 10/05/17 01:30 10/05/17 05:25 Bedside Glucose 318 H 313 H 188 White Blood Count 4.7 L Red Blood Count 4.10 L Hemoglobin 11.2 L Hematocrit 32.8 L Mean Corpuscular Volume 80.0 L Mean Corpuscular Hemoglobin 27.3 L Mean Corpuscular Hemoglobin Concent 34.1 Red Cell Distribution Width 11.9 Platelet Count 275 Mean Platelet Volume 10.3 Neutrophils % 53.6 Lymphocytes % 28.5 Monocytes % 9.4 Eosinophils % 7.0 Basophils % 1.3 Nucleated Red Blood Cells % 0.0 Neutrophils # 2.5 Lymphocytes # 1.3 Monocytes # 0.4 Eosinophils # 0.3 Basophils # 0.1 Nucleated Red Blood Cells # 0.0 Sodium Level 139 Potassium Level 4.0 Chloride Level 103 Carbon Dioxide Level 31 Anion Gap 9 Blood Urea Nitrogen 18 Creatinine 0.86 Glucose Level 145 Calcium Level 8.9 Phosphorus Level 3.6 Magnesium Level 1.8 Test 10/05/17 08:06 10/05/17 12:11 10/05/17 14:29 Bedside Glucose 132 138 87 Medications Medications Current Medications Citalopram Hydrobromide (Celexa) 40 mg DAILY PO Last administered on 10/05/17 09:30; Admin Dose 40 MG; Start 10/02/17 at 10:00 Losartan Potassium (Cozaar) 25 mg BID PO Last administered on 10/05/17 09:31; Admin Dose 25 MG; Start 10/02/17 at 09:30 Atorvastatin Calcium (Lipitor) 10 mg DAILY@21 PO Last administered on 20:39; Admin Dose 10 MG; Start 10/02/17 at 21:00 Diagnostic Test (Pha) 1 ea 1 ea 02 XX ; Start 10/03/17 at 02:00 Sodium Chloride (NS) 1,000 ml @ 75 mls/hr [id number] IV Last administered on 10/04 20:45; Admin Dose 75 MLS/HR; Start 10/02/17 at 09:23 Ondansetron HCl (Zofran Inj) 4 mg Q6H PRN IV NAUSEA AND/OR VOMITING; Start 10/02/17 at 09:30 Acetaminophen (Tylenol Tab) 650 mg Q6H PRN PO PAIN LEVEL 1-3 OR FEVER Last administered on 10/04/17 00:21; Admin Dose 650 MG; Start 10/02/17 at 09:30 Acetaminophen/ Hydrocodone Bitart ([place] (5/325)) 1 tab Q6H PRN PO MODERATE PAIN LEVEL 4-6; Start 10/02/17 at 09:30 Acetaminophen/ Hydrocodone Bitart ([place] (5/325)) 2 tab Q6H PRN PO SEVERE PAIN LEVEL 7-10; Start 10/02/17 at 09:30 Morphine Sulfate (morphine) 2 mg Q4H PRN IV SEVERE PAIN LEVEL 7-10; Start 10/02 at 09:30 Docusate Sodium (Colace) 100 mg Q12H PRN PO CONSTIPATION; Start 10/02/17 at 09: 30 Magnesium Hydroxide (Milk Of Mag) 30 ml DAILY PRN PO CONSTIPATION; Start at 09:30 Bisacodyl (Dulcolax Supp) 10 mg DAILY PRN [place] CONSTIPATION; Start 10/02/17 at 09 :30 Famotidine (Pepcid) 20 mg Q12 PO Last administered on 10/05/17 09:30; Admin Dose 20 MG; Start 10/02/17 at 21:00 Enoxaparin Sodium 40 mg 40 mg DAILY SC Last administered on 10/05/17 09:32; Admin Dose 40 MG; Start 10/03/17 at 09:00 Piperacillin Sod/ Tazobactam Sod (Zosyn 3.375gm/ 50 ml (Pmx)) 50 ml @ 100 mls/ hr Q8 IVPB Last administered on 10/05/17 15:46; Admin Dose 100 MLS/HR; Start 10/02/17 at 14:00 Miscellaneous Information 1 ea NOTE XX ; Start 10/02/17 at 10:30 Glucose (Glutose) 15 gm Q15M PRN PO DECREASED GLUCOSE; Start 10/02/17 at 10:30 Glucose (Glutose) 22.5 gm Q15M PRN PO DECREASED GLUCOSE; Start 10/02/17 at 10: 30 Dextrose (D50w Syringe) 25 ml Q15M PRN IV DECREASED GLUCOSE; Start 10/02/17 at 10:30 Dextrose (D50w Syringe) 50 ml Q15M PRN IV DECREASED GLUCOSE; Start 10/02/17 at 10:30 Glucagon (Glucagen) 1 mg Q15M PRN IM DECREASED GLUCOSE; Start 10/02/17 at 10:30 Glucose (Glutose) 15 gm Q15M PRN BUCCAL DECREASED GLUCOSE; Start 10/02/17 at 10 :30 Sodium Hypochlorite (Dakin'S (Dilute 1/40%)) 1 applic DAILY IRR Last administered on 10/05/17 15:45; Admin Dose 1 APPLIC; Start 10/04/17 at 09:00 Collagenase (Santyl) 1 applic DAILY TOP Last administered on 10/05/17 15:46; Admin Dose 1 APPLIC; Start 10/04/17 at 09:00 Pregabalin 75 mg 75 mg BID PO Last administered on 10/05/17 09:30; Admin Dose 75 MG; Start 10/04/17 at 10:00 Vancomycin HCl/ Sodium Chloride (Vancocin/NS) 250 ml @ 83.333 mls/ hr Q12H IVPB Last administered on 10/05/17 09:30; Admin Dose 83.333 MLS/HR; Start 10/04/17 at 21:00 Insulin Glargine (Lantus) 18 unit BID@08,20 SC Last administered on 10/05/17t 08:10; Admin Dose 18 UNIT; Start 10/04/17 at 20:33 Miscellaneous Information (*Rx Drug Level Order Reminder*) VANCOMYCIN TROUGH ON @ .. ONCE ONCE XX ; Start 10/06/17 at 08:00; Stop 10/06/17 at 08:01 Lactobacillus Acidophilus/ Rhamnosus (Culturelle) 1 cap BID PO ; Start 10/05/17 at 21:00 KWAN ANDERSON NP Oct 05, 2017 16:20
[2017-10-05] MEDS: SOD CHLORIDE 0.9% 1,000 ML IV SCH ×2 (17:23→20:14)
[2017-10-05] MEDS: ATORVASTATIN 10 MG TAB PO SCH (20:15)
[2017-10-05 20:59] VITALS: BP 130/73; RESP 18
[2017-10-06] MEDS: ACCU-CHEK XX SCH (01:10)
[2017-10-06 02:00] VITALS: BP 156/78; RESP 18
[2017-10-06] MEDS: PIPER-TAZO 3.375 GM IV (PMX) 50 ML IVPB SCH ×3 (05:32→21:38)
[2017-10-06 08:00] VITALS: BP 125/70; RESP 18
[2017-10-06] MEDS: INSULIN ASPART [NOVOLOG] 3 ML PEN SC SCH ×7 (08:00→20:15)
[2017-10-06] MEDS: INSULIN GLARGINE [LANtus] 3 ML PEN SC SCH ×2 (08:29→20:14)
[2017-10-06] MEDS: LACTOBACILLUS RHAMNOSUS CAP PO SCH ×2 (09:00→20:12)
[2017-10-06] MEDS: CITALOPRAM 20 MG TAB PO SCH (09:01)
[2017-10-06] MEDS: LOSARTAN 25 MG TAB PO SCH ×2 (09:01→20:15)
[2017-10-06] MEDS: FAMOTIDINE 20 MG TAB PO SCH ×2 (09:01→20:12)
[2017-10-06] MEDS: ENOXAPARIN 40 MG/0.4 ML SYG SC SCH (09:04)
[2017-10-06] MEDS: PREGABALIN 75 MG CAP PO SCH ×2 (09:06→20:12)
[2017-10-06] MEDS: COLLAGENASE 30 GM TUBE TOP SCH (09:12)
[2017-10-06] MEDS: SODIUM HYPOCHLORITE 1/40% 1L IRRIG IRR SCH (09:12)
--- NOTE | 2017-10-06 12:33 | PN ---
Date/Time of Note Date/Time of Note DATE: 10/06/17 TIME: 12:23 Assessment/Plan VTE Prophylaxis VTE Prophylaxis Intervention: ambulation, anti-embolic stocking VTE Contraindication Reason: bleeding Lines/Catheters IV Catheter Type (from Nrs): PICC Line Central line still needed: Yes Urinary Cath still in place: No Assessment/Plan Problems: (1) Diabetic foot ulcer with osteomyelitis Status: Acute Comment: wound culture grew MSSA and ampicillin sensitive enterococcus. However , bone biopsy and culture maybe needed since he has acute osteomyelitis. Negative blood culture so far. He is afebrile and not septic. (2) Diabetes, polyneuropathy Status: Chronic Comment: Lyrica given. No further pain. Qualifiers: Diabetes mellitus type: type 2 Qualified Code: E11.42 - Diabetic polyneuropathy associated with type 2 diabetes mellitus (3) Abscess of left foot Status: Acute Comment: I&D needed. Braden Kessler called today and message left. (4) Acute osteomyelitis of metatarsal bone of left foot Status: Acute Comment: Antibiotic recommendation form ID needed. Waiting for the recommendation. Cont'd Hospitalization Reason: I&D will be done tomorrow per Dr. Bro Quintero Subjective 24 Hr Interval Summary Free Text/Dictation He is doing better. Ingrid Kessler called and message left on his cell phone regrading I&D today if possible.. Wound culture grew MSSA and ampicillin sensitive Enterococcus. ID on case. Zosyn and Vancomycin to be continued. He is afebrile. No chest pain nor short of breath. No diarrhea nor constipation. No headache or blurred vision. Left foot pain is improved. Constitutional: No chills, No diaphoresis, No disoriented, No febrile, No improved, No no complaints, No other, No poor po, No requiring IVF, No requiring O2 Eyes: No discharge, No no complaints, No other, No pain, No redness, No visual change ENT: No bleeding, No congestion, No discharge, No dysphagia, No no complaints, No other, No pain, No sore throat Respiratory: No cough, No no complaints, No other, No pain, No pleuritic pain, No shortness of breath, No sputum, No wheezing Cardiovascular: No chest pain, No edema, No lightheadedness, No no complaints, No orthopenea, No other, No palpitations, No paroxysmal nocturnal dyspnea Gastrointestinal: No blood, No constipation, No decreased appetite, No diarrhea , No flatus, No nausea, No no complaints, No other, No pain, No passing stool, No vomiting Musculoskeletal: No back pain, No bone/joint pain, No neck pain, No no complaints, No other, No restricted range of motion, No swelling Skin: No bruising, No erythema, No laceration, No no complaints, No other, No pruritis, No rash, No skin lesions Neurologic: No confusion, No dizziness, No focal-weakness, No headache, No no complaints, No other, No seizure, No syncope Endocrine: No dry skin, No no complaints, No other, No polydypsia, No polyuria , No temp intolerance Lymphatic: No adenopathy, No lymphadema, No no complaints, No other, No tender nodes Psychological: No anxiety, No confusion, No depression, No nl mood/affect, No no complaints, No other, No suicidal Exam/Review of Systems Vital Signs Vitals Vital Signs Date Time Temp Pulse Resp B/P Pulse Ox O2 Delivery O2 Flow Rate FiO2 10/06/17 02:00 98.2 75 18 156/78 97 Intake and Output 10/05/17 10/05/17 10/06/17 15:00 23:00 07:00 Intake Total 250 ml 1700 ml 1380 ml Balance 250 ml 1700 ml 1380 ml Exam Constitutional: alert, oriented, well developed, No distress, No frail, No non-verbal, No obese, No other Psych: nl mood/affect, No anxiety, No confusion, No depression, No no complaints, No other, No suicidal Head: atraumatic, normocephalic Eyes: EOMI, nl conjunctiva, No PERRL, No fundi, disc, No icteric, No nl lids, No nl sclera, No other ENMT: mucosa pink and moist, nl external ears & nose, nl lips & teeth, nl nasal mucosa & septum, No intubated, No other, No tympanic membranes Neck: non-tender, supple Respiratory: clear to auscultation, normal air movement, No congested cough, No crackles/rales, No diminished breath sounds, No intercostal retraction, No labored breathing, No other, No respirations, No tactile fremitus, No wheezing Cardiovascular: nl pulses, regular rate and rhythm, No S3, No S4, No bruits, No diastolic murmur, No edema, No gallop, No irregular rhythm, No jugular venous distention (JVD), No murmurs/extra sounds, No other, No rub, No systolic murmur Gastrointestinal: nl liver, spleen, non-tender, soft, No ascites, No bowel sounds, No distended, No firm, No hepatomegaly, No mass , No other, No rebound or guarding, No splenomegaly, No surgical scars, No tender Musculoskeletal: nl extremities to inspection, nl gait and stance, No joint tenderness, No muscle tone, No muscle weakness, No other, No range of motion, No spine non-tender, No swelling Extremities: normal pulses, other (diabetic wound ulcer of 5 th toe), No calf tenderness, No clubbing, No cyanosis, No edema, No palpable cord, No pitting pedal edema, No tenderness Neurological: [employer] II-XII intact, nl mental status, nl speech, nl strength, No DTR's symmetric, No confused, No focal weakness, No lethargic, No numbness , No other, No reflexes, No unresponsive Skin: nl turgor Results Result Diagram: 10/05/17 0525 10/05/17 0525 Results 24 hrs Laboratory Tests Test 10/05/17 14:29 10/05/17 17:27 10/05/17 20:11 10/06/17 08:00 Bedside Glucose 87 282 H 126 Vancomycin Level Trough 17.3 Test 10/06/17 08:13 10/06/17 12:05 Bedside Glucose 95 93 Medications Medications Current Medications Citalopram Hydrobromide (Celexa) 40 mg DAILY PO Last administered on 09:01; Admin Dose 40 MG; Start 10/02/17 at 10:00 Losartan Potassium (Cozaar) 25 mg BID PO Last administered on 10/06/17 09:01 ; Admin Dose 25 MG; Start 10/02/17 at 09:30 Atorvastatin Calcium (Lipitor) 10 mg DAILY@21 PO Last administered on 20:15; Admin Dose 10 MG; Start 10/02/17 at 21:00 Diagnostic Test (Pha) 1 ea 1 ea 02 XX ; Start 10/03/17 at 02:00 Sodium Chloride (NS) 1,000 ml @ 75 mls/hr [id number] IV Last administered on 10/05 20:14; Admin Dose 75 MLS/HR; Start 10/02/17 at 09:23 Ondansetron HCl (Zofran Inj) 4 mg Q6H PRN IV NAUSEA AND/OR VOMITING; Start 10/02/17 at 09:30 Acetaminophen (Tylenol Tab) 650 mg Q6H PRN PO PAIN LEVEL 1-3 OR FEVER Last administered on 10/04/17 00:21; Admin Dose 650 MG; Start 10/02/17 at 09:30 Acetaminophen/ Hydrocodone Bitart ([place] (5/325)) 1 tab Q6H PRN PO MODERATE PAIN LEVEL 4-6; Start 10/02/17 at 09:30 Acetaminophen/ Hydrocodone Bitart ([place] (5/325)) 2 tab Q6H PRN PO SEVERE PAIN LEVEL 7-10; Start 10/02/17 at 09:30 Morphine Sulfate (morphine) 2 mg Q4H PRN IV SEVERE PAIN LEVEL 7-10; Start 10/02 at 09:30 Docusate Sodium (Colace) 100 mg Q12H PRN PO CONSTIPATION; Start 10/02/17 at 09: 30 Magnesium Hydroxide (Milk Of Mag) 30 ml DAILY PRN PO CONSTIPATION; Start at 09:30 Bisacodyl (Dulcolax Supp) 10 mg DAILY PRN [place] CONSTIPATION; Start 10/02/17 at 09 :30 Famotidine (Pepcid) 20 mg Q12 PO Last administered on 10/06/17 09:01; Admin Dose 20 MG; Start 10/02/17 at 21:00 Enoxaparin Sodium 40 mg 40 mg DAILY SC Last administered on 10/06/17 09:04; Admin Dose 40 MG; Start 10/03/17 at 09:00 Piperacillin Sod/ Tazobactam Sod (Zosyn 3.375gm/ 50 ml (Pmx)) 50 ml @ 100 mls/ hr Q8 IVPB Last administered on 10/06/17 05:32; Admin Dose 100 MLS/HR; Start 10/02/17 at 14:00 Miscellaneous Information 1 ea NOTE XX ; Start 10/02/17 at 10:30 Glucose (Glutose) 15 gm Q15M PRN PO DECREASED GLUCOSE; Start 10/02/17 at 10:30 Glucose (Glutose) 22.5 gm Q15M PRN PO DECREASED GLUCOSE; Start 10/02/17 at 10: 30 Dextrose (D50w Syringe) 25 ml Q15M PRN IV DECREASED GLUCOSE; Start 10/02/17 at 10:30 Dextrose (D50w Syringe) 50 ml Q15M PRN IV DECREASED GLUCOSE; Start 10/02/17 at 10:30 Glucagon (Glucagen) 1 mg Q15M PRN IM DECREASED GLUCOSE; Start 10/02/17 at 10:30 Glucose (Glutose) 15 gm Q15M PRN BUCCAL DECREASED GLUCOSE; Start 10/02/17 at 10 :30 Sodium Hypochlorite (Dakin'S (Dilute 1/40%)) 1 applic DAILY IRR Last administered on 10/06/17 09:12; Admin Dose 1 APPLIC; Start 10/04/17 at 09:00 Collagenase (Santyl) 1 applic DAILY TOP Last administered on 10/06/17 09:12; Admin Dose 1 APPLIC; Start 10/04/17 at 09:00 Pregabalin (Lyrica) 75 mg BID PO Last administered on 10/06/17 09:06; Admin Dose 75 MG; Start 10/04/17 at 10:00 Insulin Glargine (Lantus) 18 unit BID@08,20 SC Last administered on 10/06/17 08:29; Admin Dose 18 UNIT; Start 10/04/17 at 20:33 Lactobacillus Acidophilus/ Rhamnosus 1 cap 1 cap BID PO Last administered on 09:00; Admin Dose 1 CAP; Start 10/05/17 at 21:00 Vancomycin HCl/ Sodium Chloride (Vancocin/NS) 250 ml @ 83.333 mls/ hr Q12H IVPB ; Start 10/07/17 at 00:00 KATHYA OCOHA MD Oct 06, 2017 12:32
[2017-10-06 14:00] VITALS: BP 129/68; RESP 19
--- NOTE | 2017-10-06 17:51 | CONS ---
Date/Time of Note Date/Time of Note DATE: 10/06/17 TIME: 17:50 Assessment/Plan Assessment/Plan Chief Complaint/Hosp Course ID PROGRESS NOTE TOTAL ABX DAY CURRENT ABX=> Vanco IV + Zosyn 24H INTERVAL SUMMARY * Clinically stable, no new issues overnight --- doing well -- A/A/O, stable, no fevers, doing OK, no new complaints * DIAGNOSTICS: MRI of left foot revealed plantar skin ulceration nearly extending to the bone near the fifth metatarsal head with underlying osteomyelitis of the fifth metatarsal head and distal shaft surroundings phlegmonous change with lateral abscess bordering at the fifth metatarsal neck measuring 1.9 x 1.5 x 1 cm, an additional small plantar ____ ulceration at the mid foot with adjacent soft tissue swelling but no drainable fluid collection. * INDWELLINGS: The patient has a left upper extremity PICC line. * MICRO: 10/01/17 BCx (-); 10/01/17 WOUND CX: WOUND CULTURE Final Organism 1 COAGULASE NEGATIVE STAPH QUANTITY 3+ Organism 2 ENTEROCOCCUS SPECIES QUANTITY 4+ COAG NEG ENT SPS M.I.C. RX M.I.C. RX --------- --- --------- --- AMPICILLIN <=2 S CEFAZOLIN R CIPROFLOXACIN 1 S CLINDAMYCIN >=8 R DOXYCYCLINE R ERYTHROMYCIN >=8 R LEVOFLOXACIN 1 S OXACILLIN >=4 R PENICILLIN-G >=0.5 R 4 S RIFAMPIN 8 R VANCOMYCIN 1 S 2 S TRIMETHOPRIM/SULFAMETHOXAZOLE <=10 S EXAM GENERAL: VSS, NAD HEENT: Unremarkable NECK: Supple, full ROM CHEST: Rise symmetrical, without dyspnea on observation ABDOMEN: Soft, NT EXTREMITIES: Warm, Leftg foot DSG C/D/I SKIN: No diaphoresis, no rash ID ASSESSMENT: 52 yo M admit with: 1. SIRS w/WBC 11..2, ESR 30 => resolving * 10/01/17 BCx(-) 2. Left diabetic ulceration status post incision and drainage on 07/28/2017, now with evidence of acute osteomyelitis metatarsal * Hx of (+)MRSA prior wound Cx * 10/01/17 WOUND CX: WOUND CULTURE Final Organism 1 COAGULASE NEGATIVE STAPH QUANTITY 3+ Organism 2 ENTEROCOCCUS SPECIES QUANTITY 4+ 3. Diabetes. 4. Diabetic neuropathy. 5. Lower extremity edema INVASIVES: PIV ABX ALLERGY: KNDA CURRENT ABX=> Vanco IV + Zosyn ID PLAN 1. Continue current ABX over the weekend, ID team to f/u . Problems: Consultation Date/Type/Reason Admit Date/Time Oct 02, 2017 at 09:31 Type of Consultation: ID Exam/Review of Systems Vital Signs Vitals Vital Signs Date Time Temp Pulse Resp B/P Pulse Ox O2 Delivery O2 Flow Rate FiO2 10/06/17 08:00 97.9 67 18 125/70 97 Intake and Output 10/05/17 10/05/17 10/06/17 15:00 23:00 07:00 Intake Total 250 ml 1700 ml 1380 ml Balance 250 ml 1700 ml 1380 ml Results Result Diagram: 10/05/17 0525 10/05/17 0525 Results 24 hrs Laboratory Tests Test 10/05/17 20:11 10/06/17 08:00 10/06/17 08:13 10/06/17 12:05 Bedside Glucose 126 95 93 Vancomycin Level Trough 17.3 Test 10/06/17 13:59 10/06/17 14:32 10/06/17 15:07 10/06/17 16:56 Bedside Glucose 60 L 136 172 236 H Medications Medications Current Medications Citalopram Hydrobromide (Celexa) 40 mg DAILY PO Last administered on 09:01; Admin Dose 40 MG; Start 10/02/17 at 10:00 Losartan Potassium (Cozaar) 25 mg BID PO Last administered on 10/06/17 09:01 ; Admin Dose 25 MG; Start 10/02/17 at 09:30 Atorvastatin Calcium (Lipitor) 10 mg DAILY@21 PO Last administered on 20:15; Admin Dose 10 MG; Start 10/02/17 at 21:00 Diagnostic Test (Pha) 1 ea 1 ea 02 XX ; Start 10/03/17 at 02:00 Sodium Chloride (NS) 1,000 ml @ 75 mls/hr [id number] IV Last administered on 10/05 20:14; Admin Dose 75 MLS/HR; Start 10/02/17 at 09:23 Ondansetron HCl (Zofran Inj) 4 mg Q6H PRN IV NAUSEA AND/OR VOMITING; Start 10/02/17 at 09:30 Acetaminophen (Tylenol Tab) 650 mg Q6H PRN PO PAIN LEVEL 1-3 OR FEVER Last administered on 10/04/17 00:21; Admin Dose 650 MG; Start 10/02/17 at 09:30 Acetaminophen/ Hydrocodone Bitart ([place] (5/325)) 1 tab Q6H PRN PO MODERATE PAIN LEVEL 4-6; Start 10/02/17 at 09:30 Acetaminophen/ Hydrocodone Bitart ([place] (5/325)) 2 tab Q6H PRN PO SEVERE PAIN LEVEL 7-10; Start 10/02/17 at 09:30 Morphine Sulfate (morphine) 2 mg Q4H PRN IV SEVERE PAIN LEVEL 7-10; Start 10/02 at 09:30 Docusate Sodium (Colace) 100 mg Q12H PRN PO CONSTIPATION; Start 10/02/17 at 09: 30 Magnesium Hydroxide (Milk Of Mag) 30 ml DAILY PRN PO CONSTIPATION; Start at 09:30 Bisacodyl (Dulcolax Supp) 10 mg DAILY PRN [place] CONSTIPATION; Start 10/02/17 at 09 :30 Famotidine 20 mg 20 mg Q12 PO Last administered on 10/06/17 09:01; Admin Dose 20 MG; Start 10/02/17 at 21:00 Piperacillin Sod/ Tazobactam Sod (Zosyn 3.375gm/ 50 ml (Pmx)) 50 ml @ 100 mls/ hr Q8 IVPB Last administered on 10/06/17 14:04; Admin Dose 100 MLS/HR; Start 10/02/17 at 14:00 Miscellaneous Information 1 ea NOTE XX ; Start 10/02/17 at 10:30 Glucose (Glutose) 15 gm Q15M PRN PO DECREASED GLUCOSE; Start 10/02/17 at 10:30 Glucose (Glutose) 22.5 gm Q15M PRN PO DECREASED GLUCOSE; Start 10/02/17 at 10: 30 Dextrose (D50w Syringe) 25 ml Q15M PRN IV DECREASED GLUCOSE; Start 10/02/17 at 10:30 Dextrose (D50w Syringe) 50 ml Q15M PRN IV DECREASED GLUCOSE; Start 10/02/17 at 10:30 Glucagon (Glucagen) 1 mg Q15M PRN IM DECREASED GLUCOSE; Start 10/02/17 at 10:30 Glucose (Glutose) 15 gm Q15M PRN BUCCAL DECREASED GLUCOSE; Start 10/02/17 at 10 :30 Sodium Hypochlorite (Dakin'S (Dilute 1/40%)) 1 applic DAILY IRR Last administered on 10/06/17 09:12; Admin Dose 1 APPLIC; Start 10/04/17 at 09:00 Collagenase (Santyl) 1 applic DAILY TOP Last administered on 10/06/17 09:12; Admin Dose 1 APPLIC; Start 10/04/17 at 09:00 Pregabalin (Lyrica) 75 mg BID PO Last administered on 10/06/17 09:06; Admin Dose 75 MG; Start 10/04/17 at 10:00 Lactobacillus Acidophilus/ Rhamnosus 1 cap 1 cap BID PO Last administered on 09:00; Admin Dose 1 CAP; Start 10/05/17 at 21:00 Vancomycin HCl/ Sodium Chloride (Vancocin/NS) 250 ml @ 83.333 mls/ hr Q12H IVPB ; Start 10/07/17 at 00:00 Enoxaparin Sodium (Lovenox) 40 mg DAILY SC ; Start 10/07/17 at 09:00 Insulin Glargine (Lantus) 10 unit DAILY@20 SC ; Start 10/06/17 at 20:00 KWAN ANDERSON NP Oct 06, 2017 17:51
[2017-10-06] MEDS: SOD CHLORIDE 0.9% 1,000 ML IV SCH (18:29)
[2017-10-06] MEDS ORDERED: INSULIN GLARGINE [LANtus] 3 ML PEN SC SCH (20:00)
[2017-10-06] MEDS: ATORVASTATIN 10 MG TAB PO SCH (20:12)
[2017-10-06 20:32] VITALS: BP 159/84; RESP 18
[2017-10-06] MEDS: VANCOMYCIN 1.25 GM in SOD CHLORIDE 0.9% 250 ML IVPB SCH (23:45)
[2017-10-07] MEDS: ACCU-CHEK XX SCH (02:00)
[2017-10-07 02:49] VITALS: BP 130/63; RESP 20
[2017-10-07] MEDS: PIPER-TAZO 3.375 GM IV (PMX) 50 ML IVPB SCH (05:18)
[2017-10-07 07:37] VITALS: BP 121/65; RESP 20
[2017-10-07] MEDS: INSULIN ASPART [NOVOLOG] 3 ML PEN SC SCH ×7 (07:59→21:00)
[2017-10-07] MEDS: FAMOTIDINE 20 MG TAB PO SCH ×2 (08:16→20:42)
[2017-10-07] MEDS: PREGABALIN 75 MG CAP PO SCH ×2 (08:16→20:41)
[2017-10-07] MEDS: CITALOPRAM 20 MG TAB PO SCH (08:16)
[2017-10-07] MEDS: LOSARTAN 25 MG TAB PO SCH ×2 (08:17→20:41)
[2017-10-07] MEDS: LACTOBACILLUS RHAMNOSUS CAP PO SCH ×2 (08:17→20:42)
[2017-10-07] MEDS: SODIUM HYPOCHLORITE 1/40% 1L IRRIG IRR SCH (08:18)
[2017-10-07] MEDS: COLLAGENASE 30 GM TUBE TOP SCH (08:18)
[2017-10-07] MEDS ORDERED: ENOXAPARIN 40 MG/0.4 ML SYG SC SCH (09:00)
[2017-10-07] MEDS: SOD CHLORIDE 0.9% 1,000 ML IV SCH ×2 (09:40→23:47)
--- NOTE | 2017-10-07 11:33 | PN ---
Date/Time of Note Date/Time of Note DATE: 10/07/17 TIME: 11:25 Assessment/Plan VTE Prophylaxis VTE Prophylaxis Intervention: LMWH Lines/Catheters IV C[facility]ter Type (from [facility]): PICC Line Central line still needed: Yes (Outpatient IV antibiotics) Urinary Cath still in place: No Assessment/Plan Assessment/Plan 52-year-old male with: 1. Fluid collection/possible abscess lateral to the fifth metatarsal neck and possible osteomyelitis of the fifth metatarsal, left foot on MRI. Wound culture with coagulase-negative Staphylococcus and enterococcus Discussed with podiatry this morning, patient put n.p.o. after breakfast, plan for possible OR debridement of his left foot. Continue current antibiotics, vancomycin and Zosyn, and appreciate infectious disease recommendations. Blood culture are negative. WBC has normalized since last week, latest CBC was 2 days ago.. Patient remains afebrile and hemodynamically stable. We will check PT/ PTT/ INR if not done. 2. Diabetes mellitus, patient reports that his blood sugars have been much better control at home and out of control couple of days prior to admission. His A1c is 10.6 today which is improved from 2 months ago when his A1c was out of range and likely greater than 14. Continue current insulin regimen, sliding scale insulin has been added. Will titrate his Lantus as needed. Appreciate follow-up from diabetic education. 3. Hyperlipidemia: Continue statin therapy. 4. Diabetic neuropathy: Resume Lyrica Prophylaxis: Lovenox for DVT prophylaxis, last prophylactic dose was early this morning at 8, on hold for now for possible I&D., Pepcid for GI prophylaxis Disposition: Plan for possible I&D later this afternoon, patient has been put n.p.o. after breakfast. Follow-up additional podiatry recommendations today, d/ c planning likely for tomorrow AM. Subjective 24 Hr Interval Summary Free Text/Dictation Patient doing well, no complaints, blood sugars have been stable, awaiting podiatry recommendation regarding possible I&D today. Discussed with Dr. Braden Quintero , we will keep the patient n.p.o. until he evaluates the patient. Exam/Review of Systems Vital Signs Vitals Vital Signs Date Time Temp Pulse Resp B/P Pulse Ox O2 Delivery O2 Flow Rate FiO2 10/07/17 07:37 98.5 66 20 121/65 98 Intake and Output 10/06/17 10/06/17 10/07/17 15:00 23:00 07:00 Intake Total 50 ml 2000 ml 1285 ml Balance 50 ml 2000 ml 1285 ml Exam Constitutional: alert, oriented, well developed Cardiovascular: nl pulses, regular rate and rhythm Gastrointestinal: non-tender, soft Musculoskeletal: other (Left foot with dressing in place, otherwise no edema noted. 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, nl mental status, nl speech, nl strength Results Result Diagram: 10/05/1752410/05/17524 Results 24 hrs Laboratory Tests Test 10/06/17 12:05 10/06/17 13:59 10/06/17 14:32 10/06/17 15:07 Bedside Glucose 93 60 L 136 172 Test 10/06/17 16:56 10/06/17 20:11 10/07/17 02:06 10/07/17 07:49 Bedside Glucose 236 H 182 168 137 Medications Medications Current Medications Citalopram Hydrobromide (Celexa) 40 mg DAILY PO Last administered on 08:16; Admin Dose 40 MG; Start 10/02/17 at 10:00 Losartan Potassium (Cozaar) 25 mg BID PO Last administered on 10/07/17 08:17 ; Admin Dose 25 MG; Start 10/02/17 at 09:30 Atorvastatin Calcium (Lipitor) 10 mg DAILY@21 PO Last administered on 20:12; Admin Dose 10 MG; Start 10/02/17 at 21:00 Diagnostic Test (Pha) 1 ea 1 ea 02 XX ; Start 10/03/17 at 02:00 Sodium Chloride (NS) 1,000 ml @ 75 mls/hr [id number] IV Last administered on 09:40; Admin Dose 75 MLS/HR; Start 10/02/17 at 09:23 Ondansetron HCl (Zofran Inj) 4 mg Q6H PRN IV NAUSEA AND/OR VOMITING; Start 10/02/17 at 09:30 Acetaminophen (Tylenol Tab) 650 mg Q6H PRN PO PAIN LEVEL 1-3 OR FEVER Last administered on 10/04/17 00:21; Admin Dose 650 MG; Start 10/02/17 at 09:30 Acetaminophen/ Hydrocodone Bitart ([place] (5/325)) 1 tab Q6H PRN PO MODERATE PAIN LEVEL 4-6; Start 10/02/17 at 09:30 Acetaminophen/ Hydrocodone Bitart ([place] (5/325)) 2 tab Q6H PRN PO SEVERE PAIN LEVEL 7-10; Start 10/02/17 at 09:30 Morphine Sulfate (morphine) 2 mg Q4H PRN IV SEVERE PAIN LEVEL 7-10; Start 10/02 at 09:30 Docusate Sodium (Colace) 100 mg Q12H PRN PO CONSTIPATION; Start 10/02/17 at 09: 30 Magnesium Hydroxide (Milk Of Mag) 30 ml DAILY PRN PO CONSTIPATION; Start at 09:30 Bisacodyl (Dulcolax Supp) 10 mg DAILY PRN [place] CONSTIPATION; Start 10/02/17 at 09 :30 Famotidine 20 mg 20 mg Q12 PO Last administered on 10/07/17 08:16; Admin Dose 20 MG; Start 10/02/17 at 21:00 Piperacillin Sod/ Tazobactam Sod (Zosyn 3.375gm/ 50 ml (Pmx)) 50 ml @ 100 mls/ hr Q8 IVPB Last administered on 10/07/17 05:18; Admin Dose 100 MLS/HR; Start 10/02/17 at 14:00 Miscellaneous Information 1 ea NOTE XX ; Start 10/02/17 at 10:30 Glucose (Glutose) 15 gm Q15M PRN PO DECREASED GLUCOSE; Start 10/02/17 at 10:30 Glucose (Glutose) 22.5 gm Q15M PRN PO DECREASED GLUCOSE; Start 10/02/17 at 10: 30 Dextrose (D50w Syringe) 25 ml Q15M PRN IV DECREASED GLUCOSE; Start 10/02/17 at 10:30 Dextrose (D50w Syringe) 50 ml Q15M PRN IV DECREASED GLUCOSE; Start 10/02/17 at 10:30 Glucagon (Glucagen) 1 mg Q15M PRN IM DECREASED GLUCOSE; Start 10/02/17 at 10:30 Glucose (Glutose) 15 gm Q15M PRN BUCCAL DECREASED GLUCOSE; Start 10/02/17 at 10 :30 Sodium Hypochlorite (Dakin'S (Dilute 1/40%)) 1 applic DAILY IRR Last administered on 10/07/17 08:18; Admin Dose 1 APPLIC; Start 10/04/17 at 09:00 Collagenase (Santyl) 1 applic DAILY TOP Last administered on 10/07/17 08:18; Admin Dose 1 APPLIC; Start 10/04/17 at 09:00 Pregabalin (Lyrica) 75 mg BID PO Last administered on 10/07/17 08:16; Admin Dose 75 MG; Start 10/04/17 at 10:00 Lactobacillus Acidophilus/ Rhamnosus 1 cap 1 cap BID PO Last administered on 08:17; Admin Dose 1 CAP; Start 10/05/17 at 21:00 Vancomycin HCl/ Sodium Chloride (Vancocin/NS) 250 ml @ 83.333 mls/ hr Q12H IVPB Last administered on 10/06/17 23:45; Admin Dose 83.333 MLS/HR; Start at 00:00 Enoxaparin Sodium (Lovenox) 40 mg DAILY SC Last administered on 10/07/17 08: 17; Admin Dose 40 MG; Start 10/07/17 at 09:00 Insulin Glargine (Lantus) 10 unit DAILY@20 SC Last administered on 10/06/17 20:14; Admin Dose 10 UNIT; Start 10/06/17 at 20:00 Miscellaneous Information (*Rx Drug Level Order Reminder*) VANCO TROUGH @ 1, 100 ON ... ONCE ONCE XX ; Start 10/08/17 at 11:00; Stop 10/08/17 at 11:01 CIELO ACEVEDO Oct 07, 2017 11:33
[2017-10-07] MEDS: VANCOMYCIN 1.25 GM in SOD CHLORIDE 0.9% 250 ML IVPB SCH ×2 (12:47→23:48)
[2017-10-07 13:04] LABS: INR 1.08; PROTIME 14.1 Sec (11.9-14.9); PT RATIO 1.1
[2017-10-07 13:05] LABS: PARTIAL THROMBOPLASTIN TIME 34.9 Sec (25.0-35.0)
--- NOTE | 2017-10-07 13:12 | PN ---
Date/Time of Note Date/Time of Note DATE: 10/07/17 TIME: 13:10 Assessment/Plan Lines/Catheters IV Catheter Type (from [facility]): PICC Line Lr in Place (from [facility]): No Assessment/Plan Problems: (1) Non-pressure chronic ulcer of other part of left foot with necrosis of bone (2) Diabetic foot ulcer with osteomyelitis Status: Acute (3) Diabetes, polyneuropathy Status: Chronic Qualifiers: Diabetes mellitus type: type 2 Qualified Code: E11.42 - Diabetic polyneuropathy associated with type 2 diabetes mellitus Assessment/Plan At this time, the ulceration has improved significantly and does not require urgent surgical management. The wound will be managed on an outpatient basis. Patient is to remain nonweightbearing on the left foot with daily dressing changes. Santyl ointment to be applied to the open wound on the plantar aspect of the fifth metatarsophalangeal joint with daily dressing changes. My recommendation is continuation of IV antibiotics for 6 weeks. Patient may be discharged home once IV antibiotics are arranged and then patient can follow-up in the office next week. Thank you again for involving me in the care of this patient. If you have any questions regarding this case, please feel free to contact me at pager: or reach me at mobile: [phone]. Subjective 24 Hr Interval Summary Patient was seen at bedside. Patient is in no acute distress. Patient reports no new adverse events. Patient denies fever, chills, nausea or vomiting. Patient denies pain. Patient denies recent trauma. Patient reports bandages are being changed as directed. Patient does not report any new problems. Constitutional: no complaints Pain Control: well controlled Exam/Review of Systems Vital Signs Vitals Vital Signs Date Time Temp Pulse Resp B/P Pulse Ox O2 Delivery O2 Flow Rate FiO2 10/07/17 07:37 98.5 66 20 121/65 98 Intake and Output 10/06/17 10/06/17 10/07/17 14:59 22:59 06:59 Intake Total 50 ml 2000 ml 1285 ml Balance 50 ml 2000 ml 1285 ml Exam Free Text/Dictation In no acute distress laying supine in bed. Dressing was removed from the left foot. Plantar central hyperkeratosis present with no surrounding erythema and no underlying fluctuance. Nontender to palpation. Open wound present plantar left fifth metatarsal phalangeal joint significantly improved since his admission with no active drainage. There is a 1 cm area of skin which is soft however there is no drainage and no malodor present. The area is nontender to palpation. Dorsalis pedis and posterior tibial pulses palpable. Sensation is decreased to sharp dull vibratory temperature stimuli. Labs reviewed. Results Result Diagram: 10/05/17 0525 10/05/17 0525 TUTU SHAFFER DPM Oct 07, 2017 13:12
[2017-10-07 14:00] VITALS: BP 137/88; RESP 20
--- NOTE | 2017-10-07 19:03 | PN ---
DATE: 10/07/2017 SUBJECTIVE: No events overnight. The patient is sleeping, looks comfortable. No fevers overnight. LABORATORY: No labs this morning. MICROBIOLOGY: Left foot culture grew coag-negative Staph species and Enterococcus species. ANTIMICROBIALS: The patient is on IV vanco and Zosyn. PHYSICAL EXAMINATION: GENERAL: This is a well-nourished, well-developed, middle-aged man who is sleeping, in no distress. HEENT: Head atraumatic, normocephalic. Sclerae anicteric. Buccal mucosa pink. NECK: Supple. CHEST: Rise symmetrical. Breath sounds clear. HEART: S1, S2. ABDOMEN: Soft. Bowel tones present. ASSESSMENT: 1. Left lower extremity osteomyelitis. 2. Diabetes with diabetic neuropathy. 3. Hyperlipidemia. PLAN: The patient remains stable. Scheduled for debridement. We are going to discontinue Zosyn. Keep him on IV vancomycin. Monitor renal function closely. Await for podiatry input. Dictated By: LUCITA RAHMAN PERSONNEL OFFICER for SHELLI KANG MD NI/NTS Conf#: [id number] DID#: [id number] CC: CIELO ACEVEDO MD;*EndCC*
[2017-10-07 19:35] VITALS: BP 111/61; RESP 16
[2017-10-07] MEDS: INSULIN GLARGINE [LANtus] 3 ML PEN SC SCH (20:39)
[2017-10-07] MEDS: ATORVASTATIN 10 MG TAB PO SCH (20:42)
[2017-10-08] MEDS: ACCU-CHEK XX SCH (02:00)
[2017-10-08 02:08] VITALS: BP 136/70; RESP 18
[2017-10-08 06:53] LABS: BASOPHILS % 0.7 % (0.0-2.0); EOSINOPHILS # 0.4 10^3/ul (0.0-0.5); EOSINOPHILS % 6.5 % (0.0-7.0); HEMATOCRIT 32.5 % (42.0-52.0); HEMOGLOBIN 10.7 g/dl (14.0-18.0); LYMPHOCYTES # 1.7 10^3/ul (0.8-2.9); LYMPHOCYTES % 30.9 % (15.0-51.0); MEAN CORPUSCULAR HEMOGLOBIN 26.9 pg (29.0-33.0); MEAN CORPUSCULAR HGB CONC 32.9 g/dl (32.0-37.0); MEAN CORPUSCULAR VOLUME 81.7 fl (82.0-101.0); MEAN PLATELET VOLUME 10.3 fl (7.4-10.4); MONOCYTE # 0.5 10^3/ul (0.3-0.9); MONOCYTES % 9.1 % (0.0-11.0); NEUTROPHIL # 2.8 10^3/ul (1.6-7.5); NEUTROPHILS % 52.6 % (39.0-77.0); PLATELET COUNT 275 10^3/UL (140-415); RED BLOOD COUNT 3.98 10^6/ul (4.70-6.10); RED CELL DISTRIBUTION WIDTH 11.9 % (11.5-14.5); WHITE BLOOD COUNT 5.4 10^3/ul (4.8-10.8)
[2017-10-08 07:18] LABS: CALCIUM 8.9 mg/dl (8.4-10.2); CREATININE 0.76 mg/dl (0.61-1.24)
[2017-10-08 07:54] LABS: MAGNESIUM 1.6 mg/dl (1.7-2.5); PHOSPHORUS 3.7 mg/dl (2.5-4.9)
[2017-10-08 08:00] VITALS: BP 132/79; RESP 18
[2017-10-08] MEDS: LACTOBACILLUS RHAMNOSUS CAP PO SCH (08:14)
[2017-10-08] MEDS: LOSARTAN 25 MG TAB PO SCH (08:14)
[2017-10-08] MEDS: PREGABALIN 75 MG CAP PO SCH (08:14)
[2017-10-08] MEDS: CITALOPRAM 20 MG TAB PO SCH (08:14)
[2017-10-08] MEDS: FAMOTIDINE 20 MG TAB PO SCH (08:14)
[2017-10-08] MEDS: INSULIN ASPART [NOVOLOG] 3 ML PEN SC SCH ×6 (08:16→17:09)
[2017-10-08] MEDS: SODIUM HYPOCHLORITE 1/40% 1L IRRIG IRR SCH (08:21)
[2017-10-08] MEDS: COLLAGENASE 30 GM TUBE TOP SCH (08:21)
--- NOTE | 2017-10-08 10:27 | PN ---
Date/Time of Note Date/Time of Note DATE: 10/08/17 TIME: 10:18 Assessment/Plan VTE Prophylaxis VTE Prophylaxis Intervention: LMWH Lines/Catheters IV [facility]ter Type (from [facility]): PICC Line Central line still needed: Yes (For outpatient IV antibiotics) Urinary Cath still in place: No Assessment/Plan Assessment/Plan 52-year-old male with: 1. Fluid collection/possible abscess lateral to the fifth metatarsal neck and possible osteomyelitis of the fifth metatarsal, left foot on MRI. Wound culture with coagulase-negative Staphylococcus and enterococcus both sensitive to Vancomycin. Patient was evaluated by podiatry yesterday, after reevaluation of the wound, Dr. Quintero has recommended no debridement and just IV antibiotics treatment. Per infectious disease, patient to remain on vancomycin for a total of 6 weeks, he has 5 more weeks to go. WBC has normalized since last week, latest CBC was 2 days ago.. Patient remains afebrile and hemodynamically stable. Patient will be discharged home today on vancomycin. He already has a PICC line. 2. Diabetes mellitus, patient reports that his blood sugars have been much better control at home and out of control couple of days prior to admission. His A1c is 10.6 today which is improved from 2 months ago when his A1c was out of range and likely greater than 14. Continue current insulin regimen, sliding scale insulin has been added. Will titrate his Lantus as needed. Appreciate follow-up from diabetic education. 3. Hyperlipidemia: Continue statin therapy. 4. Diabetic neuropathy: Continue Lyrica Prophylaxis: Lovenox for DVT prophylaxis, Pepcid for GI prophylaxis Disposition: Discharge home today with home health for IV antibiotics, follow- up with Dr. Quintero later this week or early next week for wound reevaluation. Follow-up with primary care physician within 1 week. Subjective 24 Hr Interval Summary Free Text/Dictation Patient doing well, afebrile, left foot seems stable, no signs of cellulitis, erythema. Appreciate recommendations from podiatry, discharge planning home today on 5 weeks of vancomycin to complete 6 weeks course recommended by factious disease. Exam/Review of Systems Vital Signs Vitals Vital Signs Date Time Temp Pulse Resp B/P Pulse Ox O2 Delivery O2 Flow Rate FiO2 10/08/17 08:00 97.5 67 18 132/79 97 Intake and Output 10/07/17 10/07/17 10/08/17 14:59 22:59 06:59 Intake Total 255 ml 1050 ml 1070 ml Output Total 1100 ml Balance 255 ml -50 ml 1070 ml Exam Constitutional: alert, oriented, well developed Respiratory: clear to auscultation, normal air movement Gastrointestinal: non-tender, soft Musculoskeletal: nl gait and stance, other (Left foot with dressing in place, no signs of erythema or edema. 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9 Platelet Count 275 Mean Platelet Volume 10.3 Neutrophils % 52.6 Lymphocytes % 30.9 Monocytes % 9.1 Eosinophils % 6.5 Basophils % 0.7 Nucleated Red Blood Cells % 0.0 Neutrophils # 2.8 Lymphocytes # 1.7 Monocytes # 0.5 Eosinophils # 0.4 Basophils # 0.0 Nucleated Red Blood Cells # 0.0 Sodium Level 138 Potassium Level 4.0 Chloride Level 101 Carbon Dioxide Level 32 H Anion Gap 9 Blood Urea Nitrogen 21 H Creatinine 0.76 Glucose Level 156 Calcium Level 8.9 Phosphorus Level 3.7 Magnesium Level 1.6 L Bedside Glucose 160 Medications Medications Current Medications Citalopram Hydrobromide (Celexa) 40 mg DAILY PO Last administered on 08:14; Admin Dose 40 MG; Start 10/02/17 at 10:00 Losartan Potassium (Cozaar) 25 mg BID PO Last administered on 10/08/17 08:14 ; Admin Dose 25 MG; Start 10/02/17 at 09:30 Atorvastatin Calcium (Lipitor) 10 mg DAILY@21 PO Last administered on 20:42; Admin Dose 10 MG; Start 10/02/17 at 21:00 Diagnostic Test (Pha) 1 ea 1 ea 02 XX ; Start 10/03/17 at 02:00 Sodium Chloride (NS) 1,000 ml @ 75 mls/hr [id number] IV Last administered on 23:47; Admin Dose 75 MLS/HR; Start 10/02/17 at 09:23 Ondansetron HCl (Zofran Inj) 4 mg Q6H PRN IV NAUSEA AND/OR VOMITING; Start 10/02/17 at 09:30 Acetaminophen (Tylenol Tab) 650 mg Q6H PRN PO PAIN LEVEL 1-3 OR FEVER Last administered on 10/04/17 00:21; Admin Dose 650 MG; Start 10/02/17 at 09:30 Acetaminophen/ Hydrocodone Bitart ([place] (5/325)) 1 tab Q6H PRN PO MODERATE PAIN LEVEL 4-6; Start 10/02/17 at 09:30 Acetaminophen/ Hydrocodone Bitart ([place] (5/325)) 2 tab Q6H PRN PO SEVERE PAIN LEVEL 7-10; Start 10/02/17 at 09:30 Morphine Sulfate (morphine) 2 mg Q4H PRN IV SEVERE PAIN LEVEL 7-10; Start 10/02 at 09:30 Docusate Sodium (Colace) 100 mg Q12H PRN PO CONSTIPATION; Start 10/02/17 at 09: 30 Magnesium Hydroxide (Milk Of Mag) 30 ml DAILY PRN PO CONSTIPATION; Start at 09:30 Bisacodyl (Dulcolax Supp) [address] CONSTIPATION; Start 10/02/17 at 09 :30 Famotidine (Pepcid) 20 mg Q12 PO Last administered on 10/08/17 08:14; Admin Dose 20 MG; Start 10/02/17 at 21:00 Miscellaneous Information 1 ea NOTE XX ; Start 10/02/17 at 10:30 Glucose (Glutose) 15 gm Q15M PRN PO DECREASED GLUCOSE; Start 10/02/17 at 10:30 Glucose (Glutose) 22.5 gm Q15M PRN PO DECREASED GLUCOSE; Start 10/02/17 at 10: 30 Dextrose (D50w Syringe) 25 ml Q15M PRN IV DECREASED GLUCOSE; Start 10/02/17 at 10:30 Dextrose (D50w Syringe) 50 ml Q15M PRN IV DECREASED GLUCOSE; Start 10/02/17 at 10:30 Glucagon (Glucagen) 1 mg Q15M PRN IM DECREASED GLUCOSE; Start 10/02/17 at 10:30 Glucose (Glutose) 15 gm Q15M PRN BUCCAL DECREASED GLUCOSE; Start 10/02/17 at 10 :30 Sodium Hypochlorite (Dakin'S (Dilute 1/40%)) 1 applic DAILY IRR Last administered on 10/08/17 08:21; Admin Dose 1 APPLIC; Start 10/04/17 at 09:00 Collagenase (Santyl) 1 applic DAILY TOP Last administered on 10/08/17 08:21; Admin Dose 1 APPLIC; Start 10/04/17 at 09:00 Pregabalin (Lyrica) 75 mg BID PO Last administered on 10/08/17 08:14; Admin Dose 75 MG; Start 10/04/17 at 10:00 Lactobacillus Acidophilus/ Rhamnosus 1 cap 1 cap BID PO Last administered on 08:14; Admin Dose 1 CAP; Start 10/05/17 at 21:00 Vancomycin HCl/ Sodium Chloride (Vancocin/NS) 250 ml @ 83.333 mls/ hr Q12H IVPB Last administered on 10/07/17 23:48; Admin Dose 83.333 MLS/HR; Start at 00:00 Enoxaparin Sodium (Lovenox) 40 mg DAILY SC Last administered on 10/07/17 08: 17; Admin Dose 40 MG; Start 10/07/17 at 09:00; Status Future Hold Insulin Glargine (Lantus) 10 unit DAILY@20 SC Last administered on 10/07/17 20:39; Admin Dose 10 UNIT; Start 10/06/17 at 20:00 Miscellaneous Information (*Rx Drug Level Order Reminder*) VANCO TROUGH @ 1, 100 ON ... ONCE ONCE XX ; Start 10/08/17 at 11:00; Stop 10/08/17 at 11:01 CIELO ACEVEDO Oct 08, 2017 10:27
--- NOTE | 2017-10-08 10:38 | PDOCDIS ---
Discharge Instructions CONDITION Patient Condition: Stable HOME CARE INSTRUCTIONS: Special Diet: CCB ACTIVITY: Activity Restrictions: Slowly Increase Activity FOLLOW UP/APPOINTMENTS Follow-up Plan Follow-up with primary care physician within 1 week Follow-up with Dr. Braden Quintero within 1 week Follow-up with home health for IV antibiotics, PICC line care and left foot wound care CIELO ACEVEDO Oct 08, 2017 10:38
[2017-10-08] MEDS ORDERED: SAN30GM TOP (10:42)
[2017-10-08] MEDS ORDERED: LANT3I SC (10:42)
[2017-10-08] MEDS ORDERED: VANC1.2511 IV (10:45)
[2017-10-08] MEDS: SOD CHLORIDE 0.9% 1,000 ML IV SCH (12:03)
[2017-10-08] MEDS: VANCOMYCIN 1.25 GM in SOD CHLORIDE 0.9% 250 ML IVPB SCH (13:30)
[2017-10-08 14:06] VITALS: BP 120/59; RESP 18
--- NOTE | 2017-10-08 15:36 | CONS ---
Date/Time of Note Date/Time of Note DATE: 10/08/17 TIME: 15:34 Assessment/Plan Assessment/Plan Chief Complaint/Hosp Course SUBJECTIVE: No events overnight. The patient is sleeping, looks comfortable. No fevers overnight. MICROBIOLOGY: Left foot culture grew coag-negative Staph species and Enterococcus species. ANTIMICROBIALS: The patient is on IV Vanco PHYSICAL EXAMINATION: GENERAL: This is a well-nourished, well-developed, middle-aged man who is sleeping, in no distress. HEENT: Head atraumatic, normocephalic. Sclerae anicteric. Buccal mucosa pink. NECK: Supple. CHEST: Rise symmetrical. Breath sounds clear. HEART: S1, S2. ABDOMEN: Soft. Bowel tones present. ASSESSMENT: 1. Left lower extremity osteomyelitis. 2. Diabetes with diabetic neuropathy. 3. Hyperlipidemia. PLAN: Remains stable. Anticipate dc home on IV Vanco or Daptomycin for 6 weeks, f/u with podiatry outpatient [facility] staff Problems: Consultation Date/Type/Reason Admit Date/Time Oct 02, 2017 at 09:31 Type of Consultation: ID Exam/Review of Systems Vital Signs Vitals Vital Signs Date Time Temp Pulse Resp B/P Pulse Ox O2 Delivery O2 Flow Rate FiO2 10/08/17 14:06 97.8 71 18 120/59 97 Intake and Output 10/07/17 10/07/17 10/08/17 15:00 23:00 07:00 Intake Total 255 ml 1050 ml 1070 ml Output Total 1100 ml Balance 255 ml -50 ml 1070 ml Results Result Diagram: 10/08/17 0537 10/08/17 0537 Results 24 hrs Laboratory Tests Test 10/07/17 17:39 10/07/17 20:36 10/08/17 05:37 10/08/17 07:48 Bedside Glucose 228 H 166 160 White Blood Count 5.4 Red Blood Count 3.98 L Hemoglobin 10.7 L Hematocrit 32.5 L Mean Corpuscular Volume 81.7 L Mean Corpuscular Hemoglobin 26.9 L Mean Corpuscular Hemoglobin Concent 32.9 Red Cell Distribution Width 11.9 Platelet Count 275 Mean Platelet Volume 10.3 Neutrophils % 52.6 Lymphocytes % 30.9 Monocytes % 9.1 Eosinophils % 6.5 Basophils % 0.7 Nucleated Red Blood Cells % 0.0 Neutrophils # 2.8 Lymphocytes # 1.7 Monocytes # 0.5 Eosinophils # 0.4 Basophils # 0.0 Nucleated Red Blood Cells # 0.0 Sodium Level 138 Potassium Level 4.0 Chloride Level 101 Carbon Dioxide Level 32 H Anion Gap 9 Blood Urea Nitrogen 21 H Creatinine 0.76 Glucose Level 156 Calcium Level 8.9 Phosphorus Level 3.7 Magnesium Level 1.6 L Test 10/08/17 11:51 10/08/17 12:01 Bedside Glucose 200 Vancomycin Level Trough 15.4 Medications Medications Current Medications Citalopram Hydrobromide (Celexa) 40 mg DAILY PO Last administered on 08:14; Admin Dose 40 MG; Start 10/02/17 at 10:00 Losartan Potassium (Cozaar) 25 mg BID PO Last administered on 10/08/17 08:14 ; Admin Dose 25 MG; Start 10/02/17 at 09:30 Atorvastatin Calcium (Lipitor) 10 mg DAILY@21 PO Last administered on 20:42; Admin Dose 10 MG; Start 10/02/17 at 21:00 Diagnostic Test (Pha) 1 ea 1 ea 02 XX ; Start 10/03/17 at 02:00 Sodium Chloride (NS) 1,000 ml @ 75 mls/hr [id number] IV Last administered on 23:47; Admin Dose 75 MLS/HR; Start 10/02/17 at 09:23 Ondansetron HCl (Zofran Inj) 4 mg Q6H PRN IV NAUSEA AND/OR VOMITING; Start 10/02/17 at 09:30 Acetaminophen (Tylenol Tab) 650 mg Q6H PRN PO PAIN LEVEL 1-3 OR FEVER Last administered on 10/04/17 00:21; Admin Dose 650 MG; Start 10/02/17 at 09:30 Acetaminophen/ Hydrocodone Bitart ([place] (5/325)) 1 tab Q6H PRN PO MODERATE PAIN LEVEL 4-6; Start 10/02/17 at 09:30 Acetaminophen/ Hydrocodone Bitart ([place] (5/325)) 2 tab Q6H PRN PO SEVERE PAIN LEVEL 7-10; Start 10/02/17 at 09:30 Morphine Sulfate (morphine) 2 mg Q4H PRN IV SEVERE PAIN LEVEL 7-10; Start 10/02 at 09:30 Docusate Sodium (Colace) 100 mg Q12H PRN PO CONSTIPATION; Start 10/02/17 at 09: 30 Magnesium Hydroxide (Milk Of Mag) 30 ml DAILY PRN PO CONSTIPATION; Start at 09:30 Bisacodyl (Dulcolax Supp) 10 mg DAILY PRN [place] CONSTIPATION; Start 10/02/17 at 09 :30 Famotidine (Pepcid) 20 mg Q12 PO Last administered on 10/08/17 08:14; Admin Dose 20 MG; Start 10/02/17 at 21:00 Miscellaneous Information 1 ea NOTE XX ; Start 10/02/17 at 10:30 Glucose (Glutose) 15 gm Q15M PRN PO DECREASED GLUCOSE; Start 10/02/17 at 10:30 Glucose (Glutose) 22.5 gm Q15M PRN PO DECREASED GLUCOSE; Start 10/02/17 at 10: 30 Dextrose (D50w Syringe) 25 ml Q15M PRN IV DECREASED GLUCOSE; Start 10/02/17 at 10:30 Dextrose (D50w Syringe) 50 ml Q15M PRN IV DECREASED GLUCOSE; Start 10/02/17 at 10:30 Glucagon (Glucagen) 1 mg Q15M PRN IM DECREASED GLUCOSE; Start 10/02/17 at 10:30 Glucose (Glutose) 15 gm Q15M PRN BUCCAL DECREASED GLUCOSE; Start 10/02/17 at 10 :30 Sodium Hypochlorite (Dakin'S (Dilute 1/40%)) 1 applic DAILY IRR Last administered on 10/08/17 08:21; Admin Dose 1 APPLIC; Start 10/04/17 at 09:00 Collagenase (Santyl) 1 applic DAILY TOP Last administered on 10/08/17 08:21; Admin Dose 1 APPLIC; Start 10/04/17 at 09:00 Pregabalin (Lyrica) 75 mg BID PO Last administered on 10/08/17 08:14; Admin Dose 75 MG; Start 10/04/17 at 10:00 Lactobacillus Acidophilus/ Rhamnosus 1 cap 1 cap BID PO Last administered on 08:14; Admin Dose 1 CAP; Start 10/05/17 at 21:00 Vancomycin HCl/ Sodium Chloride (Vancocin/NS) 250 ml @ 83.333 mls/ hr Q12H IVPB Last administered on 10/08/17 13:30; Admin Dose 83.333 MLS/HR; Start at 00:00 Enoxaparin Sodium (Lovenox) 40 mg DAILY SC Last administered on 10/07/17 08: 17; Admin Dose 40 MG; Start 10/07/17 at 09:00; Status Future Hold Insulin Glargine (Lantus) 10 unit DAILY@20 SC Last administered on 10/07/17 20:39; Admin Dose 10 UNIT; Start 10/06/17 at 20:00 LUCITA RAHMAN NP Oct 08, 2017 15:36
--- NOTE | 2017-10-09 10:23 | DS ---
Date/Time of Note Date/Time of Note DATE: 10/09/17 TIME: 10:14 Discharge Summary Admission/Discharge Info Admit Date/Time Oct 02, 2017 at 09:31 Discharge Date/Time Oct 08, 2017 at 20:36 Discharge Diagnosis 1. Fluid collection/possible abscess lateral to the fifth metatarsal neck and possible osteomyelitis of the fifth metatarsal 2. Diabetes mellitus, insulin requiring. 3. Hyperlipidemia. 4. Diabetic neuropathy. Patient Condition: Stable Consults Podiatry, Dr. Quintero Infectious disease, Dr. Lopez Procedures None Hx of Present Illness Chief complaint: Left foot wound discharge, chills. 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 On dressing change yesterday, it was noted that there was discharge coming out from the fluid collection and it looked purulent. Patient was also having chills, no fevers, no nausea, no vomiting. Therefore the patient came to the emergency department last night, WBC slightly elevated at 11.5, PICC line in place, blood cultures have been drawn, wound cultures are being sent today, given the fact that he has been on treatment for MSSA and now with the recurrent or new infection, his antibiotic coverage has been broadened to Zosyn and vancomycin while awaiting cultures. Patient saw Dr. Quintero, his integrated marketing manager, 2 weeks ago and was told he had good wound healing. He is due to follow-up with his integrated marketing manager tomorrow, Dr. Quintero will be consulted. I have ordered an MRI of his left foot to follow-up, ESR is at 30. Lactic acid is within normal. Hospital Course Patient had an MRI of the left foot, there was reported small fluid collection by the lateral fifth metatarsal neck and also reported osteomyelitis in that area. Patient was evaluated by podiatry, Dr. Quintero, broad-spectrum IV antibiotics were maintained, patient was observed, and after second evaluation by Dr Quintero, the recommendation was to continue IV antibiotics, no need for debridement. Patient was growing resistant coag negative staph and enterococcus , however both sensitive to Vancomycin. He remained stable during the stay, with WBC down to normal, he remained afebrile. He still has his PICC line from his previous round of antibiotics, site is clean and no signs of infection. Blood cultures were negative on this admission. Therefore patient was discharged home on vancomycin for an additional 5 weeks,(total of 6 weeks), per infectious disease recommendations, he is able to keep his same PICC line. Plan is to be reevaluated by the end of his antibiotic course, if he needs additional antibiotics he will need to keep his PICC line otherwise they can remove it as an outpatient. Patient is also to follow-up with Dr. Quintero within 1 week. Home Meds Active Scripts Vancomycin/0.9 % Sod Chloride (Vanco 1.25 gm/150 ml-0.9% NaCl) 1.25 Gm/150 Ml Plast..bag, 1.25 GM IV Q12 for 35 Days Prov:CIELO ACEVEDO 10/08/17 Collagenase* (Santyl*) 30 Gm Oint..gm., 1 APPLIC TOP DAILY, #1 TUB 3 Refills Prov:CIELO ACEVEDO 10/08/17 Insulin Glargine* (Lantus*) 100 Unit/Ml Soln, 10 UNIT SC BID@08,20 for 30 Days, 3 Refills please provide formulary equivalent at same dose if needed and provide as pen form if possible Prov:CIELO ACEVEDO 10/08/17 Acetaminophen (MAPAP) 325 Mg Tablet, 650 MG PO Q6H Y for PAIN, #60 TAB OTC Prov:CIELO ACEVEDO 08/02/17 Insulin Lispro (Humalog Kwikpen) 200 Unit/1 Ml Insuln.pen, 7 UNIT SQ BEFORE MEALS for 30 Days, EA 3 Refills Prov:CIELO ACEVEDO 08/02/17 Lactobacillus Rhamnosus GG (Culturelle) 1 Each Capsule, 1 CAP PO BID for 30 Days , CAP Prov:CIELO ACEVEDO 08/02/17 Losartan Potassium* (Cozaar*) 25 Mg Tablet, 25 MG PO BID for 30 Days, TAB 3 Refills Prov:CIELO ACEVEDO 08/02/17 Reported Medications Citalopram Hydrobromide* (Citalopram Hydrobromide*) 40 Mg Tablet, 40 MG PO DAILY , #30 TAB 07/23/17 Pravastatin Sodium* (Pravastatin Sodium*) 20 Mg Tablet, 20 MG PO DAILY, TAB 08/27/14 Discontinued Scripts Ceftriaxone Sod* (Rocephin* 2GM/D5W (PMX)) 2 Gm/50 Ml Iv.soln., 2 GM IVPB Q24H for 21 Days, EA Prov:CIELO ACEVEDO 08/02/17 Follow-up Plan Follow-up with primary care physician within 1 week Follow-up with Dr. Braden Quintero within 1 week Follow-up with home health for IV antibiotics, PICC line care and left foot wound care Primary Care Provider Not On Staff Doctor Time spent on discharge: > 30 minutes Pending Labs Laboratory Tests Test 10/08/17 11:51 10/08/17 12:01 10/08/17 17:01 Bedside Glucose 200mg/dL (70-220) 124mg/dL (70-220) Vancomycin Level Trough 15.4ug/ml (10.0-20.0) CIELO ACEVEDO Oct 09, 2017 10:23
== END 2017-10-08 20:36 | disposition home health service (06) | DRG 540 ==
LOC: E/R 01:41 → PP2 05:48 → OBSVTOIN 09:31
PROVIDERS: ADMIT Internal Medicine; ATTEND Internal Medicine
DX: M86.172 Other acute osteomyelitis, left ankle and foot (principal); L02.612 Cutaneous abscess of left foot; E11.42 Type 2 diabetes mellitus with diabetic polyneuropathy; E11.621 Type 2 diabetes mellitus with foot ulcer; E11.69 Type 2 diabetes mellitus with other specified complication; Z79.4 Long term (current) use of insulin; E78.5 Hyperlipidemia, unspecified; L97.524 Non-pressure chronic ulcer of other part of left foot with necrosis of bone; B95.7 Other staphylococcus as the cause of diseases classified elsewhere; B95.2 Enterococcus as the cause of diseases classified elsewhere
CPT/HCPCS: 36415; 73718; 80048; 80053; 80202; 81003; 82962; 83036; 83605; 83690; 83735; 84100; 85025; 85610; 85651; 85730; 87040; 87070; 93922; G0378; J1650; J1815; J2543; J3370; J7030; J7050

== ENCOUNTER 2017-11-01 20:44 | Emergency (ER) | END 2017-11-02 06:05 | disposition home or self-care (01) ==

== ENCOUNTER 2017-12-03 06:10 | Inpatient (IN) | END 2017-12-07 21:21 | disposition home or self-care (01) | DRG 982 ==

== ENCOUNTER 2017-12-28 12:33 | Emergency (ER) | END 2017-12-28 18:05 | disposition home or self-care (01) ==

== ENCOUNTER 2018-01-14 02:48 | Emergency (ER) | END 2018-01-14 09:44 | disposition home or self-care (01) ==

== ENCOUNTER 2018-02-13 12:40 | Emergency (ER) | END 2018-02-13 17:50 | disposition home or self-care (01) ==

== ENCOUNTER 2018-02-22 16:38 | Inpatient (IN) | END 2018-02-27 19:15 | disposition home health service (06) | DRG 617 ==